=== PATIENT | female | born 1960 | race African-American/Black ===

== ENCOUNTER 2017-12-21 15:10 | Emergency (ER) | payer OTHER ==
[2017-12-21 15:32] VITALS: BMI 58.7
--- NOTE | 2017-12-21 16:41 | PDOC ---
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 She states that the pain began when she stood from bed this morning, describing it as piercing in sensation and 7/10 in severity. She currently endorses a mild lower back pain today, and mild nausea. The patient states that these episodes of chest pain have been intermittent since her release from the hospital last year*, occurring approximately 4x per day. *She was treated for an infection in her left leg secondary to elephantiasis that spread to her heart. Denies recent travel. Denies urinary/bowel changes. Denies fever, chills, vomiting, diarrhea. Denies headache, dizziness. Denies shortness of breath. Allergies: NKDA Social history: Denies alcohol, tobacco Surgical history: supraumbilical ventral hernia Family history: Denies hx of cardiac problems PCP: Dr. Carlos Bar <Julissa Teague - Last Filed: 12/21/17 23:19> <González Quintana - Last Filed: 12/21/17 23:48> - General Chief Complaint: Chest Pain Stated Complaint: CHEST PAIN Past History <Julissa Teague - Last Filed: 12/21/17 23:19> - Past Medical History Anemia: Yes (PAST HX) Asthma: No Cancer: No Cardiac Disorders: No CVA: No COPD: No CHF: No DVT: No Dementia: No Diabetes: No GI Disorders: Yes (CONSTIPATION,HEMORRHOIDS) Disorders: No HTN: No Hypercholesterolemia: No Liver Disease: No Seizures: No Thyroid Disease: No - Surgical History Abdominal Surgery: Yes (SUPRAUMBILICAL VENTRAL HERNIA) Appendectomy: No Cardiac Surgery: No Cholecystectomy: No Lung Surgery: No Neurologic Surgery: No Orthopedic Surgery: No - Immunization History Immunization Up to Date: Yes - Suicide/Smoking/Psychosocial Hx Smoking History: Never smoked Have you smoked in the past 12 months: No Information on smoking cessation initiated: No Hx Alcohol Use: No Drug/Substance Use Hx: No Substance Use Type: None <González Quintana - Last Filed: 12/21/17 23:48> - Past Medical History Allergies/Adverse Reactions: Allergies Allergy/AdvReac Type Severity Reaction Status Date / Time No Known Drug Allergies Allergy Verified 12/21/17 15:32 Home Medications: Ambulatory Orders Ibuprofen 800 mg PO Q6H 17 Review of Systems - Review of Systems Able to Perform ROS?: Yes Comments:: 12/21/17 17:22 ROS: A complete review of 10 out of 10 review of systems is taken and is negative apart from what is previously mentioned below and in the HPI. <Julissa Teague - Last Filed: 12/21/17 23:19> *Physical Exam - Vital Signs Last Vital Signs Temp Pulse Resp BP Pulse Ox 98.5 F 67 16 108/57 100 12/21/17 15:26 12/21/17 15:26 12/21/17 15:26 12/21/17 15:26 12/21/17 15:26 - Physical Exam Comments: 12/21/17 17:25 Vitals: Triage vital signs reviewed General Appearance: No acute distress, well nourished, well developed Head: Atraumatic Eyes: Pupils equal reactive round, extraocular movement intact Neck: Supple; No nuchal rigidity Chest Wall: Nontender Cardiac: Regular rate and rhythm, no murmurs, no rubs, no gallops Lungs: Clear to auscultation bilateral, good air movement bilaterally Abdomen: Soft, nondistended, normal bowel sounds, nontender to palpation Rectal: Exam deferred Extremities: (+)LLE elephantiasis from prior. Full range of motion to all extremities, no cyanosis, clubbing. Psych: Normal mood, normal affect <Julissa Teague - Last Filed: 12/21/17 23:19> - Vital Signs Last Vital Signs Temp Pulse Resp BP Pulse Ox 98.5 F 67 16 108/57 100 12/21/17 15:26 12/21/17 15:26 12/21/17 15:26 12/21/17 15:26 12/21/17 15:26 <González Quintana - Last Filed: 12/21/17 23:48> ED Treatment Course - LABORATORY CBC & Chemistry Diagram: 12/21/17 16:57 12/21/17 16:57 - RADIOLOGY Radiograph Interpretation: 12/21/17 23:19 Chest X-Ray was reviewed by Dr. Quintana and overread by Radiology. Impression: Questionable minimal focal atelectatic changes in the right mid lung, laterally , as described above. Cannot rule out infiltrates. A follow-up chest x-ray in one week is recommended for further evaluation. 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 She states that the pain began when she stood from bed this morning, describing it as piercing in sensation and 7/10 in severity. She currently endorses a mild lower back pain today, and mild nausea. The patient states that these episodes of chest pain have been intermittent since her release from the hospital last year*, occurring approximately 4x per day. *She was treated for an infection in her left leg secondary to elephantiasis that spread to her heart. Denies recent travel. Denies urinary/bowel changes. Denies fever, chills, vomiting, diarrhea. Denies headache, dizziness. Denies shortness of breath. Plan: Cardiac enzymes EKG <Julissa Teague - Last Filed: 12/21/17 23:19> - Medical Decision Making 57 year history of intermittent chest discomfort. Several times a day often with change in position. No radiation no nausea no dizziness no lightheadedness no risk factors for ACS no PE DVT risk factors no family history EKG demonstrates normal sinus rhythm 66 bpm VT interval 198 QRS 108 QTc is 362. No ST elevations or T-wave inversions. Interpreted by me. Heart score 2. Troponin negative. Very low suspicion for ACS Patient does take Motrin daily secondary to lymphedema discomfort may be secondary to gastritis recommend GI follow-up Finalings, need for follow-up and strict return instructions discussed with patient. 12/21/17 23:47 12/21/17 23:47 <González Quintana - Last Filed: 12/21/17 23:48> *DC/Admit/Observation/Transfer - Attestations Scribe Attestion: 12/21/17 17:36 Documentation prepared by Julissa Teague, acting as medical assistant ob gyn for González Quintana MD. <Julissa Teague - Last Filed: 12/21/17 23:19> - Discharge Dispostion Decision to Admit order: No <González Quintana - Last Filed: 12/21/17 23:48> Diagnosis at time of Disposition: Atypical chest pain - Discharge Dispostion Disposition: HOME Condition at time of disposition: Good - Referrals Referrals: Carlos Bar MD [Primary Care Provider] - Mikey Ireland MD [Staff Physician] - Rodger Lucas MD [Staff Physician] - - Patient Instructions Printed Discharge Instructions: DI for Atypical Chest Pain Additional Instructions: Follow-up with Dr. Ireland cardiology Dr. Lucas gastroenterology. Follow-up with her primary care provider next week. Take Tylenol as needed for pain. Return to ED for any severe worsening symptoms or for any concerns. - Post Discharge Activity
[2017-12-21 17:34] LABS: BASO % 1.2 % (0-2.0); EOS % 3.1 % (0-4.5); HEMATOCRIT 37.6 % (32.4-45.2); HEMOGLOBIN 12.3 GM/dL (10.7-15.3); LYMPH % 34.1 % (8-40); MCH 28.1 pg (25.7-33.7); MCHC 32.7 g/dl (32.0-36.0); MEAN CELL VOLUME 85.9 fl (80-96); MEAN PLT VOLUME 7.3 fl (7.5-11.1); NEUT % 53.6 % (42.8-82.8); PLATELET COUNT 347 K/MM3 (134-434); RBC 4.38 M/mm3 (3.60-5.2); RDW 14.5 % (11.6-15.6); WHITE BLOOD COUNT 5.5 K/mm3 (4.0-10.0)
[2017-12-21 18:06] LABS: ALBUMIN 3.1 g/dl (3.4-5.0); ANION GAP 9 MMOL/L (8-16); BILIRUBIN,TOTAL 0.4 mg/dL (0.2-1.0); BLOOD UREA NITROGEN 12 mg/dL (7-18); CALCIUM 9.2 mg/dL (8.5-10.1); CHLORIDE 104 mmol/L (98-107); CO2 27 mmol/L (21-32); CREATININE 0.7 mg/dL (0.55-1.02); GLUCOSE,RANDOM 63 mg/dL (74-106); SGPT/ALT 19 U/L (12-78); SODIUM 140 mmol/L (136-145); TOT PROT 8.9 g/dl (6.4-8.2)
[2017-12-21 18:09] LABS: ALK PHOS 104 U/L (45-117)
[2017-12-21 18:11] LABS: POTASSIUM 4.2 mmol/L (3.5-5.1); SGOT/AST 24 U/L (15-37)
[2017-12-21 19:38] VITALS: BP 129/76; PULSE 61; TEMP 97.9
--- NOTE | 2017-12-25 10:24 | EKG ---
Test Reason : Blood Pressure : / mmHG Vent. Rate : 066 BPM Atrial Rate : 066 BPM P-R Int : 198 ms QRS Dur : 108 ms QT Int : 346 ms P-R-T Axes : 035 050 029 degrees QTc Int : 362 ms NORMAL SINUS RHYTHM INCOMPLETE RIGHT BUNDLE BRANCH BLOCK MINIMAL VOLTAGE CRITERIA FOR LVH, MAY BE NORMAL VARIANT BORDERLINE ECG WHEN COMPARED WITH ECG OF 29-AUG-2007 01:14, NONSPECIFIC T WAVE ABNORMALITY, WORSE IN INFERIOR LEADS NONSPECIFIC T WAVE ABNORMALITY NOW EVIDENT IN ANTERIOR LEADS QT HAS SHORTENED Confirmed by STAN TEE, YUAN ([id number]) on 12/25/2017 10:24:34 AM Referred By: Confirmed By:YUAN PIERCE MD
== END 2017-12-21 19:37 | disposition home or self-care (01) ==
LOC: JER 15:10
DX: R07.9 Chest pain, unspecified (principal); I89.0 Lymphedema, not elsewhere classified; Z86.2 Personal history of diseases of the blood and blood-forming organs and certain disorders involving the immune mechanism
CPT/HCPCS: 36415; 71045-TC-FY; 80053; 84484; 85025; 93005; 93010; 99284-25; G0463-25

== ENCOUNTER 2018-01-16 18:14 | Inpatient (IN) | payer OTHER ==
--- NOTE | 2018-01-16 18:37 | PDOC ---
Rapid Medical Evaluation Chief Complaint: Wound Time Seen by Provider: 01/16/18 18:33 Medical Evaluation: Allergies Allergy/AdvReac Type Severity Reaction Status Date / Time No Known Drug Allergies Allergy Verified 12/21/17 15:32 01/16/18 18:34 I have performed a brief in person evaluation of this patient. The patient presents with a CC of: wound HPI: Pt is a 57 YO female with a hx of lymphedema and is followed by the wound clinic and she states that her wounds in her LLE are "painful." Pt describes the pain as a throb and she rates it at a 8/10. PE: Skin:Unable to access due to leggings. Heart: RRR Lungs: Clear MS: Moves all extremities without difficulty. LLE is edmatous in comparison to the RLE Neuro: Appropriate affect, Psych: appropriate affect I have ordered: basic labs The patient will proceed to the ED for further evaluation. Discharge Disposition - Diagnosis Wound cellulitis - Referrals Referrals: Carlos Bar MD [Primary Care Provider] - - Patient Instructions - Post Discharge Activity
[2018-01-16 18:46] VITALS: BMI 25.8
--- NOTE | 2018-01-16 19:16 | PDOC ---
Attending Attestation - Resident Resident Name: Wilmar Pena - ED Attending Attestation I have performed the following: I have examined & evaluated the patient, The case was reviewed & discussed with the resident, I agree w/resident's findings & plan, Exceptions are as noted - HPI HPI: 01/16/18 19:14 57yo F hx LLE lymphedema presents with increasing swelling and discharge from LLE over the last week. Pt reports seeing wound care at [facility], last seen on 12/28. Pt also reports fishy smell from her leg. Came today as pain was too much to bear. She states she feels as though her leg is infected. She cleans her wound once a day with soap. States discharge is so copious that she has been applying menstrual pads, but states she soaks through them after a few hours. She notes two large wounds on her arceo that have recently joined into one. + subjective fevers. No chills. Denies CP, SOB, abd pain, N/V/D, headache, focal weakness/numbness. - Physicial Exam PE: 01/16/18 19:37 agree with resident exam - Medical Decision Making 01/16/18 19:38 57yo F hx lymphedema p/w increasing swelling, redness, odor. VS wnl. Exam c/f cellulitic wound. Will obtain US to r/o DVT, give IV abx and admit.
[2018-01-16] MEDS ORDERED: PIPERACILLIN/TAZOB 3.375 GM 3.375 GM in DEXTROSE 5%-WATER - 50 ML IVPB ONE (19:26)
[2018-01-16] MEDS ORDERED: VANCOMYCIN 1,000 MG in DEXTROSE 5%-WATER - 250 ML IVPB ONE (19:26)
--- NOTE | 2018-01-16 20:08 | PDOC ---
History of Present Illness - General Chief Complaint: Wound Stated Complaint: LEFT LEG PAIN Time Seen by Provider: 01/16/18 18:33 History Source: Patient Exam Limitations: No Limitations - History of Present Illness Initial Comments: 01/16/18 20:31 Patient is a 57F with history of lymphedema of the left leg and uterine fibroids here today complaining of left leg pain. She has had large amounts of lymphedema in her left leg for years, but is coming in today because the swelling has increased and the skin has started breaking down along the lower leg. Patient also complains of associated foul odor and discharge from the wound. Patient denies fevers, chills, nausea, vomiting. Patient denies chest pain and shortness of breath. Patient states that she goes to wound care, but hasn't been for two weeks and states they have just been washing her wounds. Past History - Past Medical History Allergies/Adverse Reactions: Allergies Allergy/AdvReac Type Severity Reaction Status Date / Time No Known Drug Allergies Allergy Verified 01/16/18 18:34 Home Medications: Ambulatory Orders Ibuprofen [Motrin -] 800 mg PO QID PRN 01/16/18 Anemia: Yes (PAST HX) Asthma: No Cancer: No Cardiac Disorders: No CVA: No COPD: No CHF: No DVT: No Dementia: No Diabetes: No GI Disorders: Yes (CONSTIPATION,HEMORRHOIDS) Disorders: No HTN: No Hypercholesterolemia: No Liver Disease: No Seizures: No Thyroid Disease: No - Surgical History Abdominal Surgery: Yes (SUPRAUMBILICAL VENTRAL HERNIA) Appendectomy: No Cardiac Surgery: No Cholecystectomy: No Lung Surgery: No Neurologic Surgery: No Orthopedic Surgery: No - Immunization History Immunization Up to Date: Yes - Suicide/Smoking/Psychosocial Hx Smoking History: Never smoked Have you smoked in the past 12 months: No Hx Alcohol Use: No Drug/Substance Use Hx: No Substance Use Type: None Review of Systems - Review of Systems Comments:: 01/16/18 20:35 GENERAL/CONSTITUTIONAL: No fever or chills. No weakness. HEAD, EYES, EARS, NOSE AND THROAT: No change in vision. No sore throat. CARDIOVASCULAR: No chest pain or shortness of breath RESPIRATORY: No cough, wheezing, or hemoptysis. GASTROINTESTINAL: No nausea, vomiting, diarrhea or constipation. GENITOURINARY: No dysuria, frequency, or change in urination. MUSCULOSKELETAL: No joint or muscle swelling or pain. No neck or back pain. SKIN: No rash, +wound NEUROLOGIC: No headache, vertigo, loss of consciousness, or change in strength/ sensation. ENDOCRINE: No increased thirst. No abnormal weight change HEMATOLOGIC/LYMPHATIC: No anemia, easy bleeding, or history of blood clots. ALLERGIC/IMMUNOLOGIC: No hives or skin allergy. *Physical Exam - Vital Signs Last Vital Signs Temp Pulse Resp BP Pulse Ox 98.7 F 60 16 123/71 100 01/16/18 18:35 01/16/18 18:35 01/16/18 18:35 01/16/18 18:35 01/16/18 18:35 - Physical Exam Comments: 01/16/18 20:35 GENERAL: Awake, alert, and fully oriented, in no acute distress L LEG: Markedly swollen left leg with signs of chronic inflammation including thickening of skin along medial aspect and skin breakdown around the distal leg , foul odor, discharge. HEAD: No signs of trauma, normocephalic, atraumatic EYES: PERRLA, EOMI, sclera anicteric, conjunctiva clear ENT: Auricles normal inspection, hearing grossly normal, nares patent, oropharynx clear without exudates. Moist mucosa NECK: Normal ROM, supple, no lymphadenopathy, JVD, or masses LUNGS: No distress, speaks full sentences, clear to auscultation bilaterally HEART: Regular rate and rhythm, normal S1 and S2, no murmurs, rubs or gallops, peripheral pulses normal and equal bilaterally. ABDOMEN: Soft, nontender, normoactive bowel sounds. No guarding, no rebound. No masses NEUROLOGICAL: Cranial nerves II through XII grossly intact. Normal speech, normal gait, no focal sensorimotor deficits SKIN: Warm, Dry, normal turgor, no rashes or lesions noted. ED Treatment Course - LABORATORY CBC & Chemistry Diagram: 01/16/18 19:30 01/16/18 19:30 - RADIOLOGY Radiology Studies Ordered: Category Date Time Status DUPLEX VASCUL US-1 LEG [US] Stat Ultrasound 01/16/18 19:27 Ordered Medical Decision Making - Medical Decision Making 01/16/18 20:36 Patient is 57F with history of lymphedema here today with leg pain, wound infection. Vitals normal and stable. Will cover with vanc/zosyn, do DVT US to prove increased swelling not caused by DVT. Wound was dressed with notebook paper and paper towel, patient is not capable of caring for this wound as outpatient. 01/16/18 21:14 CBC, CMP unremarkable. Pending DVT US study. 01/16/18 22:04 D/W Leela Wesley. [facility]. *DC/Admit/Observation/Transfer Diagnosis at time of Disposition: Wound cellulitis - Discharge Dispostion Condition at time of disposition: Stable Decision to Admit order: Yes - Referrals Referrals: Carlos Bar MD [Primary Care Provider] - - Patient Instructions - Post Discharge Activity
[2018-01-16] MEDS ORDERED: PIPERACILLIN/TAZOB 3.375 GM 3.375 GM/50 ML BAG IVPB ONE (20:16)
[2018-01-16] MEDS ORDERED: VANCOMYCIN 1 GRAM (PRE-DOCKED) 1,000 MG/250 ML BAG IVPB ONE (20:16)
[2018-01-16 20:21] LABS: BASO % 0.9 % (0-2.0); EOS % 4.8 % (0-4.5); HEMATOCRIT 33.5 % (32.4-45.2); HEMOGLOBIN 10.9 GM/dL (10.7-15.3); LYMPH % 31.4 % (8-40); MCH 27.9 pg (25.7-33.7); MCHC 32.4 g/dl (32.0-36.0); MEAN PLT VOLUME 6.9 fl (7.5-11.1); MONO % 12.1 % (3.8-10.2); NEUT % 50.8 % (42.8-82.8); PLATELET COUNT 343 K/MM3 (134-434); RDW 14.3 % (11.6-15.6); WHITE BLOOD COUNT 6.6 K/mm3 (4.0-10.0)
[2018-01-16 20:43] LABS: ANION GAP 9 MMOL/L (8-16); BLOOD UREA NITROGEN 12 mg/dL (7-18); CHLORIDE 104 mmol/L (98-107); CO2 27 mmol/L (21-32); CREATININE 0.7 mg/dL (0.55-1.3); GLUCOSE,RANDOM 90 mg/dL (74-106); POTASSIUM 4.3 mmol/L (3.5-5.1); SODIUM 140 mmol/L (136-145)
[2018-01-16 20:52] LABS: CALCIUM 8.9 mg/dL (8.5-10.1)
[2018-01-16] MEDS ORDERED: ACETAMINOPHEN INJECTION 100 ML IVPB ONE (22:54)
[2018-01-16] MEDS ORDERED: ACETAMINOPHEN 1000 MG/100 ML VIAL (NON FORMULARY) IVPB ONE (23:13)
--- NOTE | 2018-01-16 23:44 | HP ---
CHIEF COMPLAINT: Left Leg Pain, Weeping Wounds to LLE PCP: Dr. Carlos Bar HISTORY OF PRESENT ILLNESS: 57 y/o woman with a past medical history Chronic LLE Lymphedema, Uterine Fibroids. Who presents to the ED with increased pain and weeping wounds to her left leg x 1-2 weeks. Patient reports going to a wound center for treatment- dressing changes. Patient reports noting a "fishy odor" from her leg, with increased drainage. Patient reports having intermittent CP to midsternum with cramping type pain which she attributes to opening and closing a heavy window at home. Patient denies radiation, SOB or palpitations at present. Patient denies chills, SOB, DUDLEY, AP, N/V/D, constipation, dysuria. ER course was notable for: (1) Duplex LE- neg DVT (2) (3) Recent Travel: None PAST MEDICAL HISTORY: See HPI PAST SURGICAL HISTORY: Social History: Smoking: Never Alcohol: None Drugs: None Family History: Allergies No Known Drug Allergies Allergy (Verified 01/16/18 18:34) HOME MEDICATIONS: Home Medications Medication Instructions Recorded Ibuprofen [Motrin -] 800 mg PO QID PRN 01/16/18 REVIEW OF SYSTEMS CONSTITUTIONAL: fever Absent: chills, diaphoresis, generalized weakness, malaise, loss of appetite, weight change HEENT: Absent: rhinorrhea, nasal congestion, throat pain, throat swelling, difficulty swallowing, mouth swelling, ear pain, eye pain, visual changes CARDIOVASCULAR: chest pain, lightheadedness, peripheral edema Absent: syncope, palpitations, irregular heart rate RESPIRATORY: Absent: cough, shortness of breath, dyspnea with exertion, orthopnea, wheezing, stridor, hemoptysis GASTROINTESTINAL: Absent: abdominal pain, abdominal distension, nausea, vomiting, diarrhea, constipation, melena, hematochezia GENITOURINARY: Absent: dysuria, frequency, urgency, hesitancy, hematuria, flank pain, genital pain MUSCULOSKELETAL: myalgia, leg pain Absent: arthralgia, joint swelling, back pain, neck pain SKIN: Absent: rash, itching, pallor HEMATOLOGIC/IMMUNOLOGIC: Absent: easy bleeding, easy bruising, lymphadenopathy, frequent infections ENDOCRINE: Absent: unexplained weight gain, unexplained weight loss, heat intolerance, cold intolerance NEUROLOGIC: Absent: headache, focal weakness or paresthesias, dizziness, unsteady gait, seizure, mental status changes, bladder or bowel incontinence PSYCHIATRIC: Absent: anxiety, depression, suicidal or homicidal ideation, hallucinations. PHYSICAL EXAMINATION Vital Signs - 24 hr 01/16/18 01/16/18 18:35 22:48 Temperature 98.7 F Pulse Rate 60 Pulse Rate [ 80 Apical] Respiratory 16 18 Rate Blood Pressure 123/71 Blood Pressure 103/57 [Left Arm] O2 Sat by Pulse 100 99 Oximetry (%) GENERAL: Awake, alert, and fully oriented, in no acute distress. HEAD: Normal with no signs of trauma. EYES: Pupils equal, round and reactive to light, extraocular movements intact, sclera anicteric, conjunctiva clear. No lid lag. EARS, NOSE, THROAT: Ears normal, nares patent, oropharynx clear without exudates. Moist mucous membranes. NECK: Normal range of motion, supple without lymphadenopathy, JVD, or masses. LUNGS: Breath sounds equal, clear to auscultation bilaterally. No wheezes, and no crackles. No accessory muscle use. HEART: Regular rate and rhythm, normal S1 and S2 without murmur, rub or gallop. CP reproducible upon palpation ABDOMEN: Soft, nontender, not distended, normoactive bowel sounds, no guarding, no rebound, no masses. No hepatomegaly or splenomegaly. MUSCULOSKELETAL: Normal range of motion at all joints. No bony deformities or tenderness. No CVA tenderness. UPPER EXTREMITIES: 2+ pulses, warm, well-perfused. No cyanosis. No clubbing. No peripheral edema. LOWER EXTREMITIES: 2+ pulses, warm, well-perfused. No calf tenderness.no peripheral edema to RLE +chronic lymphedema to LLE NEUROLOGICAL: Cranial nerves II-XII intact. Normal speech. Gait not observed. PSYCHIATRIC: Cooperative. Good eye contact. Appropriate mood and affect. SKIN: Warm, dry, normal turgor, no rashes or lesions noted, normal capillary refill. unstageable wounds to LLE with yellow- serous drainage, +malodorous Laboratory Results - last 24 hr 01/16/18 01/16/18 19:30 19:30 WBC 6.6 RBC 3.90 Hgb 10.9 Hct 33.5 MCV 86.0 MCH 27.9 MCHC 32.4 RDW 14.3 Plt Count 343 MPV 6.9 L Absolute Neuts (auto) 3.4 Neutrophils % 50.8 Lymphocytes % 31.4 Monocytes % 12.1 H Eosinophils % 4.8 H Basophils % 0.9 Nucleated RBC % 0 Sodium 140 Potassium 4.3 Chloride 104 Carbon Dioxide 27 Anion Gap 9 BUN 12 Creatinine 0.7 Creat Clearance w eGFR > 60 Random Glucose 90 Calcium 8.9 ASSESSMENT/PLAN: This is a 57 y/o woman with Chronic LLE Lyphedema, Uterine Fibroids. Admitted for Left Leg Cellulitis, Chronic Vascular Wounds for further evaluation of their emergent condition. Plan: Will admit to M/S 1. ID: LLE Cellulitis Chronic Venous Stasis Ulcers Likely pseudomonal r/o DVT Wells Score 3 Blood Cultures-pending Wound Culture-pending Vancomycin, Zosyn given in ED, elmo continue Appreciate ID consult Appreciate Vascular consult Wound Care Consider Hyperbaric Therapy Elevate Extremity Tylenol prn Repeat CBCD, BMP in am 2. Card: Chest Pain Likely muscular secondary to lifting/opening heavy window on exam: CP reproducible Trop x1-pending EKG ordered- showed SR with first degree AV block, no ST or TWI noted Tramadol x1 now Consider Cardiology consult if condition worsens FEN - Tolerates PO fluids - Replete lytes prn - Low Na Diet DVT ppx - OOB - Heparin SQ Code Status: Full Code Dispo: Requires Inpatient Care Problem List - Problem (1) Wound cellulitis Code(s): L03.90 - CELLULITIS, UNSPECIFIED (2) Leg ulcer, left Code(s): L97.929 - NON-PRS CHRONIC ULC UNSP PRT OF L LOW LEG W UNSP SEVERITY (3) Leg wound, left Code(s): S81.802A - UNSPECIFIED OPEN WOUND, LEFT LOWER LEG, INITIAL ENCOUNTER (4) Lymphedema Code(s): I89.0 - LYMPHEDEMA, NOT ELSEWHERE CLASSIFIED Visit type - Emergency Visit Emergency Visit: Yes ED Registration Date: 01/16/18 Care time: The patient presented to the Emergency Department on the above date and was hospitalized for further evaluation of their emergent condition. - New Patient This patient is new to me today: Yes Date on this admission: 01/16/18 - Critical Care Critical Care patient: No Hospitalist Screening - Colonoscopy Questionnaire Colonoscopy Questionnaire: Colonoscopy Questionnaire - Patient: 50 - 75 years old and never had a screening colonoscopy: No History of colon or rectal polyps, or CA: No History of IBD, Crohn's disease or UC: No History of abdominal radiation therapy as a child: No - Relative: 1 with colon or rectal CA, or polyps at age 60 or younger: No Colon or rectal CA diagnosed at age 45 or younger: No Multiple relatives with colon or rectal CA: No - Outcome: Screening Result: Negative Screen
[2018-01-16] MEDS ORDERED: ACETAMINOPHEN 325 MG TABLET (FP) PO PRN (23:50)
[2018-01-17] MEDS ORDERED: traMADol HCL 50 MG TABLET PO ONE (03:54)
[2018-01-17] MEDS ORDERED: DEXTROSE 5%-WATER - 50 ML IVPB ONE ×2 (05:22→13:56)
[2018-01-17] MEDS ORDERED: PIPERACILLIN/TAZOBACTAM 3.375 GM VIAL IVPB ONE ×2 (05:22→13:56)
[2018-01-17] MEDS: PIPERACILLIN/TAZOB 3.375 GM 3.375 GM in DEXTROSE 5%-WATER - 50 ML IVPB SCH ×2 (05:39→13:59)
[2018-01-17 08:00] LABS: BASO % 1.2 % (0-2.0); EOS % 3.2 % (0-4.5); HEMATOCRIT 30.1 % (32.4-45.2); HEMOGLOBIN 9.7 GM/dL (10.7-15.3); LYMPH % 25.7 % (8-40); MCH 27.4 pg (25.7-33.7); MCHC 32.2 g/dl (32.0-36.0); MEAN CELL VOLUME 85.2 fl (80-96); MONO % 10.6 % (3.8-10.2); NEUT % 59.3 % (42.8-82.8); PLATELET COUNT 321 K/MM3 (134-434); RBC 3.54 M/mm3 (3.60-5.2); RDW 14.3 % (11.6-15.6); WHITE BLOOD COUNT 6.3 K/mm3 (4.0-10.0)
[2018-01-17 08:20] LABS: CHLORIDE 108 mmol/L (98-107); POTASSIUM 4.2 mmol/L (3.5-5.1); SODIUM 140 mmol/L (136-145)
[2018-01-17 08:27] LABS: ANION GAP 5 MMOL/L (8-16); BLOOD UREA NITROGEN 10 mg/dL (7-18); CALCIUM 8.1 mg/dL (8.5-10.1); CO2 27 mmol/L (21-32); CREATININE 0.6 mg/dL (0.55-1.3); GLUCOSE,RANDOM 80 mg/dL (74-106)
[2018-01-17] MEDS ORDERED: DOCUSATE SODIUM 100 MG CAPSULE (FP) PO PRN (08:49)
--- NOTE | 2018-01-17 08:49 | PN ---
Progress Note, Physician Chief Complaint: AWAKE ALERT IN MILD-MODERATE DISTRESS FROM LEFT LOWER EXTREMITY LYMPHEDEMA INFECTION - Current Medication List Current Medications: Active Medications Acetaminophen (Tylenol -) 650 mg PO Q6H PRN PRN Reason: PAIN OR FEVER Heparin Sodium (Porcine) (Heparin -) 5,000 unit SQ BID MAIKEL Vancomycin HCl 1,250 mg/ (Dextrose) 250 mls @ 250 mls/2 hr IVPB Q24H MAIKEL; Protocol Piperacillin Sod/Tazobactam (Sod 3.375 gm/ Dextrose) 50 mls @ 100 mls/hr IVPB Q8H-IV MAIKEL; Protocol Piperacillin Sod/Tazobactam (Sod 3.375 gm/ Dextrose) 50 mls @ 100 mls/hr IVPB Q8H MAIKEL Stop: 01/17/18 14:29 Last Admin: 01/17/18 05:39 Dose: 100 mls/hr - Objective Vital Signs: Vital Signs Temperature 99.2 F 01/17/18 06:22 Pulse Rate 80 01/17/18 06:22 Respiratory Rate 20 01/17/18 06:22 Blood Pressure 122/80 01/17/18 06:22 O2 Sat by Pulse Oximetry (%) 99 01/16/18 22:48 Constitutional: Yes: Mild Distress Eyes: Yes: WNL HENT: Yes: WNL Neck: Yes: WNL Cardiovascular: Yes: WNL Respiratory: Yes: WNL Gastrointestinal: Yes: WNL Genitourinary: Yes: WNL Musculoskeletal: Yes: Other Extremities: Yes: Deformity, Erythema Edema: Yes Edema: LLE: 4+ Integumentary: Yes: Erythema, Pressure Ulcer, Skin Tear Wound/Incision: Yes: Open to air, Draining, Excoriated Neurological: Yes: Other ...Motor Strength: LLE Psychiatric: Yes: WNL Labs: CBC, BMP 01/17/18 07:10 01/17/18 07:10 Problem List - Problems (1) Wound cellulitis Code(s): L03.90 - CELLULITIS, UNSPECIFIED (2) Leg ulcer, left Code(s): L97.929 - NON-PRS CHRONIC ULC UNSP PRT OF L LOW LEG W UNSP SEVERITY (3) Leg wound, left Code(s): S81.802A - UNSPECIFIED OPEN WOUND, LEFT LOWER LEG, INITIAL ENCOUNTER (4) Lymphedema Code(s): I89.0 - LYMPHEDEMA, NOT ELSEWHERE CLASSIFIED Assessment/Plan IV ABX PER ID WOUND CARE VASCULAR SURGERY EVAL DVT PROPHYLAXIS PATIENT NEEDS TO ATTEND CHRONIC LYMPHEDEMA CLINIC FOR CARE AND MAINTENANCE
[2018-01-17] MEDS ORDERED: PT OWN MED DRAWER 7, Y5N ONE ×2 (09:18→22:55)
--- NOTE | 2018-01-17 09:46 | CONSULT ---
- Consultation REQUESTING PROVIDER: CONSULT REQUEST: We have been asked to surgically evaluate this patient for ( LLE elephantitis/open wound). PCP:Jj Lebron HISTORY OF PRESENT ILLNESS: 57 y/o F w/ PMhx chronic LLE elephantitis/lymphadema , now a/w chest pain and increased LLE pain and wound drainage. Pt states she has had chronic wounds on her LLE for the past few months managed with wet to dry dressings by her retirement plan specialist, Dr Duckworth. Reports increased pain and drainage from her wounds over the past few days as well as a "fishy"odor. States drainage has been "very yellow and thickened". Reports doing bid dressing changes at home. Endorses chills at home, denies fevers. Denies prior surgeries to LLE, relays an admission one year ago to [facility] for an infection which began in her LLE and lead to a 2 month hospitalization/icu stay (?sepsis). PMHx: lle elephantitis/lymphadema PSHx: Home Medications Medication Instructions Recorded Ibuprofen [Motrin -] 800 mg PO QID PRN 01/16/18 Allergies Allergy/AdvReac Type Severity Reaction Status Date / Time No Known Drug Allergies Allergy Verified 01/16/18 18:34 REVIEW OF SYSTEMS: CONSTITUTIONAL: + chills at home, +myalgias CARDIOVASCULAR: + chest pain Ext: + increased edema/pain/drainage to lle PSYCHIATRIC: Reports increased depression due to lle PHYSICAL EXAM: GENERAL: Awake, alert, and fully oriented, in no acute distress. HEAD: Normal with no signs of trauma. LOWER EXTREMITIES: RLE wnl, no edema no open ulcerations. LLE with +elephantitis /lymphadema throughout. 8x10 wound to lateral aspect overlying distal tib/fib. Wound bed granulated no necrotic tissue or fibrinous exudate. + moderate serous output. Adjacent 4x2 ulceration with moderate fibrinous exudate, minimal serous drainage. Small island of skin connecting adjacent 2x2 wound with mild fibrinous exudate and serous drainage. No surrounding erythema or purulent drainage visualized. Small 1x1 area of macerated tissue at posteriolateral aspect of lle with clean wound bed. + hyperkeratosis and chronic skin changes throughout lle. No erythema or increased warmth appreciated. No crepitus or palpable abscess appreciated. Palpable pulses b/l. NEUROLOGICAL: Normal speech PSYCH: Cooperative. Good eye contact. Appropriate mood and affect. Vital Signs Temperature 99.2 F 01/17/18 06:22 Pulse Rate 80 01/17/18 06:22 Respiratory Rate 20 01/17/18 06:22 Blood Pressure 122/80 01/17/18 06:22 O2 Sat by Pulse Oximetry (%) 99 01/16/18 22:48 Lab Results WBC 6.3 K/mm3 (4.0-10.0) 01/17/18 07:10 RBC 3.54 M/mm3 (3.60-5.2) L 01/17/18 07:10 Hgb 9.7 GM/dL (10.7-15.3) L 01/17/18 07:10 Hct 30.1 % (32.4-45.2) L 01/17/18 07:10 MCV 85.2 fl (80-96) 01/17/18 07:10 MCHC 32.2 g/dl (32.0-36.0) 01/17/18 07:10 RDW 14.3 % (11.6-15.6) 01/17/18 07:10 Plt Count 321 K/MM3 (134-434) 01/17/18 07:10 Sodium 140 mmol/L (136-145) 01/17/18 07:10 Potassium 4.2 mmol/L (3.5-5.1) 01/17/18 07:10 Chloride 108 mmol/L (98-107) H 01/17/18 07:10 Carbon Dioxide 27 mmol/L (21-32) 01/17/18 07:10 Anion Gap 5 MMOL/L (8-16) L 01/17/18 07:10 BUN 10 mg/dL (7-18) 01/17/18 07:10 Creatinine 0.6 mg/dL (0.55-1.3) 01/17/18 07:10 Random Glucose 80 mg/dL (74-106) 01/17/18 07:10 Calcium 8.1 mg/dL (8.5-10.1) L 01/17/18 07:10 A/P: 57 y/o F w/ h/o lle elephantitis/lymphadema and chronic wounds, now a/w cp and increased pain/drainage from lle wounds. LLE wounds appear chronic, no clinical concern for infection at this time. Duplex negative for dvt on admission. Wound care with santyl to medial wounds, Ca Alginate to lateral wound, cover with 4x4 and kerlix, change bid F/U Blood Cultures-pending Abx per ID Remainder of care per primary team above d/w attending Dr Gao
[2018-01-17] MEDS ORDERED: VANCOMYCIN 1,250 MG in DEXTROSE 5%-WATER - 250 ML IVPB SCH (10:00)
[2018-01-17] MEDS: HEPARIN NA (PORCINE) 5,000 UNITS/ML 1ML VIAL SQ SCH ×2 (10:57→22:22)
--- NOTE | 2018-01-17 12:33 | PN ---
Progress Note (short form) - Note Progress Note: ID Consult dictated Infected L leg ulcer/ cellulitis Chronic lymphedema Await c/s Empiric cefazolin Local wound care
[2018-01-17] MEDS: CEFAZOLIN 2 GM/D5W 2 GM/50 ML ML IVPB SCH ×2 (12:57→17:46)
--- NOTE | 2018-01-17 13:36 | EKG ---
Test Reason : Blood Pressure : / mmHG Vent. Rate : 070 BPM Atrial Rate : 070 BPM P-R Int : 212 ms QRS Dur : 100 ms QT Int : 368 ms P-R-T Axes : 017 068 047 degrees QTc Int : 397 ms SINUS RHYTHM WITH 1ST DEGREE A-V BLOCK OTHERWISE NORMAL ECG WHEN COMPARED WITH ECG OF 21-DEC-2017 15:21, INCOMPLETE RIGHT BUNDLE BRANCH BLOCK IS NO LONGER PRESENT Confirmed by ALCON TEE, DASHAWN ([id number]) on 01/17/2018 1:36:22 PM Referred By: EDEL QUINTEROS Confirmed By:DASHAWN RONDON MD
[2018-01-17] MEDS: COLLAGENASE CLOSTRIDIUM HIST. 30 GRAMS TUBE TP SCH ×2 (14:30→18:47)
--- NOTE | 2018-01-17 15:19 | CONSULT ---
Consult Consult Specialty:: vascular surgery Reason for Consultation:: Lymphedema left lower ext with ulcers - History Source Limitations to Obtaining History: No Limitations - Past Medical History ...LMP: 11/26/14 - Alcohol/Substance Use Hx Alcohol Use: No - Smoking History Smoking history: Never smoked Have you smoked in the past 12 months: No Home Medications - Allergies Allergies/Adverse Reactions: Allergies Allergy/AdvReac Type Severity Reaction Status Date / Time No Known Drug Allergies Allergy Verified 01/16/18 18:34 - Home Medications Home Medications: Ambulatory Orders Ibuprofen [Motrin -] 800 mg PO QID PRN 01/16/18 Review of Systems - Review of Systems Constitutional: reports: No Symptoms Eyes: reports: No Symptoms HENT: reports: No Symptoms Neck: reports: No Symptoms Cardiovascular: reports: No Symptoms Respiratory: reports: No Symptoms Gastrointestinal: reports: No Symptoms Musculoskeletal: reports: No Symptoms Integumentary: reports: No Symptoms Neurological: reports: No Symptoms Endocrine: reports: No Symptoms Hematology/Lymphatic: reports: No Symptoms Psychiatric: reports: No Symptoms Physical Exam Vital Signs: Vital Signs Temperature 98.4 F 01/17/18 14:31 Pulse Rate 74 01/17/18 14:31 Respiratory Rate 18 01/17/18 14:31 Blood Pressure 98/60 01/17/18 14:31 O2 Sat by Pulse Oximetry (%) 99 01/16/18 22:48 Constitutional: Yes: Well Nourished, No Distress, Calm Eyes: Yes: WNL, Conjunctiva Clear, EOM Intact HENT: Yes: WNL, Atraumatic, Normocephalic Neck: Yes: WNL, Supple, Trachea Midline Cardiovascular: Yes: WNL, Regular Rate and Rhythm Respiratory: Yes: WNL, Regular, CTA Bilaterally Gastrointestinal: Yes: WNL, Normal Bowel Sounds ...Rectal Exam: Yes: WNL Renal/: Yes: WNL Breast(s): Yes: WNL Musculoskeletal: Yes: WNL Extremities: Yes: WNL, Other (LLE ulcers with weeping Lymphedema) Edema: Yes Edema: LLE: 4+ Peripheral Pulses WNL: Yes Integumentary: Yes: WNL Neurological: Yes: WNL, Alert, Oriented ...Motor Strength: WNL Psychiatric: Yes: WNL Labs: CBC, BMP 01/17/18 07:10 01/17/18 07:10 Problem List - Problems (1) Leg ulcer, left Assessment/Plan: Left lower ext lymphedema with ulcers 1. Santyl to lle ulcers with compression with sapna 2. IV antibiotics 3. Pt has new lymphedema pump coming when she gets home. She should use the machine 30 min in the am , and 30 min in the pm. Follow up in wound care clinic [facility] Code(s): L97.929 - NON-PRS CHRONIC ULC UNSP PRT OF L LOW LEG W UNSP SEVERITY (2) Lymphedema Code(s): I89.0 - LYMPHEDEMA, NOT ELSEWHERE CLASSIFIED
[2018-01-18] MEDS: CEFAZOLIN 2 GM/D5W 2 GM/50 ML ML IVPB SCH ×3 (01:17→17:08)
--- NOTE | 2018-01-18 01:31 | CONS ---
DATE OF CONSULTATION: DATE OF DICTATION: 01/17/2018 A 57-year-old female with a longstanding history of chronic lymphedema of the left lower extremity, evaluated for cellulitis and infected leg ulcer. She was admitted to the hospital on January 16, 2018, with increasing left lower extremity swelling, pain, and malodorous discharge. She was seen in the emergency room where a Doppler examination was performed and was negative for DVT. The patient was noted to have an ulceration of the distal left lower extremity with malodorous serous drainage. She denies any associated fever or chills. She is followed in the wound care center. Most recent wound cultures from August of 2017 grew Staphylococcus aureus and Carinii bacterium. PAST MEDICAL HISTORY: Positive for chronic lymphedema of the left lower extremity. She reports this is the results of a paracytic infection as a young person in [place]. ALLERGIES: No known allergies. MEDICATIONS: Include Tylenol, heparin, Colace, oxycodone, vancomycin, Zosyn. SOCIAL HISTORY: She resides in the community. She is a nonsmoker, nondrinker. REVIEW OF SYSTEMS: Neurologic: No loss of consciousness, seizure activity, focal weakness. Cardiac: Negative chest pain or palpitations. Respiratory: Negative cough or sputum production. Gastrointestinal: Negative vomiting or diarrhea. Genitourinary: Negative for urinary tract infection. LABORATORY DATA: White count 6.3, hematocrit 30.1, platelet count 321, creatinine is 0.6. Blood and wound cultures are pending. PHYSICAL EXAMINATION: General: She is awake and alert. She is not acutely toxic appearing. Vital Signs: Temperature is 98.5, blood pressure 106/65, pulse 69 and regular, respirations 20 per minute. HEENT: Sclerae anicteric. Heart Sounds: S1, S2. Lungs: Clear. Abdomen: Soft and nontender. Extremities: Examination of the left lower extremity, there is lymphedema involving the left lower extremity. There was a large ulceration present distally with malodorous serous drainage noted. No appreciable erythema. No crepitus or fluctuance. IMPRESSION: 1. Infected left leg ulcer/cellulitis. 2. Chronic lymphedema of the left lower extremity. PLAN: Await cultures. Empiric cephazolin 2 g IV piggy back every 8 hours in conjunction with local wound care. Vascular evaluation will follow. Thank you for the kind referral. HEIDI SEWELL M.D. [id number]
--- NOTE | 2018-01-18 09:03 | PN ---
Progress Note, Physician Chief Complaint: AWAKE ALERT NAD - Current Medication List Current Medications: Active Medications Acetaminophen (Tylenol -) 650 mg PO Q6H PRN PRN Reason: PAIN OR FEVER Collagenase (Santyl -) 1 applic TP DAILY [facility]; Protocol Last Admin: 01/17/18 18:47 Dose: Not Given Docusate Sodium (Colace -) 100 mg PO Q8H PRN PRN Reason: CONSTIPATION Heparin Sodium (Porcine) (Heparin -) 5,000 unit SQ BID [facility] Last Admin: 01/17/18 22:22 Dose: 5,000 unit Cefazolin Sodium/Dextrose (Ancef 2 Gm Premixed Ivpb -) 2 gm in 50 mls @ 100 mls /hr IVPB Q8H-IV [facility] Last Admin: 01/18/18 01:17 Dose: 100 mls/hr Oxycodone HCl (Roxicodone -) 5 mg PO Q6H PRN PRN Reason: PAIN LEVEL 7 - 10 - Objective Vital Signs: Vital Signs Temperature 98.7 F 01/18/18 06:40 Pulse Rate 68 01/18/18 06:40 Respiratory Rate 20 01/18/18 06:40 Blood Pressure 124/70 01/18/18 06:40 O2 Sat by Pulse Oximetry (%) 99 01/17/18 21:00 Constitutional: Yes: No Distress Eyes: Yes: WNL HENT: Yes: WNL Neck: Yes: WNL Cardiovascular: Yes: WNL Respiratory: Yes: WNL Gastrointestinal: Yes: WNL Genitourinary: Yes: WNL Musculoskeletal: Yes: Other Extremities: Yes: Deformity Edema: Yes Edema: LLE: 4+ Integumentary: Yes: Pressure Ulcer, Skin Tear, Venous Stasis Changes Wound/Incision: Yes: Dressing Dry and Intact Neurological: Yes: Other ...Motor Strength: LLE (4+LYMPHEDEMA WITH ULCERATIONS AND REDDENING DISCHARGE) Psychiatric: Yes: WNL Labs: CBC, BMP 01/17/18 07:10 01/17/18 07:10 Problem List - Problems (1) Wound cellulitis Code(s): L03.90 - CELLULITIS, UNSPECIFIED (2) Leg ulcer, left Code(s): L97.929 - NON-PRS CHRONIC ULC UNSP PRT OF L LOW LEG W UNSP SEVERITY (3) Leg wound, left Code(s): S81.802A - UNSPECIFIED OPEN WOUND, LEFT LOWER LEG, INITIAL ENCOUNTER (4) Lymphedema Code(s): I89.0 - LYMPHEDEMA, NOT ELSEWHERE CLASSIFIED Assessment/Plan IV ABX PER ID WOUND CARE VASCULAR SURGERY EVAL DVT PROPHYLAXIS PATIENT NEEDS TO ATTEND CHRONIC LYMPHEDEMA CLINIC FOR CARE AND MAINTENANCE
[2018-01-18] MEDS: COLLAGENASE CLOSTRIDIUM HIST. 30 GRAMS TUBE TP SCH (09:18)
[2018-01-18] MEDS: HEPARIN NA (PORCINE) 5,000 UNITS/ML 1ML VIAL SQ SCH ×2 (09:18→22:14)
[2018-01-18] MEDS: PIPERACILLIN/TAZOB 3.375 GM 3.375 GM in DEXTROSE 5%-WATER - 50 ML IVPB SCH (09:21)
--- NOTE | 2018-01-18 14:16 | PN ---
Progress Note, Physician History of Present Illness: Reports less L LE pain, Less L foot swelling Afebrile WBC WNL Wound c/s polymicrobial Tolerating cefazolin - Current Medication List Current Medications: Active Medications Acetaminophen (Tylenol -) 650 mg PO Q6H PRN PRN Reason: PAIN OR FEVER Collagenase (Santyl -) 1 applic TP DAILY [facility]; Protocol Last Admin: 01/18/18 09:18 Dose: 1 applic Docusate Sodium (Colace -) 100 mg PO Q8H PRN PRN Reason: CONSTIPATION Heparin Sodium (Porcine) (Heparin -) 5,000 unit SQ BID [facility] Last Admin: 01/18/18 09:18 Dose: 5,000 unit Cefazolin Sodium/Dextrose (Ancef 2 Gm Premixed Ivpb -) 2 gm in 50 mls @ 100 mls /hr IVPB Q8H-IV [facility] Last Admin: 01/18/18 09:17 Dose: 100 mls/hr Oxycodone HCl (Roxicodone -) 5 mg PO Q6H PRN PRN Reason: PAIN LEVEL 7 - 10 - Objective Vital Signs: Vital Signs Temperature 98.7 F 01/18/18 10:00 Pulse Rate 68 01/18/18 10:00 Respiratory Rate 20 01/18/18 10:00 Blood Pressure 124/70 01/18/18 10:00 O2 Sat by Pulse Oximetry (%) 99 01/18/18 09:00 Constitutional: Yes: No Distress Eyes: Yes: Conjunctiva Clear Cardiovascular: Yes: Regular Rate and Rhythm, S1, S2 Respiratory: Yes: CTA Bilaterally Gastrointestinal: Yes: Normal Bowel Sounds, Soft. No: Tenderness Extremities: Yes: Other (+ L LE lymphedema; + large superficial ulcer with malodorous serous drainage) Labs: CBC, BMP 01/17/18 07:10 01/17/18 07:10 Assessment/Plan Infected leg ulcer/ cellulitis L LE Chronic lymphedema Await c/s Continue cefazolin Local wound care
[2018-01-18] MEDS: oxyCODONE HCL 5 MG TABLET PO PRN (22:10)
[2018-01-19] MEDS: CEFAZOLIN 2 GM/D5W 2 GM/50 ML ML IVPB SCH ×2 (02:35→11:11)
[2018-01-19] MEDS: HEPARIN NA (PORCINE) 5,000 UNITS/ML 1ML VIAL SQ SCH ×2 (11:11→21:25)
[2018-01-19] MEDS: COLLAGENASE CLOSTRIDIUM HIST. 30 GRAMS TUBE TP SCH (11:12)
--- NOTE | 2018-01-19 12:27 | PN ---
Progress Note, Physician Chief Complaint: AWAKE ALERT STILL IN MILD-MOD DISTRESS - Current Medication List Current Medications: Active Medications Acetaminophen (Tylenol -) 650 mg PO Q6H PRN PRN Reason: PAIN OR FEVER Collagenase (Santyl -) 1 applic TP DAILY [facility]; Protocol Last Admin: 01/19/18 11:12 Dose: 1 applic Docusate Sodium (Colace -) 100 mg PO Q8H PRN PRN Reason: CONSTIPATION Heparin Sodium (Porcine) (Heparin -) 5,000 unit SQ BID [facility] Last Admin: 01/19/18 11:11 Dose: 5,000 unit Cefazolin Sodium/Dextrose (Ancef 2 Gm Premixed Ivpb -) 2 gm in 50 mls @ 100 mls /hr IVPB Q8H-IV [facility] Last Admin: 01/19/18 11:11 Dose: 100 mls/hr Oxycodone HCl (Roxicodone -) 5 mg PO Q6H PRN PRN Reason: PAIN LEVEL 7 - 10 Last Admin: 01/18/18 22:10 Dose: 5 mg - Objective Vital Signs: Vital Signs Temperature 98 F 01/19/18 06:56 Pulse Rate 58 L 01/19/18 06:56 Respiratory Rate 20 01/19/18 06:56 Blood Pressure 107/67 01/19/18 06:56 O2 Sat by Pulse Oximetry (%) 99 01/18/18 09:00 Constitutional: Yes: Mild Distress Eyes: Yes: WNL HENT: Yes: WNL Neck: Yes: WNL Cardiovascular: Yes: WNL Respiratory: Yes: WNL Gastrointestinal: Yes: Other Genitourinary: Yes: Vaginal Bleeding Musculoskeletal: Yes: Other Extremities: Yes: Deformity Edema: Yes Edema: LLE: 4+ Integumentary: Yes: Pressure Ulcer, Venous Stasis Changes Wound/Incision: Yes: Open to air, Draining, Unapproximated, Other Neurological: Yes: Other ...Motor Strength: LLE Psychiatric: Yes: WNL Labs: CBC, BMP 01/17/18 07:10 01/17/18 07:10 Problem List - Problems (1) Wound cellulitis Code(s): L03.90 - CELLULITIS, UNSPECIFIED (2) Leg ulcer, left Code(s): L97.929 - NON-PRS CHRONIC ULC UNSP PRT OF L LOW LEG W UNSP SEVERITY (3) Leg wound, left Code(s): S81.802A - UNSPECIFIED OPEN WOUND, LEFT LOWER LEG, INITIAL ENCOUNTER (4) Lymphedema Code(s): I89.0 - LYMPHEDEMA, NOT ELSEWHERE CLASSIFIED Assessment/Plan IV ABX PER ID WOUND CARE VAGINAL DISCHARGE WILL MONITOR IF WORSE CAN ORDER PELVIC SONO PAIN CONTROL
[2018-01-19] MEDS: oxyCODONE HCL 5 MG TABLET PO PRN (17:28)
[2018-01-20 06:48] LABS: HEMATOCRIT 35.6 % (32.4-45.2); HEMOGLOBIN 11.1 GM/dL (10.7-15.3); MCH 26.8 pg (25.7-33.7); MCHC 31.2 g/dl (32.0-36.0); MEAN CELL VOLUME 85.9 fl (80-96); MEAN PLT VOLUME 7.3 fl (7.5-11.1); PLATELET COUNT 350 K/MM3 (134-434); RBC 4.14 M/mm3 (3.60-5.2); RDW 14.4 % (11.6-15.6); WHITE BLOOD COUNT 5.9 K/mm3 (4.0-10.0)
--- NOTE | 2018-01-20 07:46 | PN ---
Progress Note, Physician Chief Complaint: LLE cellulitis History of Present Illness: NAD Seen by ID and Vascular surgery WC: Microbiology 01/16/18 19:30 Blood - Peripheral Venous Blood Culture - Preliminary NO GROWTH OBTAINED AFTER 72 HOURS, INCUBATION TO CONTINUE FOR 2 DAYS. 01/16/18 19:30 Blood - Peripheral Venous Blood Culture - Preliminary NO GROWTH OBTAINED AFTER 72 HOURS, INCUBATION TO CONTINUE FOR 2 DAYS. 01/17/18 06:30 Leg - Left Lower Gram Stain - Final 01/17/18 06:30 Leg - Left Lower Wound Culture - Preliminary Serratia Marcescens Proteus Vulgaris Presumptive Mssa (Pbp2a Neg) Diphtheroid/Corynebacterium -On IV levaquin -Lymphedema pump upon discharge 30 min in AM, 30 min in PM -Collagenase on LLE wound with [place] wrap -mentions some bloody discharge on the underwear, c/o abd cramping, was taking ibuprofen outpatient around the clock, denies dysuria - Current Medication List Current Medications: Active Medications Acetaminophen (Tylenol -) 650 mg PO Q6H PRN PRN Reason: PAIN OR FEVER Collagenase (Santyl -) 1 applic TP DAILY [facility]; Protocol Last Admin: 01/19/18 11:12 Dose: 1 applic Docusate Sodium (Colace -) 100 mg PO Q8H PRN PRN Reason: CONSTIPATION Heparin Sodium (Porcine) (Heparin -) 5,000 unit SQ BID [facility] Last Admin: 01/19/18 21:25 Dose: 5,000 unit Levofloxacin (Levaquin 500 Mg Premixed Ivpb -) 500 mg in 100 mls @ 100 mls/hr IVPB DAILY [facility]; Protocol Last Admin: 01/19/18 17:29 Dose: 100 mls/hr Oxycodone HCl (Roxicodone -) 5 mg PO Q6H PRN PRN Reason: PAIN LEVEL 7 - 10 Last Admin: 01/19/18 17:28 Dose: 5 mg - Objective Vital Signs: Vital Signs Temperature 98.7 F 01/20/18 07:20 Pulse Rate 68 01/20/18 07:20 Respiratory Rate 20 01/20/18 07:20 Blood Pressure 104/68 01/20/18 07:20 O2 Sat by Pulse Oximetry (%) 99 01/19/18 21:00 Constitutional: Yes: Well Nourished, No Distress, Calm Cardiovascular: Yes: Regular Rate and Rhythm Respiratory: Yes: Regular Gastrointestinal: Yes: Normal Bowel Sounds, Soft Musculoskeletal: Yes: WNL Extremities: Yes: WNL Edema: Yes (BLLE) Neurological: Yes: Alert, Oriented Psychiatric: Yes: Alert, Oriented Labs: CBC, BMP 01/20/18 06:30 Problem List - Problems (1) Wound cellulitis Assessment/Plan: -wound culture Microbiology 01/16/18 19:30 Blood - Peripheral Venous Blood Culture - Preliminary NO GROWTH OBTAINED AFTER 72 HOURS, INCUBATION TO CONTINUE FOR 2 DAYS. 01/16/18 19:30 Blood - Peripheral Venous Blood Culture - Preliminary NO GROWTH OBTAINED AFTER 72 HOURS, INCUBATION TO CONTINUE FOR 2 DAYS. 01/17/18 06:30 Leg - Left Lower Gram Stain - Final 01/17/18 06:30 Leg - Left Lower Wound Culture - Preliminary Serratia Marcescens Proteus Vulgaris Presumptive Mssa (Pbp2a Neg) Diphtheroid/Corynebacterium -ID on board -IV abx -Oxycodone for pain Code(s): L03.90 - CELLULITIS, UNSPECIFIED (2) Lymphedema Assessment/Plan: -Seen by Vascular surgery -Lymphedema pump upon discharge 30 min in AM, 30 min in PM Code(s): I89.0 - LYMPHEDEMA, NOT ELSEWHERE CLASSIFIED (3) Vaginal discharge, bloody Assessment/Plan: -UA/UC -Will check for stool ob as well. Code(s): N89.8 - OTHER SPECIFIED NONINFLAMMATORY DISORDERS OF VAGINA Assessment/Plan see problem list dvt prophylaxis
[2018-01-20 07:57] LABS: ANION GAP 7 MMOL/L (8-16); BLOOD UREA NITROGEN 14 mg/dL (7-18); CALCIUM 9.1 mg/dL (8.5-10.1); CHLORIDE 104 mmol/L (98-107); CO2 29 mmol/L (21-32); CREATININE 0.6 mg/dL (0.55-1.3); GLUCOSE,RANDOM 76 mg/dL (74-106); POTASSIUM 4.6 mmol/L (3.5-5.1); SODIUM 141 mmol/L (136-145)
[2018-01-20] MEDS: HEPARIN NA (PORCINE) 5,000 UNITS/ML 1ML VIAL SQ SCH ×2 (09:37→21:09)
[2018-01-20] MEDS: COLLAGENASE CLOSTRIDIUM HIST. 30 GRAMS TUBE TP SCH (09:37)
[2018-01-20 15:52] LABS: URINE APPEARANCE CLEAR; URINE BILIRUBIN NEGATIVE (<2.0 mg/dL); URINE COLOR YELLOW; URINE GLUCOSE (UA) NEGATIVE (NEGATIVE); URINE KETONE NEGATIVE (NEGATIVE); URINE LEUK ESTERASE NEGATIVE (NEGATIVE); URINE NITRITE NEGATIVE (NEGATIVE); URINE PROTEIN NEGATIVE (NEGATIVE); URINE UROBILINOGEN NEGATIVE mg/dL (0.2-1.0)
[2018-01-20 15:58] LABS: EPI CELLS RARE /HPF (FEW)
--- NOTE | 2018-01-21 07:48 | PN ---
Progress Note, Physician Chief Complaint: LLE cellulitis History of Present Illness: NAD Seen by ID and Vascular surgery WC: Microbiology 01/16/18 19:30 Blood - Peripheral Venous Blood Culture - Preliminary NO GROWTH OBTAINED AFTER 72 HOURS, INCUBATION TO CONTINUE FOR 2 DAYS. 01/16/18 19:30 Blood - Peripheral Venous Blood Culture - Preliminary NO GROWTH OBTAINED AFTER 72 HOURS, INCUBATION TO CONTINUE FOR 2 DAYS. 01/17/18 06:30 Leg - Left Lower Gram Stain - Final 01/17/18 06:30 Leg - Left Lower Wound Culture - Preliminary Serratia Marcescens Proteus Vulgaris Presumptive Mssa (Pbp2a Neg) Diphtheroid/Corynebacterium -On IV levaquin -Lymphedema pump upon discharge 30 min in AM, 30 min in PM -Collagenase on LLE wound with [place] wrap -mentions some bloody discharge on the underwear, c/o abd cramping, was taking ibuprofen outpatient around the clock, denies dysuria - Current Medication List Current Medications: Active Medications Acetaminophen (Tylenol -) 650 mg PO Q6H PRN PRN Reason: PAIN OR FEVER Collagenase (Santyl -) 1 applic TP DAILY [facility]; Protocol Last Admin: 01/20/18 09:37 Dose: 1 applic Docusate Sodium (Colace -) 100 mg PO Q8H PRN PRN Reason: CONSTIPATION Heparin Sodium (Porcine) (Heparin -) 5,000 unit SQ BID [facility] Last Admin: 01/20/18 21:09 Dose: 5,000 unit Levofloxacin (Levaquin 500 Mg Premixed Ivpb -) 500 mg in 100 mls @ 100 mls/hr IVPB DAILY [facility]; Protocol Last Admin: 01/20/18 09:37 Dose: 100 mls/hr Oxycodone HCl (Roxicodone -) 5 mg PO Q6H PRN PRN Reason: PAIN LEVEL 7 - 10 Last Admin: 01/19/18 17:28 Dose: 5 mg - Objective Vital Signs: Vital Signs Temperature 98.6 F 01/21/18 06:14 Pulse Rate 59 L 01/21/18 06:14 Respiratory Rate 20 01/21/18 06:14 Blood Pressure 122/68 01/21/18 06:14 O2 Sat by Pulse Oximetry (%) 100 01/20/18 21:00 Constitutional: Yes: Well Nourished, No Distress, Calm Cardiovascular: Yes: Regular Rate and Rhythm Respiratory: Yes: Regular Gastrointestinal: Yes: Normal Bowel Sounds, Soft Musculoskeletal: Yes: WNL Extremities: Yes: WNL Edema: Yes (LLE lymphedema) Peripheral Pulses WNL: Yes Wound/Incision: Yes: Dressing Dry and Intact Neurological: Yes: Alert, Oriented Psychiatric: Yes: Alert, Oriented Labs: CBC, BMP 01/20/18 06:30 01/20/18 06:30 Problem List - Problems (1) Wound cellulitis Assessment/Plan: -wound culture Microbiology 01/16/18 19:30 Blood - Peripheral Venous Blood Culture - Preliminary NO GROWTH OBTAINED AFTER 72 HOURS, INCUBATION TO CONTINUE FOR 2 DAYS. 01/16/18 19:30 Blood - Peripheral Venous Blood Culture - Preliminary NO GROWTH OBTAINED AFTER 72 HOURS, INCUBATION TO CONTINUE FOR 2 DAYS. 01/17/18 06:30 Leg - Left Lower Gram Stain - Final 01/17/18 06:30 Leg - Left Lower Wound Culture - Preliminary Serratia Marcescens Proteus Vulgaris Presumptive Mssa (Pbp2a Neg) Diphtheroid/Corynebacterium -ID on board -IV abx -Oxycodone for pain Code(s): L03.90 - CELLULITIS, UNSPECIFIED (2) Lymphedema Assessment/Plan: -Seen by Vascular surgery -Lymphedema pump upon discharge 30 min in AM, 30 min in PM Code(s): I89.0 - LYMPHEDEMA, NOT ELSEWHERE CLASSIFIED (3) Vaginal discharge, bloody Assessment/Plan: -UA+1 blood -UC pending -stool ob negative Code(s): N89.8 - OTHER SPECIFIED NONINFLAMMATORY DISORDERS OF VAGINA Assessment/Plan see problem list dvt prophylaxis
[2018-01-21] MEDS: HEPARIN NA (PORCINE) 5,000 UNITS/ML 1ML VIAL SQ SCH ×2 (11:26→22:00)
[2018-01-21] MEDS: COLLAGENASE CLOSTRIDIUM HIST. 30 GRAMS TUBE TP SCH (11:26)
[2018-01-22] MEDS: HEPARIN NA (PORCINE) 5,000 UNITS/ML 1ML VIAL SQ SCH ×2 (10:35→22:53)
[2018-01-22] MEDS: COLLAGENASE CLOSTRIDIUM HIST. 30 GRAMS TUBE TP SCH (10:36)
--- NOTE | 2018-01-22 11:30 | PN ---
Progress Note, Physician History of Present Illness: Reports less L LE pain Afebrile WBC WNL Wound c/s polymicrobial - Current Medication List Current Medications: Active Medications Acetaminophen (Tylenol -) 650 mg PO Q6H PRN PRN Reason: PAIN OR FEVER Collagenase (Santyl -) 1 applic TP DAILY [facility]; Protocol Last Admin: 01/22/18 10:36 Dose: 1 applic Docusate Sodium (Colace -) 100 mg PO Q8H PRN PRN Reason: CONSTIPATION Heparin Sodium (Porcine) (Heparin -) 5,000 unit SQ BID [facility] Last Admin: 01/22/18 10:35 Dose: 5,000 unit Levofloxacin (Levaquin 500 Mg Premixed Ivpb -) 500 mg in 100 mls @ 100 mls/hr IVPB DAILY [facility]; Protocol Last Admin: 01/22/18 10:35 Dose: 100 mls/hr Oxycodone HCl (Roxicodone -) 5 mg PO Q6H PRN PRN Reason: PAIN LEVEL 7 - 10 Last Admin: 01/19/18 17:28 Dose: 5 mg - Objective Vital Signs: Vital Signs Temperature 98.2 F 01/22/18 06:00 Pulse Rate 55 L 01/22/18 06:00 Respiratory Rate 20 01/22/18 06:00 Blood Pressure 115/68 01/22/18 06:00 O2 Sat by Pulse Oximetry (%) 99 01/21/18 21:00 Constitutional: Yes: No Distress Eyes: Yes: Conjunctiva Clear Cardiovascular: Yes: Regular Rate and Rhythm, S1, S2 Respiratory: Yes: CTA Bilaterally Gastrointestinal: Yes: Normal Bowel Sounds, Soft Extremities: Yes: Other (+ L LE lymphedema Ulcer with granulation tissue less serous drainage) Labs: CBC, BMP 01/20/18 06:30 01/20/18 06:30 Assessment/Plan Infected leg ulcer/ cellulitis L LE Chronic lymphedema Final c/s noted- polymicrobial Continue levaquin + ceftriaxone When ready for discharge : substitute levaquin 500mg po qd + clindamycin 300mg po tid x 7d Local wound care
--- NOTE | 2018-01-22 11:31 | PN ---
Progress Note, Physician Chief Complaint: patient seen and examined on iv levaquin wound opened and seen no more vaginal bleeding patient ambulating to bathroom - Current Medication List Current Medications: Active Medications Acetaminophen (Tylenol -) 650 mg PO Q6H PRN PRN Reason: PAIN OR FEVER Collagenase (Santyl -) 1 applic TP DAILY [facility]; Protocol Last Admin: 01/22/18 10:36 Dose: 1 applic Docusate Sodium (Colace -) 100 mg PO Q8H PRN PRN Reason: CONSTIPATION Heparin Sodium (Porcine) (Heparin -) 5,000 unit SQ BID [facility] Last Admin: 01/22/18 10:35 Dose: 5,000 unit Levofloxacin (Levaquin 500 Mg Premixed Ivpb -) 500 mg in 100 mls @ 100 mls/hr IVPB DAILY [facility]; Protocol Last Admin: 01/22/18 10:35 Dose: 100 mls/hr Oxycodone HCl (Roxicodone -) 5 mg PO Q6H PRN PRN Reason: PAIN LEVEL 7 - 10 Last Admin: 01/19/18 17:28 Dose: 5 mg - Objective Vital Signs: Vital Signs Temperature 98.2 F 01/22/18 06:00 Pulse Rate 55 L 01/22/18 06:00 Respiratory Rate 20 01/22/18 06:00 Blood Pressure 115/68 01/22/18 06:00 O2 Sat by Pulse Oximetry (%) 99 01/21/18 21:00 Constitutional: Yes: Calm Neck: Yes: Trachea Midline Cardiovascular: Yes: Regular Rate and Rhythm, S1, S2 Respiratory: Yes: CTA Bilaterally Gastrointestinal: Yes: Normal Bowel Sounds, Soft Extremities: Yes: Other (left leg lymphedema and wounds pink) Edema: Yes Neurological: Yes: Alert, Oriented Labs: CBC, BMP 01/20/18 06:30 01/20/18 06:30 Problem List - Problems (1) Leg wound, left Assessment/Plan: iv levaquin switch to po tmw for one more week VNS and wound care follow up collagenase pain control prn Microbiology 01/17/18 06:30 Leg - Left Lower Gram Stain - Final 01/17/18 06:30 Leg - Left Lower Wound Culture - Final Serratia Marcescens Proteus Vulgaris Staphylococcus Aureus Diphtheroid/Corynebacterium dvt ppx Code(s): S81.802A - UNSPECIFIED OPEN WOUND, LEFT LOWER LEG, INITIAL ENCOUNTER (2) Vaginal discharge, bloody Assessment/Plan: h/h stable no more blood noted pateint to follow up with her obgyn on discharge Code(s): N89.8 - OTHER SPECIFIED NONINFLAMMATORY DISORDERS OF VAGINA
[2018-01-22] MEDS ORDERED: DEXTROSE 5%-WATER 100 ML IVPB ONE (13:25)
[2018-01-22] MEDS: CEFTRIAXONE 2 GM in DEXTROSE 5%-WATER 100 ML IVPB SCH (13:32)
[2018-01-22] MEDS ORDERED: PT OWN MED DRAWER 7, Y5N ONE (20:53)
[2018-01-23] MEDS ORDERED: DEXTROSE 5%-WATER 100 ML IVPB ONE (09:25)
[2018-01-23] MEDS: CEFTRIAXONE 2 GM in DEXTROSE 5%-WATER 100 ML IVPB SCH (10:52)
[2018-01-23] MEDS: HEPARIN NA (PORCINE) 5,000 UNITS/ML 1ML VIAL SQ SCH (10:52)
[2018-01-23] MEDS: COLLAGENASE CLOSTRIDIUM HIST. 30 GRAMS TUBE TP SCH (11:00)
--- NOTE | 2018-01-23 14:01 | DS ---
Physical Examination Vital Signs: Vital Signs Temperature 98.1 F 01/23/18 06:00 Pulse Rate 54 L 01/23/18 06:00 Respiratory Rate 18 01/23/18 06:00 Blood Pressure 111/60 01/23/18 06:00 O2 Sat by Pulse Oximetry (%) 98 01/22/18 09:00 Constitutional: Yes: Calm Cardiovascular: Yes: Regular Rate and Rhythm, S1, S2 Respiratory: Yes: CTA Bilaterally Gastrointestinal: Yes: Normal Bowel Sounds, Soft Extremities: Yes: Other (lymphedema of leg and wound) Neurological: Yes: Alert, Oriented Labs: CBC, BMP 01/20/18 06:30 01/20/18 06:30 Discharge Summary Reason For Visit: LEG WOUND, LEFT Current Active Problems Vaginal discharge, bloody (Acute) Wound cellulitis (Acute) Hospital Course: CHIEF COMPLAINT: Left Leg Pain, Weeping Wounds to LLE PCP: Dr. Carlos Bar HISTORY OF PRESENT ILLNESS: 57 y/o woman with a past medical history Chronic LLE Lymphedema, Uterine Fibroids. Who presents to the ED with increased pain and weeping wounds to her left leg x 1-2 weeks. Patient reports going to a wound center for treatment- dressing changes. Patient reports noting a "fishy odor" from her leg, with increased drainage. Patient reports having intermittent CP to midsternum with cramping type pain which she attributes to opening and closing a heavy window at home. Patient denies radiation, SOB or palpitations at present. Patient denies chills, SOB, DUDLEY, AP, N/V/D, constipation, dysuria. ER course was notable for: (1) Duplex LE- neg DVT (2) (3) Microbiology 01/17/18 06:30 Leg - Left Lower Gram Stain - Final 01/17/18 06:30 Leg - Left Lower Wound Culture - Final Serratia Marcescens Proteus Vulgaris Staphylococcus Aureus Diphtheroid/Corynebacterium in hospital started on ivabx will follow up at wound care center continue po abx for 7 days Condition: Stable - Instructions Diet, Activity, Other Instructions: make appointment to see obgyn Follow up at wound care center in one week- make appointment VNS services continue po abx for 7 days Referrals: Carlos Bar MD [Primary Care Provider] - 2 Weeks Disposition: VNS/HOME HEALTH CARE - Home Medications Comprehensive Discharge Medication List: Ambulatory Orders Ibuprofen [Motrin -] 800 mg PO QID PRN 01/16/18 Clindamycin [Cleocin -] 300 mg PO TID #21 capsule 01/23/18 Levofloxacin [Levaquin] 500 mg PO DAILY #7 tablet MDD 1 01/23/18
[2018-01-23 15:46] VITALS: BP 114/69; PULSE 64; TEMP 98.4
== END 2018-01-23 21:00 | disposition home health service (06) | DRG 383 ==
LOC: JER 18:14 → JERBED 22:08 → J8W 23:13
PROVIDERS: ADMIT Internal Medicine; ATTEND Family Medicine
DX: L03.116 Cellulitis of left lower limb (principal); L97.929 Non-pressure chronic ulcer of unspecified part of left lower leg with unspecified severity; A49.01 Methicillin susceptible Staphylococcus aureus infection, unspecified site; I89.0 Lymphedema, not elsewhere classified; I44.0 Atrioventricular block, first degree; K59.00 Constipation, unspecified; R07.89 Other chest pain; N89.8 Other specified noninflammatory disorders of vagina
CPT/HCPCS: 36415; 80048; 81003; 81015; 82272; 84484; 85025; 85027; 87040; 87070; 87086; 87186; 87205; 93005; 93010; 93971-TC; 99283-25; J0131; J1644

== ENCOUNTER 2019-06-06 22:01 | Inpatient (IN) | payer OTHER ==
--- NOTE | 2019-06-07 00:12 | PDOC ---
History of Present Illness - General Chief Complaint: Edema Stated Complaint: EDEMA IN LEGS Time Seen by Provider: 06/06/19 23:07 - History of Present Illness Initial Comments: Ms. Beavers is a 59F with pmh significant for lymphadema of the LLE, presenting today with worsening of LLE swelling and foul smelling discharge that started yesterday. Reports pain over the left lower leg. Reports yellow and bailey colored discharge over anterior aspect of left lower leg. Reports mild increase in swelling. Denies chest pain/shortness of breath. Denies abdominal pain. Denies dysuria. Denies hematuria. Denies bleeding from the leg. She has been seen and admitted to the hospital for this multiple times before. Past History - Past Medical History Allergies/Adverse Reactions: Allergies Allergy/AdvReac Type Severity Reaction Status Date / Time No Known Drug Allergies Allergy Verified 01/16/18 18:34 Home Medications: Ambulatory Orders Collagenase Clostridium Hist. [Santyl -] 1 applic TP DAILY #1 tube MDD 1 Ibuprofen 800 mg PO PRN 02/14/19 Anemia: Yes (PAST HX) Asthma: No Cancer: No Cardiac Disorders: No CVA: No COPD: No CHF: No DVT: No Dementia: No Diabetes: No GI Disorders: Yes (CONSTIPATION,HEMORRHOIDS) Disorders: No HTN: No Hypercholesterolemia: No Liver Disease: No Seizures: No Thyroid Disease: No - Surgical History Abdominal Surgery: Yes (SUPRAUMBILICAL VENTRAL HERNIA) Appendectomy: No Cardiac Surgery: No Cholecystectomy: No Lung Surgery: No Neurologic Surgery: No Orthopedic Surgery: No - Immunization History Immunization Up to Date: Yes - Psycho Social/Smoking Cessation Hx Smoking History: Never smoked Have you smoked in the past 12 months: No Information on smoking cessation initiated: No Hx Alcohol Use: No Drug/Substance Use Hx: No Substance Use Type: None Review of Systems - Review of Systems Comments:: GENERAL/CONSTITUTIONAL: No fever or chills. No weakness._ HEAD, EYES, EARS, NOSE AND THROAT: No change in vision. No change in hearing. No sore throat._ CARDIOVASCULAR: No chest pain or shortness of breath_ RESPIRATORY: Denies cough, hemoptysis_ GASTROINTESTINAL: No nausea, vomiting, diarrhea or constipation._ GENITOURINARY: No dysuria, frequency, or change in urination._ MUSCULOSKELETAL: Reports LLE swelling. SKIN: No rash_ NEUROLOGIC: No headache, vertigo, loss of consciousness, or change in strength/ sensation._ ENDOCRINE: No increased thirst. No abnormal weight change_ HEMATOLOGIC/LYMPHATIC: No anemia, easy bleeding, or history of blood clots._ ALLERGIC/IMMUNOLOGIC: No hives or skin allergy._ *Physical Exam - Vital Signs Last Vital Signs Temp Pulse Resp BP Pulse Ox 97.1 F L 97 H 18 146/77 99 06/06/19 22:43 06/06/19 22:43 06/06/19 22:43 06/06/19 22:43 06/06/19 22:43 - Physical Exam GENERAL: Awake, alert, and oriented to person/place/time, in no acute distress_ HEAD: No signs of trauma, normoc ephalic, atraumatic _ EYES: PERRLA, EOMI, sclera anicteric, conjunctiva clear_ ENT: Hearing grossly normal, nares patent, oropharynx clear without exudates. No uvular deviation. Moist mucosa_ NECK: Normal ROM, supple, no lymphadenopathy, JVD, or masses_ LUNGS: No distress, speaks in full sentences, clear to auscultation bilaterally _ HEART: Regular rate and rhythm, normal S1 and S2, no murmurs appreciated, peripheral pulses normal and equal bilaterally._ ABDOMEN: Soft, nontender, normoactive bowel sounds. No guarding, no rebound. No masses_ EXTREMITIES: 4+ pitting edema through left leg, left lower leg, and left foot. Bailey, foul smelling discharge from the anterior aspect of left lower leg. Areas of erythema and irritation throughout lower leg in skin folds. Neurovascularly intact distally. Sensation intact throughout extremity. NEUROLOGICAL: Cranial nerves II through XII grossly intact. Normal speech, normal gait, no focal sensorimotor deficits _ SKIN: Warm, Dry, normal turgor, no rashes or lesions noted_ ED Treatment Course - LABORATORY CBC & Chemistry Diagram: 06/07/19 00:37 06/07/19 00:37 Medical Decision Making - Medical Decision Making 06/07/19 00:10 59F hx of lymphadema presenting with LLE swelling. -cbc, cmp -ekg, cxr -US doppler LLE -blood cx, wound cx -lactic -tylenol, fluids 06/07/19 01:22 EKG shows NSR, 93 bpm, no ST elevation, QTc 425. 06/07/19 02:17 Duplex US LLE shows no signs of DVT. Labs reviewed. Laboratory Tests 06/07/19 06/07/19 06/07/19 00:37 00:37 00:37 WBC 7.5 RBC 3.95 Hgb 10.7 Hct 33.5 MCV 84.8 MCH 27.1 MCHC 32.0 RDW 15.9 H D Plt Count 384 MPV 7.6 Absolute Neuts (auto) 3.9 Neutrophils % 51.8 Lymphocytes % 27.6 Monocytes % 7.7 Eosinophils % 11.9 H D Basophils % 1.0 Nucleated RBC % 0 Sodium 141 Potassium 4.3 Chloride 108 H Carbon Dioxide 26 Anion Gap 7 L BUN 11.8 Creatinine 0.8 Est GFR (CKD-EPI)AfAm 93.53 Est GFR (CKD-EPI)NonAf 80.70 Random Glucose 111 H Lactic Acid 1.2 Calcium 8.6 Total Bilirubin 0.2 AST 30 ALT 22 Alkaline Phosphatase 92 Total Protein 7.8 Albumin 2.5 L 06/07/19 02:21 Will treat with vanc zoysn. 06/07/19 03:00 D/w PITER Wesley who accepts the patient for admission. Discharge - Discharge Information Problems reviewed: Yes Clinical Impression/Diagnosis: Left leg swelling Condition: Stable - Admission Yes - Follow up/Referral - Patient Discharge Instructions - Post Discharge Activity
[2019-06-07] MEDS ORDERED: ACETAMINOPHEN 1000 MG/100 ML VIAL (NON FORMULARY) IVPB ONE (00:15)
[2019-06-07] MEDS ORDERED: SODIUM CHLORIDE 0.9% 500 ML INFUS.BAG IV ONE (00:15)
--- NOTE | 2019-06-07 00:22 | PDOC ---
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 Ulcer that is draining foul discharge developed and progressed over the past month. F/u labs, DVT US start abx dispo per clinical course admit for further care
[2019-06-07] MEDS ORDERED: ACETAMINOPHEN INJECTION 100 ML IVPB ONE (00:52)
[2019-06-07 01:03] LABS: EOS % 11.9 % (0-4.5); HEMATOCRIT 33.5 % (32.4-45.2); HEMOGLOBIN 10.7 GM/dL (10.7-15.3); LYMPH % 27.6 % (8-40); MCH 27.1 pg (25.7-33.7); MEAN CELL VOLUME 84.8 fl (80-96); MEAN PLT VOLUME 7.6 fl (7.5-11.1); MONO % 7.7 % (3.8-10.2); NEUT % 51.8 % (42.8-82.8); PLATELET COUNT 384 K/MM3 (134-434); RBC 3.95 M/mm3 (3.60-5.2); RDW 15.9 % (11.6-15.6); WHITE BLOOD COUNT 7.5 K/mm3 (4.0-10.0)
[2019-06-07 01:44] LABS: ALBUMIN 2.5 g/dl (3.4-5.0); BILIRUBIN,TOTAL 0.2 mg/dL (0.2-1); BLOOD UREA NITROGEN 11.8 mg/dL (7-18); CALCIUM 8.6 mg/dL (8.5-10.1); CREATININE 0.8 mg/dL (0.55-1.3); POTASSIUM 4.3 mmol/L (3.5-5.1); TOT PROT 7.8 g/dl (6.4-8.2)
[2019-06-07] MEDS ORDERED: PIPERACILLIN/TAZOB 3.375 GM 3.375 GM in DEXTROSE 5%-WATER - 50 ML IVPB ONE (02:21)
[2019-06-07] MEDS ORDERED: PIPERACILLIN/TAZOB 3.375 GM 3.375 GM/50 ML BAG IVPB ONE ×3 (02:34→16:49)
--- NOTE | 2019-06-07 02:44 | HP ---
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 who presents to the ED with increased pain, edema, foul smelling drainage from her LLE. Patient reports doing her own dressing changes- cleaning with NS and applying bandages. She reports not going to the wound center because her doctor is no longer there. At times the patient is somnolent, not answering my questions. History Source: Patient Limitations to Obtaining History: Poor Historian - Past Medical History Cardiovascular: Yes: Other (Lymphedema LLE) ...LMP: 11/26/14 - Past Surgical History Past Surgical History: Yes: Hernia Repair - Smoking History Smoking history: Never smoked Have you smoked in the past 12 months: No - Alcohol/Substance Use Hx Alcohol Use: No History of Substance Use: reports: None - Social History Usual Living Arrangement: Yes: Alone Do you think of yourself as: Declined to answer ADL: Independent History of Recent Travel: No Home Medications - Allergies Allergies/Adverse Reactions: Allergies Allergy/AdvReac Type Severity Reaction Status Date / Time No Known Drug Allergies Allergy Verified 01/16/18 18:34 - Home Medications Home Medications: Ambulatory Orders Collagenase Clostridium Hist. [Santyl -] 1 applic TP DAILY #1 tube MDD 1 Ibuprofen 800 mg PO PRN 02/14/19 Review of Systems - Review of Systems Constitutional: reports: No Symptoms Eyes: reports: No Symptoms HENT: reports: No Symptoms Neck: reports: No Symptoms Cardiovascular: reports: No Symptoms Respiratory: reports: No Symptoms Gastrointestinal: reports: No Symptoms Genitourinary: reports: No Symptoms Breasts: reports: No Symptoms Reported Musculoskeletal: reports: Extremity Pain Integumentary: reports: Wound Neurological: reports: No Symptoms Endocrine: reports: No Symptoms Hematology/Lymphatic: reports: Other (LLE lymphedema) Psychiatric: reports: No Symptoms Pain Intensity: 4 Physical Examination Vital Signs: Vital Signs Temperature 97.1 F L 06/06/19 22:43 Pulse Rate 97 H 06/06/19 22:43 Respiratory Rate 18 06/06/19 22:43 Blood Pressure 146/77 06/06/19 22:43 O2 Sat by Pulse Oximetry (%) 99 06/06/19 22:43 Constitutional: Yes: No Distress, Calm, Other (somnolent) Eyes: Yes: WNL, Conjunctiva Clear, EOM Intact, PERRL HENT: Yes: WNL, Atraumatic, Normocephalic Neck: Yes: WNL, Supple, Trachea Midline Cardiovascular: Yes: Regular Rate and Rhythm, Murmur, S1, S2 Respiratory: Yes: WNL, Regular, CTA Bilaterally Gastrointestinal: Yes: WNL, Normal Bowel Sounds, Soft ...Rectal Exam: Yes: Deferred Renal/: Yes: WNL Breast(s): Yes: WNL Musculoskeletal: Yes: Joint Swelling (LLE), Muscle Pain Extremities: Yes: Deformity (LLE) Edema: Yes Edema: LLE: 4+ Peripheral Pulses WNL: Yes Integumentary: Yes: Venous Stasis Changes (LLE). No: Erythema Wound/Incision: Yes: Draining, Other (Bailey, foul smelling discharge from the anterior aspect of left lower leg. +hyperkeratosis and chronic skin changes throughout LLE.) Neurological: Yes: Lethargy ...Motor Strength: WNL Labs: CBC, BMP 06/07/19 00:37 06/07/19 00:37 Laboratory Results - last 24 hr 06/07/19 06/07/19 06/07/19 00:37 00:37 00:37 WBC 7.5 RBC 3.95 Hgb 10.7 Hct 33.5 MCV 84.8 MCH 27.1 MCHC 32.0 RDW 15.9 H D Plt Count 384 MPV 7.6 Absolute Neuts (auto) 3.9 Neutrophils % 51.8 Lymphocytes % 27.6 Monocytes % 7.7 Eosinophils % 11.9 H D Basophils % 1.0 Nucleated RBC % 0 Sodium 141 Potassium 4.3 Chloride 108 H Carbon Dioxide 26 Anion Gap 7 L BUN 11.8 Creatinine 0.8 Est GFR (CKD-EPI)AfAm 93.53 Est GFR (CKD-EPI)NonAf 80.70 Random Glucose 111 H Lactic Acid 1.2 Calcium 8.6 Total Bilirubin 0.2 AST 30 ALT 22 Alkaline Phosphatase 92 Total Protein 7.8 Albumin 2.5 L Intake & Output 06/04/19 06/05/19 06/06/19 06/07/19 23:59 23:59 23:59 23:59 Weight 63 kg Imaging - Results Chest X-ray: Pending Ultrasound: Report Reviewed, Image Reviewed EKG: Image Reviewed Problem List - Problems (1) Lymphedema Assessment/Plan: Chronic Likely from parasite Appreciate Vascular consult for wound care Duplex of LLE- neg DVT Elevate extremity Neurovascular checks Monitor CBC, BMP Monitor vitals Code(s): I89.0 - LYMPHEDEMA, NOT ELSEWHERE CLASSIFIED (2) Elephantiasis Assessment/Plan: Patient reports LLE lymphedema 2/2 parasite as a child-teenager Consider obtaining records from [place], [place] +eosinophilia (baseline 3.2-6.1) Appreciate ID consult Code(s): I89.0 - LYMPHEDEMA, NOT ELSEWHERE CLASSIFIED (3) Wound cellulitis Assessment/Plan: LLE Chronic Venous Stasis Ulcers Likely pseudomonal Wound culture-pending Blood Cultures-pending Zosyn given in ED, will add Vancomycin Appreciate ID consult Appreciate Vascular consult Wound Care Consider Hyperbaric Therapy Elevate extremity Pain Management- Tylenol, Oxycodone prn Monitor CBC, BMP Monitor vitals Code(s): L03.90 - CELLULITIS, UNSPECIFIED (4) Leg ulcer, left Assessment/Plan: see above Code(s): L97.929 - NON-PRS CHRONIC ULC UNSP PRT OF L LOW LEG W UNSP SEVERITY Assessment/Plan This is a 59 y/o woman with significant medical history of 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 Admitted to [facility] for Left Lower Extremity Cellulitis, Chronic LLE Lymphedema for further evaluation of their emergent condition. Plan: See Problem List FEN PO fluids as tolerated Replete lytes prn Regular Diet DVT ppx OOB SCD to RLE Heparin SQ Dispo: Requires Inpatient Care Visit type - Emergency Visit Emergency Visit: Yes ED Registration Date: 06/07/19 Care time: The patient presented to the Emergency Department on the above date and was hospitalized for further evaluation of their emergent condition. - New Patient This patient is new to me today: Yes Date on this admission: 06/07/19 - Critical Care Critical Care patient: No
[2019-06-07] MEDS ORDERED: oxyCODONE HCL 5 MG TABLET PO ONE (04:48)
[2019-06-07] MEDS ORDERED: oxyCODONE HCL 5 MG TABLET ONE (05:01)
[2019-06-07] MEDS ORDERED: VANCOMYCIN 1 GM in D5W (PRE-DOCKED) 1,000 MG/250 ML IVPB ONE (06:28)
--- NOTE | 2019-06-07 09:46 | CONSULT ---
- Consultation REQUESTING PROVIDER: CONSULT REQUEST: We have been asked to surgically evaluate this patient for left leg lymphedema/ chronic wounds. PCP:Jj Lebron HISTORY OF PRESENT ILLNESS: 59 y/o woman with significant medical history of Chronic LLE lymphedema (2/2 to a parasite as a teenager), Chronic LLE Lymphedema with chronic draining wounds, who presents to the ED with increased pain, edema, foul smelling drainage from her LLE. Patient reports doing her own dressing changes- cleaning with NS, bactroban and applying bandages. She reports not going to the wound center because her doctor is currently traveling out of the country. She denies any fever, chills, CP, SOB, N/V but has developed chest congestion over the past few days. Limitations to Obtaining History: Poor Historian - Past Medical History Cardiovascular: Yes: Other (Lymphedema LLE) ...LMP: 11/26/14 - Past Surgical History Past Surgical History: Yes: Hernia Repair - Smoking History Smoking history: Never smoked Have you smoked in the past 12 months: No - Alcohol/Substance Use Hx Alcohol Use: No History of Substance Use: reports: None ADL: Independent History of Recent Travel: No Home Medications - Allergies Allergies/Adverse Reactions: Allergies Allergy/AdvReac Type Severity Reaction Status Date / Time No Known Drug Allergies Allergy Verified 01/16/18 18:34 - Home Medications Home Medications: Ambulatory Orders Collagenase Clostridium Hist. [Santyl -] 1 applic TP DAILY #1 tube MDD 1 Ibuprofen 800 mg PO PRN 02/14/19 Review of Systems - Review of Systems Constitutional: reports: No Symptoms Eyes: reports: No Symptoms HENT: reports: No Symptoms Neck: reports: No Symptoms Cardiovascular: reports: No Symptoms Respiratory: reports: No Symptoms Gastrointestinal: reports: No Symptoms Genitourinary: reports: No Symptoms Breasts: reports: No Symptoms Reported Musculoskeletal: reports: Extremity Pain Integumentary: reports: Wound, lymphedema, chronic skin changes, UE rash from bug bites. Neurological: reports: No Symptoms Endocrine: reports: No Symptoms Hematology/Lymphatic: reports: Other (LLE lymphedema) Psychiatric: reports: No Symptoms Pain Intensity: 4 Physical Examination Vital Signs: Vital Signs Temperature 97.1 F L 06/06/19 22:43 Pulse Rate 97 H 06/06/19 22:43 Respiratory Rate 18 06/06/19 22:43 Blood Pressure 146/77 06/06/19 22:43 O2 Sat by Pulse Oximetry (%) 99 06/06/19 22:43 Constitutional: Yes: No Distress, Calm, Other (somnolent) Eyes: Yes: WNL, Conjunctiva Clear, HENT: Yes: WNL, Atraumatic, Normocephalic Respiratory: unlabored resp on RA Musculoskeletal: Yes: Joint Swelling (LLE), Muscle Pain Extremities: Yes: Deformity (LLE) Lymphedema Edema: LLE: 4+ Peripheral Pulses WNL: + DP and GA on bedside doppler Integumentary: Yes: b/l UE with diffuse rash and excoriations throughout- appears to be insect bites, chronic Venous Stasis Changes (LLE) with superficial ulcer over distal 3rd laterally @ 5x3cm beefy red base with fibrinous tissue throughout, some SS d/c, no foul odor noted. SS weeping seen at posterior/medial distal 3rd skin fold, diffuse TTP throughout, compartments firm and tight. Right LE compartments soft, supple and non-tender with +DP and PT pulses Neurological: Yes: Lethargy Labs: CBC/CMP 06/07/19 00:37 06/07/19 00:37 Laboratory Results - last 24 hr 06/07/19 06/07/19 06/07/19 00:37 00:37 00:37 WBC 7.5 RBC 3.95 Hgb 10.7 Hct 33.5 MCV 84.8 MCH 27.1 MCHC 32.0 RDW 15.9 H D Plt Count 384 MPV 7.6 Absolute Neuts (auto) 3.9 Neutrophils % 51.8 Lymphocytes % 27.6 Monocytes % 7.7 Eosinophils % 11.9 H D Basophils % 1.0 Nucleated RBC % 0 Sodium 141 Potassium 4.3 Chloride 108 H Carbon Dioxide 26 Anion Gap 7 L BUN 11.8 Creatinine 0.8 Est GFR (CKD-EPI)AfAm 93.53 Est GFR (CKD-EPI)NonAf 80.70 Random Glucose 111 H Lactic Acid 1.2 Calcium 8.6 Total Bilirubin 0.2 AST 30 ALT 22 Alkaline Phosphatase 92 Total Protein 7.8 Albumin 2.5 L Intake & Output 06/04/19 06/05/19 06/06/19 06/07/19 23:59 23:59 23:59 23:59 Weight 63 kg Imaging Left LE no evidence of DVT Problem List - Problems (1) Leg ulcer, left Assessment/Plan: 59yo with left LE lymphedema and chronic ulcer with no indication for vascular intervention as this time. -clean wound with NS and apply bactroban to LE ulcer TID -offload pressure sensitive areas -f/u wound cultures -Elevate Left LE -IV ABX per ID -reconsult vascular PRN Code(s): L97.929 - NON-PRS CHRONIC ULC UNSP PRT OF L LOW LEG W UNSP SEVERITY (2) Lymphedema Code(s): I89.0 - LYMPHEDEMA, NOT ELSEWHERE CLASSIFIED
[2019-06-07] MEDS ORDERED: HEPARIN NA (PORCINE) 5,000 UNITS/ML 1ML VIAL ONE (10:51)
[2019-06-07] MEDS: HEPARIN NA (PORCINE) 5,000 UNITS/ML 1ML VIAL SQ SCH ×2 (11:13→21:58)
--- NOTE | 2019-06-07 12:13 | PN ---
Progress Note (short form) - Note Progress Note: ID consult dictated imp/reccd 59 yo female with chronic LLE lymphedema since she was a teenage, with recurrent drainage from the LLE ulcer she was last hospitalized in March at [facility] for the same issue- wound culture grew MRSA now reports 2 weeks of worsening drainage, has become thick and foulsmelling subjective fevers at home is followed in wound care here but ran out of her ointments about 3 weeks ago cellulitis with increased drainage from chronic LLE wound LLE lymphedema history of MRSA contact isolation vancomycin/zosyn local wound care f/u cultures Problem List - Problems (1) Cellulitis Code(s): L03.90 - CELLULITIS, UNSPECIFIED (2) Leg ulcer, left Code(s): L97.929 - NON-PRS CHRONIC ULC UNSP PRT OF L LOW LEG W UNSP SEVERITY (3) Lymphedema Code(s): I89.0 - LYMPHEDEMA, NOT ELSEWHERE CLASSIFIED (4) MRSA (methicillin resistant Staphylococcus aureus) colonization Code(s): Z22.322 - CARRIER OR SUSPECTED CARRIER OF METHICILLIN RESIS STAPH
--- NOTE | 2019-06-07 12:24 | EKG ---
Test Reason : Blood Pressure : / mmHG Vent. Rate : 093 BPM Atrial Rate : 093 BPM P-R Int : 176 ms QRS Dur : 088 ms QT Int : 342 ms P-R-T Axes : 072 072 063 degrees QTc Int : 425 ms NORMAL SINUS RHYTHM MINIMAL VOLTAGE CRITERIA FOR LVH, MAY BE NORMAL VARIANT NONSPECIFIC T WAVE ABNORMALITY ABNORMAL ECG WHEN COMPARED WITH ECG OF 17-JAN-2018 04:29, RI INTERVAL HAS DECREASED Confirmed by HEIDI BURR MD ([id number]) on 06/07/2019 12:23:45 PM Referred By: Confirmed By:HEIDI BURR MD
--- NOTE | 2019-06-07 12:42 | PN ---
Progress Note, Physician Chief Complaint: Lymphedema LLE pain History of Present Illness: Previous notes and events reviewed awake and alert NAD complain of pain LLE complain of difficulty ambulating denies chest pain or sob - Current Medication List Current Medications: Active Medications Acetaminophen (Tylenol -) 650 mg PO Q6H PRN PRN Reason: PAIN LEVEL 4 - 6 Heparin Sodium (Porcine) (Heparin -) 5,000 unit SQ BID [facility] Last Admin: 06/07/19 11:13 Dose: Not Given Piperacillin Sod/Tazobactam (Sod 3.375 gm/ Dextrose) 50 mls @ 100 mls/hr IVPB Q8H-IV [facility]; Protocol Vancomycin HCl 1,000 mg/ (Dextrose) 250 mls @ 166.667 mls/hr IVPB Q12H [facility]; Protocol Oxycodone HCl (Roxicodone -) 5 mg PO Q6H PRN PRN Reason: PAIN LEVEL 7 - 10 - Objective Vital Signs: Vital Signs Temperature 97.1 F L 06/06/19 22:43 Pulse Rate 96 H 06/07/19 05:33 Respiratory Rate 18 06/07/19 05:33 Blood Pressure 138/85 06/07/19 05:33 O2 Sat by Pulse Oximetry (%) 98 06/07/19 05:33 Constitutional: Yes: No Distress, Calm Eyes: Yes: Conjunctiva Clear HENT: Yes: Atraumatic Cardiovascular: Yes: Regular Rate and Rhythm Respiratory: Yes: Regular, CTA Bilaterally Gastrointestinal: Yes: Normal Bowel Sounds, Soft Musculoskeletal: Yes: Muscle Weakness Edema: Yes (lymphedema LLE) Integumentary: Yes: Rash (upper LLE), Venous Stasis Changes (LLE, weeping) Neurological: Yes: Alert, Oriented Psychiatric: Yes: Alert, Oriented Labs: CBC, BMP 06/07/19 00:37 06/07/19 00:37 Problem List - Problems (1) Cellulitis Assessment/Plan: -ID on board -no leukocytosis -afebrile -BC pending -wound culture pending -Vancomycin, Zosyn -daily wound dressing changes Code(s): L03.90 - CELLULITIS, UNSPECIFIED (2) Lymphedema Assessment/Plan: -ID on board -no leukocytosis -afebrile -BC pending -wound culture pending -Vancomycin, Zosyn -daily wound dressing changes -Vascular on board -cleanse wound daily with NS -Bactroban TID LLE -offloading Code(s): I89.0 - LYMPHEDEMA, NOT ELSEWHERE CLASSIFIED Assessment/Plan see problem list dvt ppx
--- NOTE | 2019-06-07 13:42 | CONS ---
INFECTIOUS DISEASE CONSULTATION DATE OF CONSULTATION: DATE OF DICTATION: 06/07/2019 HISTORY OF PRESENT ILLNESS: This is a 59-year-old woman. She has a history of chronic lymphedema since she was a teenager of her left lower extremity she cares for at home. She was followed at [facility], but has not been back for several weeks. She was using an ointment which she ran out of. She has noted over the last 2 weeks that the wound has had increased drainage, sometimes clear, sometimes thick and white. It has become foul smelling and she has had some subjective fevers and increased pain. She was recently hospitalized in March at [facility] again for her leg when it became inflamed. Wound culture there grew MRSA. PAST MEDICAL HISTORY: Notable for the chronic lymphedema that she has had since a teenager. She has a history of uterine fibroids. SURGICAL HISTORY: Notable for hernia repair. ALLERGIES: She has no known drug allergies. MEDICATIONS: It is not clear what she is using for care for her leg. SOCIAL HISTORY: There is no history of cigarette or substance use. She lives alone and she is originally from [place]. REVIEW OF SYSTEMS: She reports she had some subjective fevers at home. She took Motrin and it resolved. The leg is painful with increased drainage and smell. PHYSICAL EXAMINATION: General: She is awake and alert. Vital Signs: Temperature is 97.1, pulse is 96, blood pressure 138/85, respiratory rate is 18. She is saturating 98% on room air. HEENT: She is normocephalic. Her eyes are anicteric. Neck: Supple. Lungs: Clear to auscultation. Heart: Regular rate and rhythm. Extremities: She has chronic lymphedema of the left lower extremity. She has an open ulcer on the anterior part of the leg. She reports, she has drainage from the back of the leg, as well. The entire leg below the knee is warm and slightly reddened, compared to her right leg. LABORATORIES: Her white count is 7.5, hemoglobin 10.7, platelets are 384. BUN and creatinine are normal. LFTs are normal. Her blood cultures and wound cultures have been sent. She had a duplex study of the leg that shows no DVT. She had a chest x-ray that shows no lung infiltrates. In summary, this is a 59-year-old woman with chronic lymphedema of the left lower extremity with open ulcers who has evidence of cellulitis in the setting of chronic wounds in the setting of lymphedema. She has no history of diabetes. She does have this history of MRSA-positive wound culture from March 2019. Given this, I would place her in contact isolation. Would treat her with vancomycin and Zosyn, both based on prior cultures from our hospital, as well as the recent MRSA at [facility]. Would continue both antibiotics and follow up on her culture results. Further recommendations to follow. She needs wound care, as well. It is unclear what her wound care followup is, which will need to be arranged prior to discharge. Will follow her vancomycin levels, while she is on vancomycin, as well. FRANCESCO HOLT M.D. [id number]
[2019-06-07] MEDS: PIPERACILLIN/TAZOB 3.375 GM 3.375 GM in DEXTROSE 5%-WATER - 50 ML IVPB SCH ×2 (17:00→19:20)
[2019-06-07] MEDS ORDERED: VANCOMYCIN 1,000 MG in DEXTROSE 5%-WATER - 250 ML IVPB SCH (18:00)
[2019-06-07] MEDS: MUPIROCIN CA 2% TOPICAL CREAM 15 GM TUBE TP SCH ×2 (19:20→21:58)
[2019-06-07] MEDS: VANCOMYCIN 1 GRAM (PRE-DOCKED) 1,000 MG/250 ML BAG IVPB SCH (21:58)
[2019-06-07 23:31] VITALS: BMI 29.5
[2019-06-08] MEDS ORDERED: DEXTROSE 5%-WATER - 50 ML IVPB ONE ×3 (01:08→16:58)
[2019-06-08] MEDS ORDERED: PIPERACILLIN/TAZOBACTAM 3.375 GM VIAL IVPB ONE ×3 (01:08→16:58)
[2019-06-08] MEDS: PIPERACILLIN/TAZOB 3.375 GM 3.375 GM in DEXTROSE 5%-WATER - 50 ML IVPB SCH ×3 (01:45→17:16)
[2019-06-08] MEDS: MUPIROCIN CA 2% TOPICAL CREAM 15 GM TUBE TP SCH ×3 (06:03→22:27)
[2019-06-08] MEDS: VANCOMYCIN 1 GRAM (PRE-DOCKED) 1,000 MG/250 ML BAG IVPB SCH ×2 (06:03→18:00)
[2019-06-08 06:42] LABS: BASO % 0.8 % (0-2.0); EOS % 15.7 % (0-4.5); HEMATOCRIT 29.1 % (32.4-45.2); HEMOGLOBIN 9.6 GM/dL (10.7-15.3); LYMPH % 36.5 % (8-40); MCH 27.5 pg (25.7-33.7); MCHC 32.9 g/dl (32.0-36.0); MEAN CELL VOLUME 83.6 fl (80-96); MEAN PLT VOLUME 7.6 fl (7.5-11.1); MONO % 8.3 % (3.8-10.2); NEUT % 38.7 % (42.8-82.8); PLATELET COUNT 318 K/MM3 (134-434); RBC 3.48 M/mm3 (3.60-5.2); RDW 15.3 % (11.6-15.6); WHITE BLOOD COUNT 6.1 K/mm3 (4.0-10.0)
[2019-06-08 07:10] LABS: ALBUMIN 1.8 g/dl (3.4-5.0); BILIRUBIN,TOTAL 0.5 mg/dL (0.2-1); BLOOD UREA NITROGEN 8.2 mg/dL (7-18); CALCIUM 8.1 mg/dL (8.5-10.1); CREATININE 0.6 mg/dL (0.55-1.3); TOT PROT 6.2 g/dl (6.4-8.2)
[2019-06-08] MEDS: HEPARIN NA (PORCINE) 5,000 UNITS/ML 1ML VIAL SQ SCH ×2 (09:24→22:24)
[2019-06-08] MEDS ORDERED: FLU VACCINE QUAD 60 MCG/0.5 ML (MDV 19-20) IM ONE (10:00)
--- NOTE | 2019-06-08 12:37 | PN ---
Progress Note, Physician Chief Complaint: Lymphedema LLE pain History of Present Illness: NAD BLUE Erythema + pruritus - Current Medication List Current Medications: Active Medications Acetaminophen (Tylenol -) 650 mg PO Q6H PRN PRN Reason: PAIN LEVEL 4 - 6 Heparin Sodium (Porcine) (Heparin -) 5,000 unit SQ BID [facility] Last Admin: 06/08/19 09:24 Dose: 5,000 unit Piperacillin Sod/Tazobactam (Sod 3.375 gm/ Dextrose) 50 mls @ 100 mls/hr IVPB Q8H-IV [facility]; Protocol Last Admin: 06/08/19 09:24 Dose: 100 mls/hr Vancomycin HCl (Vancomycin (Pre-Docked)) 1,000 mg in 250 mls @ 166.667 mls/hr IVPB BID@0700,1900 [facility]; Protocol Last Admin: 06/08/19 06:03 Dose: 166.667 mls/hr Mupirocin (Bactroban 2% Cream -) 1 applic TP TID [facility] Last Admin: 06/08/19 06:03 Dose: 1 applic Oxycodone HCl (Roxicodone -) 5 mg PO Q6H PRN PRN Reason: PAIN LEVEL 7 - 10 - Objective Vital Signs: Vital Signs Temperature 99.0 F 06/08/19 09:42 Pulse Rate 87 06/08/19 09:42 Respiratory Rate 18 06/08/19 09:42 Blood Pressure 142/89 06/08/19 09:42 O2 Sat by Pulse Oximetry (%) 98 06/07/19 21:30 Constitutional: Yes: Well Nourished, No Distress, Calm Cardiovascular: Yes: Regular Rate and Rhythm Respiratory: Yes: Regular Gastrointestinal: Yes: Normal Bowel Sounds, Soft Genitourinary: Yes: WNL Musculoskeletal: Yes: Muscle Weakness Extremities: Yes: Erythema Edema: Yes (LLE non pitting edema) Peripheral Pulses WNL: Yes Integumentary: Yes: Rash (BLUE, LLE, Left thigh prurtic rash) Neurological: Yes: Alert, Oriented Psychiatric: Yes: Alert, Oriented Labs: CBC, BMP 06/08/19 06:05 06/08/19 06:05 Problem List - Problems (1) Eczema Assessment/Plan: -Triamcinolone oint BID -Hydroxyzine 25 mg po Q6H PRN -Dermatology consult Problems reviewed: Yes Code(s): L30.9 - DERMATITIS, UNSPECIFIED (2) Elephantiasis Problems reviewed: Yes Code(s): I89.0 - LYMPHEDEMA, NOT ELSEWHERE CLASSIFIED Assessment/Plan (1) Cellulitis Assessment/Plan: -ID on board -no leukocytosis -afebrile -cultures: Microbiology 06/07/19 00:37 Leg - Left Lower Gram Stain - Final 06/07/19 00:37 Leg - Left Lower Wound Culture - Final Non Lactose Fermenting Gnb Non Lactose Fermenting Gnb#2 Proteus Species Beta Hemolytic Strep 06/07/19 00:37 Blood - Peripheral Venous Blood Culture - Preliminary NO GROWTH OBTAINED AFTER 24 HOURS, INCUBATION TO CONTINUE FOR 4 DAYS. 06/07/19 00:37 Blood - Peripheral Venous Blood Culture - Preliminary NO GROWTH OBTAINED AFTER 24 HOURS, INCUBATION TO CONTINUE FOR 4 DAYS. -Vancomycin, Zosyn -daily wound dressing changes Code(s): L03.90 - CELLULITIS, UNSPECIFIED (2) Lymphedema Assessment/Plan: -ID on board -no leukocytosis -afebrile -BC preliminary negative -wound culture as above -Vancomycin, Zosyn -daily wound dressing changes -Vascular on board -cleanse wound daily with NS -Bactroban TID LLE -offloading Code(s): I89.0 - LYMPHEDEMA, NOT ELSEWHERE CLASSIFIED Assessment/Plan see problem list dvt ppx
[2019-06-08] MEDS: ACETAMINOPHEN 325 MG TABLET (FP) PO PRN (14:15)
[2019-06-08] MEDS: oxyCODONE HCL 5 MG TABLET PO PRN (14:16)
[2019-06-08] MEDS: TRIAMCINOLONE ACET 0.1% OINT 15 GM TUBE TP SCH ×2 (17:15→22:28)
[2019-06-08] MEDS: SENNOSIDES 8.6MG TABLET (FP) PO SCH (22:24)
[2019-06-09] MEDS ORDERED: DEXTROSE 5%-WATER - 50 ML IVPB ONE ×3 (01:44→17:11)
[2019-06-09] MEDS ORDERED: PIPERACILLIN/TAZOBACTAM 3.375 GM VIAL IVPB ONE ×3 (01:44→17:11)
[2019-06-09] MEDS: PIPERACILLIN/TAZOB 3.375 GM 3.375 GM in DEXTROSE 5%-WATER - 50 ML IVPB SCH ×3 (01:56→17:35)
[2019-06-09] MEDS: MUPIROCIN CA 2% TOPICAL CREAM 15 GM TUBE TP SCH ×3 (05:24→23:14)
[2019-06-09] MEDS: VANCOMYCIN 1 GRAM (PRE-DOCKED) 1,000 MG/250 ML BAG IVPB SCH (06:01)
[2019-06-09 07:21] LABS: ALBUMIN 1.9 g/dl (3.4-5.0); BILIRUBIN,TOTAL 0.4 mg/dL (0.2-1); BLOOD UREA NITROGEN 11.2 mg/dL (7-18); CALCIUM 8.5 mg/dL (8.5-10.1); CREATININE 0.7 mg/dL (0.55-1.3); POTASSIUM 4.2 mmol/L (3.5-5.1); TOT PROT 6.2 g/dl (6.4-8.2)
[2019-06-09 07:32] LABS: BASO % 1.6 % (0-2.0); EOS % 23.5 % (0-4.5); HEMATOCRIT 29.1 % (32.4-45.2); HEMOGLOBIN 9.4 GM/dL (10.7-15.3); LYMPH % 33.8 % (8-40); MCHC 32.2 g/dl (32.0-36.0); MEAN CELL VOLUME 83.9 fl (80-96); MEAN PLT VOLUME 7.6 fl (7.5-11.1); MONO % 8.4 % (3.8-10.2); NEUT % 32.7 % (42.8-82.8); PLATELET COUNT 301 K/MM3 (134-434); RBC 3.47 M/mm3 (3.60-5.2); RDW 15.7 % (11.6-15.6); WHITE BLOOD COUNT 5.2 K/mm3 (4.0-10.0)
--- NOTE | 2019-06-09 09:19 | PN ---
Progress Note, Physician Chief Complaint: Lymphedema LLE pain History of Present Illness: NAD BLUE Erythema + pruritus, triamcinolone used with some relief - Current Medication List Current Medications: Active Medications Acetaminophen (Tylenol -) 650 mg PO Q6H PRN PRN Reason: PAIN LEVEL 4 - 6 Last Admin: 06/08/19 14:15 Dose: 650 mg Docusate Sodium (Colace -) 100 mg PO DAILY [facility] Heparin Sodium (Porcine) (Heparin -) 5,000 unit SQ BID [facility] Last Admin: 06/08/19 22:24 Dose: 5,000 unit Hydroxyzine Pamoate (Vistaril -) 25 mg PO Q6H PRN PRN Reason: FOR ITCHING Piperacillin Sod/Tazobactam (Sod 3.375 gm/ Dextrose) 50 mls @ 100 mls/hr IVPB Q8H-IV [facility]; Protocol Last Admin: 06/09/19 01:56 Dose: 100 mls/hr Vancomycin HCl (Vancomycin (Pre-Docked)) 1,000 mg in 250 mls @ 166.667 mls/hr IVPB BID@0700,1900 [facility]; Protocol Last Admin: 06/09/19 06:01 Dose: 166.667 mls/hr Mupirocin (Bactroban 2% Cream -) 1 applic TP TID [facility] Last Admin: 06/09/19 05:24 Dose: 1 applic Oxycodone HCl (Roxicodone -) 5 mg PO Q6H PRN PRN Reason: PAIN LEVEL 7 - 10 Last Admin: 06/08/19 14:16 Dose: 5 mg Senna (Senna -) 1 tab PO HS [facility] Last Admin: 06/08/19 22:24 Dose: 1 tab Triamcinolone Acetonide (Aristocort 0.1% Ointment -) 1 applic TP BID [facility] Last Admin: 06/08/19 22:28 Dose: 1 applic - Objective Vital Signs: Vital Signs Temperature 98.4 F 06/09/19 06:34 Pulse Rate 71 06/09/19 06:34 Respiratory Rate 16 06/09/19 06:34 Blood Pressure 113/62 06/09/19 06:34 O2 Sat by Pulse Oximetry (%) 98 06/08/19 21:00 Constitutional: Yes: Well Nourished, No Distress, Calm Cardiovascular: Yes: Regular Rate and Rhythm Respiratory: Yes: Regular Gastrointestinal: Yes: WNL, Normal Bowel Sounds, Soft Genitourinary: Yes: WNL Musculoskeletal: Yes: Muscle Weakness Extremities: Yes: Other (LLE lymphedema+ ulceration+ drainage) Edema: Yes (LLE non pitting edema) Peripheral Pulses WNL: Yes Integumentary: Yes: Rash (BLUE, LLE, R mid pack, BL thighs) Wound/Incision: Yes: Open to air Neurological: Yes: Alert, Oriented Psychiatric: Yes: Alert, Oriented Labs: CBC, BMP 06/09/19 06:10 06/09/19 06:10 Problem List - Problems (1) Eczema Assessment/Plan: -Triamcinolone oint BID -Hydroxyzine 25 mg po Q6H PRN -Dermatology consult Problems reviewed: Yes Code(s): L30.9 - DERMATITIS, UNSPECIFIED (2) Elephantiasis Problems reviewed: Yes Code(s): I89.0 - LYMPHEDEMA, NOT ELSEWHERE CLASSIFIED (3) Eosinophilia Assessment/Plan: -Hematology consult -monitor trend Problems reviewed: Yes Code(s): D72.1 - EOSINOPHILIA Assessment/Plan (1) Cellulitis Assessment/Plan: -ID on board -no leukocytosis -afebrile -cultures: Microbiology 06/07/19 00:37 Blood - Peripheral Venous Blood Culture - Preliminary NO GROWTH OBTAINED AFTER 48 HOURS, INCUBATION TO CONTINUE FOR 3 DAYS. 06/07/19 00:37 Blood - Peripheral Venous Blood Culture - Preliminary NO GROWTH OBTAINED AFTER 48 HOURS, INCUBATION TO CONTINUE FOR 3 DAYS. 06/07/19 00:37 Leg - Left Lower Gram Stain - Final 06/07/19 00:37 Leg - Left Lower Wound Culture - Final Non Lactose Fermenting Gnb Non Lactose Fermenting Gnb#2 Proteus Species Beta Hemolytic Strep -Vancomycin, Zosyn -daily wound dressing changes Code(s): L03.90 - CELLULITIS, UNSPECIFIED (2) Lymphedema Assessment/Plan: -ID on board -no leukocytosis -afebrile -BC preliminary negative -wound culture as above -Vancomycin, Zosyn -daily wound dressing changes -Vascular on board -cleanse wound daily with NS -Bactroban TID LLE -offloading Code(s): I89.0 - LYMPHEDEMA, NOT ELSEWHERE CLASSIFIED Assessment/Plan see problem list dvt ppx
[2019-06-09] MEDS: DOCUSATE SODIUM 100 MG CAPSULE (FP) PO SCH (10:20)
[2019-06-09] MEDS: HEPARIN NA (PORCINE) 5,000 UNITS/ML 1ML VIAL SQ SCH ×2 (10:20→23:14)
[2019-06-09] MEDS: TRIAMCINOLONE ACET 0.1% OINT 15 GM TUBE TP SCH ×2 (10:58→23:13)
[2019-06-09 13:27] LABS: ANISOCYTOSIS 0; MACROCYTOSIS 0; PLATELET ESTIMATE NORMAL
--- NOTE | 2019-06-09 15:43 | PN ---
Progress Note (short form) - Note Progress Note: developed itchy rash 2-3 weeks before admission reports leg lenard stopped draining Vital Signs Period Temp Pulse Resp BP Sys/Garibay Pulse Ox Last 24 Hr 97.9 F-98.4 F 68-84 16-20 101-130/57-76 98-98 cor-rrr lungs clear abd soft,nt ext diffuse swelling RLE, open ulcer is clean +lymphedema +hyperpigemented maculopapular lesions scattered on her forearms, lower back and upper thighs CBC, BMP 06/09/19 06:10 06/09/19 06:10 eos 23% Microbiology 06/07/19 00:37 Blood - Peripheral Venous Blood Culture - Preliminary NO GROWTH OBTAINED AFTER 48 HOURS, INCUBATION TO CONTINUE FOR 3 DAYS. 06/07/19 00:37 Blood - Peripheral Venous Blood Culture - Preliminary NO GROWTH OBTAINED AFTER 48 HOURS, INCUBATION TO CONTINUE FOR 3 DAYS. 06/07/19 00:37 Leg - Left Lower Gram Stain - Final 06/07/19 00:37 Leg - Left Lower Wound Culture - Final Non Lactose Fermenting Gnb Non Lactose Fermenting Gnb#2 Proteus Species Beta Hemolytic Strep a/p cellulitis with increased drainage from chronic LLE wound LLE lymphedema d/c vancomycin no mrsa isolated switch to po augmentin in am history of MRSA contact isolation eosinophilis- I suspect secondary to her rash- derm to evaluate send strongyloides antibody Problem List - Problems (1) Cellulitis Code(s): L03.90 - CELLULITIS, UNSPECIFIED (2) Leg ulcer, left Code(s): L97.929 - NON-PRS CHRONIC ULC UNSP PRT OF L LOW LEG W UNSP SEVERITY (3) Lymphedema Code(s): I89.0 - LYMPHEDEMA, NOT ELSEWHERE CLASSIFIED (4) MRSA (methicillin resistant Staphylococcus aureus) colonization Code(s): Z22.322 - CARRIER OR SUSPECTED CARRIER OF METHICILLIN RESIS STAPH
--- NOTE | 2019-06-09 19:08 | CONSULT ---
Consult Consult Specialty:: Heme Referred by:: Dr. 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 Hematology consulted for eosinophliija -- AEC 1.3 WBC 5.2 Hgb 9.4. Plt normal. Pt is not sure whether she's had prior WBC abnormalities. Endorses recent pruritic rash thought to be 2/2 insect bites (few weeks ago). Has been getting better. Denies chronic diarrhea, wheezing, fever night sweats, wt loss. - Past Medical History Cardio/Vascular: Yes: Other (Lymphedema LLE) ...LMP: 11/26/14 - Past Surgical History Past Surgical History: Yes: Hernia Repair - Alcohol/Substance Use Hx Alcohol Use: No History of Substance Use: reports: None - Smoking History Smoking history: Never smoked Have you smoked in the past 12 months: No - Social History ADL: Independent History of Recent Travel: No Home Medications - Allergies Allergies/Adverse Reactions: Allergies Allergy/AdvReac Type Severity Reaction Status Date / Time No Known Drug Allergies Allergy Verified 01/16/18 18:34 - Home Medications Home Medications: Ambulatory Orders Collagenase Clostridium Hist. [Santyl -] 1 applic TP DAILY #1 tube MDD 1 Ibuprofen 800 mg PO PRN 02/14/19 Review of Systems - Review of Systems Constitutional: denies: Fever Eyes: reports: No Symptoms Cardiovascular: reports: No Symptoms Respiratory: reports: No Symptoms Gastrointestinal: reports: Diarrhea (two episodes today, none prior to hospitalizations). denies: Abdominal Pain, Vomiting Musculoskeletal: reports: No Symptoms Integumentary: reports: Pruritis, Rash Physical Exam Vital Signs: Vital Signs Temperature 98.4 F 06/09/19 17:39 Pulse Rate 82 06/09/19 17:39 Respiratory Rate 18 06/09/19 17:39 Blood Pressure 108/60 06/09/19 17:39 O2 Sat by Pulse Oximetry (%) 98 06/09/19 09:00 Constitutional: Yes: No Distress, Calm Eyes: Yes: Conjunctiva Clear Cardiovascular: Yes: WNL Respiratory: Yes: Regular Gastrointestinal: Yes: Soft, Distention Edema: LUE: 4+ (LLE edema with cellulitis) Integumentary: Yes: Rash (hyperpigmented, extensive -- per patient 2/2 bug bites when she stayed with friend) Labs: CBC, BMP 06/09/19 06:10 06/09/19 06:10 Assessment/Plan 59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 Hematology consulted for eosinophliija -- AEC 1.3 WBC 5.2 Hgb 9.4. Plt normal. Possibly 2/2 allergic reaction to recent extensive bug bites. No new meds. Peripheral smear with mature eosinophils, no obvious dysplasia. Please check strongyloides ab. If negative, would ask ID re-w/u for other infecitous causes of eosinophlia. If it persists with negative infectious w/u, will pursue testing for primary hematologic issue.
[2019-06-09] MEDS: hydrOXYzine PAMOATE 25 MG CAPSULE (FP) PO PRN (23:11)
[2019-06-09] MEDS: oxyCODONE HCL 5 MG TABLET PO PRN (23:11)
[2019-06-09] MEDS: SENNOSIDES 8.6MG TABLET (FP) PO SCH (23:11)
[2019-06-09] MEDS: ACETAMINOPHEN 325 MG TABLET (FP) PO PRN (23:12)
[2019-06-09] MEDS ORDERED: PT OWN MED DRAWER 7, Y5N ONE (23:54)
[2019-06-10] MEDS ORDERED: PIPERACILLIN/TAZOBACTAM 3.375 GM VIAL IVPB ONE ×3 (01:23→14:27)
[2019-06-10] MEDS ORDERED: DEXTROSE 5%-WATER - 50 ML IVPB ONE ×3 (01:24→14:27)
[2019-06-10] MEDS: PIPERACILLIN/TAZOB 3.375 GM 3.375 GM in DEXTROSE 5%-WATER - 50 ML IVPB SCH ×3 (01:35→17:19)
[2019-06-10] MEDS: MUPIROCIN CA 2% TOPICAL CREAM 15 GM TUBE TP SCH ×3 (05:52→22:30)
[2019-06-10 08:25] LABS: BASO % 1.5 % (0-2.0); EOS % 20.2 % (0-4.5); HEMATOCRIT 33.5 % (32.4-45.2); HEMOGLOBIN 10.8 GM/dL (10.7-15.3); LYMPH % 41.7 % (8-40); MCH 27.5 pg (25.7-33.7); MCHC 32.3 g/dl (32.0-36.0); MEAN PLT VOLUME 7.7 fl (7.5-11.1); MONO % 7.8 % (3.8-10.2); NEUT % 28.8 % (42.8-82.8); PLATELET COUNT 311 K/MM3 (134-434); RBC 3.94 M/mm3 (3.60-5.2); RDW 15.9 % (11.6-15.6); WHITE BLOOD COUNT 5.4 K/mm3 (4.0-10.0)
--- NOTE | 2019-06-10 09:27 | PN ---
Progress Note, Physician - Current Medication List Current Medications: Active Medications Acetaminophen (Tylenol -) 650 mg PO Q6H PRN PRN Reason: PAIN LEVEL 4 - 6 Last Admin: 06/09/19 23:12 Dose: 650 mg Docusate Sodium (Colace -) 100 mg PO DAILY [facility] Last Admin: 06/09/19 10:20 Dose: 100 mg Heparin Sodium (Porcine) (Heparin -) 5,000 unit SQ BID [facility] Last Admin: 06/09/19 23:14 Dose: 5,000 unit Hydroxyzine Pamoate (Vistaril -) 25 mg PO Q6H PRN PRN Reason: FOR ITCHING Last Admin: 06/09/19 23:11 Dose: 25 mg Piperacillin Sod/Tazobactam (Sod 3.375 gm/ Dextrose) 50 mls @ 100 mls/hr IVPB Q8H-IV [facility]; Protocol Last Admin: 06/10/19 01:35 Dose: 100 mls/hr Mupirocin (Bactroban 2% Cream -) 1 applic TP TID [facility] Last Admin: 06/10/19 05:52 Dose: Not Given Oxycodone HCl (Roxicodone -) 5 mg PO Q6H PRN PRN Reason: PAIN LEVEL 7 - 10 Last Admin: 06/09/19 23:11 Dose: 5 mg Senna (Senna -) 1 tab PO HS [facility] Last Admin: 06/09/19 23:11 Dose: 1 tab Triamcinolone Acetonide (Aristocort 0.1% Ointment -) 1 applic TP BID [facility] Last Admin: 06/09/19 23:13 Dose: 1 applic - Objective Vital Signs: Vital Signs Temperature 98.2 F 06/10/19 08:05 Pulse Rate 64 06/10/19 08:05 Respiratory Rate 18 06/10/19 08:05 Blood Pressure 115/58 L 06/10/19 08:05 O2 Sat by Pulse Oximetry (%) 100 06/09/19 21:00 Cardiovascular: Yes: Regular Rate and Rhythm Respiratory: Yes: Regular, CTA Bilaterally Edema: Yes (elephantitis left leg) Labs: CBC, BMP 06/10/19 06:40 06/09/19 06:10 Assessment/Plan - Problems (1) Eczema Assessment/Plan: -Triamcinolone oint BID -Hydroxyzine 25 mg po Q6H PRN -Dermatology consult Problems reviewed: Yes Code(s): L30.9 - DERMATITIS, UNSPECIFIED (2) Elephantiasis Problems reviewed: Yes Code(s): I89.0 - LYMPHEDEMA, NOT ELSEWHERE CLASSIFIED (3) Eosinophilia Assessment/Plan: -Hematology consult noted -monitor trend Problems reviewed: Yes Code(s): D72.1 - EOSINOPHILIA Assessment/Plan (1) Cellulitis Assessment/Plan: -ID on board -no leukocytosis -afebrile -cultures: Microbiology 06/07/19 00:37 Blood - Peripheral Venous Blood Culture - Preliminary NO GROWTH OBTAINED AFTER 48 HOURS, INCUBATION TO CONTINUE FOR 3 DAYS. 06/07/19 00:37 Blood - Peripheral Venous Blood Culture - Preliminary NO GROWTH OBTAINED AFTER 48 HOURS, INCUBATION TO CONTINUE FOR 3 DAYS. 06/07/19 00:37 Leg - Left Lower Gram Stain - Final 06/07/19 00:37 Leg - Left Lower Wound Culture - Final Non Lactose Fermenting Gnb Non Lactose Fermenting Gnb#2 Proteus Species Beta Hemolytic Strep -off Vancomycin, -Zosyn -daily wound dressing changes Code(s): L03.90 - CELLULITIS, UNSPECIFIED (2) Lymphedema Assessment/Plan: -ID on board -no leukocytosis -afebrile -BC preliminary negative -wound culture as above -off Vancomycin, -Zosyn -daily wound dressing changes -Vascular on board -cleanse wound daily with NS -Bactroban TID LLE -offloading Code(s): I89.0 - LYMPHEDEMA, NOT ELSEWHERE CLASSIFIED
[2019-06-10] MEDS: HEPARIN NA (PORCINE) 5,000 UNITS/ML 1ML VIAL SQ SCH ×2 (09:39→22:27)
[2019-06-10] MEDS: DOCUSATE SODIUM 100 MG CAPSULE (FP) PO SCH (09:39)
[2019-06-10] MEDS: TRIAMCINOLONE ACET 0.1% OINT 15 GM TUBE TP SCH ×2 (09:41→22:30)
[2019-06-10 10:36] LABS: PLATELET ESTIMATE NORMAL; TARGET CELLS 1+; TEAR DROP CELLS 1+
[2019-06-10] MEDS: hydrOXYzine PAMOATE 25 MG CAPSULE (FP) PO PRN (14:08)
--- NOTE | 2019-06-10 17:42 | CONSULT ---
Consult Consult Specialty:: Dermatology - History Source History Provided By: Patient - Past Medical History Cardio/Vascular: Yes: Other (Lymphedema LLE) ...LMP: 11/26/14 - Past Surgical History Past Surgical History: Yes: Hernia Repair - Alcohol/Substance Use Hx Alcohol Use: No History of Substance Use: reports: None - Smoking History Smoking history: Never smoked Have you smoked in the past 12 months: No - Social History ADL: Independent History of Recent Travel: No Home Medications - Allergies Allergies/Adverse Reactions: Allergies Allergy/AdvReac Type Severity Reaction Status Date / Time No Known Drug Allergies Allergy Verified 01/16/18 18:34 - Home Medications Home Medications: Ambulatory Orders Collagenase Clostridium Hist. [Santyl -] 1 applic TP DAILY #1 tube MDD 1 Ibuprofen 800 mg PO PRN 02/14/19 Physical Exam Vital Signs: Vital Signs Temperature 98.1 F 06/10/19 14:28 Pulse Rate 73 06/10/19 14:28 Respiratory Rate 20 06/10/19 14:28 Blood Pressure 120/72 06/10/19 14:28 O2 Sat by Pulse Oximetry (%) 97 06/10/19 09:00 Labs: CBC, BMP 06/10/19 06:40 06/09/19 06:10 Assessment/Plan Patient reports a history of recent insect bites . Based on history the patient may have had bed bug bites . She is no longer in the same environment and has had no further bites. Currently she has an eczematous eruption on her lower back arms and extremities. She is currently being treated with triamcinolone with decrease in pruritis and improvement of eruption. We discussed skin care proper moisturizer and cleanser.Patient is comfortable and able to sleep She will follow up as an outpatient. Discussed with patients nurse.
[2019-06-10] MEDS: SENNOSIDES 8.6MG TABLET (FP) PO SCH (22:27)
[2019-06-11] MEDS ORDERED: PIPERACILLIN/TAZOBACTAM 3.375 GM VIAL IVPB ONE ×2 (01:08→09:09)
[2019-06-11] MEDS ORDERED: DEXTROSE 5%-WATER - 50 ML IVPB ONE ×2 (01:09→09:09)
[2019-06-11] MEDS: PIPERACILLIN/TAZOB 3.375 GM 3.375 GM in DEXTROSE 5%-WATER - 50 ML IVPB SCH (01:38)
[2019-06-11] MEDS: MUPIROCIN CA 2% TOPICAL CREAM 15 GM TUBE TP SCH ×2 (06:51→13:50)
--- NOTE | 2019-06-11 08:15 | DS ---
Physical Examination Vital Signs: Vital Signs Temperature 98.4 F 06/11/19 06:00 Pulse Rate 57 L 06/11/19 06:00 Respiratory Rate 20 06/11/19 06:00 Blood Pressure 106/57 L 06/11/19 06:00 O2 Sat by Pulse Oximetry (%) 100 06/10/19 21:00 Cardiovascular: Yes: S1, S2 Respiratory: Yes: Regular, CTA Bilaterally Gastrointestinal: Yes: Normal Bowel Sounds, Soft Labs: CBC, BMP 06/10/19 06:40 06/09/19 06:10 Discharge Summary Problems reviewed: Yes Reason For Visit: EDEMA IN LEGS Current Active Problems Cellulitis (Acute) Eczema (Acute) Elephantiasis (Acute) Eosinophilia (Acute) Left leg swelling (Acute) MRSA (methicillin resistant Staphylococcus aureus) colonization (Acute) Hospital Course: - Problems (1) Eczema Assessment/Plan: -Triamcinolone oint BID -Hydroxyzine 25 mg po Q6H PRN -Dermatology consult appreciated Problems reviewed: Yes Code(s): L30.9 - DERMATITIS, UNSPECIFIED (2) Elephantiasis Problems reviewed: Yes Code(s): I89.0 - LYMPHEDEMA, NOT ELSEWHERE CLASSIFIED (3) Eosinophilia Assessment/Plan: -Hematology consult noted -monitor trend Problems reviewed: Yes Code(s): D72.1 - EOSINOPHILIA Assessment/Plan (1) Cellulitis Assessment/Plan: -ID on board -no leukocytosis -afebrile -cultures: Microbiology 06/07/19 00:37 Blood - Peripheral Venous Blood Culture - Preliminary NO GROWTH OBTAINED AFTER 48 HOURS, INCUBATION TO CONTINUE FOR 3 DAYS. 06/07/19 00:37 Blood - Peripheral Venous Blood Culture - Preliminary NO GROWTH OBTAINED AFTER 48 HOURS, INCUBATION TO CONTINUE FOR 3 DAYS. 06/07/19 00:37 Leg - Left Lower Gram Stain - Final 06/07/19 00:37 Leg - Left Lower Wound Culture - Final Non Lactose Fermenting Gnb Non Lactose Fermenting Gnb#2 Proteus Species Beta Hemolytic Strep -off Vancomycin, -Zosyn -daily wound dressing changes Code(s): L03.90 - CELLULITIS, UNSPECIFIED (2) Lymphedema Assessment/Plan: -ID on board -no leukocytosis -afebrile -BC preliminary negative -wound culture as above -off Vancomycin, -Zosyn---Augmentin -daily wound dressing changes -Vascular on board -cleanse wound daily with NS -Bactroban TID LLE -offloading -Follows up at [facility] Code(s): I89.0 - LYMPHEDEMA, NOT ELSEWHERE CLASSIFIED Condition: Stable - Instructions Diet, Activity, Other Instructions: Follow up wound care center next week Referrals: Carlos Bar MD [Primary Care Provider] - 1 Week Disposition: [facility]/HOME HEALTH CARE - Home Medications Comprehensive Discharge Medication List: Ambulatory Orders Collagenase Clostridium Hist. [Santyl -] 1 applic TP DAILY #1 tube MDD 1 01/23/18 Ibuprofen 800 mg PO PRN 02/14/19 Amox-Tr/K Cl [Augmentin - 875Mg Tablet] 1 tab PO BID #6 tablet 06/11/19 Docusate Sodium [Colace -] 100 mg PO DAILY capsule 06/11/19 Mupirocin Cream [Bactroban 2% Cream -] 1 applic TP TID #60 gr 06/11/19 Sennosides [Senna -] 1 tab PO HS tablet 06/11/19 Triamcinolone 0.1% Ointment [Aristocort 0.1% Ointment -] 1 applic TP BID #60 gr 06/11/19
[2019-06-11] MEDS: DOCUSATE SODIUM 100 MG CAPSULE (FP) PO SCH (10:23)
[2019-06-11] MEDS: TRIAMCINOLONE ACET 0.1% OINT 15 GM TUBE TP SCH ×2 (10:25→13:54)
[2019-06-11] MEDS: HEPARIN NA (PORCINE) 5,000 UNITS/ML 1ML VIAL SQ SCH (10:26)
[2019-06-11 14:31] VITALS: BP 135/72; PULSE 81; TEMP 98.9
[2019-06-11] MEDS ORDERED: AMOX TR/POT CLAV 875MG/125MG TABLETS (FP) PO SCH (17:30)
== END 2019-06-11 18:21 | disposition home health service (06) | DRG 197 ==
LOC: JER 22:01 → JERBED 06-07 02:36 → J7W 06-07 18:00
PROVIDERS: ADMIT Internal Medicine; ATTEND Family Medicine
DX: I83.208 Varicose veins of unspecified lower extremity with both ulcer of other part of lower extremity and inflammation (principal); L97.929 Non-pressure chronic ulcer of unspecified part of left lower leg with unspecified severity; I89.0 Lymphedema, not elsewhere classified; L30.9 Dermatitis, unspecified; L03.116 Cellulitis of left lower limb; D72.1 Eosinophilia
CPT/HCPCS: 36415; 71045-TC-FY; 80048; 80053; 83605; 85025; 86682; 87040; 87070; 87205; 93005; 93010; 93971-TC; 99285-25; G0008; G0480; J0131; J1644; Q2036

== ENCOUNTER 2019-06-24 22:04 | Inpatient (IN) | payer OTHER ==
--- NOTE | 2019-06-24 23:39 | PDOC ---
History of Present Illness - General Chief Complaint: Edema Stated Complaint: EDEMA IN LEGS/ PAIN Time Seen by Provider: 06/24/19 23:39 History Source: Patient - History of Present Illness Initial Comments: 06/25/19 00:52 59 year old female c/o increasing left leg pain and foul smelling drainage. Patient was seen and admitted in this ER for cellulitis and wound infection 2 weeks ago. Patient reports that she completed a dose of Augmentin. Patient has been having increasing edema and redness. patient has a history of lymphedema 06/25/19 01:25 Past History - Past Medical History Allergies/Adverse Reactions: Allergies Allergy/AdvReac Type Severity Reaction Status Date / Time No Known Drug Allergies Allergy Verified 06/24/19 22:10 Home Medications: Ambulatory Orders Collagenase Clostridium Hist. [Santyl -] 1 applic TP DAILY #1 tube MDD 1 Ibuprofen 800 mg PO PRN 02/14/19 Amox-Tr/K Cl [Augmentin - 875Mg Tablet] 1 tab PO BID #6 tablet 06/11/19 Docusate Sodium [Colace -] 100 mg PO DAILY capsule 06/11/19 Mupirocin Cream [Bactroban 2% Cream -] 1 applic TP TID #60 gr 06/11/19 Sennosides [Senna -] 1 tab PO HS tablet 06/11/19 Triamcinolone 0.1% Ointment [Aristocort 0.1% Ointment -] 1 applic TP BID #60 gr 06/11/19 Anemia: Yes (PAST HX) Asthma: No Cancer: No Cardiac Disorders: No CVA: No COPD: No CHF: No DVT: No Dementia: No Diabetes: No GI Disorders: Yes (CONSTIPATION,HEMORRHOIDS) Disorders: No HTN: No Hypercholesterolemia: No Liver Disease: No Seizures: No Thyroid Disease: No - Surgical History Abdominal Surgery: Yes (SUPRAUMBILICAL VENTRAL HERNIA) Appendectomy: No Cardiac Surgery: No Cholecystectomy: No Lung Surgery: No Neurologic Surgery: No Orthopedic Surgery: No - Immunization History Immunization Up to Date: Yes - Psycho Social/Smoking Cessation Hx Smoking History: Never smoked Have you smoked in the past 12 months: No Hx Alcohol Use: No Drug/Substance Use Hx: No Substance Use Type: None Hx Substance Use Treatment: No *Physical Exam - Vital Signs Last Vital Signs Temp Pulse Resp BP Pulse Ox 98.1 F 97 H 18 116/64 99 06/24/19 22:07 06/24/19 22:07 06/24/19 22:07 06/24/19 22:07 06/24/19 22:07 - Physical Exam General Appearance: Yes: Appropriately Dressed Respiratory/Chest: positive: Lungs Clear, Normal Breath Sounds Extremity: positive: Other (left leg edematoous, calf with extensive erythema and edema with foul smelling drainage) Integumentary: positive: Normal Color, Dry, Warm Neurologic: positive: Fully Oriented, Alert ED Treatment Course - LABORATORY CBC & Chemistry Diagram: 06/25/19 02:14 06/25/19 02:14 Medical Decision Making - Medical Decision Making 06/25/19 02:51 A: cellulitis of wound P: cbc cmp IV antibiotics 06/25/19 03:11 patient signed out to marissa plunkett Discharge - Discharge Information Problems reviewed: Yes Clinical Impression/Diagnosis: Wound cellulitis, Lymphedema - Admission Yes - Follow up/Referral Referrals: Carlos Bar MD [Primary Care Provider] - - Patient Discharge Instructions - Post Discharge Activity
[2019-06-25] MEDS ORDERED: VANCOMYCIN 1 GM in D5W (PRE-DOCKED) 1,000 MG/250 ML IVPB ONE (01:15)
[2019-06-25] MEDS ORDERED: PIPERACILLIN/TAZOB 3.375 GM 3.375 GM in DEXTROSE 5%-WATER - 50 ML IVPB ONE (01:15)
[2019-06-25] MEDS ORDERED: VANCOMYCIN 1 GRAM (PRE-DOCKED) 1,000 MG/250 ML BAG IVPB ONE ×2 (01:27→10:09)
[2019-06-25] MEDS ORDERED: PIPERACILLIN/TAZOB 3.375 GM 3.375 GM/50 ML BAG IVPB ONE ×2 (01:27→13:23)
[2019-06-25 02:42] LABS: BASO % 1.1 % (0-2.0); EOS % 9.7 % (0-4.5); HEMATOCRIT 32.4 % (32.4-45.2); HEMOGLOBIN 10.6 GM/dL (10.7-15.3); LYMPH % 36.1 % (8-40); MCH 27.2 pg (25.7-33.7); MCHC 32.6 g/dl (32.0-36.0); MEAN CELL VOLUME 83.4 fl (80-96); MEAN PLT VOLUME 7.6 fl (7.5-11.1); MONO % 9.7 % (3.8-10.2); NEUT % 43.4 % (42.8-82.8); PLATELET COUNT 329 K/MM3 (134-434); RBC 3.88 M/mm3 (3.60-5.2); RDW 15.7 % (11.6-15.6)
[2019-06-25 03:09] LABS: ALBUMIN 2.7 g/dl (3.4-5.0); BILIRUBIN,TOTAL 0.3 mg/dL (0.2-1); BLOOD UREA NITROGEN 14.5 mg/dL (7-18); CREATININE 0.8 mg/dL (0.55-1.3); POTASSIUM 4.1 mmol/L (3.5-5.1); TOT PROT 8.1 g/dl (6.4-8.2)
[2019-06-25] MEDS ORDERED: PATIENT'S OWN MEDICATION (NON-FORMULARY) (Ibuprofen [Ibuprofen] 800 MG) PO SCH (04:15)
--- NOTE | 2019-06-25 04:19 | HP ---
CHIEF COMPLAINT: left leg pain, increased drainage and odor PCP:Dr. Carlos Bar HISTORY OF PRESENT ILLNESS: 59 year old female with history of chronic lymphedema since her 20'2 to left leg who presented to the ER with increasing left leg pain/swelling and foul smelling drainage which has increased in amount. Patient was seen and admitted in this ER for cellulitis and wound infection 2 weeks ago. Patient reports that she completed treatment with Augmentin. .She denies fever, shortness of breath or chest pain. ER course was notable for: (1)Left lower extremity with foul smelling odor, drainage and swelling, received IV vancomycin and zosyn. Recent Travel: denies PAST MEDICAL HISTORY: chronic lymphedema PAST SURGICAL HISTORY: denies Social History: Smoking:no Alcohol:no Drugs: no Allergies No Known Drug Allergies Allergy (Verified 06/24/19 22:10) HOME MEDICATIONS: Home Medications Medication Instructions Recorded Collagenase Clostridium Hist. 1 applic TP DAILY #1 tube MDD 1 01/23/18 [Santyl -] Ibuprofen 800 mg PO PRN 02/14/19 Amox-Tr/K Cl [Augmentin - 875Mg 1 tab PO BID #6 tablet 06/11/19 Tablet] Docusate Sodium [Colace -] 100 mg PO DAILY capsule 06/11/19 Mupirocin Cream [Bactroban 2% 1 applic TP TID #60 gr 06/11/19 Cream -] Sennosides [Senna -] 1 tab PO HS tablet 06/11/19 Triamcinolone 0.1% Ointment 1 applic TP BID #60 gr 06/11/19 [Aristocort 0.1% Ointment -] REVIEW OF SYSTEMS CONSTITUTIONAL: Absent: fever, chills, diaphoresis, generalized weakness, malaise, loss of appetite, weight change HEENT: Absent: rhinorrhea, nasal congestion, throat pain, throat swelling, difficulty swallowing, mouth swelling, ear pain, eye pain, visual changes CARDIOVASCULAR: Absent: chest pain, syncope, palpitations, irregular heart rate, lightheadedness , peripheral edema RESPIRATORY: Absent: cough, shortness of breath, dyspnea with exertion, orthopnea, wheezing, stridor, hemoptysis GASTROINTESTINAL: Absent: abdominal pain, abdominal distension, nausea, vomiting, diarrhea, constipation, melena, hematochezia GENITOURINARY: Absent: dysuria, frequency, urgency, hesitancy, hematuria, flank pain, genital pain MUSCULOSKELETAL: Absent: myalgia, arthralgia, joint swelling, back pain, neck pain SKIN: Absent: rash, itching, pallor, left lower extremity with +pain, swelling and increased foul smelling drainage HEMATOLOGIC/IMMUNOLOGIC: Absent: easy bleeding, easy bruising, lymphadenopathy, frequent infections ENDOCRINE: Absent: unexplained weight gain, unexplained weight loss, heat intolerance, cold intolerance NEUROLOGIC: Absent: headache, focal weakness or paresthesias, dizziness, unsteady gait, seizure, mental status changes, bladder or bowel incontinence PSYCHIATRIC: Absent: anxiety, depression, suicidal or homicidal ideation, hallucinations. PHYSICAL EXAMINATION Vital Signs - 24 hr 06/24/19 22:07 Temperature 98.1 F Pulse Rate 97 H Respiratory 18 Rate Blood Pressure 116/64 O2 Sat by Pulse 99 Oximetry (%) GENERAL: awake, alert, and fully oriented no acute distress HEAD: normal EYES: pupils equal, round and reactive to light EARS, NOSE, THROAT: ears normal, nares patent NECK: normal LUNGS: breath sounds clear to auscultation bilaterally no wheezes no crackles no accessory muscle use HEART: regular rate and rhythm, normal S1 and S2 ABDOMEN: soft, nontender, not distended, normoactive bowel sounds MUSCULOSKELETAL: limited normal range of motion due to lymphedema/infection UPPER EXTREMITIES: 2+ pulses warm well-perfused no cyanosis LOWER EXTREMITIES: LLE with swelling, malodor and drainage NEUROLOGICAL: no neuro focal deficits PSYCHIATRIC: cooperative SKIN: warm LLE with 4+ edema, odor and pain Laboratory Results - last 24 hr 06/25/19 06/25/19 02:14 02:14 WBC 6.0 RBC 3.88 Hgb 10.6 L Hct 32.4 MCV 83.4 MCH 27.2 MCHC 32.6 RDW 15.7 H Plt Count 329 MPV 7.6 Absolute Neuts (auto) 2.6 Neutrophils % 43.4 D Lymphocytes % 36.1 Monocytes % 9.7 Eosinophils % 9.7 H Basophils % 1.1 Nucleated RBC % 0 Sodium 139 Potassium 4.1 Chloride 107 Carbon Dioxide 24 Anion Gap 7 L BUN 14.5 Creatinine 0.8 Est GFR (CKD-EPI)AfAm 93.53 Est GFR (CKD-EPI)NonAf 80.70 Random Glucose 126 H Calcium 9.0 Total Bilirubin 0.3 AST 21 ALT 22 Alkaline Phosphatase 92 Total Protein 8.1 Albumin 2.7 L ASSESSMENT/PLAN: 59 year old female with history of chronic lymphedema to left leg who presents with increasing left leg pain , swelling and foul smelling drainage. She was hospitalized 2 weeks ago and discharged home on augmentin which she completed.She is being admitted for management of left lower leg infection/ cellulitis. #1 Left Lower Extremity Cellulitis Currently afebrile, BP normotensive, no leukocytosis,elevated esonophils, received IV vancomycin 1mg and zosyn 3.375mg . Wound and blood cultures pending Continue with IV vancomycin and zosyn Infectious Disease- Dr. Treviño consulted Wound Care - Dr. Hurley consulted Pain control with ibuprofen q8h prn #2 Hypoalbuminemia FEN no IVF indicated monitor electrolytes daily regular diet DVT Prophylaxsis lovenox 40 mg daily Visit type - Emergency Visit Emergency Visit: Yes ED Registration Date: 06/25/19 Care time: The patient presented to the Emergency Department on the above date and was hospitalized for further evaluation of their emergent condition. - New Patient This patient is new to me today: Yes Date on this admission: 06/25/19 - Critical Care Critical Care patient: No
[2019-06-25 06:44] LABS: HEMATOCRIT 31.7 % (32.4-45.2); HEMOGLOBIN 10.1 GM/dL (10.7-15.3); MCH 26.9 pg (25.7-33.7); MEAN CELL VOLUME 83.9 fl (80-96); MEAN PLT VOLUME 7.7 fl (7.5-11.1); PLATELET COUNT 297 K/MM3 (134-434); RBC 3.77 M/mm3 (3.60-5.2); RDW 15.7 % (11.6-15.6); WHITE BLOOD COUNT 5.7 K/mm3 (4.0-10.0)
[2019-06-25 07:08] LABS: BLOOD UREA NITROGEN 13.5 mg/dL (7-18); CALCIUM 8.7 mg/dL (8.5-10.1); CREATININE 0.7 mg/dL (0.55-1.3)
--- NOTE | 2019-06-25 09:40 | EKG ---
Test Reason : Blood Pressure : / mmHG Vent. Rate : 085 BPM Atrial Rate : 085 BPM P-R Int : 184 ms QRS Dur : 096 ms QT Int : 356 ms P-R-T Axes : 082 055 065 degrees QTc Int : 423 ms NORMAL SINUS RHYTHM INCOMPLETE RIGHT BUNDLE BRANCH BLOCK MODERATE VOLTAGE CRITERIA FOR LVH, MAY BE NORMAL VARIANT NONSPECIFIC T WAVE ABNORMALITY ABNORMAL ECG WHEN COMPARED WITH ECG OF 07-JUN-2019 00:50, NO SIGNIFICANT CHANGE WAS FOUND Confirmed by Harry Shin MD ([id number]) on 06/25/2019 9:40:00 AM Referred By: Confirmed By:Harry Shin MD
--- NOTE | 2019-06-25 09:46 | PN ---
Progress Note, Physician - Current Medication List Current Medications: Active Medications Docusate Sodium (Colace -) 100 mg PO DAILY [facility] Enoxaparin Sodium (Lovenox -) 40 mg SQ DAILY [facility] Piperacillin Sod/Tazobactam (Sod 3.375 gm/ Dextrose) 50 mls @ 100 mls/hr IVPB Q8H-IV [facility]; Protocol Piperacillin Sod/Tazobactam (Sod 3.375 gm/ Dextrose) 50 mls @ 100 mls/hr IVPB Q8H-IV [facility]; Protocol Stop: 06/26/19 02:29 Vancomycin HCl (Vancomycin (Pre-Docked)) 1,000 mg in 250 mls @ 166.667 mls/hr IVPB Q24H [facility] Stop: 06/25/19 11:29 Ibuprofen (Motrin -) 800 mg PO TID PRN PRN Reason: PAIN 6-10 Senna (Senna -) 1 tab PO HS MAIKEL Vancomycin HCl (Vancomycin (Pre-Docked)) 1,000 mg IVPB DAILY [facility]; Protocol - Objective Vital Signs: Vital Signs Temperature 98.1 F 06/24/19 22:07 Pulse Rate 71 06/25/19 07:41 Respiratory Rate 18 06/25/19 07:41 Blood Pressure 124/63 06/25/19 07:41 O2 Sat by Pulse Oximetry (%) 98 06/25/19 07:41 Cardiovascular: Yes: Regular Rate and Rhythm Respiratory: Yes: Regular, CTA Bilaterally Gastrointestinal: Yes: Normal Bowel Sounds, Soft Labs: CBC, BMP 06/25/19 05:50 06/25/19 05:50 Problem List - Problems (1) Lymphedema Assessment/Plan: vascular sugery leg elevation Code(s): I89.0 - LYMPHEDEMA, NOT ELSEWHERE CLASSIFIED (2) Cellulitis Assessment/Plan: iv abx id consult Code(s): L03.90 - CELLULITIS, UNSPECIFIED
[2019-06-25] MEDS ORDERED: PIPERACILLIN/TAZOB 3.375 GM 3.375 GM in DEXTROSE 5%-WATER - 50 ML IVPB SCH (10:00)
[2019-06-25] MEDS ORDERED: VANCOMYCIN 1 GM in D5W (PRE-DOCKED) 1,000 MG/250 ML IVPB SCH (10:00)
[2019-06-25] MEDS ORDERED: VANCOMYCIN 1 GRAM (PRE-DOCKED) 1,000 MG/250 ML BAG IVPB SCH (10:00)
[2019-06-25] MEDS: ENOXAPARIN NA (PORCINE) 40 MG/0.4 ML DISP.SYRIN SQ SCH (10:21)
[2019-06-25] MEDS: DOCUSATE SODIUM 100 MG CAPSULE (FP) PO SCH (10:21)
--- NOTE | 2019-06-25 14:24 | PN ---
Progress Note (short form) - Note Progress Note: ID consult was unable to f/u at wound care as her doctor was out of town now with increased drainage and pain from her leg with chronic wound and lymphedema no fevers recent admission to [facility], d/precious on augmentin, she had a rash at that time with eosinophilia-?bedbugs, seen by derm, was never able to use the triamcinolone prescribed as outpatient still with itching still wit rash but improved mild cellulitis, chronic wounds with lymphedema will start cefepime wound care f/u she needs VNS services resume traimcinolone cream for rash Problem List - Problems (1) Cellulitis Code(s): L03.90 - CELLULITIS, UNSPECIFIED (2) Leg ulcer, left Code(s): L97.929 - NON-PRS CHRONIC ULC UNSP PRT OF L LOW LEG W UNSP SEVERITY (3) Left leg swelling Code(s): M79.89 - OTHER SPECIFIED SOFT TISSUE DISORDERS (4) Lymphedema Code(s): I89.0 - LYMPHEDEMA, NOT ELSEWHERE CLASSIFIED
[2019-06-25] MEDS ORDERED: CEFEPIME 1 GM/100 ML BAG IVPB ONE (18:36)
[2019-06-25] MEDS: CEFEPIME 1 GM in DEXTROSE 5%-WATER 100 ML IVPB SCH (18:47)
[2019-06-25] MEDS ORDERED: DEXTROSE 5%-WATER 100 ML IVPB ONE (21:39)
[2019-06-25] MEDS ORDERED: CEFEPIME HCL 1 GM VIAL (RESTRICTED TO ID) ONE (21:39)
[2019-06-25] MEDS: TRIAMCINOLONE ACET 0.1% CREAM 15 GM TUBE TP SCH (23:00)
[2019-06-25] MEDS: SENNOSIDES 8.6MG TABLET (FP) PO SCH (23:00)
[2019-06-25] MEDS: IBUPROFEN 400 MG TABLET (FP) PO PRN (23:34)
[2019-06-26 00:48] VITALS: BMI 26.4
[2019-06-26] MEDS ORDERED: DEXTROSE 5%-WATER 100 ML IVPB ONE ×3 (02:10→17:16)
[2019-06-26] MEDS ORDERED: CEFEPIME HCL 1 GM VIAL (RESTRICTED TO ID) ONE ×3 (02:10→17:16)
[2019-06-26] MEDS: CEFEPIME 1 GM in DEXTROSE 5%-WATER 100 ML IVPB SCH ×3 (02:32→17:18)
[2019-06-26] MEDS: DOCUSATE SODIUM 100 MG CAPSULE (FP) PO SCH (09:46)
[2019-06-26] MEDS: ENOXAPARIN NA (PORCINE) 40 MG/0.4 ML DISP.SYRIN SQ SCH (09:47)
[2019-06-26] MEDS: IBUPROFEN 400 MG TABLET (FP) PO PRN (09:47)
[2019-06-26] MEDS: TRIAMCINOLONE ACET 0.1% CREAM 15 GM TUBE TP SCH ×2 (09:47→21:55)
--- NOTE | 2019-06-26 13:47 | CONSULT ---
- Consultation REQUESTING PROVIDER: CONSULT REQUEST: We have been asked to surgically evaluate this patient for left LE chronic lymphedema and chronic LE wound. 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 Patient reports doing her own dressing changes- cleaning with NS, bactroban and applying bandages. After her last admission 06/07/19 for the same thing, she was unable to follow up in wound care 2/2 a recent move among other issues. She denies any fever, chills, CP, SOB, N/V. Limitations to Obtaining History: Poor Historian - Past Medical History Cardiovascular: Yes: Other (Lymphedema LLE) ...LMP: 11/26/14 - Past Surgical History Past Surgical History: Yes: Hernia Repair - Smoking History Smoking history: Never smoked Have you smoked in the past 12 months: No - Alcohol/Substance Use Hx Alcohol Use: No History of Substance Use: reports: None ADL: Independent History of Recent Travel: No Home Medications - Allergies Allergies/Adverse Reactions: Allergies Allergy/AdvReac Type Severity Reaction Status Date / Time No Known Drug Allergies Allergy Verified 01/16/18 18:34 - Home Medications Home Medications Medication Instructions Recorded Collagenase Clostridium Hist. 1 applic TP DAILY #1 tube MDD 1 01/23/18 [Santyl -] Ibuprofen 800 mg PO PRN 02/14/19 Amox-Tr/K Cl [Augmentin - 875Mg 1 tab PO BID #6 tablet 06/11/19 Tablet] Docusate Sodium [Colace -] 100 mg PO DAILY capsule 06/11/19 Mupirocin Cream [Bactroban 2% 1 applic TP TID #60 gr 06/11/19 Cream -] Sennosides [Senna -] 1 tab PO HS tablet 06/11/19 Triamcinolone 0.1% Ointment 1 applic TP BID #60 gr 06/11/19 [Aristocort 0.1% Ointment -] Review of Systems - Review of Systems Constitutional: reports: No Symptoms Eyes: reports: No Symptoms HENT: reports: No Symptoms Neck: reports: No Symptoms Cardiovascular: reports: No Symptoms Respiratory: reports: No Symptoms Gastrointestinal: reports: No Symptoms Genitourinary: reports: No Symptoms Breasts: reports: No Symptoms Reported Musculoskeletal: reports: Extremity Pain Integumentary: reports: Wound, lymphedema, chronic skin changes, UE rash from bug bites-resolving Neurological: reports: No Symptoms Endocrine: reports: No Symptoms Hematology/Lymphatic: reports: Other (LLE lymphedema) Psychiatric: reports: No Symptoms Pain Intensity: 4 Physical Examination Vital Signs: Vital Signs Period Temp Pulse Resp BP Sys/Garibay Pulse Ox Last 24 Hr 97.9 F-98.4 F 71-91 18-20 106-131/51-80 95-98 Constitutional: Yes: No Distress, Calm, Other (somnolent) Eyes: Yes: WNL, Conjunctiva Clear, HENT: Yes: WNL, Atraumatic, Normocephalic Respiratory: unlabored resp on RA Musculoskeletal: Yes: Joint Swelling (LLE), Muscle Pain Extremities: Yes: Deformity (LLE) Lymphedema Edema: LLE: 4+ Peripheral Pulses WNL: + DP and AZ on bedside doppler Integumentary: Yes: b/l UE with diffuse rash and excoriations throughout- appears to be insect bites, chronic Venous Stasis Changes (LLE) with superficial ulcer over distal 3rd laterally @ 6x4cm beefy red base with fibrinous tissue throughout, some SS d/c, no foul odor noted. SS weeping seen at posterior/medial distal 3rd skin fold, diffuse TTP throughout, compartments firm and tight. Right LE compartments soft, supple and non-tender with +DP and PT pulses Neurological: WNL Labs: CBC, BMP 06/25/19 05:50 06/25/19 05:50 Problem List - Problems (1) Lymphedema Assessment/Plan: 59yo with left LE lymphedema and chronic ulcer with no indication for vascular intervention as this time. I have stressed to the patient the importance of follow up in wound care clinic so that she can be fitted and set up with a lymphedema pump. -clean wound with NS and apply Santly -offload pressure sensitive areas -Elevate Left LE -IV ABX per ID -F/U at wound care with Dr Gao as discussed. -reconsult vascular PRN Evaluation and plan discussed with Dr Gao. Code(s): I89.0 - LYMPHEDEMA, NOT ELSEWHERE CLASSIFIED
--- NOTE | 2019-06-26 14:27 | PN ---
Progress Note (short form) - Note Progress Note: less drainage, less pain reports leg is still tight and foot smells Vital Signs Period Temp Pulse Resp BP Sys/Garibay Pulse Ox Last 24 Hr 97.9 F-98.4 F 71-91 18-20 106-131/51-80 95-98 cor-rrr lungs clear abd soft,nt ext +lymphedema with cracked skin small open ulcer, no drainage, no odor CBC, BMP 06/25/19 05:50 06/25/19 05:50 a/p mild cellulitis, chronic wounds with lymphedema will start cefepime wound care f/u she needs VNS services resume traimcinolone cream for rash improved can switch to po keflex 500 tid in am for one week needs wound care f/u
--- NOTE | 2019-06-26 15:13 | PN ---
Progress Note, Physician Chief Complaint: lymphedema and LLE pain History of Present Illness: 59 year old female with PMH lymphedema since her 20s presents to the ED with LLE swelling and weaping wounds. she is being seen by ID and vascular. - Current Medication List Current Medications: Active Medications Collagenase (Santyl -) 1 applic TP DAILY [facility]IK[facility]; Protocol Docusate Sodium (Colace -) 100 mg PO DAILY [facility]IK[facility] Last Admin: 06/26/19 09:46 Dose: 100 mg Enoxaparin Sodium (Lovenox -) 40 mg SQ DAILY [facility]IK[facility] Last Admin: 06/26/19 09:47 Dose: 40 mg Cefepime HCl 1 gm/ Dextrose 100 mls @ 100 mls/hr IVPB Q8H-IV [facility]IK[facility]; Protocol Last Admin: 06/26/19 09:47 Dose: 100 mls/hr Ibuprofen (Motrin -) 800 mg PO TID PRN PRN Reason: PAIN 6-10 Last Admin: 06/26/19 09:47 Dose: 800 mg Senna (Senna -) 1 tab PO HS MAIKEL Last Admin: 06/25/19 23:00 Dose: 1 tab Triamcinolone Acetonide (Aristocort 0.1% Cream -) 1 applic TP BID [facility]IKEL Last Admin: 06/26/19 09:47 Dose: 1 applic - Objective Vital Signs: Vital Signs Temperature 97.9 F 06/26/19 11:00 Pulse Rate 71 06/26/19 11:00 Respiratory Rate 18 06/26/19 11:00 Blood Pressure 131/78 06/26/19 11:00 O2 Sat by Pulse Oximetry (%) 95 06/26/19 11:00 Constitutional: Yes: No Distress, Calm HENT: Yes: Atraumatic, Normocephalic Neck: Yes: Supple Cardiovascular: Yes: Regular Rate and Rhythm Respiratory: Yes: Regular, CTA Bilaterally Gastrointestinal: Yes: Normal Bowel Sounds, Soft Genitourinary: Yes: WNL Musculoskeletal: Yes: Muscle Weakness Extremities: Yes: Other (LLE elephantitis, chronic lymphedema) Wound/Incision: Yes: Dressing Dry and Intact Neurological: Yes: Alert, Oriented Labs: CBC, BMP 06/25/19 05:50 06/25/19 05:50 Problem List - Problems (1) Cellulitis Assessment/Plan: ID following IV antbx change to oral tomorrow vascular saw patient needs to see Dr. Gao in wound care clinic Code(s): L03.90 - CELLULITIS, UNSPECIFIED (2) Lymphedema Assessment/Plan: vascular eval appreciated Code(s): I89.0 - LYMPHEDEMA, NOT ELSEWHERE CLASSIFIED
[2019-06-26] MEDS: COLLAGENASE CLOSTRIDIUM HIST. 30 GRAMS TUBE TP SCH (16:30)
[2019-06-26] MEDS: SENNOSIDES 8.6MG TABLET (FP) PO SCH (21:55)
[2019-06-27] MEDS ORDERED: DEXTROSE 5%-WATER 100 ML IVPB ONE ×2 (00:50→09:47)
[2019-06-27] MEDS ORDERED: CEFEPIME HCL 1 GM VIAL (RESTRICTED TO ID) ONE ×2 (00:50→09:47)
[2019-06-27] MEDS: CEFEPIME 1 GM in DEXTROSE 5%-WATER 100 ML IVPB SCH ×2 (01:35→09:51)
[2019-06-27 08:03] LABS: BASO % 1.7 % (0-2.0); HEMATOCRIT 34.9 % (32.4-45.2); HEMOGLOBIN 11.2 GM/dL (10.7-15.3); LYMPH % 41.4 % (8-40); MEAN CELL VOLUME 84.4 fl (80-96); MEAN PLT VOLUME 7.7 fl (7.5-11.1); MONO % 9.5 % (3.8-10.2); NEUT % 32.4 % (42.8-82.8); PLATELET COUNT 328 K/MM3 (134-434); RBC 4.14 M/mm3 (3.60-5.2); RDW 15.9 % (11.6-15.6)
[2019-06-27 09:26] LABS: ALBUMIN 2.6 g/dl (3.4-5.0); BILIRUBIN,TOTAL 0.4 mg/dL (0.2-1); BLOOD UREA NITROGEN 10.8 mg/dL (7-18); CALCIUM 8.8 mg/dL (8.5-10.1); CREATININE 0.6 mg/dL (0.55-1.3); POTASSIUM 4.1 mmol/L (3.5-5.1); TOT PROT 7.9 g/dl (6.4-8.2)
[2019-06-27] MEDS: IBUPROFEN 400 MG TABLET (FP) PO PRN (09:51)
[2019-06-27] MEDS: ENOXAPARIN NA (PORCINE) 40 MG/0.4 ML DISP.SYRIN SQ SCH (09:51)
[2019-06-27] MEDS: DOCUSATE SODIUM 100 MG CAPSULE (FP) PO SCH (09:52)
[2019-06-27] MEDS: TRIAMCINOLONE ACET 0.1% CREAM 15 GM TUBE TP SCH ×2 (09:58→21:10)
[2019-06-27] MEDS: COLLAGENASE CLOSTRIDIUM HIST. 30 GRAMS TUBE TP SCH (09:58)
--- NOTE | 2019-06-27 15:30 | PN ---
Progress Note, Physician Chief Complaint: lymphedema and LLE pain does not want to go home today, wants to work with PT again in the am then go home explained she is cleared by ID and PT History of Present Illness: 59 year old female with PMH lymphedema since her 20s presents to the ED with LLE swelling and weaping wounds. she is being seen by ID and vascular. - Current Medication List Current Medications: Active Medications Collagenase (Santyl -) 1 applic TP DAILY [facility]; Protocol Last Admin: 06/27/19 09:58 Dose: 1 applic Docusate Sodium (Colace -) 100 mg PO DAILY [facility] Last Admin: 06/27/19 09:52 Dose: 100 mg Enoxaparin Sodium (Lovenox -) 40 mg SQ DAILY [facility] Last Admin: 06/27/19 09:51 Dose: 40 mg Cefepime HCl 1 gm/ Dextrose 100 mls @ 100 mls/hr IVPB Q8H-IV [facility]; Protocol Last Admin: 06/27/19 09:51 Dose: 100 mls/hr Ibuprofen (Motrin -) 800 mg PO TID PRN PRN Reason: PAIN 6-10 Last Admin: 06/27/19 09:51 Dose: 800 mg Senna (Senna -) 1 tab PO HS [facility] Last Admin: 06/26/19 21:55 Dose: Not Given Triamcinolone Acetonide (Aristocort 0.1% Cream -) 1 applic TP BID [facility] Last Admin: 06/27/19 09:58 Dose: 1 applic - Objective Vital Signs: Vital Signs Temperature 98.1 F 06/27/19 14:02 Pulse Rate 83 06/27/19 14:02 Respiratory Rate 18 06/27/19 14:02 Blood Pressure 129/95 06/27/19 14:02 O2 Sat by Pulse Oximetry (%) 95 06/27/19 11:00 Constitutional: Yes: Well Nourished, No Distress HENT: Yes: Atraumatic, Normocephalic Neck: Yes: Supple Cardiovascular: Yes: Regular Rate and Rhythm Respiratory: Yes: Regular, CTA Bilaterally Gastrointestinal: Yes: Normal Bowel Sounds, Soft Genitourinary: Yes: WNL Musculoskeletal: Yes: Muscle Weakness Edema: LLE: 4+ Integumentary: Yes: Other Wound/Incision: Yes: Dressing Dry and Intact Neurological: Yes: Alert, Oriented Psychiatric: Yes: Alert, Oriented Labs: CBC, BMP 06/27/19 07:35 06/27/19 07:35 Problem List - Problems (1) Cellulitis Assessment/Plan: ID following change to oral . dc tomorrow AM vascular saw patient needs to see Dr. Gao in wound care clinic Code(s): L03.90 - CELLULITIS, UNSPECIFIED (2) Lymphedema Assessment/Plan: vascular eval appreciated Code(s): I89.0 - LYMPHEDEMA, NOT ELSEWHERE CLASSIFIED
[2019-06-27] MEDS: CEPHALEXIN MONOHYDRATE 500 MG CAPSULE (UD) PO SCH (21:09)
[2019-06-27] MEDS: SENNOSIDES 8.6MG TABLET (FP) PO SCH (21:10)
[2019-06-28] MEDS: CEPHALEXIN MONOHYDRATE 500 MG CAPSULE (UD) PO SCH ×2 (06:30→13:20)
[2019-06-28] MEDS: DOCUSATE SODIUM 100 MG CAPSULE (FP) PO SCH (09:38)
[2019-06-28] MEDS: ENOXAPARIN NA (PORCINE) 40 MG/0.4 ML DISP.SYRIN SQ SCH (09:38)
[2019-06-28] MEDS: TRIAMCINOLONE ACET 0.1% CREAM 15 GM TUBE TP SCH (09:39)
[2019-06-28] MEDS: COLLAGENASE CLOSTRIDIUM HIST. 30 GRAMS TUBE TP SCH (09:40)
[2019-06-28] MEDS: IBUPROFEN 400 MG TABLET (FP) PO PRN (09:53)
--- NOTE | 2019-06-28 15:43 | DS ---
Physical Examination Vital Signs: Vital Signs Temperature 97.1 F L 06/28/19 14:44 Pulse Rate 86 06/28/19 14:44 Respiratory Rate 18 06/28/19 14:44 Blood Pressure 128/78 06/28/19 14:44 O2 Sat by Pulse Oximetry (%) 98 06/28/19 09:00 Constitutional: Yes: Well Nourished, No Distress Eyes: Yes: Conjunctiva Clear HENT: Yes: Atraumatic, Normocephalic Neck: Yes: Supple Cardiovascular: Yes: Regular Rate and Rhythm Respiratory: Yes: Regular, CTA Bilaterally Gastrointestinal: Yes: Normal Bowel Sounds, Soft Renal/: Yes: WNL Musculoskeletal: Yes: Muscle Weakness Edema: LLE: 4+ Integumentary: Yes: Venous Stasis Changes Wound/Incision: Yes: Dressing Dry and Intact Neurological: Yes: Alert, Oriented Psychiatric: Yes: Alert, Oriented Labs: CBC, BMP 06/27/19 07:35 06/27/19 07:35 Discharge Summary Problems reviewed: Yes Reason For Visit: SWELLING OF LEFT LOWER EXTREMITY Current Active Problems Lymphedema (Acute) Wound cellulitis (Acute) Hospital Course: Patient was seen and evaluated by vascular surgery and infectious disease for elephantitis, cellulitis, lymphadema LLE. she was given IV antbx, local wound care, and physical therapy. she is stable for dc with f/u wound care clinic and po antbx x7 days. Condition: Improved - Instructions Referrals: Carlos Bar MD [Primary Care Provider] - Trung Gao MD [Non Staff, Medical] - Disposition: VNS/HOME HEALTH CARE - Home Medications Comprehensive Discharge Medication List: Ambulatory Orders Collagenase Clostridium Hist. [Santyl -] 1 applic TP DAILY #1 tube MDD 1 Docusate Sodium [Colace -] 100 mg PO DAILY capsule 06/11/19 Mupirocin Cream [Bactroban 2% Cream -] 1 applic TP TID #60 gr 06/11/19 Sennosides [Senna -] 1 tab PO HS tablet 06/11/19 Triamcinolone 0.1% Ointment [Aristocort 0.1% Ointment -] 1 applic TP BID #60 gr 06/11/19 Cephalexin Monohydrate [Keflex -] 500 mg PO TID capsule 06/27/19 Cephalexin [Keflex] 500 mg PO TID #21 capsule 06/27/19 Collagenase Clostridium Hist. [Santyl -] 1 applic TP DAILY tube 06/27/19 Triamcinolone 0.1% Cream [Aristocort 0.1% Cream -] 1 applic TP BID applic 06/27
[2019-06-28 20:56] VITALS: BP 120/76; PULSE 82; TEMP 97
== END 2019-06-28 20:56 | disposition home health service (06) | DRG 383 ==
LOC: JER 22:04 → JERBED 06-25 03:10 → J6S 06-25 20:46
PROVIDERS: ADMIT Internal Medicine; ATTEND Family Medicine
DX: L03.116 Cellulitis of left lower limb (principal); E88.09 Other disorders of plasma-protein metabolism, not elsewhere classified; L97.829 Non-pressure chronic ulcer of other part of left lower leg with unspecified severity; I89.0 Lymphedema, not elsewhere classified
CPT/HCPCS: 36415; 80048; 80053; 85025; 85027; 87040; 93005; 93010; 97116-GP; 97161-GP; 99285-25

== ENCOUNTER 2019-11-16 22:24 | Observation (INO) | payer OTHER ==
--- NOTE | 2019-11-16 22:46 | PDOC ---
Rapid Medical Evaluation Time Seen by Provider: 11/16/19 22:40 Medical Evaluation: Allergies Allergy/AdvReac Type Severity Reaction Status Date / Time No Known Drug Allergies Allergy Verified 06/24/19 22:10 11/16/19 22:42 I have performed a brief in-person evaluation of this patient. The patient presents with a chief complaint of: H/o chronic LLE lymphedema w/ recurrent LE cellulitis, here w/ continued drainage from L leg, states "my sock is wet". No sig pain and no redness, f/c. States she did not want to come in sooner due to covid-19. of note, was admitted for same 06/20 and tx w/ abx. F/u with wound care at [facility] but not happy w/ care . Also c/o ongoing vaginal pain x ? months. Post-menopausal, no vag bleeding or unexplained weight loss Pertinent physical exam findings:stable, defer rest of exam to ED provider I have ordered the following:labs The patient will proceed to the ED for further evaluation. Discharge Disposition - Diagnosis Lymphedema - Referrals - Patient Instructions - Post Discharge Activity
--- NOTE | 2019-11-16 23:13 | PDOC ---
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 Patient reports copious discharge from her leg soaking her shoes, pants, and any coverings. She reports that the drainage has been yellow, foul smelling and increasing in volume. Denies fever, chills, nausea, vomiting, worsening difficulty with ambulation. Takes daily ibuprofen for pain / discomfort. Has not been following with wound care for several months during COVID / following an encounter with a provider she disliked. States she has had discussions about prosthesis and was unhappy with the suggestion of the possibility. No recent antibiotics. No swelling beyond baseline. All: NKDA Meds: Per chart PMH: As above PSH: Per chart Past History - Travel History Traveled outside of the country in the last 30 days: No Close contact w/someone who was outside of country & ill: No - Medical History Allergies/Adverse Reactions: Allergies Allergy/AdvReac Type Severity Reaction Status Date / Time No Known Drug Allergies Allergy Verified 06/24/19 22:10 Home Medications: Ambulatory Orders Mupirocin Cream [Bactroban 2% Cream -] 1 applic TP TID #60 gr 06/11/19 Sennosides [Senna -] 1 tab PO HS tablet 06/11/19 Triamcinolone 0.1% Ointment [Aristocort 0.1% Ointment -] 1 applic TP BID #60 gr 06/11/19 Collagenase Clostridium Hist. [Santyl -] 1 applic TP DAILY tube 06/27/19 Anemia: Yes (PAST HX) Asthma: No Cancer: No Cardiac Disorders: No CVA: No COPD: No CHF: No DVT: No Dementia: No Diabetes: No GI Disorders: Yes (CONSTIPATION,HEMORRHOIDS) Disorders: No HTN: No Hypercholesterolemia: No Liver Disease: No Seizures: No Thyroid Disease: No Other medical history: lymphedema - Surgical History Abdominal Surgery: Yes (SUPRAUMBILICAL VENTRAL HERNIA) Appendectomy: No Cardiac Surgery: No Cholecystectomy: No Lung Surgery: No Neurologic Surgery: No Orthopedic Surgery: No - Immunization History Immunization Up to Date: Yes - Psycho-Social/Smoking History Smoking History: Never smoked Have you smoked in the past 12 months: No - Substance Abuse Hx (Audit-C & DAST Scrn) How often the patient has a drink containing alcohol: Never Score: In Men: 4 or > Positive; In Women: 3 or > Positive: 0 Screen Result (Pos requires Nsg. Audit-10AR): Negative Review of Systems - Review of Systems Able to Perform ROS?: Yes Is the patient limited Kinyarwanda proficient: Yes Constitutional: No: Chills, Diaphoresis, Fever, Weakness HEENTM: No: Nose Pain, Nose Congestion, Throat Pain Respiratory: No: Cough, Shortness of Breath, SOB with Exertion, SOB at Rest, Wheezing Cardiac (ROS): Yes: See HPI, Edema. No: Chest Pain, Irregular Heart Rate, Lightheadedness, Palpitations, Syncope, Chest Tightness ABD/GI: No: Constipated, Diarrhea, Nausea, Vomiting : No: Burning, Dysuria, Frequency Musculoskeletal: No: Back Pain, Muscle Pain, Muscle Weakness Integumentary: Yes: See HPI, Lesions, Pruritus. No: Change in Color, Dryness, Erythema, Lumps, Rash Neurological: No: Headache, Numbness, Tingling, Weakness Psychiatric: No: Stressors, Change in Appetite Endocrine: No: Increased Thirst, Increased Urine Hematologic/Lymphatic: No: Anemia, Blood Clots, Easy Bleeding All Other Systems: Reviewed and Negative *Physical Exam - Vital Signs Last Vital Signs Temp Pulse Resp BP Pulse Ox 98.3 F 91 H 20 107/75 99 11/16/19 22:43 11/16/19 22:43 11/16/19 22:43 11/16/19 22:43 11/16/19 22:43 - Physical Exam 11/17/19 00:18 Vitals reviewed AFVSS GEN: Well appearing, appears stated age, NAD, comfortable. AAOx3. HEENT: NCAT, EOMI, PERRL. Sclera anicteric, non-injected. No facial asymmetry. Moist mucous membranes. Normal voice. Trachea midline. CV: RRR, S1/S2, no murmurs / rubs / gallops appreciated. LUNG: CTABL, normal work of breathing. No wheezes, rales, rhonchi. No cough. Speaking full sentences. GI: Soft, NTND, +BS, no guarding, no rebound. No masses. EXTREMITIES: 2+ distal pulses. Elephantiasis of left lower extremity with large ulcerated wounds on anterior, posterior, and medial aspects at the ankle, without erythematous border, draining yellow fluid at a rapid rate, no crepitus, erythematous base, weeping through the skin. Cool to the touch with intact DP pulse. SKIN: Warm, dry, no rashes appreciated, non-jaundiced. LLE as above. PSYCH: Normal mood and affect. Cooperative and appropriate. NEURO: CN grossly intact. Moving all extremities well. Normal strength and sensation grossly. 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 Concerning for chronic lymphedema with possible early infection, lack of appropriate outpatient followup, reassuring for absence of constitutional symptoms. Will evaluate for infectious markers. - CBC, CMP, BCX, Lactate, ESR, CRP 11/17/19 02:58 - No leukocytosis - Elevated ESR / CRP Dispo: Admit Med Surg Worsening lymphedema with skin breakdown Poor adherence to outpatient wound care followup Discharge - Discharge Information Problems reviewed: Yes Clinical Impression/Diagnosis: Lymphedema Condition: Stable - Admission Yes - Follow up/Referral Referrals: Carlos Bar MD [Primary Care Provider] - - Patient Discharge Instructions - Post Discharge Activity
--- NOTE | 2019-11-16 23:40 | PDOC ---
Documentation entered by Ingrid Julien SCRIBE, acting as scribe for Kodi Vasques MD. Kodi Vasques MD: This documentation has been prepared by the Anaya cagle Sydney, SCRIBE, under my direction and personally reviewed by me in its entirety. I confirm that the documentation accurately reflects all work, treatment, procedures, and medical decision making performed by me. Attending Attestation - Resident Resident Name: Angelo Rico - ED Attending Attestation I have performed the following: I have examined & evaluated the patient, The case was reviewed & discussed with the resident, I agree w/resident's findings & plan, Exceptions are as noted - HPI HPI: 11/16/19 23:41 59 F with h/o LLE elephantiasis, lymphedema, uterine fibroids, presenting to ED with months of worsening LLE swelling and drainage. Pt reports that she has been having pain and swelling with clearish drainage from an open wound in her LLE. Pt notes that she also feels generally unwell. Denies F/C. Has not been able to see a doctor for this in several months due to the pandemic. - Physicial Exam PE: 11/16/19 23:42 See resident exam - Medical Decision Making 11/16/19 23:42 59 F with elephantiasis of LLE, now with infection. - labs, cultures - Abx Discharge - Discharge Information Problems reviewed: Yes Clinical Impression/Diagnosis: Lymphedema, Leg wound, left, Wound cellulitis Condition: Stable - Follow up/Referral - Patient Discharge Instructions - Post Discharge Activity
[2019-11-17 01:44] LABS: BASO % 0.8 % (0-2.0); EOS % 7.5 % (0-4.5); HEMATOCRIT 41.4 % (32.4-45.2); HEMOGLOBIN 13.2 GM/dL (10.7-15.3); LYMPH % 39.8 % (8-40); MCH 27.6 pg (25.7-33.7); MEAN CELL VOLUME 86.1 fl (80-96); MEAN PLT VOLUME 7.7 fl (7.5-11.1); MONO % 7.1 % (3.8-10.2); NEUT % 44.8 % (42.8-82.8); PLATELET COUNT 379 K/MM3 (134-434); RDW 15.4 % (11.6-15.6); WHITE BLOOD COUNT 5.9 K/mm3 (4.0-10.0)
[2019-11-17 02:06] LABS: BILIRUBIN,TOTAL 0.2 mg/dL (0.2-1); BLOOD UREA NITROGEN 29.2 mg/dL (7-18); CALCIUM 9.2 mg/dL (8.5-10.1); CREATININE 0.9 mg/dL (0.55-1.3); POTASSIUM 4.1 mmol/L (3.5-5.1); TOT PROT 8.1 g/dl (6.4-8.2)
[2019-11-17 02:40] LABS: ERYTHROCYTE SEDIMENTATION RATE 56 mm/hr (0-30)
[2019-11-17] MEDS ORDERED: CLINDAMYCIN 600MG PREMIX IVPB 600 MG/50 ML BAG IVPB ONE ×2 (03:21→03:28)
--- NOTE | 2019-11-17 03:27 | HP ---
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 Who presents to the ED with increased pain, edema, foul smelling drainage from her LLE. Patient reports copious discharge from her leg soaking her shoes, pants, and any coverings. She reports that the drainage has been yellow, foul smelling and, increasing in volume. Denies fever, chills, nausea, vomiting, worsening difficulty with ambulation. She reports taking ibuprofen daily, for pain/discomfort. She has not been following with wound care for several months during COVID / following an encounter with a provider she disliked. States she has had discussions about prosthesis and was unhappy with the suggestion of the possibility. She denies recent antibiotics. No swelling beyond baseline. History Source: Patient Limitations to Obtaining History: No Limitations - Past Medical History Cardiovascular: Yes: Other (Lymphedema LLE) ...LMP: 11/26/14 - Past Surgical History Past Surgical History: Yes: Hernia Repair - Smoking History Smoking history: Never smoked Have you smoked in the past 12 months: No - Alcohol/Substance Use Hx Alcohol Use: No History of Substance Use: reports: None - Social History Usual Living Arrangement: Yes: Alone Do you think of yourself as: Declined to answer ADL: Independent History of Recent Travel: No Home Medications - Allergies Allergies/Adverse Reactions: Allergies Allergy/AdvReac Type Severity Reaction Status Date / Time No Known Drug Allergies Allergy Verified 06/24/19 22:10 - Home Medications Home Medications: Ambulatory Orders Mupirocin Cream [Bactroban 2% Cream -] 1 applic TP TID #60 gr 06/11/19 Sennosides [Senna -] 1 tab PO HS tablet 06/11/19 Triamcinolone 0.1% Ointment [Aristocort 0.1% Ointment -] 1 applic TP BID #60 gr 06/11/19 Collagenase Clostridium Hist. [Santyl -] 1 applic TP DAILY tube 06/27/19 Family Medical History Family History: Unable to Obtain Review of Systems - Review of Systems Constitutional: reports: Weakness Eyes: reports: No Symptoms HENT: reports: No Symptoms Neck: reports: No Symptoms Cardiovascular: reports: No Symptoms Respiratory: reports: No Symptoms Gastrointestinal: reports: No Symptoms Genitourinary: reports: Frequency Breasts: reports: No Symptoms Reported Musculoskeletal: reports: Extremity Pain, Joint Pain Integumentary: reports: Erythema, Lesions, Wound Neurological: reports: Unsteady Gait, Weakness Endocrine: reports: No Symptoms Hematology/Lymphatic: reports: No Symptoms Psychiatric: reports: No Symptoms Pain Intensity: 8 Physical Examination Vital Signs: Vital Signs Temperature 98.3 F 11/16/19 22:43 Pulse Rate 82 11/17/19 02:45 Respiratory Rate 16 11/17/19 02:45 Blood Pressure 110/75 11/17/19 02:45 O2 Sat by Pulse Oximetry (%) 100 11/17/19 02:45 Constitutional: Yes: Anxious, Thin Eyes: Yes: Conjunctiva Clear, EOM Intact, Cataracts HENT: Yes: WNL, Atraumatic, Normocephalic Neck: Yes: Supple, Trachea Midline Cardiovascular: Yes: WNL, Regular Rate and Rhythm, S1, S2 Respiratory: Yes: WNL, Regular, CTA Bilaterally Gastrointestinal: Yes: WNL, Normal Bowel Sounds, Soft ...Rectal Exam: Yes: Deferred Renal/: Yes: WNL Breast(s): Yes: WNL Musculoskeletal: Yes: Joint Swelling Extremities: Yes: Erythema (LLE) Edema: Yes Edema: LLE: 4+ Peripheral Pulses WNL: Yes Integumentary: Yes: Erythema, Venous Stasis Changes Wound/Incision: Yes: Open to air, Draining (scant clear- medial LLE), Reddened (with wrmth to touch), Other (large ulcerated wounds on anterior, posterior, and medial aspects at the ankle, no crepitus, +erythematous base.) Neurological: Yes: WNL, Alert, Oriented ...Motor Strength: WNL Psychiatric: Yes: Alert, Oriented Labs: CBC, BMP 11/17/19 01:17 11/17/19 01:17 Laboratory Results - last 24 hr 11/17/19 11/17/19 11/17/19 01:17 01:17 01:17 WBC 5.9 RBC 4.80 Hgb 13.2 Hct 41.4 D MCV 86.1 MCH 27.6 MCHC 32.0 RDW 15.4 Plt Count 379 MPV 7.7 Absolute Neuts (auto) 2.6 Neutrophils % 44.8 D Lymphocytes % 39.8 Monocytes % 7.1 Eosinophils % 7.5 H Basophils % 0.8 Nucleated RBC % 0 ESR 56 H Sodium 137 Potassium 4.1 Chloride 102 Carbon Dioxide 29 Anion Gap 6 L BUN 29.2 H Creatinine 0.9 Est GFR (CKD-EPI)AfAm 81.11 Est GFR (CKD-EPI)NonAf 69.99 Random Glucose 69 L Lactic Acid 0.9 Calcium 9.2 Total Bilirubin 0.2 AST 17 ALT 18 Alkaline Phosphatase 109 C-Reactive Protein 1.1 H Total Protein 8.1 Albumin 3.0 L Intake & Output 11/14/19 11/15/19 11/16/19 11/17/19 23:59 23:59 23:59 23:59 Weight 73.936 kg Current Medications Generic Name Dose Route Start Last Admin Trade Name Freq PRN Reason Stop Dose Admin Heparin Sodium (Porcine) 5,000 unit 11/17/19 10:00 Heparin - SQ BID MAIKEL Vancomycin HCl 1,000 mg/ 250 mls @ 166.667 mls/hr 11/17/19 10:00 Dextrose IVPB Q12H MAIKEL Protocol Piperacillin Sod/Tazobactam 50 mls @ 100 mls/hr 11/17/19 10:00 Sod 3.375 gm/ Dextrose IVPB Q8H-IV MAIKEL Protocol Tramadol HCl 50 mg 11/17/19 04:35 11/17/19 04:47 Ultram - PO 50 mg Q8H PRN Administration PAIN LEVEL 6-10 Imaging - Results Chest X-ray: Pending Ultrasound: Pending Problem List - Problems (1) Lymphedema Assessment/Plan: Chronic Likely secondary to parasite vs DVT Wells Score 4 Duplex of LLE-pending Elevate extremity Appreciate Vascular consult- wound care Neurovascular checks Monitor vitals Monitor CBC, CMP Code(s): I89.0 - LYMPHEDEMA, NOT ELSEWHERE CLASSIFIED (2) Elephantiasis Assessment/Plan: Patient endorsed LLE Lymphedema 2/2 parasite from childhood + eosinophilia (baseline 3.2-6.1) Appreciate ID consult Code(s): I89.0 - LYMPHEDEMA, NOT ELSEWHERE CLASSIFIED (3) Cellulitis Assessment/Plan: Chronic Venous Stasis Ulcers Hx MRSA, pseudomonal Wound Culture medial LLE-pending Blood Cultures-pending Clindamycin given in ED Will start on Vancomycin, Zosyn for broader spectrum coverage Appreciate ID Consult Appreciate Vascular Consult Wound care Tylenol, Tramadol- pain control Monitor CBC, CMP, vitals Code(s): L03.90 - CELLULITIS, UNSPECIFIED (4) Encounter for screening laboratory testing for COVID-19 virus Assessment/Plan: 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 Admitted for Chronic Lymphedema, left Lower Extremity Cellulitis for further evaluation of their emergent condition. Plan: See Problem List FEN PO fluids as tolerated Replete lytes prn Low Na Diet DVT ppx OOB Heparin SQ Code Status: Full Code Dispo: Requires Inpatient Care Visit type - Emergency Visit Emergency Visit: Yes ED Registration Date: 11/16/19 Care time: The patient presented to the Emergency Department on the above date and was hospitalized for further evaluation of their emergent condition. - New Patient This patient is new to me today: Yes Date on this admission: 11/17/19 - Critical Care Critical Care patient: No
[2019-11-17] MEDS: traMADol HCL 50 MG TABLET PO PRN ×2 (04:47→17:29)
[2019-11-17] MEDS ORDERED: VANCOMYCIN 1 GRAM (PRE-DOCKED) 1,000 MG/250 ML BAG IVPB ONE (09:48)
[2019-11-17] MEDS ORDERED: HEPARIN NA (PORCINE) 5,000 UNITS/ML 1ML VIAL ONE (09:48)
[2019-11-17] MEDS ORDERED: PIPERACILLIN/TAZOB 3.375 GM 3.375 GM/50 ML BAG IVPB ONE (09:48)
[2019-11-17] MEDS ORDERED: VANCOMYCIN 1 GRAM (PRE-DOCKED) 1,000 MG/250 ML BAG IVPB SCH (10:00)
[2019-11-17] MEDS ORDERED: VANCOMYCIN 1,000 MG in DEXTROSE 5%-WATER - 250 ML IVPB SCH (10:00)
[2019-11-17] MEDS: PIPERACILLIN/TAZOB 3.375 GM 3.375 GM in DEXTROSE 5%-WATER - 50 ML IVPB SCH ×3 (10:08→23:57)
[2019-11-17] MEDS: HEPARIN NA (PORCINE) 5,000 UNITS/ML 1ML VIAL SQ SCH ×2 (10:08→21:11)
--- NOTE | 2019-11-17 10:46 | PN ---
Progress Note, Physician - Current Medication List Current Medications: Active Medications Heparin Sodium (Porcine) (Heparin -) 5,000 unit SQ BID MAIKEL Last Admin: 11/17/19 10:08 Dose: 5,000 unit Documented by: Vancomycin HCl 1,000 mg/ (Dextrose) 250 mls @ 166.667 mls/hr IVPB Q12H MAIKEL; Protocol Piperacillin Sod/Tazobactam (Sod 3.375 gm/ Dextrose) 50 mls @ 100 mls/hr IVPB Q8H-IV MAIKEL; Protocol Piperacillin Sod/Tazobactam (Sod 3.375 gm/ Dextrose) 50 mls @ 100 mls/hr IVPB Q8H-IV MAIKEL; Protocol Stop: 11/18/19 02:29 Last Admin: 11/17/19 10:08 Dose: 100 mls/hr Documented by: Vancomycin HCl (Vancomycin (Pre-Docked)) 1,000 mg in 250 mls @ 166.667 mls/hr IVPB Q12H MAIKEL; Protocol Stop: 11/17/19 23:29 Last Admin: 11/17/19 10:41 Dose: 166.667 mls/hr Documented by: Tramadol HCl (Ultram -) 50 mg PO Q8H PRN PRN Reason: PAIN LEVEL 6-10 Last Admin: 11/17/19 04:47 Dose: 50 mg Documented by: - Objective Vital Signs: Vital Signs Temperature 98.3 F 11/17/19 06:55 Pulse Rate 70 11/17/19 08:43 Respiratory Rate 16 11/17/19 08:43 Blood Pressure 96/64 11/17/19 08:43 O2 Sat by Pulse Oximetry (%) 99 11/17/19 08:43 Cardiovascular: Yes: Regular Rate and Rhythm Respiratory: Yes: Regular, CTA Bilaterally Gastrointestinal: Yes: Normal Bowel Sounds, Soft Edema: Yes Edema: LLE: 4+ Integumentary: Yes: Erythema, Venous Stasis Changes Wound/Incision: Yes: Open to air, Reddened, Excoriated Labs: CBC, BMP 11/17/19 01:17 11/17/19 01:17 Problem List - Problems (1) Cellulitis Assessment/Plan: IV ABX FOLLW CULTURES ID AND SURGICAL CONSULTS Code(s): L03.90 - CELLULITIS, UNSPECIFIED (2) Lymphedema Assessment/Plan: VASCLAR CONSULR Code(s): I89.0 - LYMPHEDEMA, NOT ELSEWHERE CLASSIFIED
[2019-11-17] MEDS ORDERED: DEXTROSE 5%-WATER - 50 ML IVPB ONE (17:08)
[2019-11-17] MEDS ORDERED: PIPERACILLIN/TAZOBACTAM 3.375 GM VIAL IVPB ONE (17:08)
[2019-11-17 17:48] VITALS: BMI 26.9
--- NOTE | 2019-11-17 20:21 | PN ---
Progress Note (short form) - Note Progress Note: ID CONSULT DICTATED CELLULITIS/ INFECTED ULCERS L LE CHRONIC L LE LYMPHEDEMA AWAIT C/S EMPIRIC VANCOMYCIN/ZOSYN
[2019-11-17] MEDS: VANCOMYCIN 1 GRAM (PRE-DOCKED) 1,000 MG/250 ML BAG IVPB SCH (21:11)
[2019-11-18] MEDS ORDERED: DEXTROSE 5%-WATER - 50 ML IVPB ONE ×3 (00:11→16:13)
[2019-11-18] MEDS ORDERED: PIPERACILLIN/TAZOBACTAM 3.375 GM VIAL IVPB ONE ×3 (00:11→16:12)
[2019-11-18] MEDS: PIPERACILLIN/TAZOB 3.375 GM 3.375 GM in DEXTROSE 5%-WATER - 50 ML IVPB SCH ×3 (01:02→17:42)
--- NOTE | 2019-11-18 10:01 | CONS ---
INFECTIOUS DISEASE CONSULTATION DATE OF CONSULTATION: DATE OF DICTATION: 11/17/2019 HISTORY: The patient is a 59-year-old female who is evaluated for cellulitis and infected ulcers of the left lower extremity. She has a longstanding history of left lower extremity lymphedema dating back to childhood. She has had recurrent episodes of cellulitis. Most recently she developed increasing pain and malodorous drainage from her left lower extremity. She has several ulcerations from which she noted malodorous weepage. She states that the drainage was so excessive it soaked towels. She denied any associated fever or chills. She has had hospitalizations in the past for cellulitis. Her last hospitalization was in June 2019. Cultures in the past have grown mixed organisms including mixed gram-negatives, Staphylococcus aureus and a history of MRSA. PAST MEDICAL HISTORY: Positive for chronic left lower extremity lymphedema, recurrent cellulitis. ALLERGIES: No known allergies. MEDICATIONS: Include vancomycin, Zosyn, clindamycin, tramadol. SOCIAL HISTORY: She is originally from [place]. She reports developing lymphedema while a resident of [place] as a young child. She is a nonsmoker, nondrinker. SYSTEMS REVIEW: Neurologic: No loss of consciousness, seizure activity, focal weakness. Cardiac: Negative chest pain or palpitations. Respiratory: Negative cough or sputum production. Gastrointestinal: Negative vomiting or diarrhea. Genitourinary: Negative for urinary tract infection. LABORATORY DATA: White count 5.9 with 7% eosinophils, hematocrit 41.4, platelets 379, creatinine 0.9, C-reactive protein 1.1, sedimentation rate 56. Strongyloides antibody negative. PHYSICAL EXAMINATION: General: She is awake and alert. She is not acutely toxic appearing. Vital Signs: Temperature of 98.2, blood pressure 92/56, pulse 76 regular, respirations 18 per minute. HEENT: Sclerae are anicteric. Heart: Sounds S1, S2. Lungs: Clear. Abdomen: Soft and nontender. Extremities: Examination of the left lower extremity, there is marked lymphedema of the left lower extremity with several shallow-based ulcers. There is some serous weepage noted from the left lower extremity. The lower extremity is also warm to touch and slightly erythematous. IMPRESSION: 1. Recurrent cellulitis/infected ulcers, left lower extremity. 2. Chronic left lower extremity lymphedema. 3. History of chronic eosinophilia. Await cultures. Empiric broad-spectrum antibiotic coverage with vancomycin and Zosyn. Local wound care. Thank you for the kind referral. HEIDI SEWELL M.D. [id number]
--- NOTE | 2019-11-18 11:33 | PN ---
Progress Note, Physician Chief Complaint: LLE cellulitis LLE elephantitis Chronic LLE lymphedema History of Present Illness: NAD, just returned [place] Seen by ID On IV vanco + Zosyn Observed to be frustrated, doesn't want to see Dr Gao as her vascular/wound care provider. Encouraged continuity of care. Pt hasn't followed up at Wound care center 2/2 to [facility] 19. Has been to [facility] wound care facility in the past, which she didn't like as well. Has not been using her lymphedema pump at home either, doesn't have extension cord for the lymphedema pump. Suggested to try [facility]. - Current Medication List Current Medications: Active Medications Heparin Sodium (Porcine) (Heparin -) 5,000 unit SQ BID MAIKEL Last Admin: 11/17/19 21:11 Dose: 5,000 unit Documented by: Vancomycin HCl (Vancomycin (Pre-Docked)) 1,000 mg in 250 mls @ 166.667 mls/hr IVPB Q12H MAIKEL; Protocol Last Admin: 11/17/19 21:11 Dose: 166.667 mls/hr Documented by: Piperacillin Sod/Tazobactam (Sod 3.375 gm/ Dextrose) 50 mls @ 100 mls/hr IVPB Q8H-IV MAIKEL; Protocol Last Admin: 11/18/19 01:02 Dose: 100 mls/hr Documented by: Tramadol HCl (Ultram -) 50 mg PO Q8H PRN PRN Reason: PAIN LEVEL 6-10 Last Admin: 11/17/19 17:29 Dose: 50 mg Documented by: - Objective Vital Signs: Vital Signs Temperature 98.3 F 11/18/19 06:00 Pulse Rate 62 11/18/19 06:00 Respiratory Rate 18 11/18/19 06:00 Blood Pressure 97/57 L 11/18/19 06:00 O2 Sat by Pulse Oximetry (%) 100 11/18/19 06:00 Constitutional: Yes: Well Nourished, No Distress, Calm Cardiovascular: Yes: Regular Rate and Rhythm Respiratory: Yes: Regular, CTA Bilaterally Gastrointestinal: Yes: Normal Bowel Sounds, Soft Genitourinary: Yes: WNL Musculoskeletal: Yes: WNL Extremities: Yes: WNL Edema: Yes Peripheral Pulses WNL: Yes Neurological: Yes: Alert, Oriented Psychiatric: Yes: Alert, Oriented Labs: CBC, BMP 11/17/19 01:17 11/17/19 01:17 Problem List - Problems (1) Lymphedema Assessment/Plan: -Vascular surgery -Encouraged Lymphedema pump at home -IV abx -WC presumptive MRSA -ID on board -afebrile -no leukocytosis Problems reviewed: Yes Code(s): I89.0 - LYMPHEDEMA, NOT ELSEWHERE CLASSIFIED (2) Elephantiasis Problems reviewed: Yes Code(s): I89.0 - LYMPHEDEMA, NOT ELSEWHERE CLASSIFIED (3) MRSA (methicillin resistant Staphylococcus aureus) colonization Problems reviewed: Yes Code(s): Z22.322 - CARRIER OR SUSPECTED CARRIER OF METHICILLIN RESIS STAPH Assessment/Plan See problem list
[2019-11-18] MEDS: HEPARIN NA (PORCINE) 5,000 UNITS/ML 1ML VIAL SQ SCH ×2 (12:08→22:31)
[2019-11-18] MEDS: VANCOMYCIN 1 GRAM (PRE-DOCKED) 1,000 MG/250 ML BAG IVPB SCH ×2 (12:11→22:31)
--- NOTE | 2019-11-18 14:14 | PN ---
Progress Note, Physician History of Present Illness: AWAKE, ALERT IN BED REPORTS LESS L LE SWELLING AND DRAINAGE AFEBRILE WOUND C/S POLYMICROBIAL - Current Medication List Current Medications: Active Medications Heparin Sodium (Porcine) (Heparin -) 5,000 unit SQ BID MAIKEL Last Admin: 11/18/19 12:08 Dose: 5,000 unit Documented by: Vancomycin HCl (Vancomycin (Pre-Docked)) 1,000 mg in 250 mls @ 166.667 mls/hr IVPB Q12H MAIKEL; Protocol Last Admin: 11/18/19 12:11 Dose: 166.667 mls/hr Documented by: Piperacillin Sod/Tazobactam (Sod 3.375 gm/ Dextrose) 50 mls @ 100 mls/hr IVPB Q8H-IV MAIKEL; Protocol Last Admin: 11/18/19 12:09 Dose: 100 mls/hr Documented by: Tramadol HCl (Ultram -) 50 mg PO Q8H PRN PRN Reason: PAIN LEVEL 6-10 Last Admin: 11/17/19 17:29 Dose: 50 mg Documented by: - Objective Vital Signs: Vital Signs Temperature 98.3 F 11/18/19 06:00 Pulse Rate 62 11/18/19 06:00 Respiratory Rate 18 11/18/19 06:00 Blood Pressure 97/57 L 11/18/19 06:00 O2 Sat by Pulse Oximetry (%) 100 11/18/19 06:00 Constitutional: Yes: No Distress Eyes: Yes: Conjunctiva Clear Cardiovascular: Yes: Regular Rate and Rhythm, S1, S2 Respiratory: Yes: CTA Bilaterally Gastrointestinal: Yes: Normal Bowel Sounds, Soft Extremities: Yes: Other (+ CHRONIC L LE LYMPHEDEMA; SEROUS WOUND DRAINAGE; DECREASED FOOT SWELLING; L LE REMAINS WARM, SL ERYTHEMATOUS) Labs: CBC, BMP 11/17/19 01:17 11/17/19 01:17 Assessment/Plan CELLULITIS/ INFECTED CHRONIC VENOUS STASIS ULCERS L LE CHRONIC L LE LYMPHEDEMA WOUND C/S PENDING CONTINUE EMPIRIC ZOSYN/ VANCOMYCIN
[2019-11-18 15:20] LABS: EOS % 7.9 % (0-4.5); HEMATOCRIT 39.3 % (32.4-45.2); HEMOGLOBIN 12.3 GM/dL (10.7-15.3); LYMPH % 39.5 % (8-40); MCH 26.8 pg (25.7-33.7); MCHC 31.2 g/dl (32.0-36.0); MEAN CELL VOLUME 85.9 fl (80-96); MEAN PLT VOLUME 7.6 fl (7.5-11.1); MONO % 8.7 % (3.8-10.2); NEUT % 42.9 % (42.8-82.8); PLATELET COUNT 311 K/MM3 (134-434); RBC 4.58 M/mm3 (3.60-5.2); RDW 15.4 % (11.6-15.6); WHITE BLOOD COUNT 4.1 K/mm3 (4.0-10.0)
[2019-11-18 15:51] LABS: ALBUMIN 2.4 g/dl (3.4-5.0); BILIRUBIN,TOTAL 0.4 mg/dL (0.2-1); CALCIUM 8.7 mg/dL (8.5-10.1); CREATININE 0.7 mg/dL (0.55-1.3); POTASSIUM 4.2 mmol/L (3.5-5.1); TOT PROT 6.7 g/dl (6.4-8.2)
--- NOTE | 2019-11-18 16:39 | CONSULT ---
- Consultation REQUESTING PROVIDER: CONSULT REQUEST: We have been asked to surgically evaluate this patient for (LLE elephantitis/open wound). 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 Patient reports copious discharge from her leg over the past few days. She reports that the drainage has been yellow, foul smelling and, increasing in volume. Denies fever, chills, nausea, vomiting, worsening difficulty with ambulation. Pt has been taking ibuprofen daily for pain/discomfort. Pt reports she has not been at wound care for several months due to COVID as well as an encounter with a provider she disliked. She denies recent antibiotics. No swelling beyond baseline. Denies prior surgeries to LLE. PMHx: as above PSHx: hernia repair Home Medications Medication Instructions Recorded Ibuprofen 400 mg PO PRN 11/17/19 Allergies Allergy/AdvReac Type Severity Reaction Status Date / Time No Known Drug Allergies Allergy Verified 06/24/19 22:10 REVIEW OF SYSTEMS: CONSTITUTIONAL: Absent: fever, chills CARDIOVASCULAR: Absent: chest pain RESPIRATORY: Absent: cough, shortness of breath GASTROINTESTINAL: Absent: abdominal pain PHYSICAL EXAM: GENERAL: Awake, alert, and fully oriented, in no acute distress. HEAD: Normal with no signs of trauma. LUNGS: No accessory muscle use on RA LOWER EXTREMITIES: RLE wnl, no edema no open ulcerations. LLE with +elephantitis/lymphadema throughout. pt refusing to allow dressing changes Vital Signs Temperature 98.3 F 11/18/19 06:00 Pulse Rate 62 11/18/19 06:00 Respiratory Rate 18 11/18/19 06:00 Blood Pressure 97/57 L 11/18/19 06:00 O2 Sat by Pulse Oximetry (%) 100 11/18/19 06:00 Lab Results WBC 4.1 K/mm3 (4.0-10.0) 11/18/19 14:30 RBC 4.58 M/mm3 (3.60-5.2) 11/18/19 14:30 Hgb 12.3 GM/dL (10.7-15.3) 11/18/19 14:30 Hct 39.3 % (32.4-45.2) 11/18/19 14:30 MCV 85.9 fl (80-96) 11/18/19 14:30 MCHC 31.2 g/dl (32.0-36.0) L 11/18/19 14:30 RDW 15.4 % (11.6-15.6) 11/18/19 14:30 Plt Count 311 K/MM3 (134-434) 11/18/19 14:30 Sodium 139 mmol/L (136-145) 11/18/19 14:30 Potassium 4.2 mmol/L (3.5-5.1) 11/18/19 14:30 Chloride 104 mmol/L (98-107) 11/18/19 14:30 Carbon Dioxide 30 mmol/L (21-32) 11/18/19 14:30 Anion Gap 6 MMOL/L (8-16) L 11/18/19 14:30 BUN 16.0 mg/dL (7-18) 11/18/19 14:30 Creatinine 0.7 mg/dL (0.55-1.3) 11/18/19 14:30 Random Glucose 75 mg/dL (74-106) 11/18/19 14:30 Calcium 8.7 mg/dL (8.5-10.1) 11/18/19 14:30 A/P: 59 y/o F w/ h/o lle elephantitis/lymphadema and chronic wounds, now a/w increased pain/drainage from lle wounds. Duplex negative for dvt on admission. pt refusing to allow dressing change will reattempt tomorrow d/w attending Dr Gao
[2019-11-18] MEDS ORDERED: PT OWN MED DRAWER 7, Y5N ONE (21:01)
[2019-11-19] MEDS ORDERED: PIPERACILLIN/TAZOBACTAM 3.375 GM VIAL IVPB ONE ×3 (01:31→17:34)
[2019-11-19] MEDS ORDERED: DEXTROSE 5%-WATER - 50 ML IVPB ONE ×3 (01:31→17:34)
[2019-11-19] MEDS: traMADol HCL 50 MG TABLET PO PRN ×2 (01:41→22:11)
[2019-11-19] MEDS: PIPERACILLIN/TAZOB 3.375 GM 3.375 GM in DEXTROSE 5%-WATER - 50 ML IVPB SCH ×3 (01:42→18:55)
[2019-11-19 07:43] LABS: BASO % 1.3 % (0-2.0); EOS % 8.8 % (0-4.5); HEMATOCRIT 33.1 % (32.4-45.2); HEMOGLOBIN 10.5 GM/dL (10.7-15.3); LYMPH % 38.1 % (8-40); MCHC 31.6 g/dl (32.0-36.0); MEAN CELL VOLUME 85.5 fl (80-96); MEAN PLT VOLUME 7.7 fl (7.5-11.1); MONO % 10.4 % (3.8-10.2); NEUT % 41.4 % (42.8-82.8); PLATELET COUNT 283 K/MM3 (134-434); RBC 3.88 M/mm3 (3.60-5.2); RDW 15.4 % (11.6-15.6); WHITE BLOOD COUNT 4.9 K/mm3 (4.0-10.0)
[2019-11-19 08:18] LABS: BILIRUBIN,TOTAL 0.3 mg/dL (0.2-1); BLOOD UREA NITROGEN 17.1 mg/dL (7-18); CALCIUM 8.2 mg/dL (8.5-10.1); CREATININE 0.6 mg/dL (0.55-1.3); POTASSIUM 4.4 mmol/L (3.5-5.1); TOT PROT 5.5 g/dl (6.4-8.2)
--- NOTE | 2019-11-19 10:28 | PN ---
Progress Note, Physician Chief Complaint: LLE cellulitis LLE elephantitis Chronic LLE lymphedema History of Present Illness: On IV vanco + Zosyn Observed to be frustrated, doesn't want to see Dr Gao as her vascular/wound care provider. Encouraged continuity of care. Pt hasn't followed up at Wound care center 06/02 to [facility]. Has been to [facility] wound care facility in the past, which she didn't like as well. Has not been using her lymphedema pump at home either, doesn't have extension cord for the lymphedema pump. Suggested to try [facility]. - Current Medication List Current Medications: Active Medications Heparin Sodium (Porcine) (Heparin -) 5,000 unit SQ BID [facility] Last Admin: 11/18/19 22:31 Dose: 5,000 unit Documented by: Vancomycin HCl (Vancomycin (Pre-Docked)) 1,000 mg in 250 mls @ 166.667 mls/hr IVPB Q12H [facility]; Protocol Last Admin: 11/18/19 22:31 Dose: 166.667 mls/hr Documented by: Piperacillin Sod/Tazobactam (Sod 3.375 gm/ Dextrose) 50 mls @ 100 mls/hr IVPB Q8H-IV [facility]; Protocol Last Admin: 11/19/19 01:42 Dose: 100 mls/hr Documented by: Tramadol HCl (Ultram -) 50 mg PO Q8H PRN PRN Reason: PAIN LEVEL 6-10 Last Admin: 11/19/19 01:41 Dose: 50 mg Documented by: - Objective Vital Signs: Vital Signs Temperature 98.3 F 11/19/19 06:00 Pulse Rate 64 11/19/19 06:00 Respiratory Rate 18 11/19/19 06:00 Blood Pressure 95/60 11/19/19 06:00 O2 Sat by Pulse Oximetry (%) 100 11/19/19 06:00 Constitutional: Yes: Well Nourished, No Distress, Calm Cardiovascular: Yes: Regular Rate and Rhythm Respiratory: Yes: Regular, CTA Bilaterally Gastrointestinal: Yes: Normal Bowel Sounds, Soft Genitourinary: Yes: WNL Musculoskeletal: Yes: WNL Extremities: Yes: WNL Edema: Yes (LLE lymphedema) Peripheral Pulses WNL: Yes Wound/Incision: Yes: Dressing Dry and Intact Neurological: Yes: Alert, Oriented Psychiatric: Yes: Alert, Oriented Labs: CBC, BMP 11/19/19 06:13 11/19/19 06:13 Problem List - Problems (1) Lymphedema Assessment/Plan: with cellulitis -Vascular surgery -Encouraged Lymphedema pump at home -IV abx -WC presumptive MRSA -ID on board -afebrile -no leukocytosis Problems reviewed: Yes Code(s): I89.0 - LYMPHEDEMA, NOT ELSEWHERE CLASSIFIED (2) Elephantiasis Problems reviewed: Yes Code(s): I89.0 - LYMPHEDEMA, NOT ELSEWHERE CLASSIFIED (3) MRSA (methicillin resistant Staphylococcus aureus) colonization Problems reviewed: Yes Code(s): Z22.322 - CARRIER OR SUSPECTED CARRIER OF METHICILLIN RESIS STAPH Assessment/Plan See problem list
[2019-11-19] MEDS: VANCOMYCIN 1 GRAM (PRE-DOCKED) 1,000 MG/250 ML BAG IVPB SCH ×2 (10:57→22:12)
[2019-11-19] MEDS: HEPARIN NA (PORCINE) 5,000 UNITS/ML 1ML VIAL SQ SCH ×2 (10:58→22:11)
[2019-11-19] MEDS: ASCORBIC ACID 500 MG TABLET (FP) PO SCH ×2 (10:59→22:24)
--- NOTE | 2019-11-19 11:06 | PN ---
Progress Note (short form) - Note Progress Note: Returned to evaluate wounds and change dressing. Pt with multiple requests, unhappy about possibility of dressing changes. Allowed me to remove dressing (kerlix and abds however calcium alginate over wounds-pt did not allow for removal of calcium alginate secondary to pain/discomfort). Unable to visualize wounds and wound beds. Explained to pt why this is important, pt continued to refuse stating multiple reasons she is unhappy with current hospitalization and with various providers who have evaluated her now and in the past. Tried again to discuss need for evaluating wounds in order to prescribe the best wound care. Pt grew increasingly frustrated, refusing again. Unable to provide wound care orders/instructions without evaluating the wound reconsult prn or if pt becomes amendable d/w attending Dr Gao
--- NOTE | 2019-11-19 14:51 | PN ---
Progress Note, Physician History of Present Illness: AWAKE, ALERT IN BED REPORTS LESS L LE SWELLING AND DRAINAGE AFEBRILE WOUND C/S POLYMICROBIAL INCLUDING MRSA - Current Medication List Current Medications: Active Medications Amino Acids (Prosource No Carb Liquid Pkt) 30 ml PO BID@0800,1730 [facility] Ascorbic Acid (Vitamin C -) 500 mg PO BID [facility] Last Admin: 11/19/19 10:59 Dose: 500 mg Documented by: Heparin Sodium (Porcine) (Heparin -) 5,000 unit SQ BID [facility] Last Admin: 11/19/19 10:58 Dose: 5,000 unit Documented by: Vancomycin HCl (Vancomycin (Pre-Docked)) 1,000 mg in 250 mls @ 166.667 mls/hr IVPB Q12H [facility]; Protocol Last Admin: 11/19/19 10:57 Dose: 166.667 mls/hr Documented by: Piperacillin Sod/Tazobactam (Sod 3.375 gm/ Dextrose) 50 mls @ 100 mls/hr IVPB Q8H-IV [facility]; Protocol Last Admin: 11/19/19 10:58 Dose: 100 mls/hr Documented by: Tramadol HCl (Ultram -) 50 mg PO Q8H PRN PRN Reason: PAIN LEVEL 6-10 Last Admin: 11/19/19 01:41 Dose: 50 mg Documented by: - Objective Vital Signs: Vital Signs Temperature 98.0 F 11/19/19 10:00 Pulse Rate 84 11/19/19 10:00 Respiratory Rate 18 11/19/19 10:00 Blood Pressure 110/75 11/19/19 10:00 O2 Sat by Pulse Oximetry (%) 100 11/19/19 10:00 Constitutional: Yes: No Distress Eyes: Yes: Conjunctiva Clear Cardiovascular: Yes: Regular Rate and Rhythm, S1, S2 Respiratory: Yes: CTA Bilaterally Gastrointestinal: Yes: Normal Bowel Sounds, Soft Extremities: Yes: Other (DECREASED ERYTHEMA L LE) Labs: CBC, BMP 11/19/19 06:13 11/19/19 06:13 Assessment/Plan CELLULITIS/ INFECTED CHRONIC VENOUS STASIS ULCERS L LE CHRONIC L LE LYMPHEDEMA CONTINUE ZOSYN/ VANCOMYCIN
[2019-11-19] MEDS: AMINO ACIDS/PROTEIN HYDROLYS 30 ML LIQUID.PKT PO SCH (18:58)
[2019-11-20] MEDS ORDERED: PIPERACILLIN/TAZOBACTAM 3.375 GM VIAL IVPB ONE ×2 (02:02→09:28)
[2019-11-20] MEDS ORDERED: DEXTROSE 5%-WATER - 50 ML IVPB ONE ×2 (02:03→09:28)
[2019-11-20] MEDS: PIPERACILLIN/TAZOB 3.375 GM 3.375 GM in DEXTROSE 5%-WATER - 50 ML IVPB SCH ×2 (02:17→09:59)
[2019-11-20] MEDS: AMINO ACIDS/PROTEIN HYDROLYS 30 ML LIQUID.PKT PO SCH ×2 (08:40→17:35)
[2019-11-20] MEDS: ASCORBIC ACID 500 MG TABLET (FP) PO SCH ×2 (09:47→22:55)
[2019-11-20] MEDS: HEPARIN NA (PORCINE) 5,000 UNITS/ML 1ML VIAL SQ SCH ×2 (09:47→22:55)
--- NOTE | 2019-11-20 09:54 | PN ---
Progress Note, Physician Chief Complaint: LLE cellulitis LLE elephantitis Chronic LLE lymphedema History of Present Illness: On IV vanco + Zosyn Observed to be frustrated, doesn't want to see Dr Gao as her vascular/wound care provider. Encouraged continuity of care. Pt hasn't followed up at Wound care center 2 to [facility] 19. Has been to [facility] wound care facility in the past, which she didn't like as well. Has not been using her lymphedema pump at home either, doesn't have extension cord for the lymphedema pump. Suggested to try [facility] [employer]. Feels better today Refusing prosource and Ag alginate, encouraged for wound healing - Current Medication List Current Medications: Active Medications Amino Acids (Prosource No Carb Liquid Pkt) 30 ml PO BID@0800,1730 [facility] Last Admin: 11/20/19 08:40 Dose: Not Given Documented by: Ascorbic Acid (Vitamin C -) 500 mg PO BID [facility] Last Admin: 11/19/19 22:24 Dose: Not Given Documented by: Heparin Sodium (Porcine) (Heparin -) 5,000 unit SQ BID [facility] Last Admin: 11/19/19 22:11 Dose: 5,000 unit Documented by: Vancomycin HCl (Vancomycin (Pre-Docked)) 1,000 mg in 250 mls @ 166.667 mls/hr IVPB Q12H [facility]; Protocol Last Admin: 11/19/19 22:12 Dose: 166.667 mls/hr Documented by: Piperacillin Sod/Tazobactam (Sod 3.375 gm/ Dextrose) 50 mls @ 100 mls/hr IVPB Q8H-IV [facility]; Protocol Last Admin: 11/20/19 02:17 Dose: 100 mls/hr Documented by: Tramadol HCl (Ultram -) 50 mg PO Q8H PRN PRN Reason: PAIN LEVEL 6-10 Last Admin: 11/19/19 22:11 Dose: 50 mg Documented by: - Objective Vital Signs: Vital Signs Temperature 98.5 F 11/20/19 09:26 Pulse Rate 65 11/20/19 09:26 Respiratory Rate 20 11/20/19 09:26 Blood Pressure 95/55 L 11/20/19 09:26 O2 Sat by Pulse Oximetry (%) 98 11/20/19 09:26 Constitutional: Yes: Well Nourished, No Distress, Calm Cardiovascular: Yes: Regular Rate and Rhythm Respiratory: Yes: Regular, CTA Bilaterally Gastrointestinal: Yes: Normal Bowel Sounds, Soft Genitourinary: Yes: WNL Musculoskeletal: Yes: WNL Edema: Yes (LLE lympedema) Wound/Incision: Yes: Dressing Dry and Intact Neurological: Yes: Alert, Oriented Psychiatric: Yes: Alert, Oriented Labs: CBC, BMP 11/19/19 06:13 11/19/19 06:13 Problem List - Problems (1) Lymphedema Assessment/Plan: -with cellulitis -Vascular surgery -Encouraged Lymphedema pump at home -IV abx--- transition to PO abx in AM -WC MRSA -ID on board -afebrile -no leukocytosis Problems reviewed: Yes Code(s): I89.0 - LYMPHEDEMA, NOT ELSEWHERE CLASSIFIED (2) Elephantiasis Problems reviewed: Yes Code(s): I89.0 - LYMPHEDEMA, NOT ELSEWHERE CLASSIFIED (3) MRSA (methicillin resistant Staphylococcus aureus) colonization Problems reviewed: Yes Code(s): Z22.322 - CARRIER OR SUSPECTED CARRIER OF METHICILLIN RESIS STAPH Assessment/Plan See problem list
--- NOTE | 2019-11-20 10:43 | PN ---
Progress Note, Physician History of Present Illness: AWAKE, ALERT IN BED REPORTS LESS L LE SWELLING AND DRAINAGE AFEBRILE WOUND C/S POLYMICROBIAL INCLUDING MRSA - Current Medication List Current Medications: Active Medications Amino Acids (Prosource No Carb Liquid Pkt) 30 ml PO BID@0800,1730 [facility] Last Admin: 11/20/19 08:40 Dose: Not Given Documented by: Ascorbic Acid (Vitamin C -) 500 mg PO BID [facility] Last Admin: 11/20/19 09:47 Dose: 500 mg Documented by: Heparin Sodium (Porcine) (Heparin -) 5,000 unit SQ BID [facility] Last Admin: 11/20/19 09:47 Dose: 5,000 unit Documented by: Vancomycin HCl (Vancomycin (Pre-Docked)) 1,000 mg in 250 mls @ 166.667 mls/hr IVPB Q12H [facility]; Protocol Last Admin: 11/19/19 22:12 Dose: 166.667 mls/hr Documented by: Tramadol HCl (Ultram -) 50 mg PO Q8H PRN PRN Reason: PAIN LEVEL 6-10 Last Admin: 11/19/19 22:11 Dose: 50 mg Documented by: - Objective Vital Signs: Vital Signs Temperature 98.5 F 11/20/19 09:26 Pulse Rate 65 11/20/19 09:26 Respiratory Rate 20 11/20/19 09:26 Blood Pressure 95/55 L 11/20/19 09:26 O2 Sat by Pulse Oximetry (%) 98 11/20/19 09:26 Constitutional: Yes: No Distress Eyes: Yes: Conjunctiva Clear Cardiovascular: Yes: Regular Rate and Rhythm, S1, S2 Respiratory: Yes: CTA Bilaterally Gastrointestinal: Yes: Normal Bowel Sounds, Soft. No: Tenderness Extremities: Yes: Other (L LE LYMPHEDEMA DECREASED ERYTHEMA/ WARMTH/ DRAINAGE) Labs: CBC, BMP 11/19/19 06:13 11/19/19 06:13 Assessment/Plan CELLULITIS/ INFECTED CHRONIC VENOUS STASIS ULCERS L LE CHRONIC L LE LYMPHEDEMA CONTINUE VANCOMYCIN MAY SUBSTITUTE CLINDAMYCIN 300MG PO TID NEXT 24HR WITH PROBIOTIC OUTPATIENT REFERRAL WOUND CARE CENTER/ LYMPHEDEMA CLINIC
[2019-11-20] MEDS: VANCOMYCIN 1 GRAM (PRE-DOCKED) 1,000 MG/250 ML BAG IVPB SCH ×2 (11:10→21:58)
[2019-11-20] MEDS: POLYETHYLENE GLYCOL 3350 119 GM BTL PO SCH (12:04)
[2019-11-20] MEDS: TRIAMCINOLONE ACET 0.1% 60 ML LOTION TP SCH ×2 (14:33→22:55)
--- NOTE | 2019-11-20 16:55 | PN ---
Progress Note (short form) - Note Progress Note: Surgery Patient removed calcium algenate today allowing us to examine wounds. No new complaints. Vital Signs Temp 98.5 F 11/20/19 09:26 Pulse 65 11/20/19 09:26 Resp 20 11/20/19 09:26 BP 95/55 L 11/20/19 09:26 Pulse Ox 99 11/20/19 10:05 Intake & Output 11/19/19 11/20/19 11/20/19 23:59 11:59 23:59 Intake Total 250 350 350 Balance 250 350 350 Intake: IVPB 250 350 Oral 350 Other: Voiding Method Toilet Toilet Toilet # Unmeasured Voids Void 2 Bowel Movement No CBC, BMP 11/19/19 06:13 11/19/19 06:13 PE: A&O3, NAD Unlabored resp on RA Left LE with diffuse lymphedema and chronic skin changes extending from the knee down. Two small superficial areas of skin breakdown-anterior at mid shaft @ 2x1.5cm weeping with no signs of fluctuance, collection or infection, larger @ 6x6cm stage 2 ulcer laterally at distal 3rd lower leg superior to lateral malleolus- well defined with clean boarders and fibrinous base-no signs of fluctuance, active d/c, foul odor or infection. foot warm and well perfused with +DP pulse. Problem List - Problems (1) Lymphedema Assessment/Plan: 59 yo well known by Vascular service with stable lymphedema chronic ulcer and no indication for vascular intervention at this time. -local wound care-clean with saline, apply calcium algenate QOD-Kurlex and compressive [place] -Apply Aquaphore to dry skin -IV Abx per ID -Elevate Left LE when in bed -continue lymphedema pump at home -f/u with Dr Gao in the wound care clinic Code(s): I89.0 - LYMPHEDEMA, NOT ELSEWHERE CLASSIFIED
[2019-11-20] MEDS: traMADol HCL 50 MG TABLET PO PRN (21:59)
[2019-11-20] MEDS: MINERAL OIL/PET HY-PHL TOPICAL OINTMENT 454 GM JAR TP SCH (22:02)
[2019-11-21] MEDS: AMINO ACIDS/PROTEIN HYDROLYS 30 ML LIQUID.PKT PO SCH ×2 (08:25→17:00)
[2019-11-21] MEDS ORDERED: PT OWN MED DRAWER 7, Y5N ONE (09:33)
[2019-11-21] MEDS: POLYETHYLENE GLYCOL 3350 119 GM BTL PO SCH (10:03)
[2019-11-21] MEDS: ASCORBIC ACID 500 MG TABLET (FP) PO SCH (10:03)
[2019-11-21] MEDS: HEPARIN NA (PORCINE) 5,000 UNITS/ML 1ML VIAL SQ SCH (10:04)
[2019-11-21] MEDS: MINERAL OIL/PET HY-PHL TOPICAL OINTMENT 454 GM JAR TP SCH (10:06)
[2019-11-21] MEDS: VANCOMYCIN 1 GRAM (PRE-DOCKED) 1,000 MG/250 ML BAG IVPB SCH (10:06)
--- NOTE | 2019-11-21 10:56 | DS ---
Physical Examination Vital Signs: Vital Signs Temperature 98.4 F 11/21/19 05:52 Pulse Rate 60 11/21/19 05:52 Respiratory Rate 18 11/21/19 05:52 Blood Pressure 105/63 11/21/19 05:52 O2 Sat by Pulse Oximetry (%) 99 11/21/19 05:52 Findings/Remarks: (1) Lymphedema Assessment/Plan: -with cellulitis -Seen by Vascular surgery- encouraged to f/u at wound care center -Encouraged Lymphedema pump at home -Clindamycin 300 mg tid x 7 day -WC MRSA -Seen by ID -afebrile -no leukocytosis Problems reviewed: Yes Code(s): I89.0 - LYMPHEDEMA, NOT ELSEWHERE CLASSIFIED (2) Elephantiasis Problems reviewed: Yes Code(s): I89.0 - LYMPHEDEMA, NOT ELSEWHERE CLASSIFIED (3) MRSA (methicillin resistant Staphylococcus aureus) colonization Problems reviewed: Yes Code(s): Z22.322 - CARRIER OR SUSPECTED CARRIER OF METHICILLIN RESIS STAPH Assessment/Plan See problem list Constitutional: Yes: Well Nourished, No Distress, Calm Cardiovascular: Yes: Regular Rate and Rhythm Respiratory: Yes: Regular, CTA Bilaterally Gastrointestinal: Yes: Normal Bowel Sounds, Soft Renal/: Yes: WNL Musculoskeletal: Yes: WNL Extremities: Yes: WNL Edema: Yes (LLE lymphedema) Peripheral Pulses WNL: Yes Wound/Incision: Yes: Dressing Dry and Intact Neurological: Yes: Alert, Oriented Psychiatric: Yes: Alert, Oriented Labs: CBC, BMP 11/19/19 06:13 11/19/19 06:13 Discharge Summary Problems reviewed: Yes Reason For Visit: LEG WOUND DRAINING Current Active Problems Encounter for screening laboratory testing for COVID-19 virus (Acute) Leg wound, left (Acute) Lymphedema (Acute) Wound cellulitis (Acute) Condition: Stable - Instructions Referrals: Carlos Bar MD [Primary Care Provider] - Disposition: VNS/HOME HEALTH CARE - Home Medications Comprehensive Discharge Medication List: Ambulatory Orders Ascorbic Acid [Vitamin C -] 500 mg PO BID #30 tablet 11/21/19 Clindamycin [Cleocin -] 300 mg PO TID #21 capsule 11/21/19 Lactobacillus Acidophilus [Acidophilus Lactobacilli] 1 each PO DAILY #30 capsule 11/21/19 Mineral Oil/Pet Hy-Phl [Aquaphor -] 1 applic TP DAILY #1 jar 11/21/19 Polyethylene Glycol 3350 [Miralax 119 gm Btl -] 17 gm PO DAILY #1 bottle Triamcinolone 0.1% Lotion [Aristocort 0.1% Lotion -] 1 applic TP TID #1 lotion 11/21/19 traMADol HCL [Ultram -] 50 mg PO Q8H PRN #15 tablet MDD 3 11/21/19 Prescription Drug Monitoring Program (I-STOP) results: I-STOP reviewed and no issues identified
[2019-11-21 12:11] VITALS: BP 120/72; PULSE 67; TEMP 98.3
[2019-11-21] MEDS: TRIAMCINOLONE ACET 0.1% 60 ML LOTION TP SCH (13:53)
== END 2019-11-21 17:57 | disposition home health service (06) ==
LOC: JER 22:24 → INTOOBSV 11-17 03:00 → UNDOADMOB 11-17 03:00 → JERBED 11-17 03:00 → J7W 11-17 15:45 → JERBED 11-20 14:34 → J7W 11-20 14:34
PROVIDERS: ADMIT Internal Medicine; ATTEND Family Medicine
PROC: 3E03329 Introduction of Other Anti-infective into Peripheral Vein, Percutaneous Approach (ICD-10-PCS; principal; 2019-11-20)
PROC: 3E013VG Introduction of Insulin into Subcutaneous Tissue, Percutaneous Approach (ICD-10-PCS; 2019-11-20)
DX: I89.0 Lymphedema, not elsewhere classified (principal); Z29.9 Encounter for prophylactic measures, unspecified; Z11.59 Encounter for screening for other viral diseases; L03.90 Cellulitis, unspecified; I87.8 Other specified disorders of veins; Z22.322 Carrier or suspected carrier of Methicillin resistant Staphylococcus aureus; Z99.89 Dependence on other enabling machines and devices
CPT/HCPCS: 36415; 71045-TC-FY; 80053; 83605; 85025; 85651; 86140; 87040; 87070; 87186; 87205; 93971-TC; 96365; 96367; 96368; 96372; 96375; 99285-25; G0378; G0480; J1644; U0003

== ENCOUNTER 2020-01-11 21:08 | Inpatient (IN) | payer OTHER ==
[2020-01-11 21:19] VITALS: BMI 26.6
--- NOTE | 2020-01-11 21:40 | PDOC ---
History of Present Illness - General Chief Complaint: Edema Stated Complaint: LEGS SORE Time Seen by Provider: 01/11/20 21:38 - History of Present Illness Initial Comments: 01/11/20 21:39 HPI: This is a 59 y/o female with a PMH of LLE elephantitis and chronic lymphedema secondary to a parasitic infection when she was a teenager presenting to the ED due to two weeks of increased pain and drainage from chronic LLE ulcers. She was recently discharged from [facility] in October after being admitted for a similar complaint. She received a course of Zosyn/Vanco and was discharged on Clindamycin which she reports that she finished. When she was d/c she began doing wound care at [facility]. Two weeks ago during one of her visits, the nurse commented on increased discharge and recommended that she go to the ER. The patient attempted to wait and see if it would improve on her own, but the pain and discharge worsened leading to her presenting today. She denies any symptoms other than increased pain and discharge. Denies fever/chills, nausea/vomiting, abdominal pain, headache, or weakness. ROS: GENERAL/CONSTITUTIONAL: No fever/chills. No weakness. CARDIOVASCULAR: No chest pain or shortness of breath. RESPIRATORY: No cough, wheezing, or hemoptysis. GASTROINTESTINAL: No nausea, vomiting. MUSCULOSKELETAL: No joint or muscle swelling or pain. No neck or back pain. SKIN: Increased pain and drainage from ulcers and lymphedema of LLE. NEUROLOGIC: No headache, or change in strength/sensation. ENDOCRINE: No increased thirst. No abnormal weight change. PMH: Elephantitis, lymphedema, uterine fibroids. Meds: Ibuprofen Allergies: KNDA PE: GENERAL: Awake, alert, and fully oriented, in no acute distress. Patient laying in bed non-toxic in appearance. Conversing normally. HEAD: No signs of trauma EYES: PERRLA, EOMI ENT: Auricles normal inspection, hearing grossly normal, nares patent, oropharynx clear without exudates. Moist mucosa NECK: Normal ROM, supple, no lymphadenopathy, JVD, or masses LUNGS: Breath sounds equal, clear to auscultation bilaterally. No wheezes, and no crackles HEART: Regular rate and rhythm, normal S1 and S2, no murmurs, rubs or gallops ABDOMEN: Soft, nontender, normoactive bowel sounds. EXTREMITIES: Chronic LLE thickening from knee to foot. Multiple ulcerations with draining fluid. Largest one approximately 7cm diameter. RLE with multiple NEUROLOGICAL: Cranial nerves II through XII grossly intact. Normal speech, normal gait MDM: 01/11/20 23:57 This is a 59 y/o female with a PMH of LLE elephantitis and chronic lymphedema secondary to a parasitic infection when she was a teenager presenting to the ED due to two weeks of increased pain and drainage from chronic LLE ulcers. - Patient is well appearing, non-toxic - Chronic LLE wounds not improving with outpatient treatment. Likely needs to come in for Iv abx - Patient was on course of outpatient Clindamycin with worsening symptoms - No systemic signs - CBC, CMP, inflammatory markers, EKG, CXR, abx - Will do labs for admission - Start Zosyn/Vanco in ED Labs notable for: - Eosinophils 6.2 - The rest of labs WNL - Patient admitted to [facility] for IV antibiotics and failed outpatient management. Past History - Medical History Allergies/Adverse Reactions: Allergies Allergy/AdvReac Type Severity Reaction Status Date / Time No Known Drug Allergies Allergy Verified 06/24/19 22:10 Home Medications: Ambulatory Orders Ascorbic Acid [Vitamin C -] 500 mg PO BID #60 tablet 11/21/19 Clindamycin [Cleocin -] 300 mg PO TID #21 capsule 11/21/19 Lactobacillus Acidophilus [Acidophilus Lactobacilli] 1 each PO DAILY #30 capsule 11/21/19 Mineral Oil/Pet Hy-Phl [Aquaphor] 1 applic TP DAILY #1 jar 11/21/19 Mupirocin Ointment [Bactroban 2% Ointment -] 1 applic TP BID #1 tube 11/21/19 Polyethylene Glycol 3350 [Miralax (For Daily Use) -] 17 gm PO DAILY #1 bottle 11/21/19 Silver Sulfadiazine [Silvadene] 400 gm TP DAILY #400 gm 11/21/19 Triamcinolone 0.1% Lotion [Aristocort 0.1% Lotion -] 1 applic TP BID #1 bottle 11/21/19 traMADol HCL [Ultram -] 50 mg PO Q8H PRN #15 tablet MDD 3 11/21/19 Anemia: Yes (PAST HX) Asthma: No Cancer: No Cardiac Disorders: No CVA: No COPD: No CHF: No DVT: No Dementia: No Diabetes: No GI Disorders: Yes (CONSTIPATION,HEMORRHOIDS) Disorders: No HTN: No Hypercholesterolemia: No Liver Disease: No Seizures: No Thyroid Disease: No - Surgical History Abdominal Surgery: Yes (SUPRAUMBILICAL VENTRAL HERNIA) Appendectomy: No Cardiac Surgery: No Cholecystectomy: No Lung Surgery: No Neurologic Surgery: No Orthopedic Surgery: No - Immunization History Immunization Up to Date: Yes - Psycho-Social/Smoking History Smoking History: Never smoked Have you smoked in the past 12 months: No Number of Cigarettes Smoked Daily: 0 - Substance Abuse Hx (Audit-C & DAST Scrn) How often the patient has a drink containing alcohol: Never Score: In Men: 4 or > Positive; In Women: 3 or > Positive: 0 Screen Result (Pos requires Nsg. Audit-10AR): Negative In the last yr the pt used illegal drug/Rx for NonMed reason: No Score: Yes response is considered Positive: 0 Screen Result (Positive result requires Nsg. DAST-10): Negative *Physical Exam - Vital Signs Last Vital Signs Temp Pulse Resp BP Pulse Ox 98.8 F 74 19 95/62 99 01/11/20 21:11 01/11/20 21:11 01/11/20 21:11 01/11/20 21:11 01/11/20 21:11 Heart Score/ECG Review - ECG Intrepretation Comment:: 01/12/20 06:[address] elevations or T wave inversions Normal sinus rhythm Minimal voltage criteria for LVH Vent rate 81 bpm HI interval 200ms QRS duration 88ms QT/QTc 358/415ms ED Treatment Course - LABORATORY CBC & Chemistry Diagram: 01/11/20 23:20 01/11/20 23:20 Discharge - Discharge Information Problems reviewed: Yes Clinical Impression/Diagnosis: Lymphedema - Admission Yes - Follow up/Referral - Patient Discharge Instructions - Post Discharge Activity
--- NOTE | 2020-01-11 21:41 | PDOC ---
Attending Attestation - Resident Resident Name: Kavya Ramirez - ED Attending Attestation I have performed the following: I have examined & evaluated the patient, The case was reviewed & discussed with the resident, I agree w/resident's findings & plan - HPI HPI: 01/11/20 22:43 pt comes with cellulitis of the left leg. She has known elephantiasis of the left leg as well as a patch of cellulitis over the medial aspect of the right leg. - Physicial Exam PE: 01/11/20 22:44 Pt afebrile Pt is A+Ox3 distress from the chronic situation of her leg. left leg weeping serosanguinous fluid right leg WNL; medial aspect of leg thick patch of cellulitic skin likely where weeping fluids from the other leg contacted her skin. - Medical Decision Making 01/12/20 00:51 labs normal cxr normal pt was given abx for her cellulitis and she will be admitted for wound care. She needs a social scientist to help her procure more supplied from medicare/medicaid for wound care 01/12/20 01:05 Hospitalists are aware of the patient Discharge - Discharge Information Problems reviewed: Yes Clinical Impression/Diagnosis: Lymphedema - Follow up/Referral - Patient Discharge Instructions - Post Discharge Activity
[2020-01-11] MEDS ORDERED: PIPERACILLIN/TAZOB 4.5 GM 4.5 GM in DEXTROSE 5%-WATER 100 ML IVPB ONE (22:21)
[2020-01-11] MEDS ORDERED: PIPERACILLIN/TAZOB 4.5 GM 4.5 GM/100 ML BAG IVPB ONE (22:48)
[2020-01-11] MEDS ORDERED: VANCOMYCIN 1,000 MG in DEXTROSE 5%-WATER - 250 ML IVPB ONE (22:50)
[2020-01-11] MEDS ORDERED: VANCOMYCIN 1 GRAM (PRE-DOCKED) 1,000 MG/250 ML BAG IVPB ONE (22:52)
[2020-01-11 23:39] LABS: BASO % 0.7 % (0-2.0); EOS % 6.2 % (0-4.5); HEMATOCRIT 41.3 % (32.4-45.2); HEMOGLOBIN 13.4 GM/dL (10.7-15.3); LYMPH % 31.7 % (8-40); MCH 28.1 pg (25.7-33.7); MCHC 32.3 g/dl (32.0-36.0); MEAN PLT VOLUME 8.5 fl (7.5-11.1); MONO % 6.5 % (3.8-10.2); NEUT % 54.9 % (42.8-82.8); PLATELET COUNT 364 K/MM3 (134-434); RBC 4.75 M/mm3 (3.60-5.2); RDW 14.5 % (11.6-15.6); WHITE BLOOD COUNT 7.3 K/mm3 (4.0-10.0)
[2020-01-12 00:10] LABS: ALBUMIN 2.9 g/dl (3.4-5.0); BILIRUBIN,TOTAL 0.3 mg/dL (0.2-1); CALCIUM 9.4 mg/dL (8.5-10.1); CREATININE 0.8 mg/dL (0.55-1.3); POTASSIUM 4.8 mmol/L (3.5-5.1); TOT PROT 8.1 g/dl (6.4-8.2)
[2020-01-12] MEDS ORDERED: SODIUM CHLORIDE 0.9% 500 ML INFUS.BAG IV ONE (00:12)
[2020-01-12] MEDS ORDERED: ACETAMINOPHEN 1000 MG/100 ML VIAL (NON FORMULARY) IVPB ONE (00:12)
[2020-01-12] MEDS ORDERED: ACETAMINOPHEN INJECTION 100 ML IVPB ONE (00:26)
[2020-01-12 00:49] LABS: ERYTHROCYTE SEDIMENTATION RATE 80 mm/hr (0-30)
--- NOTE | 2020-01-12 00:51 | PN ---
Teaching Attending Note Name of Resident: Maryana Sánchez ATTENDING PHYSICIAN STATEMENT I saw and evaluated the patient. I reviewed the resident's note and discussed the case with the resident. I agree with the resident's findings and plan as documented. 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 She was recently discharged from [facility] in October 2019 after being admitted for a similar complaint. She received a course of Zosyn/Vancomycin and was discharged on Clindamycin which she reports that she finished. Gets wound care at [facility]. Two weeks ago during one of her visits, the nurse commented on increased discharge and recommended that she go to the ER. The patient attempted to wait and see if it would improve on her own, but the pain and discharge worsened leading to her presenting today. Patient denies chest pain, shortness of breath, abdominal pain, headache, palpitations, dizziness, fever, chills, nausea, vomiting, diarrhea, constipation, dysuria, frequency, urgency, melena, hematochezia or hematuria. Denies alcohol, tobacco or illicit drug use. No sick contacts or recent travels. Family history is unremarkable. OBJECTIVE: Alert Vital Signs Period Temp Pulse Resp BP Sys/Garibay Pulse Ox Last 24 Hr 98.8 F 74 19 95/62 99 HEENT: No Jaundice, eye redness or discharge, PERRLA, EOMI. Normocephalic, atraumatic. External ears are normal and hearing is grossly intact. No nasal discharge. Neck: Supple, nontender. No palpable adenopathy or thyromegaly. No JVD Chest: Good effort. Clear to auscultation and percussion. Heart: Regular. No S3, rub or murmur Abdomen: Not distended, soft, nontender and no HSM. No rebound or guarding. Normal bowel sounds. Ext: Severe LLE lymphedema with skin thickening/tree trunk, from knee to foot; multiple ulcerations with draining serosanguinous fluid. Area of cellulitis on medial aspect of right leg. Hyperpigmented papular rash/scabs on LUE. Skin: Warm and dry. No petechiae, rash or ecchymosis. Neuro: Alert. Oriented x3. CN 2-12 grossly intact. Sensation grossly intact in all four extremities and DTR are symmetric. Psych: Appropriate mood and affect. Good insight. Home Medications Medication Instructions Recorded Ascorbic Acid [Vitamin C -] 500 mg PO BID #30 tablet 11/21/19 Ascorbic Acid [Vitamin C -] 500 mg PO BID #60 tablet 11/21/19 Clindamycin [Cleocin -] 300 mg PO TID #21 capsule 11/21/19 Clindamycin [Cleocin -] 300 mg PO TID #21 capsule 11/21/19 Lactobacillus Acidophilus 1 each PO DAILY #30 capsule 11/21/19 [Acidophilus Lactobacilli] Mineral Oil/Pet Hy-Phl [Aquaphor -] 1 applic TP DAILY #1 jar 11/21/19 Mineral Oil/Pet Hy-Phl [Aquaphor] 1 applic TP DAILY #1 jar 11/21/19 Mupirocin Ointment [Bactroban 2% 1 applic TP BID #1 tube 11/21/19 Ointment -] Polyethylene Glycol 3350 [Miralax 17 gm PO DAILY #1 bottle 11/21/19 (For Daily Use) -] Polyethylene Glycol 3350 [Miralax 17 gm PO DAILY #1 bottle 11/21/19 119 gm Btl -] Silver Sulfadiazine [Silvadene] 400 gm TP DAILY #400 gm 11/21/19 Triamcinolone 0.1% Lotion 1 applic TP BID #1 bottle 11/21/19 [Aristocort 0.1% Lotion -] Triamcinolone 0.1% Lotion 1 applic TP TID #1 lotion 11/21/19 [Aristocort 0.1% Lotion -] traMADol HCL [Ultram -] 50 mg PO Q8H PRN #15 tablet MDD 3 11/21/19 Abnormal Lab Results 01/11/20 01/11/20 23:20 23:20 Eosinophils % 6.2 H ESR 80 H Anion Gap 6 L BUN 25.0 H Alkaline Phosphatase 126 H Albumin 2.9 L Current Medications Generic Name Dose Route Start Last Admin Trade Name Freq PRN Reason Stop Dose Admin Enoxaparin Sodium 40 mg 01/12/20 10:00 Lovenox - SQ DAILY [facility] ASSESSMENT AND PLAN: 1. LE infected wound/Cellulitis - Blood and wound cultures sent. ER staff prescribed Tylenol, IV Vancomycin, IV Zosyn and IV NS for the patient. Continue antibiotics, encourage leg elevation when supine, consult ID, Dermatology, Vascular surgery and Wound care service. EKG shows NSR at 81/minute, LVH and QTc [address]-T wave changes. No acute abnormality on CXR. Viral testing for COVID-19 ordered and patient placed on airborne, droplet and contact isolation. 2. Hypoalbuminemia - Possibly due to combined effects of malnutrition and inflammation associated with comorbid conditions. 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 Urinalysis pending. 3. DVT prophylaxis - Lovenox 40 mg SQ q 24 hours. 4. Advance directives - Full code
--- NOTE | 2020-01-12 02:02 | HP ---
CHIEF COMPLAINT:increased leg itchiness, swelling PCP: Dr. 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 Patient reports copious discharge from her leg soaking her shoes, pants, and any coverings. She reports that the drainage has been increasing in volume- soaking through 3 towels/ night. Denies fever, chills, nausea, vomiting, worsening difficulty with ambulation. She reports taking ibuprofen daily, for pain/discomfort. She has not been following with wound care for several months during COVID / following an encounter with a provider she disliked. pt endorses LUE itchiness and new rash. she states that she noted more bugs in her apartment ER course was notable for: (1)CBC, CMP (2) (3) Recent Travel: denies PAST MEDICAL HISTORY: see above PAST SURGICAL HISTORY: hernia repair Social History: Smoking:denies Alcohol:denies Drugs: denies Allergies No Known Drug Allergies Allergy (Verified 06/24/19 22:10) HOME MEDICATIONS: Home Medications Medication Instructions Recorded Ascorbic Acid [Vitamin C -] 500 mg PO BID #30 tablet 11/21/19 Ascorbic Acid [Vitamin C -] 500 mg PO BID #60 tablet 11/21/19 Clindamycin [Cleocin -] 300 mg PO TID #21 capsule 11/21/19 Clindamycin [Cleocin -] 300 mg PO TID #21 capsule 11/21/19 Lactobacillus Acidophilus 1 each PO DAILY #30 capsule 11/21/19 [Acidophilus Lactobacilli] Mineral Oil/Pet Hy-Phl [Aquaphor -] 1 applic TP DAILY #1 jar 11/21/19 Mineral Oil/Pet Hy-Phl [Aquaphor] 1 applic TP DAILY #1 jar 11/21/19 Mupirocin Ointment [Bactroban 2% 1 applic TP BID #1 tube 11/21/19 Ointment -] Polyethylene Glycol 3350 [Miralax 17 gm PO DAILY #1 bottle 11/21/19 (For Daily Use) -] Polyethylene Glycol 3350 [Miralax 17 gm PO DAILY #1 bottle 11/21/19 119 gm Btl -] Silver Sulfadiazine [Silvadene] 400 gm TP DAILY #400 gm 11/21/19 Triamcinolone 0.1% Lotion 1 applic TP BID #1 bottle 11/21/19 [Aristocort 0.1% Lotion -] Triamcinolone 0.1% Lotion 1 applic TP TID #1 lotion 11/21/19 [Aristocort 0.1% Lotion -] traMADol HCL [Ultram -] 50 mg PO Q8H PRN #15 tablet MDD 3 11/21/19 REVIEW OF SYSTEMS CONSTITUTIONAL: Absent: fever, chills, diaphoresis, generalized weakness, malaise, loss of appetite, weight change HEENT: Absent: rhinorrhea, nasal congestion, throat pain, throat swelling, difficulty swallowing, mouth swelling, ear pain, eye pain, visual changes CARDIOVASCULAR: Absent: chest pain, syncope, palpitations, irregular heart rate, lightheadedness, peripheral edema RESPIRATORY: Absent: cough, shortness of breath, dyspnea with exertion, orthopnea, wheezing, stridor, hemoptysis GASTROINTESTINAL: Absent: abdominal pain, abdominal distension, nausea, vomiting, diarrhea, constipation, melena, hematochezia GENITOURINARY: Absent: dysuria, frequency, urgency, hesitancy, hematuria, flank pain, genital pain MUSCULOSKELETAL: Absent: myalgia, arthralgia, joint swelling, back pain, neck pain SKIN: Absent: rash, itching, pallor HEMATOLOGIC/IMMUNOLOGIC: Absent: easy bleeding, easy bruising, lymphadenopathy, frequent infections ENDOCRINE: Absent: unexplained weight gain, unexplained weight loss, heat intolerance, cold intolerance NEUROLOGIC: Absent: headache, focal weakness or paresthesias, dizziness, unsteady gait, seizure, mental status changes, bladder or bowel incontinence PSYCHIATRIC: Absent: anxiety, depression, suicidal or homicidal ideation, hallucinations. PHYSICAL EXAMINATION Vital Signs - 24 hr 01/11/20 21:11 Temperature 98.8 F Pulse Rate 74 Respiratory 19 Rate Blood Pressure 95/62 O2 Sat by Pulse 99 Oximetry (%) GENERAL: Awake, alert, and fully oriented, in no acute distress. HEAD: Normal with no signs of trauma. EYES: Pupils equal, round and reactive to light, extraocular movements intact, sclera anicteric, conjunctiva clear. No lid lag. EARS, NOSE, THROAT: Ears normal, nares patent, oropharynx clear without exudates. Moist mucous membranes. NECK: Normal range of motion, supple without lymphadenopathy, JVD, or masses. LUNGS: Breath sounds equal, clear to auscultation bilaterally. No wheezes, and no crackles. No accessory muscle use. HEART: Regular rate and rhythm, normal S1 and S2 without murmur, rub or gallop. ABDOMEN: Soft, nontender, not distended, normoactive bowel sounds, no guarding, no rebound, no masses. No hepatomegaly or splenomegaly. MUSCULOSKELETAL: Normal range of motion at all joints. No bony deformities or tenderness. No CVA tenderness. UPPER EXTREMITIES: 2+ pulses, warm, well-perfused. No cyanosis. No clubbing. No peripheral edema. LOWER EXTREMITIES: 2+ pulses, warm, well-perfused. No calf tenderness. No peripheral edema. NEUROLOGICAL: Cranial nerves II-XII intact. Normal speech. Normal gait. PSYCHIATRIC: Cooperative. Good eye contact. Appropriate mood and affect. SKIN: Warm, dry, normal turgor, no rashes or lesions noted, normal capillary refill. Laboratory Results - last 24 hr 01/11/20 01/11/20 23:20 23:20 WBC 7.3 RBC 4.75 Hgb 13.4 Hct 41.3 D MCV 87.0 MCH 28.1 MCHC 32.3 RDW 14.5 Plt Count 364 D MPV 8.5 D Absolute Neuts (auto) 4.0 Neutrophils % 54.9 D Lymphocytes % 31.7 Monocytes % 6.5 Eosinophils % 6.2 H Basophils % 0.7 Nucleated RBC % 0 ESR 80 H Sodium 136 Potassium 4.8 Chloride 101 Carbon Dioxide 29 Anion Gap 6 L BUN 25.0 H Creatinine 0.8 Est GFR (CKD-EPI)AfAm 93.53 Est GFR (CKD-EPI)NonAf 80.70 Random Glucose 95 Calcium 9.4 Total Bilirubin 0.3 AST 28 ALT 23 Alkaline Phosphatase 126 H C-Reactive Protein 4.7 H Total Protein 8.1 Albumin 2.9 L ASSESSMENT/PLAN: 59 yo F PMH chronic 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 I reviewed the resident's note and discussed the case with the resident. I agree with the resident's findings and plan as documented. SUBJECTIVE: OBJECTIVE: ASSESSMENT AND PLAN:
[2020-01-12] MEDS ORDERED: hydrALAZINE HCL 20 MG/ML VIAL IVPUSH ONE (03:22)
[2020-01-12] MEDS ORDERED: KETOROLAC TROMETHAMINE 15 MG/ML VIAL ONE (03:37)
[2020-01-12] MEDS ORDERED: KETOROLAC TROMETHAMINE 15 MG/ML VIAL IVPUSH ONE (03:37)
--- NOTE | 2020-01-12 09:42 | PN ---
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 Patient reports copious discharge from her leg soaking her shoes, pants, and any coverings. She reports that the drainage has been increasing in volume- soaking through 3 towels/ night. Denies fever, chills, nausea, vomiting, worsening difficulty with ambulation. She reports taking ibuprofen daily, for pain/discomfort. She has not been following with wound care for several months during COVID / following an encounter with a provider she disliked. pt endorses LUE itchiness and new rash. she states that she noted more bugs in her apartment Pt well known to our service with frequent hospitalizations for recurrent LLE chronic lymphedema. Last admission 11/20/19. Pt has been non compliant outpatient, has failed to follow up with vascular surgery at wound care center and/or use her lymphedema pump at home. Currently in NAD, c/o pain due to ulceration which is chronic. Previously treated with IV clindamycin for 24 hours and discharged home on PO clindamycin. No acute signs of infection at this time with no leukocytosis, pt afebrile, vitals stable. Would let ID evaluate and recommend course of treatment. - Current Medication List Current Medications: Active Medications Ascorbic Acid (Vitamin C -) 500 mg PO BID [facility] Emollient Ointment (Aquaphor -) 1 applic TP DAILY [facility] Enoxaparin Sodium (Lovenox -) 40 mg SQ DAILY [facility] Piperacillin Sod/Tazobactam (Sod 3.375 gm/ Dextrose) 50 mls @ 100 mls/hr IVPB Q8H-IV [facility]; Protocol Piperacillin Sod/Tazobactam (Sod 3.375 gm/ Dextrose) 50 mls @ 100 mls/hr IVPB Q8H-IV [facility]; Protocol Stop: 01/13/20 02:29 Mupirocin (Bactroban 2% Ointment -) 1 applic TP BID [facility] Non-Formulary Medication (Lactobacillus Acidophilus [Acidophilus Lactobacilli]) 1 each PO DAILY [facility] Polyethylene Glycol (Miralax (For Daily Use) -) 17 gm PO DAILY [facility] Silver Sulfadiazine (Silvadene -) applic TP DAILY [facility] Tramadol HCl (Ultram -) 50 mg PO Q8H PRN PRN Reason: PAIN LEVEL 6-10 Triamcinolone Acetonide (Aristocort 0.1% Lotion -) 1 applic TP BID [facility]IKEL - Objective Vital Signs: Vital Signs Temperature 98.7 F 01/12/20 05:53 Pulse Rate 79 01/12/20 05:53 Respiratory Rate 16 01/12/20 05:53 Blood Pressure 101/65 01/12/20 05:53 O2 Sat by Pulse Oximetry (%) 100 01/12/20 05:53 Constitutional: Yes: Well Nourished, No Distress, Calm Cardiovascular: Yes: Regular Rate and Rhythm Respiratory: Yes: Regular, CTA Bilaterally Gastrointestinal: Yes: Normal Bowel Sounds, Soft Genitourinary: Yes: WNL Musculoskeletal: Yes: WNL Edema: Yes (lymphedema) Peripheral Pulses WNL: Yes Wound/Incision: Yes: Draining (LLE) Neurological: Yes: Alert, Oriented Psychiatric: Yes: Alert, Oriented Labs: CBC, BMP 01/11/20 23:20 01/11/20 23:20 Problem List - Problems (1) Lymphedema Assessment/Plan: -Vascular surgery -Encouraged Lymphedema pump at home -IV abx as recommended by ID -WC MRSA in the past -ID consult -afebrile -no leukocytosis Problems reviewed: Yes Code(s): I89.0 - LYMPHEDEMA, NOT ELSEWHERE CLASSIFIED Assessment/Plan See problem list
[2020-01-12] MEDS ORDERED: ASCORBIC ACID 500 MG TABLET (FP) ONE (10:24)
[2020-01-12] MEDS ORDERED: SILVER SULFADIAZINE 1% TOP CREAM 50 GM JAR TP ONE (10:24)
[2020-01-12] MEDS ORDERED: PIPERACILLIN/TAZOB 3.375 GM 3.375 GM/50 ML BAG IVPB ONE ×2 (10:25→18:16)
[2020-01-12] MEDS ORDERED: ENOXAPARIN NA (PORCINE) 40 MG/0.4 ML DISP.SYRIN SQ ONE (10:25)
[2020-01-12] MEDS: MINERAL OIL/PET HY-PHL TOPICAL OINTMENT 454 GM JAR TP SCH (11:00)
[2020-01-12] MEDS: TRIAMCINOLONE ACET 0.1% 60 ML LOTION TP SCH ×2 (11:00→21:50)
[2020-01-12] MEDS: ASCORBIC ACID 500 MG TABLET (FP) PO SCH ×2 (11:00→21:50)
[2020-01-12] MEDS: LACTOBACILLUS ACIDOPHILUS 1 TABLET PO SCH (11:00)
[2020-01-12] MEDS: MUPIROCIN 2% TOPICAL OINTMENT 22 GM TUBE TP SCH ×2 (11:00→21:51)
[2020-01-12] MEDS: SILVER SULFADIAZINE 1% TOP CREAM 50 GM JAR TP SCH (12:04)
[2020-01-12] MEDS: ENOXAPARIN NA (PORCINE) 40 MG/0.4 ML DISP.SYRIN SQ SCH (12:04)
[2020-01-12] MEDS: PIPERACILLIN/TAZOB 3.375 GM 3.375 GM in DEXTROSE 5%-WATER - 50 ML IVPB SCH ×2 (12:05→18:08)
[2020-01-12] MEDS ORDERED: traMADol HCL 50 MG TABLET ONE (12:15)
[2020-01-12] MEDS: POLYETHYLENE GLYCOL 3350 119 GM BTL PO SCH (12:22)
[2020-01-12] MEDS: traMADol HCL 50 MG TABLET PO PRN (12:22)
[2020-01-12 14:45] LABS: ANISOCYTOSIS 0; MACROCYTOSIS 0; PLATELET ESTIMATE NORMAL
[2020-01-12] MEDS ORDERED: ACETAMINOPHEN 325 MG TABLET (FP) PO PRN (21:09)
[2020-01-13] MEDS: traMADol HCL 50 MG TABLET PO PRN ×2 (00:20→14:22)
[2020-01-13] MEDS ORDERED: PIPERACILLIN/TAZOBACTAM 3.375 GM VIAL IVPB ONE ×3 (01:06→17:10)
[2020-01-13] MEDS ORDERED: DEXTROSE 5%-WATER - 50 ML IVPB ONE ×3 (01:06→17:10)
[2020-01-13] MEDS: PIPERACILLIN/TAZOB 3.375 GM 3.375 GM in DEXTROSE 5%-WATER - 50 ML IVPB SCH ×5 (01:36→18:02)
--- NOTE | 2020-01-13 07:38 | PN ---
Progress Note, Physician - Current Medication List Current Medications: Active Medications Acetaminophen (Tylenol -) 650 mg PO Q4H PRN PRN Reason: PAIN LEVEL 1-5 Ascorbic Acid (Vitamin C -) 500 mg PO BID [facility] Last Admin: 01/12/20 21:50 Dose: 500 mg Documented by: Emollient Ointment (Aquaphor -) 1 applic TP DAILY [facility] Last Admin: 01/12/20 11:00 Dose: 1 applic Documented by: Enoxaparin Sodium (Lovenox -) 40 mg SQ DAILY [facility] Last Admin: 01/12/20 12:04 Dose: 40 mg Documented by: Piperacillin Sod/Tazobactam (Sod 3.375 gm/ Dextrose) 50 mls @ 100 mls/hr IVPB Q8H-IV [facility]; Protocol Lactobacillus Acidophilus (Bacid -) 1 tab PO DAILY [facility] Last Admin: 01/12/20 11:00 Dose: 1 tab Documented by: Mupirocin (Bactroban 2% Ointment -) 1 applic TP BID [facility] Last Admin: 01/12/20 21:51 Dose: 1 applic Documented by: Polyethylene Glycol (Miralax (For Daily Use) -) 17 gm PO DAILY [facility] Last Admin: 01/12/20 12:22 Dose: Not Given Documented by: Silver Sulfadiazine (Silvadene -) 1 applic TP DAILY [facility] Last Admin: 01/12/20 12:04 Dose: 1 applic Documented by: Tramadol HCl (Ultram -) 50 mg PO Q8H PRN PRN Reason: PAIN LEVEL 6-10 Last Admin: 01/13/20 00:20 Dose: 50 mg Documented by: Triamcinolone Acetonide (Aristocort 0.1% Lotion -) 1 applic TP BID [facility] Last Admin: 01/12/20 21:50 Dose: 1 applic Documented by: - Objective Vital Signs: Vital Signs Temperature 98.4 F 01/13/20 07:00 Pulse Rate 72 01/13/20 07:00 Respiratory Rate 18 01/13/20 07:00 Blood Pressure 90/60 01/13/20 07:00 O2 Sat by Pulse Oximetry (%) 98 01/13/20 07:00 Cardiovascular: Yes: Regular Rate and Rhythm Respiratory: Yes: Regular, CTA Bilaterally Gastrointestinal: Yes: Normal Bowel Sounds, Soft Edema: Yes Labs: CBC, BMP 01/11/20 23:20 Problem List - Problems (1) Lymphedema Assessment/Plan: -Vascular surgery -Encouraged Lymphedema pump at home -IV abx as recommended by ID -WC MRSA in the past -ID consult -afebrile -no leukocytosis Code(s): I89.0 - LYMPHEDEMA, NOT ELSEWHERE CLASSIFIED (2) Cellulitis Assessment/Plan: -ID ABX -ID CONSULT -PLASTIC SURGERY CONSULT Code(s): L03.90 - CELLULITIS, UNSPECIFIED
[2020-01-13 08:00] LABS: CHLORIDE 105 mmol/L (98-107); POTASSIUM 4.3 mmol/L (3.5-5.1); SODIUM 138 mmol/L (136-145)
[2020-01-13 08:22] LABS: ALBUMIN 2.1 g/dl (3.4-5.0); ANION GAP 6 MMOL/L (8-16); BILIRUBIN,TOTAL 0.2 mg/dL (0.2-1); BLOOD UREA NITROGEN 18.3 mg/dL (7-18); CALCIUM 7.9 mg/dL (8.5-10.1); CO2 26 mmol/L (21-32); CREATININE 0.6 mg/dL (0.55-1.3); GLUCOSE,RANDOM 76 mg/dL (74-106); MAGNESIUM 2.4 mg/dL (1.8-2.4); SGOT/AST 15 U/L (15-37); SGPT/ALT 16 U/L (13-61); TOT PROT 6.2 g/dl (6.4-8.2)
[2020-01-13 08:28] LABS: ALK PHOS 88 U/L (45-117)
[2020-01-13] MEDS ORDERED: PT OWN MED DRAWER 7, Y5N ONE (09:45)
[2020-01-13] MEDS: LACTOBACILLUS ACIDOPHILUS 1 TABLET PO SCH (09:47)
[2020-01-13] MEDS: ENOXAPARIN NA (PORCINE) 40 MG/0.4 ML DISP.SYRIN SQ SCH (09:47)
[2020-01-13] MEDS: ASCORBIC ACID 500 MG TABLET (FP) PO SCH ×2 (09:47→21:40)
[2020-01-13] MEDS: TRIAMCINOLONE ACET 0.1% 60 ML LOTION TP SCH ×2 (09:48→21:38)
[2020-01-13] MEDS: MUPIROCIN 2% TOPICAL OINTMENT 22 GM TUBE TP SCH ×2 (09:48→21:40)
[2020-01-13] MEDS: MINERAL OIL/PET HY-PHL TOPICAL OINTMENT 454 GM JAR TP SCH (09:48)
[2020-01-13] MEDS: SILVER SULFADIAZINE 1% TOP CREAM 50 GM JAR TP SCH (09:49)
[2020-01-13] MEDS: POLYETHYLENE GLYCOL 3350 119 GM BTL PO SCH (09:49)
--- NOTE | 2020-01-13 10:58 | EKG ---
Test Reason : Blood Pressure : / mmHG Vent. Rate : 081 BPM Atrial Rate : 081 BPM P-R Int : 200 ms QRS Dur : 088 ms QT Int : 358 ms P-R-T Axes : 084 065 061 degrees QTc Int : 415 ms NORMAL SINUS RHYTHM MINIMAL VOLTAGE CRITERIA FOR LVH, MAY BE NORMAL VARIANT BORDERLINE ECG WHEN COMPARED WITH ECG OF 25-JUN-2019 01:37, NO SIGNIFICANT CHANGE WAS FOUND Confirmed by DEEPIKA GUZMAN MD ([id number]) on 01/13/2020 10:58:10 AM Referred By: Confirmed By:DEEPIKA GUZMAN MD
--- NOTE | 2020-01-13 11:45 | PN ---
Progress Note (short form) - Note Progress Note: ID consult dictated imp/reccd cellulitis/draining ulcer chronic lymphedema 59 yo female with chronic lymphedema of the LLE admitted with c/o copious drainage from the LLE ulcer on 12/10 prior history of MRSA of that leg- treated with clindamycin follows at wound care at [facility] no fevers, wound is clean, drainage has mostly resolved culture of wound NO PMNS- multiple GNR, ?gram postive organism f/u cultures in am continue zosyn for now leg is improving
[2020-01-14] MEDS ORDERED: DEXTROSE 5%-WATER - 50 ML IVPB ONE ×3 (01:07→16:50)
[2020-01-14] MEDS ORDERED: PIPERACILLIN/TAZOBACTAM 3.375 GM VIAL IVPB ONE ×3 (01:07→16:50)
[2020-01-14] MEDS: PIPERACILLIN/TAZOB 3.375 GM 3.375 GM in DEXTROSE 5%-WATER - 50 ML IVPB SCH ×3 (01:51→17:01)
[2020-01-14] MEDS ORDERED: PCA PUMP NR ONE (07:03)
--- NOTE | 2020-01-14 07:31 | PN ---
Progress Note, Physician Chief Complaint: AWAKE ALERT EVENTS REVIEWED NO CHEST PAIN DENIES FEVERS - Current Medication List Current Medications: Active Medications Acetaminophen (Tylenol -) 650 mg PO Q4H PRN PRN Reason: PAIN LEVEL 1-5 Ascorbic Acid (Vitamin C -) 500 mg PO BID [facility] Last Admin: 01/13/20 21:40 Dose: 500 mg Documented by: Emollient Ointment (Aquaphor -) 1 applic TP DAILY [facility] Last Admin: 01/13/20 09:48 Dose: 1 applic Documented by: Enoxaparin Sodium (Lovenox -) 40 mg SQ DAILY [facility] Last Admin: 01/13/20 09:47 Dose: 40 mg Documented by: Piperacillin Sod/Tazobactam (Sod 3.375 gm/ Dextrose) 50 mls @ 100 mls/hr IVPB Q8H-IV [facility]; Protocol Last Admin: 01/14/20 01:51 Dose: 100 mls/hr Documented by: Lactobacillus Acidophilus (Bacid -) 1 tab PO DAILY [facility] Last Admin: 01/13/20 09:47 Dose: 1 tab Documented by: Mupirocin (Bactroban 2% Ointment -) 1 applic TP BID [facility] Last Admin: 01/13/20 21:40 Dose: 1 applic Documented by: Polyethylene Glycol (Miralax (For Daily Use) -) 17 gm PO DAILY [facility] Last Admin: 01/13/20 09:49 Dose: 17 gm Documented by: Silver Sulfadiazine (Silvadene -) 1 applic TP DAILY [facility] Last Admin: 01/13/20 09:49 Dose: 1 applic Documented by: Tramadol HCl (Ultram -) 50 mg PO Q8H PRN PRN Reason: PAIN LEVEL 6-10 Last Admin: 01/13/20 14:22 Dose: 50 mg Documented by: Triamcinolone Acetonide (Aristocort 0.1% Lotion -) 1 applic TP BID [facility] Last Admin: 01/13/20 21:38 Dose: 1 applic Documented by: - Objective Vital Signs: Vital Signs Temperature 98.3 F 01/14/20 06:00 Pulse Rate 70 01/14/20 06:00 Respiratory Rate 18 01/14/20 06:00 Blood Pressure 109/68 01/14/20 06:00 O2 Sat by Pulse Oximetry (%) 100 01/14/20 06:00 Constitutional: Yes: Mild Distress Cardiovascular: Yes: WNL Respiratory: Yes: WNL Gastrointestinal: Yes: Soft Genitourinary: Yes: WNL Musculoskeletal: Yes: Other Extremities: Yes: Deformity Edema: Yes Edema: LLE: 4+ Integumentary: Yes: Erythema, Venous Stasis Changes Wound/Incision: Yes: Draining, Excoriated, Unapproximated Neurological: Yes: WNL ...Motor Strength: LLE Psychiatric: Yes: WNL Labs: CBC, BMP 01/11/20 23:20 01/13/20 06:53 Problem List - Problems (1) Lymphedema Code(s): I89.0 - LYMPHEDEMA, NOT ELSEWHERE CLASSIFIED (2) Atypical chest pain Code(s): R07.89 - OTHER CHEST PAIN (3) Cellulitis Code(s): L03.90 - CELLULITIS, UNSPECIFIED (4) Elephantiasis Code(s): I89.0 - LYMPHEDEMA, NOT ELSEWHERE CLASSIFIED (5) Left leg swelling Code(s): M79.89 - OTHER SPECIFIED SOFT TISSUE DISORDERS (6) Leg ulcer, left Code(s): L97.929 - NON-PRS CHRONIC ULC UNSP PRT OF L LOW LEG W UNSP SEVERITY (7) Leg wound, left Code(s): S81.802A - UNSPECIFIED OPEN WOUND, LEFT LOWER LEG, INITIAL ENCOUNTER (8) Wound cellulitis Code(s): L03.90 - CELLULITIS, UNSPECIFIED Assessment/Plan IV ABX PER ID VASCULAR SX AND ID F/U APPRECIATED DVT PROPHYLAXIS WOUND CARE CHEST PAIN ATYPICAL NO ALARMS ON TELE
[2020-01-14] MEDS: ASCORBIC ACID 500 MG TABLET (FP) PO SCH ×2 (09:20→21:06)
[2020-01-14] MEDS: LACTOBACILLUS ACIDOPHILUS 1 TABLET PO SCH (09:20)
[2020-01-14] MEDS: ENOXAPARIN NA (PORCINE) 40 MG/0.4 ML DISP.SYRIN SQ SCH (09:21)
[2020-01-14] MEDS: MUPIROCIN 2% TOPICAL OINTMENT 22 GM TUBE TP SCH ×2 (09:21→21:06)
[2020-01-14] MEDS: MINERAL OIL/PET HY-PHL TOPICAL OINTMENT 454 GM JAR TP SCH (09:21)
[2020-01-14] MEDS: TRIAMCINOLONE ACET 0.1% 60 ML LOTION TP SCH ×2 (09:21→21:05)
[2020-01-14] MEDS: POLYETHYLENE GLYCOL 3350 119 GM BTL PO SCH (09:22)
[2020-01-14] MEDS: SILVER SULFADIAZINE 1% TOP CREAM 50 GM JAR TP SCH (09:22)
--- NOTE | 2020-01-14 10:21 | CON.CARD ---
Consult Consult Specialty:: Cardiology Referred by:: Dr. Lebron Reason for Consultation:: Chest pain - History of Present Illness Chief Complaint: Left leg draining. History of Present Illness: 59 year-old woman with a PMHx of chronic LLE lymphedema, uterine fibroids admitted 01/11/20 for LLE cellulitis with increased pain, edema, foul smelling drainage. Patient reports copious discharge from her leg soaking her shoes, pants, and any coverings. She reports that the drainage has been increasing in volume. Denies fever, chills. She reports taking ibuprofen daily, for pain/discomfort. She has not been following with wound care for several months during COVID / following an encounter with a provider she disliked. She has been receiving IV Abx and would care since admission. She reported left upper chest pain with local tenderness. She had similar chest pain in the past. ECG 01/11/20 showed sinus rhythm. Normal [place]. LVH by voltage. Normal ST and T. Repeat ECG today revealed sinus bradycardia, incomplete RBBB. LVH with normal ST and T. - History Source History Provided By: Patient, Medical Record Limitations to Obtaining History: No Limitations - Past Medical History Cardio/Vascular: Yes: Other (Lymphedema LLE) ...LMP: 11/26/14 - Past Surgical History Past Surgical History: Yes: Hernia Repair - Alcohol/Substance Use Hx Alcohol Use: No History of Substance Use: reports: None - Smoking History Smoking history: Never smoked Have you smoked in the past 12 months: No Aproximately how many cigarettes per day: 0 - Social History ADL: Independent History of Recent Travel: No Home Medications - Allergies Allergies/Adverse Reactions: Allergies Allergy/AdvReac Type Severity Reaction Status Date / Time No Known Drug Allergies Allergy Verified 06/24/19 22:10 - Home Medications Home Medications: Ambulatory Orders Ascorbic Acid [Vitamin C -] 500 mg PO BID #60 tablet 11/21/19 Clindamycin [Cleocin -] 300 mg PO TID #21 capsule 11/21/19 Lactobacillus Acidophilus [Acidophilus Lactobacilli] 1 each PO DAILY #30 capsule 11/21/19 Mineral Oil/Pet Hy-Phl [Aquaphor] 1 applic TP DAILY #1 jar 11/21/19 Mupirocin Ointment [Bactroban 2% Ointment -] 1 applic TP BID #1 tube 11/21/19 Polyethylene Glycol 3350 [Miralax (For Daily Use) -] 17 gm PO DAILY #1 bottle 11/21/19 Silver Sulfadiazine [Silvadene] 400 gm TP DAILY #400 gm 11/21/19 Triamcinolone 0.1% Lotion [Aristocort 0.1% Lotion -] 1 applic TP BID #1 bottle 11/21/19 traMADol HCL [Ultram -] 50 mg PO Q8H PRN #15 tablet MDD 3 11/21/19 Review of Systems - Review of Systems Constitutional: reports: No Symptoms, Weakness HENT: reports: No Symptoms Neck: reports: No Symptoms Cardiovascular: reports: Chest Pain Respiratory: reports: No Symptoms Gastrointestinal: reports: No Symptoms Genitourinary: reports: No Symptoms Breasts: reports: No Symptoms Reported Integumentary: reports: Change in Color, Lesions, Wound Neurological: reports: No Symptoms Endocrine: reports: No Symptoms Hematology/Lymphatic: reports: No Symptoms Psychiatric: reports: No Symptoms Vital Signs: Vital Signs Temperature 98.3 F 01/14/20 06:00 Pulse Rate 70 01/14/20 06:00 Respiratory Rate 18 01/14/20 06:00 Blood Pressure 109/68 01/14/20 06:00 O2 Sat by Pulse Oximetry (%) 100 01/14/20 06:00 General: Well developed. Well nourished. No acute distress. Head: Normocephalic. Atraumatic, Eyes: PERRLA, EOMI. Sclerae anicteric. Conjunctivae clear. Neck: Supple. No JVD. No bruits. Heart: Normal S1, S2: Regular rhythm and rate. I-II/ JAIME. No gallop or rub. Lungs: Symmetrical air entry. Clear to auscultation. No crackles. No wheezing or rhonchi. Abdomen: Soft. Bowel sound positive. Non tender. No masses. Extremities: Left leg lymphedema. Dressing intact. Right leg no edema. Neuro: Intact, no focal findings. AAO X3. - Other Data Labs, Other Data: CBC, BMP 01/11/20 23:20 01/13/20 06:53 Troponin, BNP 01/13/20 06:53 Troponin I < 0.02 Troponin, BNP 01/13/20 06:53 Troponin I < 0.02 Imaging - Results EKG: Image Reviewed (ECG 9/12/20 showed sinus rhythm. Normal [place]. LVH by voltage. Normal ST and T.) Assessment/Plan 59 year-old woman with a PMHx of chronic LLE lymphedema, uterine fibroids admitted 01/11/20 for LLE cellulitis with increased pain, edema, foul smelling drainage. She has been receiving IV Abx and would care since admission. She reported left upper chest pain with local tenderness. She had similar chest pain in the past. ECG 01/11/20 showed sinus rhythm. Normal [place]. LVH by voltage. Normal ST and T. Repeat ECG today revealed sinus bradycardia, incomplete RBBB. LVH with normal ST and T. Atypical chest pain with 3rd left costosternal articulation tenderness: Typical costochondritis. No further cardiac work up recommended. May use naproxen or ibuprofen as needed for pain. Please do not hesitate to call us for reconsult at any time if any further questions or additional issue arises regarding this patient.
--- NOTE | 2020-01-14 14:05 | EKG ---
Test Reason : Blood Pressure : / mmHG Vent. Rate : 059 BPM Atrial Rate : 059 BPM P-R Int : 198 ms QRS Dur : 102 ms QT Int : 394 ms P-R-T Axes : 045 057 055 degrees QTc Int : 390 ms SINUS BRADYCARDIA INCOMPLETE RIGHT BUNDLE BRANCH BLOCK MINIMAL VOLTAGE CRITERIA FOR LVH, MAY BE NORMAL VARIANT BORDERLINE ECG WHEN COMPARED WITH ECG OF 12-JAN-2020 00:43, NO SIGNIFICANT CHANGE WAS FOUND Confirmed by Harry Shin MD ([id number]) on 01/14/2020 2:04:52 PM Referred By: Olvin DOSS Confirmed By:Harry Shin MD
--- NOTE | 2020-01-14 15:05 | CONSULT ---
- Consultation REQUESTING PROVIDER: CONSULT REQUEST: We have been asked to surgically evaluate this patient for (specify). 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 Patient reports copious discharge from her leg over the past few days. She reports that the drainage has been yellow, foul smelling and, increasing in volume. Denies fever, chills, nausea, vomiting, worsening difficulty with ambulation. Pt has been taking ibuprofen daily for pain/discomfort. Pt reports she has not been at wound care for several months due to COVID as well as an encounter with a provider she disliked. She denies recent antibiotics. Pt endorses LUE itchiness and new rash. she states that she noted more bugs in her apartment PMHx: as above PSHx: hernia repair Denies prior surgeries to LLE. Home Medications Medication Instructions Recorded Ascorbic Acid [Vitamin C -] 500 mg PO BID #60 tablet 11/21/19 Clindamycin [Cleocin -] 300 mg PO TID #21 capsule 11/21/19 Lactobacillus Acidophilus 1 each PO DAILY #30 capsule 11/21/19 [Acidophilus Lactobacilli] Mineral Oil/Pet Hy-Phl [Aquaphor] 1 applic TP DAILY #1 jar 11/21/19 Mupirocin Ointment [Bactroban 2% 1 applic TP BID #1 tube 11/21/19 Ointment -] Polyethylene Glycol 3350 [Miralax 17 gm PO DAILY #1 bottle 11/21/19 (For Daily Use) -] Silver Sulfadiazine [Silvadene] 400 gm TP DAILY #400 gm 11/21/19 Triamcinolone 0.1% Lotion 1 applic TP BID #1 bottle 11/21/19 [Aristocort 0.1% Lotion -] traMADol HCL [Ultram -] 50 mg PO Q8H PRN #15 tablet MDD 3 11/21/19 Allergies Allergy/AdvReac Type Severity Reaction Status Date / Time No Known Drug Allergies Allergy Verified 06/24/19 22:10 REVIEW OF SYSTEMS: CONSTITUTIONAL: Absent: fever, chills CARDIOVASCULAR: + chest pain on admission worked up likely muscular RESPIRATORY: Absent: cough, shortness of breath GASTROINTESTINAL: Absent: abdominal pain PHYSICAL EXAM: GENERAL: Awake, alert, and fully oriented, in no acute distress. HEAD: Normal with no signs of trauma. LUNGS: No accessory muscle use on RA LOWER EXTREMITIES: LLE with +elephantitis/lymphadema throughout with chronic skin changes extending from the knee down. Lateral distal 3rd, Anterior- small stage 2 ulcer @2x3cm clean fibrinous base, no d/c or foul odor, no signs of fluctuance, collection or infection. Larger 7x6cm stage 2 ulcer laterally at distal 3rd lower leg superior to lateral malleolus- well defined with clean boarders and fibrinous base-no signs of fluctuance, active d/c, foul odor or infection. foot warm and well perfused with +DP pulse. Wounds cleaned and dressed upon exam. RLE wnl, no edema no open ulcerations. Vital Signs Temp 98.2 F 01/14/20 14:00 Pulse 77 01/14/20 14:00 Resp 20 01/14/20 14:00 BP 107/57 L 01/14/20 14:00 Pulse Ox 100 01/14/20 14:00 Intake & Output 01/13/20 01/14/20 01/14/20 23:59 11:59 23:59 Intake Total 410 410 Balance 410 410 Intake: IVPB 50 50 Oral 360 360 Other: Voiding Method Toilet Toilet # Unmeasured Voids Void 1 2 2 Bowel Movement No No No CBC, BMP 01/11/20 23:20 01/13/20 06:53 Problem List - Problems (1) Lymphedema Assessment/Plan: 59 yo well known by Vascular service with stable lymphedema chronic ulcer and no indication for vascular intervention at this time. -local wound care-clean with saline, apply silvadene cream and calcium algenate QOD-Kurlex and compressive [place] -Apply Aquaphore to dry skin -IV Abx per ID -Elevate Left LE when in bed -continue lymphedema pump at home -f/u with Dr Gao in the wound care clinic Code(s): I89.0 - LYMPHEDEMA, NOT ELSEWHERE CLASSIFIED (2) Leg ulcer, left Code(s): L97.929 - NON-PRS CHRONIC ULC UNSP PRT OF L LOW LEG W UNSP SEVERITY
--- NOTE | 2020-01-14 17:08 | PN ---
Progress Note (short form) - Note Progress Note: dressing change just done by PA -wound is clean Vital Signs Period Temp Pulse Resp BP Sys/Garibay Pulse Ox Last 24 Hr 97.8 F-98.3 F 66-77 18-20 99-113/48-68 97-100 CBC, BMP 01/11/20 23:20 01/13/20 06:53 Microbiology 01/11/20 23:20 Wound Gram Stain - Final 01/11/20 23:20 Wound Wound Culture - Preliminary Non Lactose Fermenting Gnb Non Lactose Fermenting Gnb#2 Non Lactose Fermenting Gnb#3 01/12/20 11:55 Blood - Peripheral Venous Blood Culture - Preliminary NO GROWTH OBTAINED AFTER 48 HOURS, INCUBATION TO CONTINUE FOR 3 DAYS. 01/12/20 11:50 Blood - Peripheral Venous Blood Culture - Preliminary NO GROWTH OBTAINED AFTER 48 HOURS, INCUBATION TO CONTINUE FOR 3 DAYS. imp/reccd cellulitis/draining ulcer chronic lymphedema an switch to po augmentin in am for another week f/u at wound care
[2020-01-14] MEDS: traMADol HCL 50 MG TABLET PO PRN (20:27)
[2020-01-15] MEDS ORDERED: PIPERACILLIN/TAZOBACTAM 3.375 GM VIAL IVPB ONE ×2 (00:41→09:27)
[2020-01-15] MEDS ORDERED: DEXTROSE 5%-WATER - 50 ML IVPB ONE ×2 (00:42→09:27)
[2020-01-15] MEDS: PIPERACILLIN/TAZOB 3.375 GM 3.375 GM in DEXTROSE 5%-WATER - 50 ML IVPB SCH ×2 (01:00→09:35)
--- NOTE | 2020-01-15 07:43 | DS ---
Physical Examination Vital Signs: Vital Signs Temperature 98.2 F 01/15/20 06:00 Pulse Rate 71 01/15/20 06:00 Respiratory Rate 18 01/15/20 06:00 Blood Pressure 102/56 L 01/15/20 06:00 O2 Sat by Pulse Oximetry (%) 99 01/15/20 06:00 Findings/Remarks: notes reviewe switched to po augmentin f/u wound clinic Constitutional: Yes: No Distress HENT: Yes: WNL Neck: Yes: WNL Cardiovascular: Yes: WNL Respiratory: Yes: WNL Gastrointestinal: Yes: WNL Musculoskeletal: Yes: Other Extremities: Yes: Deformity Edema: LLE: 4+ Integumentary: Yes: Venous Stasis Changes Wound/Incision: Yes: Dressing Dry and Intact, Draining Neurological: Yes: Other ...Motor Strength: LLE Discharge Summary Problems reviewed: Yes Reason For Visit: LYMPHEDEMA, LEG WOULD, LEFT Current Active Problems Lymphedema (Acute) Procedures: Principal: xrays/scans Hospital Course: admitted for left leg lymphemea with drainage treated iv abx for cellulitis and seen and evaluated by vascular surgery Plan of Treatment: augmentin 7 days, see dr [facility] Condition: Improved - Instructions Diet, Activity, Other Instructions: reg diet complete augmentin [address] mcguire in 1 week Disposition: HOME - Home Medications Comprehensive Discharge Medication List: Ambulatory Orders Ascorbic Acid [Vitamin C -] 500 mg PO BID #60 tablet 11/21/19 Lactobacillus Acidophilus [Acidophilus Lactobacilli] 1 each PO DAILY #30 capsule 11/21/19 Mineral Oil/Pet Hy-Phl [Aquaphor -] 1 applic TP DAILY #1 jar 11/21/19 Mupirocin Ointment [Bactroban 2% Ointment -] 1 applic TP BID #1 tube 11/21/19 Polyethylene Glycol 3350 [Miralax 119 gm Btl -] 17 gm PO DAILY #1 bottle 11/21/19 Silver Sulfadiazine [Silvadene] 400 gm TP DAILY #400 gm 11/21/19 Triamcinolone 0.1% Lotion [Aristocort 0.1% Lotion -] 1 applic TP BID #1 bottle 11/21/19 traMADol HCL [Ultram -] 50 mg PO Q8H PRN #15 tablet MDD 3 11/21/19 Acetaminophen [Tylenol .Regular Strength -] 650 mg PO Q4H PRN tablet 01/15/20 Amox-Tr/K Cl [Augmentin - 500Mg Tablet] 1 tab PO BID #14 tab 01/15/20
[2020-01-15 08:15] LABS: POTASSIUM 4.3 mmol/L (3.5-5.1)
[2020-01-15 08:29] LABS: ALBUMIN 1.8 g/dl (3.4-5.0); BILIRUBIN,TOTAL 0.2 mg/dL (0.2-1); BLOOD UREA NITROGEN 15.7 mg/dL (7-18); CALCIUM 8.1 mg/dL (8.5-10.1); CREATININE 0.7 mg/dL (0.55-1.3); MAGNESIUM 2.2 mg/dL (1.8-2.4); TOT PROT 5.2 g/dl (6.4-8.2)
[2020-01-15 08:33] LABS: HEMATOCRIT 31.8 % (32.4-45.2); HEMOGLOBIN 10.4 GM/dL (10.7-15.3); MCH 28.3 pg (25.7-33.7); MCHC 32.7 g/dl (32.0-36.0); MEAN CELL VOLUME 86.6 fl (80-96); MEAN PLT VOLUME 7.4 fl (7.5-11.1); PLATELET COUNT 298 K/MM3 (134-434); RBC 3.67 M/mm3 (3.60-5.2); RDW 14.6 % (11.6-15.6); WHITE BLOOD COUNT 4.8 K/mm3 (4.0-10.0)
[2020-01-15] MEDS: POLYETHYLENE GLYCOL 3350 119 GM BTL PO SCH (09:31)
[2020-01-15] MEDS: TRIAMCINOLONE ACET 0.1% 60 ML LOTION TP SCH (09:31)
[2020-01-15] MEDS: MUPIROCIN 2% TOPICAL OINTMENT 22 GM TUBE TP SCH (09:31)
[2020-01-15] MEDS: ASCORBIC ACID 500 MG TABLET (FP) PO SCH (09:34)
[2020-01-15] MEDS: SILVER SULFADIAZINE 1% TOP CREAM 50 GM JAR TP SCH (09:34)
[2020-01-15] MEDS: ENOXAPARIN NA (PORCINE) 40 MG/0.4 ML DISP.SYRIN SQ SCH (09:34)
[2020-01-15] MEDS: LACTOBACILLUS ACIDOPHILUS 1 TABLET PO SCH (09:35)
[2020-01-15] MEDS: MINERAL OIL/PET HY-PHL TOPICAL OINTMENT 454 GM JAR TP SCH (09:35)
[2020-01-15 18:50] VITALS: BP 132/67; PULSE 80; TEMP 98.2
== END 2020-01-15 18:56 | disposition home or self-care (01) | DRG 383 ==
LOC: JER 21:08 → JERBED 22:20 → J4S 01-12 18:59
PROVIDERS: ADMIT Internal Medicine; ATTEND Family Medicine
DX: L03.116 Cellulitis of left lower limb (principal); E88.09 Other disorders of plasma-protein metabolism, not elsewhere classified; I45.10 Unspecified right bundle-branch block; M94.0 Chondrocostal junction syndrome [Tietze]; R26.2 Difficulty in walking, not elsewhere classified; L97.929 Non-pressure chronic ulcer of unspecified part of left lower leg with unspecified severity; I89.0 Lymphedema, not elsewhere classified; R00.1 Bradycardia, unspecified; R07.89 Other chest pain
CPT/HCPCS: 36415; 71045-TC-FY; 80048; 80053; 82550; 83036; 83735; 84100; 84484; 85025; 85027; 85651; 86140; 87040; 87070; 87205; 87389; 93005; 93010; 99285-25; J0131; U0003

== ENCOUNTER 2020-06-13 20:39 | Inpatient (IN) | payer OTHER ==
[2020-06-13 23:12] LABS: BASO % 1.4 % (0-2.0); EOS % 12.5 % (0-4.5); HEMATOCRIT 35.1 % (32.4-45.2); HEMOGLOBIN 11.5 GM/dL (10.7-15.3); LYMPH % 32.6 % (8-40); MCH 28.9 pg (25.7-33.7); MCHC 32.8 g/dl (32.0-36.0); MEAN PLT VOLUME 7.9 fl (7.5-11.1); MONO % 6.8 % (3.8-10.2); NEUT % 46.7 % (42.8-82.8); PLATELET COUNT 364 K/MM3 (134-434); RBC 3.99 M/mm3 (3.60-5.2); RDW 13.9 % (11.6-15.6); WHITE BLOOD COUNT 5.4 K/mm3 (4.0-10.0)
[2020-06-13 23:41] LABS: CHLORIDE 110 mmol/L (98-107); POTASSIUM 5.2 mmol/L (3.5-5.1); SODIUM 142 mmol/L (136-145)
[2020-06-13 23:44] LABS: CALCIUM 9.1 mg/dL (8.5-10.1); GLUCOSE,RANDOM 116 mg/dL (74-106)
[2020-06-13 23:45] LABS: ALBUMIN 2.8 g/dl (3.4-5.0); ANION GAP 5 MMOL/L (8-16); BLOOD UREA NITROGEN 15.8 mg/dL (7-18); CO2 27 mmol/L (21-32)
[2020-06-13 23:48] LABS: CREATININE 0.8 mg/dL (0.55-1.3); SGOT/AST 30 U/L (15-37); SGPT/ALT 19 U/L (13-61)
[2020-06-13 23:49] LABS: BILIRUBIN,TOTAL 0.7 mg/dL (0.2-1)
[2020-06-13 23:50] LABS: ALK PHOS 98 U/L (45-117)
[2020-06-14] MEDS ORDERED: VANCOMYCIN/WATER BAGS 1,250 MG/250 ML BAG IVPB ONE (07:51)
[2020-06-14 07:53] LABS: HEMATOCRIT 31.3 % (32.4-45.2); HEMOGLOBIN 10.4 GM/dL (10.7-15.3); LYMPH % 33.3 % (8-40); MCH 28.7 pg (25.7-33.7); MCHC 33.1 g/dl (32.0-36.0); MEAN CELL VOLUME 86.6 fl (80-96); MEAN PLT VOLUME 7.6 fl (7.5-11.1); MONO % 11.3 % (3.8-10.2); NEUT % 42.4 % (42.8-82.8); PLATELET COUNT 303 K/MM3 (134-434); RBC 3.62 M/mm3 (3.60-5.2); RDW 13.6 % (11.6-15.6); WHITE BLOOD COUNT 5.3 K/mm3 (4.0-10.0)
[2020-06-14 08:16] LABS: POTASSIUM 4.2 mmol/L (3.5-5.1)
[2020-06-14 08:23] LABS: BLOOD UREA NITROGEN 13.7 mg/dL (7-18)
[2020-06-14 08:24] LABS: ALBUMIN 2.3 g/dl (3.4-5.0); CALCIUM 8.3 mg/dL (8.5-10.1)
[2020-06-14 08:27] LABS: CREATININE 0.6 mg/dL (0.55-1.3)
[2020-06-14 08:29] LABS: BILIRUBIN,TOTAL 0.3 mg/dL (0.2-1); TOT PROT 6.3 g/dl (6.4-8.2)
[2020-06-14] MEDS ORDERED: FLU VACCINE (FLULAVAL) PF 60 MCG/0.5 ML SYRINGE 2020-2021 IM ONE (09:38)
[2020-06-14] MEDS ORDERED: ACETAMINOPHEN 325 MG TABLET (FP) PO PRN (10:43)
[2020-06-14] MEDS: traMADol HCL 50 MG TABLET PO PRN (12:00)
[2020-06-14] MEDS ORDERED: traMADol HCL 50 MG TABLET ONE (12:04)
[2020-06-14] MEDS ORDERED: HEPARIN NA (PORCINE) 5,000 UNITS/ML 1ML VIAL ONE (12:05)
[2020-06-14] MEDS ORDERED: SILVER SULFADIAZINE 1% TOP CREAM 50 GM JAR TP ONE (12:05)
[2020-06-14] MEDS: SILVER SULFADIAZINE 1% TOP CREAM 50 GM JAR TP SCH (12:35)
[2020-06-14] MEDS: HEPARIN NA (PORCINE) 5,000 UNITS/ML 1ML VIAL SQ SCH (12:35)
[2020-06-15] MEDS: HEPARIN NA (PORCINE) 5,000 UNITS/ML 1ML VIAL SQ SCH ×3 (01:01→21:12)
[2020-06-15] MEDS: ASCORBIC ACID 500 MG TABLET (FP) PO SCH ×3 (01:01→21:12)
[2020-06-15] MEDS ORDERED: ASCORBIC ACID 500 MG TABLET (FP) ONE (01:02)
[2020-06-15] MEDS ORDERED: HEPARIN NA (PORCINE) 5,000 UNITS/ML 1ML VIAL ONE (01:03)
[2020-06-15 03:31] VITALS: BMI 31.7
[2020-06-15 09:39] LABS: ALBUMIN 2.5 g/dl (3.4-5.0); BILIRUBIN,TOTAL 0.5 mg/dl (0.2-1); CALCIUM 8.5 mg/dl (8.5-10); CREATININE 0.6 mg/dl (0.55-1.3); POTASSIUM 4.5 mmol/L (3.5-5.1); TOT PROT 6.1 g/dl (6.4-8.2)
[2020-06-15] MEDS: POLYETHYLENE GLYCOL 3350 119 GM BTL PO SCH (10:13)
[2020-06-15 10:41] LABS: BASO % 1.1 % (0-2.0); EOS % 9.4 % (0-4.5); HEMATOCRIT 31.2 % (32.4-45.2); LYMPH % 46.4 % (8-40); MCH 28.2 pg (25.7-33.7); MCHC 32.2 g/dl (32.0-36.0); MEAN CELL VOLUME 87.7 fl (80-96); MEAN PLT VOLUME 8.2 fl (7.5-11.1); MONO % 9.7 % (3.8-10.2); NEUT % 33.4 % (42.8-82.8); PLATELET COUNT 295 K/MM3 (134-434); RBC 3.56 M/mm3 (3.60-5.2); RDW 13.7 % (11.6-15.6); WHITE BLOOD COUNT 4.7 K/mm3 (4.0-10.0)
[2020-06-15] MEDS: CEFTRIAXONE 1 GM in DEXTROSE 5%-WATER - 50 ML IVPB SCH (15:00)
[2020-06-15] MEDS ORDERED: cefTRIAXone SODIUM 1 GM VIAL ONE (15:24)
[2020-06-15] MEDS ORDERED: DEXTROSE 5%-WATER - 50 ML IVPB ONE (15:24)
[2020-06-15] MEDS: SILVER SULFADIAZINE 1% TOP CREAM 50 GM JAR TP SCH (17:54)
[2020-06-15] MEDS: traMADol HCL 50 MG TABLET PO PRN (21:19)
[2020-06-16] MEDS ORDERED: cefTRIAXone SODIUM 1 GM VIAL ONE (09:20)
[2020-06-16] MEDS ORDERED: DEXTROSE 5%-WATER - 50 ML IVPB ONE (09:20)
[2020-06-16] MEDS: CEFTRIAXONE 1 GM in DEXTROSE 5%-WATER - 50 ML IVPB SCH (09:31)
[2020-06-16] MEDS: POLYETHYLENE GLYCOL 3350 119 GM BTL PO SCH (09:32)
[2020-06-16] MEDS: HEPARIN NA (PORCINE) 5,000 UNITS/ML 1ML VIAL SQ SCH (09:32)
[2020-06-16] MEDS: ASCORBIC ACID 500 MG TABLET (FP) PO SCH (09:33)
[2020-06-16] MEDS: SILVER SULFADIAZINE 1% TOP CREAM 50 GM JAR TP SCH (09:33)
[2020-06-16 14:07] VITALS: BP 108/68; PULSE 80; TEMP 98.6
== END 2020-06-16 18:27 | disposition home or self-care (01) | DRG 383 ==
LOC: JER 20:39 → JERBED 23:26 → FM/S 06-15 03:07
PROVIDERS: ADMIT Internal Medicine; ATTEND Family Medicine
DX: L03.116 Cellulitis of left lower limb (principal); L97.929 Non-pressure chronic ulcer of unspecified part of left lower leg with unspecified severity; D25.9 Leiomyoma of uterus, unspecified; I89.0 Lymphedema, not elsewhere classified
CPT/HCPCS: 36415; 71045-TC-FY; 80053; 84484; 85025; 87070; 87205; 93005; 93010; 99285-25; C9803; J1644; U0003

== ENCOUNTER 2020-07-10 18:17 | Emergency (ER) | payer OTHER ==
[2020-07-10 18:32] VITALS: BP 128/70; PULSE 83; TEMP 98.6; BMI 33.3
[2020-07-10] MEDS ORDERED: BACITRACIN 15 GM TUBE TOPICAL OINTMENT ONE (19:42)
== END 2020-07-10 20:41 | disposition home or self-care (01) ==
LOC: JERFT 18:17
DX: Z48.00 Encounter for change or removal of nonsurgical wound dressing (principal)
CPT/HCPCS: 99283-25

== ENCOUNTER 2020-08-17 19:09 | Emergency (ER) | payer OTHER ==
[2020-08-17 19:22] VITALS: BMI 27.6
[2020-08-17] MEDS ORDERED: KETOROLAC TROMETHAMINE 15 MG/ML VIAL IVPUSH ONE (21:12)
[2020-08-17] MEDS ORDERED: KETOROLAC TROMETHAMINE 15 MG/ML VIAL ONE (21:19)
[2020-08-17 22:10] LABS: BASO % 0.9 % (0-2.0); EOS % 18.6 % (0-4.5); HEMATOCRIT 32.4 % (32.4-45.2); HEMOGLOBIN 10.7 GM/dL (10.7-15.3); LYMPH % 30.5 % (8-40); MCH 28.2 pg (25.7-33.7); MCHC 32.9 g/dl (32.0-36.0); MEAN CELL VOLUME 85.8 fl (80-96); MEAN PLT VOLUME 7.5 fl (7.5-11.1); MONO % 11.9 % (3.8-10.2); NEUT % 38.1 % (42.8-82.8); PLATELET COUNT 266 K/MM3 (134-434); RBC 3.78 M/mm3 (3.60-5.2); RDW 14.6 % (11.6-15.6); WHITE BLOOD COUNT 5.6 K/mm3 (4.0-10.0)
[2020-08-17 22:38] LABS: ALBUMIN 2.5 g/dl (3.4-5.0); BLOOD UREA NITROGEN 15.3 mg/dL (7-18); CALCIUM 8.8 mg/dL (8.5-10.1)
[2020-08-17 22:42] LABS: CREATININE 0.6 mg/dL (0.55-1.3)
[2020-08-17 22:43] LABS: BILIRUBIN,TOTAL 0.2 mg/dL (0.2-1); TOT PROT 6.7 g/dl (6.4-8.2)
[2020-08-18 00:58] LABS: EPI CELLS 11 /uL (0-25.1); HYALINE CASTS 1 /uL (0-3.1); PH,URINE 5.5 (5.0-8.0); URINE APPEARANCE CLEAR; URINE BACTERIA 28 /uL (0-1359); URINE BILIRUBIN NEGATIVE (NEGATIVE); URINE COLOR YELLOW; URINE GLUCOSE (UA) NEGATIVE (NEGATIVE); URINE KETONE TRACE (NEGATIVE); URINE LEUK ESTERASE TRACE (NEGATIVE); URINE NITRITE NEGATIVE (NEGATIVE); URINE PROTEIN NEGATIVE (NEGATIVE); URINE RBC 7 /uL (0-23.9); URINE UROBILINOGEN 0.2 mg/dL (0.2-1.0); URINE WBC 27 /uL (0-25.8)
[2020-08-18 01:40] VITALS: BP 132/76; PULSE 89; TEMP 97.9
== END 2020-08-18 01:51 | disposition home or self-care (01) ==
LOC: JER 19:09
DX: I89.0 Lymphedema, not elsewhere classified (principal); R22.42 Localized swelling, mass and lump, left lower limb
CPT/HCPCS: 36415; 80053; 81003; 85025; 87086; 99283-25

== ENCOUNTER 2020-09-16 16:57 | Emergency (ER) | payer OTHER ==
[2020-09-16 17:07] VITALS: BP 129/72; PULSE 89; TEMP 98; BMI 27.1
== END 2020-09-16 18:42 | disposition home or self-care (01) ==
LOC: JER 16:57 → JERFT 16:57
DX: B86 Scabies (principal); R59.9 Enlarged lymph nodes, unspecified; R13.11 Dysphagia, oral phase
CPT/HCPCS: 99281-25; G0463-25

== ENCOUNTER 2020-10-01 18:24 | Inpatient (IN) | payer OTHER ==
[2020-10-01 20:51] LABS: BASO % 0.9 % (0-2.0); EOS % 14.1 % (0-4.5); HEMOGLOBIN 11.2 GM/dL (10.7-15.3); LYMPH % 25.5 % (8-40); MCH 27.6 pg (25.7-33.7); MCHC 31.9 g/dl (32.0-36.0); MEAN CELL VOLUME 86.4 fl (80-96); MEAN PLT VOLUME 7.2 fl (7.5-11.1); NEUT % 51.5 % (42.8-82.8); PLATELET COUNT 405 K/MM3 (134-434); RBC 4.05 M/mm3 (3.60-5.2); RDW 14.4 % (11.6-15.6); WHITE BLOOD COUNT 7.3 K/mm3 (4.0-10.0)
[2020-10-01 21:17] LABS: CALCIUM 8.7 mg/dL (8.5-10.1)
[2020-10-01 21:18] LABS: ALBUMIN 2.8 g/dl (3.4-5.0); BLOOD UREA NITROGEN 12.7 mg/dL (7-18)
[2020-10-01 21:21] LABS: CREATININE 0.6 mg/dL (0.55-1.3)
[2020-10-01 21:23] LABS: BILIRUBIN,TOTAL 0.2 mg/dL (0.2-1); TOT PROT 7.1 g/dl (6.4-8.2)
[2020-10-01 22:24] LABS: ERYTHROCYTE SEDIMENTATION RATE 41 mm/hr (0-30)
[2020-10-01] MEDS ORDERED: VANCOMYCIN 1 GM in D5W (PRE-DOCKED) 1,000 MG/250 ML IVPB ONE (22:30)
[2020-10-01] MEDS ORDERED: PIPERACILLIN/TAZOB 3.375 GM 3.375 GM in DEXTROSE 5%-WATER - 50 ML IVPB ONE (22:30)
[2020-10-01] MEDS ORDERED: PIPERACILLIN/TAZOB 3.375 GM 3.375 GM/50 ML BAG IVPB ONE (22:42)
[2020-10-01] MEDS ORDERED: ACETAMINOPHEN 500 MG TABLET (FP) PO ONE (23:03)
[2020-10-01] MEDS ORDERED: ACETAMINOPHEN 325 MG TABLET (FP) ONE ×2 (23:08→23:13)
[2020-10-02] MEDS ORDERED: VANCOMYCIN 1 GRAM (PRE-DOCKED) 1,000 MG/250 ML BAG IVPB ONE (01:26)
[2020-10-02 02:46] VITALS: BMI 32.5
[2020-10-02] MEDS ORDERED: diphenhydrAMINE HCL 25 MG CAPSULE (FP) PO PRN (03:54)
[2020-10-02] MEDS ORDERED: KETOROLAC TROMETHAMINE 30 MG/1 ML VIAL IM ONE (03:55)
[2020-10-02] MEDS: diphenhydrAMINE HCL 25 MG CAPSULE (FP) PO PRN (04:18)
[2020-10-02] MEDS ORDERED: PIPERACILLIN/TAZOB 3.375 GM 3.375 GM in DEXTROSE 5%-WATER - 50 ML IVPB ONE (06:13)
[2020-10-02] MEDS ORDERED: PIPERACILLIN/TAZOBACTAM 3.375 GM VIAL IVPB ONE ×3 (06:45→23:30)
[2020-10-02] MEDS ORDERED: DEXTROSE 5%-WATER - 50 ML IVPB ONE ×3 (06:45→23:30)
[2020-10-02 08:39] LABS: BASO % 0.7 % (0-2.0); EOS % 13.3 % (0-4.5); HEMATOCRIT 31.5 % (32.4-45.2); HEMOGLOBIN 10.1 GM/dL (10.7-15.3); LYMPH % 23.2 % (8-40); MCH 27.6 pg (25.7-33.7); MEAN CELL VOLUME 86.3 fl (80-96); MEAN PLT VOLUME 7.4 fl (7.5-11.1); MONO % 8.9 % (3.8-10.2); NEUT % 53.9 % (42.8-82.8); PLATELET COUNT 339 K/MM3 (134-434); RBC 3.65 M/mm3 (3.60-5.2); WHITE BLOOD COUNT 7.2 K/mm3 (4.0-10.0)
[2020-10-02 09:01] LABS: CALCIUM 8.3 mg/dL (8.5-10.1)
[2020-10-02 09:06] LABS: CREATININE 0.5 mg/dL (0.55-1.3)
[2020-10-02] MEDS: VANCOMYCIN 1 GRAM (PRE-DOCKED) 1,000 MG/250 ML BAG IVPB SCH (15:28)
[2020-10-02] MEDS: PIPERACILLIN/TAZOB 3.375 GM 3.375 GM in DEXTROSE 5%-WATER - 50 ML IVPB SCH (17:19)
[2020-10-02] MEDS ORDERED: IBUPROFEN 400 MG TABLET (FP) PO ONE (21:34)
[2020-10-03] MEDS: PIPERACILLIN/TAZOB 3.375 GM 3.375 GM in DEXTROSE 5%-WATER - 50 ML IVPB SCH ×3 (01:23→17:13)
[2020-10-03] MEDS: VANCOMYCIN 1 GRAM (PRE-DOCKED) 1,000 MG/250 ML BAG IVPB SCH ×2 (01:45→14:16)
[2020-10-03 08:15] LABS: BASO % 0.9 % (0-2.0); EOS % 15.9 % (0-4.5); HEMATOCRIT 33.5 % (32.4-45.2); HEMOGLOBIN 10.5 GM/dL (10.7-15.3); LYMPH % 24.5 % (8-40); MCH 27.3 pg (25.7-33.7); MCHC 31.5 g/dl (32.0-36.0); MEAN CELL VOLUME 86.7 fl (80-96); MEAN PLT VOLUME 7.3 fl (7.5-11.1); MONO % 7.2 % (3.8-10.2); NEUT % 51.5 % (42.8-82.8); PLATELET COUNT 349 K/MM3 (134-434); RBC 3.86 M/mm3 (3.60-5.2); RDW 14.7 % (11.6-15.6); WHITE BLOOD COUNT 6.4 K/mm3 (4.0-10.0)
[2020-10-03 08:32] LABS: BLOOD UREA NITROGEN 9.8 mg/dL (7-18); CALCIUM 8.6 mg/dL (8.5-10.1)
[2020-10-03 08:35] LABS: CREATININE 0.6 mg/dL (0.55-1.3)
[2020-10-03 08:37] LABS: BILIRUBIN,TOTAL 0.5 mg/dL (0.2-1)
[2020-10-03 08:55] LABS: ALBUMIN 2.1 g/dl (3.4-5.0)
[2020-10-03] MEDS ORDERED: PIPERACILLIN/TAZOBACTAM 3.375 GM VIAL IVPB ONE ×2 (09:43→16:58)
[2020-10-03] MEDS ORDERED: DEXTROSE 5%-WATER - 50 ML IVPB ONE ×2 (09:44→16:58)
[2020-10-03] MEDS: ACETAMINOPHEN 325 MG TABLET (FP) PO PRN (18:53)
[2020-10-03] MEDS: MINERAL OIL/PET HY-PHL TOPICAL OINTMENT 454 GM JAR TP SCH (21:13)
[2020-10-04] MEDS ORDERED: PIPERACILLIN/TAZOBACTAM 3.375 GM VIAL IVPB ONE ×3 (01:21→17:28)
[2020-10-04] MEDS ORDERED: DEXTROSE 5%-WATER - 50 ML IVPB ONE ×3 (01:21→17:28)
[2020-10-04] MEDS: PIPERACILLIN/TAZOB 3.375 GM 3.375 GM in DEXTROSE 5%-WATER - 50 ML IVPB SCH ×3 (01:45→17:44)
[2020-10-04] MEDS: VANCOMYCIN 1 GRAM (PRE-DOCKED) 1,000 MG/250 ML BAG IVPB SCH ×2 (02:39→18:24)
[2020-10-04] MEDS: COLLAGENASE CLOSTRIDIUM HIST. 30 GRAMS TUBE TP SCH (10:51)
[2020-10-04] MEDS: MINERAL OIL/PET HY-PHL TOPICAL OINTMENT 454 GM JAR TP SCH ×2 (10:51→22:43)
[2020-10-04] MEDS ORDERED: PT OWN MED DRAWER 7, Y5N ONE (16:08)
[2020-10-04] MEDS: ACETAMINOPHEN 325 MG TABLET (FP) PO PRN (18:25)
[2020-10-05] MEDS ORDERED: PIPERACILLIN/TAZOBACTAM 3.375 GM VIAL IVPB ONE ×3 (02:08→16:39)
[2020-10-05] MEDS ORDERED: DEXTROSE 5%-WATER - 50 ML IVPB ONE ×3 (02:08→16:39)
[2020-10-05] MEDS: PIPERACILLIN/TAZOB 3.375 GM 3.375 GM in DEXTROSE 5%-WATER - 50 ML IVPB SCH ×3 (02:13→18:00)
[2020-10-05] MEDS: VANCOMYCIN 1 GRAM (PRE-DOCKED) 1,000 MG/250 ML BAG IVPB SCH ×3 (06:20→18:00)
[2020-10-05] MEDS: MINERAL OIL/PET HY-PHL TOPICAL OINTMENT 454 GM JAR TP SCH ×2 (10:16→21:25)
[2020-10-05] MEDS: COLLAGENASE CLOSTRIDIUM HIST. 30 GRAMS TUBE TP SCH (10:16)
[2020-10-05] MEDS: diphenhydrAMINE HCL 25 MG CAPSULE (FP) PO PRN (20:08)
[2020-10-06] MEDS ORDERED: DEXTROSE 5%-WATER - 50 ML IVPB ONE ×3 (00:14→16:12)
[2020-10-06] MEDS ORDERED: PIPERACILLIN/TAZOBACTAM 3.375 GM VIAL IVPB ONE ×3 (00:14→16:11)
[2020-10-06] MEDS: PIPERACILLIN/TAZOB 3.375 GM 3.375 GM in DEXTROSE 5%-WATER - 50 ML IVPB SCH ×3 (01:33→17:03)
[2020-10-06] MEDS: VANCOMYCIN 1 GRAM (PRE-DOCKED) 1,000 MG/250 ML BAG IVPB SCH ×2 (05:34→17:03)
[2020-10-06 09:14] LABS: HEMATOCRIT 37.4 % (32.4-45.2); MCH 27.7 pg (25.7-33.7); MEAN CELL VOLUME 86.7 fl (80-96); PLATELET COUNT 379 K/MM3 (134-434); RBC 4.32 M/mm3 (3.60-5.2); WHITE BLOOD COUNT 7.3 K/mm3 (4.0-10.0)
[2020-10-06] MEDS: MINERAL OIL/PET HY-PHL TOPICAL OINTMENT 454 GM JAR TP SCH ×2 (09:19→21:07)
[2020-10-06] MEDS: COLLAGENASE CLOSTRIDIUM HIST. 30 GRAMS TUBE TP SCH (09:19)
[2020-10-06 09:48] LABS: CREATININE 0.6 mg/dL (0.55-1.3); MAGNESIUM 2.3 mg/dL (1.8-2.4)
[2020-10-06] MEDS: ACETAMINOPHEN 325 MG TABLET (FP) PO PRN (18:20)
[2020-10-06] MEDS: diphenhydrAMINE HCL 25 MG CAPSULE (FP) PO PRN (21:06)
[2020-10-07] MEDS: PIPERACILLIN/TAZOB 3.375 GM 3.375 GM in DEXTROSE 5%-WATER - 50 ML IVPB SCH ×2 (01:10→12:20)
[2020-10-07] MEDS: VANCOMYCIN 1 GRAM (PRE-DOCKED) 1,000 MG/250 ML BAG IVPB SCH (05:05)
[2020-10-07] MEDS ORDERED: PT OWN MED DRAWER 7, Y5N ONE ×2 (09:44→11:24)
[2020-10-07] MEDS ORDERED: PIPERACILLIN/TAZOBACTAM 3.375 GM VIAL IVPB ONE ×2 (09:44)
[2020-10-07] MEDS ORDERED: DEXTROSE 5%-WATER - 50 ML IVPB ONE ×2 (09:44)
[2020-10-07] MEDS: MINERAL OIL/PET HY-PHL TOPICAL OINTMENT 454 GM JAR TP SCH (12:33)
[2020-10-07] MEDS: COLLAGENASE CLOSTRIDIUM HIST. 30 GRAMS TUBE TP SCH (12:34)
[2020-10-07 14:36] VITALS: BP 108/68; PULSE 68; TEMP 98.7
== END 2020-10-07 18:22 | disposition home or self-care (01) | DRG 383 ==
LOC: JER 18:24 → JERBED 22:32 → J8W 10-02 01:52
PROVIDERS: ADMIT Internal Medicine; ATTEND Family Medicine
DX: L03.116 Cellulitis of left lower limb (principal); R21 Rash and other nonspecific skin eruption; I89.0 Lymphedema, not elsewhere classified; D64.9 Anemia, unspecified; L97.928 Non-pressure chronic ulcer of unspecified part of left lower leg with other specified severity; K59.09 Other constipation; K64.9 Unspecified hemorrhoids; K43.9 Ventral hernia without obstruction or gangrene; Z22.322 Carrier or suspected carrier of Methicillin resistant Staphylococcus aureus
CPT/HCPCS: 36415; 71045-TC-FY; 73701-TC-RT; 80048; 80053; 82272; 82728; 83540; 83550; 83605; 83735; 85025; 85027; 85651; 86140; 87040; 87070; 87186; 87205; 93005; 93010; 99285-25; C9803; G0480; Q9967; U0003; U0005

== ENCOUNTER 2020-11-09 15:41 | Emergency (ER) | payer OTHER ==
[2020-11-09 15:56] VITALS: BP 110/76; PULSE 78; TEMP 97.8; BMI 25.0
[2020-11-09 21:00] LABS: EOS % 11.8 % (0-4.5); HEMATOCRIT 40.3 % (32.4-45.2); HEMOGLOBIN 12.9 GM/dL (10.7-15.3); LYMPH % 29.6 % (8-40); MCH 27.2 pg (25.7-33.7); MEAN PLT VOLUME 6.9 fl (7.5-11.1); MONO % 8.2 % (3.8-10.2); NEUT % 49.4 % (42.8-82.8); PLATELET COUNT 376 10^3/uL (134-434); RBC 4.74 M/mm3 (3.60-5.2); RDW 15.1 % (11.6-15.6); WHITE BLOOD COUNT 6.5 K/mm3 (4.0-10.0)
[2020-11-09 21:20] LABS: BLOOD UREA NITROGEN 17.1 mg/dL (7-18); CALCIUM 9.1 mg/dL (8.5-10.1)
[2020-11-09 21:23] LABS: CREATININE 0.7 mg/dL (0.55-1.3)
[2020-11-09 21:25] LABS: TOT PROT 7.6 g/dl (6.4-8.2)
[2020-11-09 21:30] LABS: BILIRUBIN,TOTAL 0.3 mg/dL (0.2-1)
== END 2020-11-09 22:08 | disposition home or self-care (01) ==
LOC: JER 15:41
DX: I89.0 Lymphedema, not elsewhere classified (principal); L97.929 Non-pressure chronic ulcer of unspecified part of left lower leg with unspecified severity
CPT/HCPCS: 36415; 71046-TC-FY; 73590-TC-LT-FY; 73610-TC-LT-FY; 73630-TC-LT; 80053; 85025; 93005; 93010; 93971-TC; 99285-25; C9803; U0003; U0005

== ENCOUNTER 2020-11-18 17:37 | Emergency (ER) | payer OTHER ==
[2020-11-18 18:04] VITALS: TEMP 97.9; BMI 25.8
[2020-11-18 20:16] LABS: BASO % 0.8 % (0-2.0); EOS % 11.7 % (0-4.5); HEMATOCRIT 40.4 % (32.4-45.2); HEMOGLOBIN 12.9 GM/dL (10.7-15.3); LYMPH % 29.2 % (8-40); MCH 27.5 pg (25.7-33.7); MEAN CELL VOLUME 86.1 fl (80-96); MEAN PLT VOLUME 7.1 fl (7.5-11.1); MONO % 9.7 % (3.8-10.2); NEUT % 48.6 % (42.8-82.8); PLATELET COUNT 326 10^3/uL (134-434); RDW 15.1 % (11.6-15.6); WHITE BLOOD COUNT 6.3 K/mm3 (4.0-10.0)
== END 2020-11-19 02:43 | disposition home or self-care (01) ==
LOC: JER 17:37
DX: I89.0 Lymphedema, not elsewhere classified (principal)
CPT/HCPCS: 36415; 71045-TC-FY; 85025; 86140; 93005; 93010; 93971-TC; 99285-25; C9803; U0003; U0005

== ENCOUNTER 2020-12-11 14:41 | Inpatient (IN) | payer OTHER ==
[2020-12-11] MEDS ORDERED: VANCOMYCIN 1 GM in D5W (PRE-DOCKED) 1,000 MG/250 ML IVPB ONE (15:37)
[2020-12-11] MEDS ORDERED: VANCOMYCIN 1 GRAM (PRE-DOCKED) 1,000 MG/250 ML BAG IVPB ONE (16:26)
[2020-12-11 16:39] LABS: BASO % 0.8 % (0-2.0); EOS % 10.3 % (0-4.5); HEMATOCRIT 40.4 % (32.4-45.2); HEMOGLOBIN 13.1 GM/dL (10.7-15.3); LYMPH % 23.1 % (8-40); MCH 27.7 pg (25.7-33.7); MCHC 32.5 g/dl (32.0-36.0); MEAN CELL VOLUME 85.2 fl (80-96); MEAN PLT VOLUME 7.3 fl (7.5-11.1); MONO % 8.9 % (3.8-10.2); NEUT % 56.9 % (42.8-82.8); PLATELET COUNT 353 10^3/uL (134-434); RBC 4.73 M/mm3 (3.60-5.2); RDW 15.2 % (11.6-15.6); WHITE BLOOD COUNT 7.8 K/mm3 (4.0-10.0)
[2020-12-11 16:59] LABS: CALCIUM 9.2 mg/dL (8.5-10.1)
[2020-12-11 17:00] LABS: ALBUMIN 3.1 g/dl (3.4-5.0); BLOOD UREA NITROGEN 27.6 mg/dL (7-18)
[2020-12-11 17:04] LABS: BILIRUBIN,TOTAL 0.3 mg/dL (0.2-1)
[2020-12-11 17:05] LABS: TOT PROT 7.6 g/dl (6.4-8.2)
[2020-12-11 17:24] LABS: ERYTHROCYTE SEDIMENTATION RATE 58 mm/hr (0-30)
[2020-12-11 23:14] VITALS: BMI 28.0
[2020-12-12] MEDS ORDERED: diphenhydrAMINE HCL 25 MG CAPSULE (FP) PO PRN (10:19)
[2020-12-12] MEDS: traMADol HCL 50 MG TABLET PO PRN (12:17)
[2020-12-13] MEDS: traMADol HCL 50 MG TABLET PO PRN ×2 (05:41→17:22)
[2020-12-13] MEDS ORDERED: TRIAMCINOLONE ACET 0.1% 60 ML LOTION TP SCH (11:45)
[2020-12-13] MEDS: MINERAL OIL/PET HY-PHL TOPICAL OINTMENT 454 GM JAR TP SCH ×2 (13:07→22:19)
[2020-12-13] MEDS: TRIAMCINOLONE ACET 0.1% CREAM 15 GM TUBE TP SCH (22:19)
[2020-12-14] MEDS ORDERED: BISACODYL 5 MG TABLET.DR (FP) PO ONE (08:41)
[2020-12-14] MEDS ORDERED: PT OWN MED DRAWER 7, Y5N ONE (08:57)
[2020-12-14] MEDS: MINERAL OIL/PET HY-PHL TOPICAL OINTMENT 454 GM JAR TP SCH ×2 (10:36→21:01)
[2020-12-14] MEDS: TRIAMCINOLONE ACET 0.1% CREAM 15 GM TUBE TP SCH ×2 (10:36→21:01)
[2020-12-14] MEDS: ACETAMINOPHEN 325 MG TABLET (FP) PO PRN ×2 (15:29→21:59)
[2020-12-14] MEDS: HEPARIN NA (PORCINE) 5,000 UNITS/ML 1ML VIAL SQ SCH (21:01)
[2020-12-15] MEDS: HEPARIN NA (PORCINE) 5,000 UNITS/ML 1ML VIAL SQ SCH ×3 (05:42→21:54)
[2020-12-15] MEDS: AMINO ACIDS/PROTEIN HYDROLYS 30 ML LIQUID.PKT PO SCH ×3 (09:34→17:20)
[2020-12-15] MEDS: TRIAMCINOLONE ACET 0.1% CREAM 15 GM TUBE TP SCH ×2 (09:35→21:55)
[2020-12-15] MEDS: MINERAL OIL/PET HY-PHL TOPICAL OINTMENT 454 GM JAR TP SCH ×2 (09:36→21:55)
[2020-12-16] MEDS: HEPARIN NA (PORCINE) 5,000 UNITS/ML 1ML VIAL SQ SCH ×3 (06:08→22:36)
[2020-12-16 08:08] LABS: BASO % 0.7 % (0-2.0); EOS % 13.1 % (0-4.5); HEMATOCRIT 36.4 % (32.4-45.2); HEMOGLOBIN 11.9 GM/dL (10.7-15.3); LYMPH % 39.7 % (8-40); MCH 28.1 pg (25.7-33.7); MCHC 32.6 g/dl (32.0-36.0); MEAN CELL VOLUME 86.2 fl (80-96); MEAN PLT VOLUME 8.4 fl (7.5-11.1); MONO % 7.7 % (3.8-10.2); NEUT % 38.8 % (42.8-82.8); PLATELET COUNT 348 10^3/uL (134-434); RBC 4.22 M/mm3 (3.60-5.2); RDW 15.2 % (11.6-15.6); WHITE BLOOD COUNT 6.2 K/mm3 (4.0-10.0)
[2020-12-16 08:30] LABS: CALCIUM 8.4 mg/dL (8.5-10.1)
[2020-12-16 08:31] LABS: BLOOD UREA NITROGEN 15.9 mg/dL (7-18)
[2020-12-16 08:34] LABS: CREATININE 0.6 mg/dL (0.55-1.3)
[2020-12-16 08:35] LABS: BILIRUBIN,TOTAL 0.2 mg/dL (0.2-1); TOT PROT 6.1 g/dl (6.4-8.2)
[2020-12-16 08:55] LABS: ALBUMIN 2.2 g/dl (3.4-5.0)
[2020-12-16] MEDS: AMINO ACIDS/PROTEIN HYDROLYS 30 ML LIQUID.PKT PO SCH ×3 (09:59→17:22)
[2020-12-16] MEDS: TRIAMCINOLONE ACET 0.1% CREAM 15 GM TUBE TP SCH ×2 (09:59→22:39)
[2020-12-16] MEDS: MINERAL OIL/PET HY-PHL TOPICAL OINTMENT 454 GM JAR TP SCH ×2 (09:59→22:38)
[2020-12-16] MEDS ORDERED: PT OWN MED DRAWER 7, Y5N ONE (22:29)
[2020-12-17] MEDS: HEPARIN NA (PORCINE) 5,000 UNITS/ML 1ML VIAL SQ SCH ×3 (06:05→21:49)
[2020-12-17] MEDS: TRIAMCINOLONE ACET 0.1% CREAM 15 GM TUBE TP SCH ×3 (09:29→21:49)
[2020-12-17] MEDS: MINERAL OIL/PET HY-PHL TOPICAL OINTMENT 454 GM JAR TP SCH ×2 (09:29→21:55)
[2020-12-17] MEDS: AMINO ACIDS/PROTEIN HYDROLYS 30 ML LIQUID.PKT PO SCH ×3 (09:29→17:21)
[2020-12-17 12:48] LABS: EOS % 13.2 % (0-4.5); HEMATOCRIT 36.3 % (32.4-45.2); HEMOGLOBIN 11.7 GM/dL (10.7-15.3); LYMPH % 30.8 % (8-40); MCH 27.9 pg (25.7-33.7); MCHC 32.2 g/dl (32.0-36.0); MEAN CELL VOLUME 86.4 fl (80-96); MEAN PLT VOLUME 8.3 fl (7.5-11.1); MONO % 8.8 % (3.8-10.2); NEUT % 46.2 % (42.8-82.8); PLATELET COUNT 354 10^3/uL (134-434); RDW 15.3 % (11.6-15.6); WHITE BLOOD COUNT 4.9 K/mm3 (4.0-10.0)
[2020-12-17 13:06] LABS: CALCIUM 8.3 mg/dL (8.5-10.1)
[2020-12-17 13:07] LABS: ALBUMIN 2.2 g/dl (3.4-5.0); BLOOD UREA NITROGEN 16.8 mg/dL (7-18)
[2020-12-17 13:10] LABS: CREATININE 0.6 mg/dL (0.55-1.3)
[2020-12-17 13:11] LABS: BILIRUBIN,TOTAL 0.1 mg/dL (0.2-1)
[2020-12-17 13:36] LABS: EPI CELLS 11 /uL (0-25.1); HYALINE CASTS 1 /uL (0-3.1); PH,URINE 5.5 (5.0-8.0); URINE APPEARANCE CLEAR; URINE BACTERIA 7 /uL (0-1359); URINE BILIRUBIN NEGATIVE (NEGATIVE); URINE COLOR YELLOW; URINE GLUCOSE (UA) NEGATIVE (NEGATIVE); URINE KETONE NEGATIVE (NEGATIVE); URINE LEUK ESTERASE 2+ (NEGATIVE); URINE NITRITE NEGATIVE (NEGATIVE); URINE PROTEIN NEGATIVE (NEGATIVE); URINE RBC 9 /uL (0-23.9); URINE UROBILINOGEN 0.2 mg/dL (0.2-1.0); URINE WBC 23 /uL (0-25.8)
[2020-12-17] MEDS: ACETAMINOPHEN 325 MG TABLET (FP) PO PRN (21:56)
[2020-12-18] MEDS: HEPARIN NA (PORCINE) 5,000 UNITS/ML 1ML VIAL SQ SCH ×3 (06:13→21:08)
[2020-12-18] MEDS: MINERAL OIL/PET HY-PHL TOPICAL OINTMENT 454 GM JAR TP SCH ×2 (09:48→21:08)
[2020-12-18] MEDS: TRIAMCINOLONE ACET 0.1% CREAM 15 GM TUBE TP SCH ×2 (09:48→21:08)
[2020-12-18] MEDS: AMINO ACIDS/PROTEIN HYDROLYS 30 ML LIQUID.PKT PO SCH ×3 (09:48→18:16)
[2020-12-19] MEDS: ACETAMINOPHEN 325 MG TABLET (FP) PO PRN (01:55)
[2020-12-19] MEDS: HEPARIN NA (PORCINE) 5,000 UNITS/ML 1ML VIAL SQ SCH (06:35)
[2020-12-19 06:38] VITALS: BP 105/59; PULSE 67; TEMP 98.2
[2020-12-19] MEDS: AMINO ACIDS/PROTEIN HYDROLYS 30 ML LIQUID.PKT PO SCH ×2 (09:48→11:15)
[2020-12-19] MEDS: MINERAL OIL/PET HY-PHL TOPICAL OINTMENT 454 GM JAR TP SCH (09:48)
[2020-12-19] MEDS: TRIAMCINOLONE ACET 0.1% CREAM 15 GM TUBE TP SCH (09:48)
== END 2020-12-19 15:16 | DRG 380 ==
LOC: JER 14:41 → JERBED 16:14 → J7W 21:45
PROVIDERS: ADMIT Family Medicine; ATTEND Family Medicine
DX: L97.929 Non-pressure chronic ulcer of unspecified part of left lower leg with unspecified severity (principal); Z22.322 Carrier or suspected carrier of Methicillin resistant Staphylococcus aureus; R21 Rash and other nonspecific skin eruption; I89.0 Lymphedema, not elsewhere classified
CPT/HCPCS: 36415; 74019-TC-FY; 76700-TC; 80053; 81003; 85025; 85651; 86140; 87040; 87070; 87086; 87186; 87205; 93005; 93010; 97116-GP; 97161-GP; 99285-25; C9803; J1644; U0003; U0005

== ENCOUNTER 2021-11-04 22:55 | Inpatient (IN) | payer OTHER ==
[2021-11-05] MEDS ORDERED: ACETAMINOPHEN 1000 MG/100 ML BAG IVPB ONE (00:45)
[2021-11-05] MEDS ORDERED: SODIUM CHLORIDE 0.9% 500 ML INFUS.BAG IV ONE (00:45)
[2021-11-05] MEDS ORDERED: ACETAMINOPHEN INJECTION 100 ML IVPB ONE (00:47)
[2021-11-05] MEDS ORDERED: VANCOMYCIN 1 GM in D5W (PRE-DOCKED) 1,000 MG/250 ML IVPB ONE (03:36)
[2021-11-05] MEDS ORDERED: CEFEPIME HCL/D5W 2 GM/50 ML BAG IVPB ONE (03:36)
[2021-11-05 04:03] LABS: BASO % 1.3 % (0-2.0); EOS % 3.8 % (0-4.5); HEMATOCRIT 38.4 % (32.4-45.2); HEMOGLOBIN 12.3 GM/dL (10.7-15.3); LYMPH % 36.2 % (8-40); MCH 27.2 pg (25.7-33.7); MCHC 32.1 g/dl (32.0-36.0); MEAN CELL VOLUME 84.7 fl (80-96); MEAN PLT VOLUME 7.5 fl (7.5-11.1); MONO % 15.2 % (3.8-10.2); NEUT % 43.5 % (42.8-82.8); PLATELET COUNT 285 10^3/uL (134-434); RBC 4.54 M/mm3 (3.60-5.2); RDW 14.6 % (11.6-15.6); WHITE BLOOD COUNT 3.4 K/mm3 (4.0-10.0)
[2021-11-05] MEDS ORDERED: CEFEPIME 2 GM/100 ML BAG IVPB ONE ×2 (04:19→13:36)
[2021-11-05 04:24] LABS: CALCIUM 8.8 mg/dL (8.5-10.1)
[2021-11-05 04:25] LABS: ALBUMIN 3.2 g/dl (3.4-5.0); BLOOD UREA NITROGEN 9.8 mg/dL (7-18); MAGNESIUM 2.3 mg/dL (1.8-2.4)
[2021-11-05 04:28] LABS: CREATININE 0.7 mg/dL (0.55-1.3)
[2021-11-05 04:30] LABS: BILIRUBIN,TOTAL 0.4 mg/dL (0.2-1); TOT PROT 8.4 g/dl (6.4-8.2)
[2021-11-05 04:45] LABS: ERYTHROCYTE SEDIMENTATION RATE 79 mm/hr (0-30)
[2021-11-05] MEDS ORDERED: VANCOMYCIN 1 GRAM (PRE-DOCKED) 1,000 MG/250 ML BAG IVPB ONE (05:24)
[2021-11-05] MEDS ORDERED: ACETAMINOPHEN 325 MG TABLET (FP) PO PRN (10:00)
[2021-11-05] MEDS ORDERED: CEFEPIME HCL/D5W 2 GM/50 ML BAG IVPB SCH (12:00)
[2021-11-05] MEDS ORDERED: CEFEPIME 1 GM/100 ML BAG IVPB ONE (21:09)
[2021-11-05] MEDS ORDERED: ACETAMINOPHEN 325 MG TABLET (FP) ONE (21:09)
[2021-11-05] MEDS: CEFEPIME 1 GM in DEXTROSE 5%-WATER 100 ML IVPB SCH (21:24)
[2021-11-06 00:31] VITALS: BMI 28.2
[2021-11-06] MEDS ORDERED: ACETAMINOPHEN 1000 MG/100 ML BAG IVPB PRN (03:00)
[2021-11-06] MEDS: CEFEPIME 1 GM in DEXTROSE 5%-WATER 100 ML IVPB SCH (07:41)
[2021-11-06] MEDS: AMOX TR/POT CLAV 875MG/125MG TABLETS (FP) PO SCH ×2 (10:54→18:01)
[2021-11-06] MEDS ORDERED: ALBUTEROL SO4 0.083% IH SOL 2.5 MG/3 ML VIAL.NEB. NEB PRN (10:57)
[2021-11-06] MEDS: LORATADINE 10 MG TABLET PO SCH (12:12)
[2021-11-06] MEDS: FLUTICASONE PROP 0.05% 16 GM NASAL SPRAY NS SCH (12:13)
[2021-11-06] MEDS: predniSONE 20 MG TABLET (UD) PO SCH (14:16)
[2021-11-07] MEDS: AMOX TR/POT CLAV 875MG/125MG TABLETS (FP) PO SCH ×2 (08:41→18:08)
[2021-11-07] MEDS: predniSONE 20 MG TABLET (UD) PO SCH (09:51)
[2021-11-07] MEDS: LORATADINE 10 MG TABLET PO SCH (09:52)
[2021-11-07] MEDS: FLUTICASONE PROP 0.05% 16 GM NASAL SPRAY NS SCH (09:52)
[2021-11-08] MEDS: AMOX TR/POT CLAV 875MG/125MG TABLETS (FP) PO SCH ×2 (08:17→17:50)
[2021-11-08] MEDS: LORATADINE 10 MG TABLET PO SCH (09:13)
[2021-11-08] MEDS: predniSONE 20 MG TABLET (UD) PO SCH (09:13)
[2021-11-08] MEDS: FLUTICASONE PROP 0.05% 16 GM NASAL SPRAY NS SCH (09:23)
[2021-11-08] MEDS: ALBUTEROL SO4 2.5/IPRATROPIUM 0.5 INH SOL 3 ML VIAL.NEB. NEB SCH ×3 (12:04→20:39)
[2021-11-08 12:53] VITALS: TEMP 98.6
[2021-11-08 15:23] VITALS: BP 125/72; PULSE 60
== END 2021-11-08 22:00 | disposition home or self-care (01) | DRG 383 ==
LOC: JER 22:55 → JERBED 11-05 05:35 → J8W 11-05 23:24
PROVIDERS: ADMIT Family Medicine; ATTEND Family Medicine
DX: L03.116 Cellulitis of left lower limb (principal); L97.929 Non-pressure chronic ulcer of unspecified part of left lower leg with unspecified severity; D25.9 Leiomyoma of uterus, unspecified; J06.9 Acute upper respiratory infection, unspecified; I89.0 Lymphedema, not elsewhere classified; R04.2 Hemoptysis; J20.9 Acute bronchitis, unspecified; R05.9 Cough, unspecified; J45.909 Unspecified asthma, uncomplicated; L08.9 Local infection of the skin and subcutaneous tissue, unspecified; B95.61 Methicillin susceptible Staphylococcus aureus infection as the cause of diseases classified elsewhere; Z11.59 Encounter for screening for other viral diseases
CPT/HCPCS: 0241U-QW; 36415; 71046-TC-FY; 71250-TC; 80053; 83735; 85025; 85651; 86140; 87040; 87070; 87186; 87205; 93005; 93010; 94640; 99285-25

== ENCOUNTER 2022-01-17 15:56 | Emergency (ER) | payer OTHER ==
[2022-01-17 16:20] VITALS: BP 122/78; PULSE 65; RESP 17; TEMP 98.1; BMI 24.2
== END 2022-01-17 18:02 | disposition home or self-care (01) ==
LOC: JERFT 15:56
DX: I89.0 Lymphedema, not elsewhere classified (principal); L97.921 Non-pressure chronic ulcer of unspecified part of left lower leg limited to breakdown of skin; M25.561 Pain in right knee
CPT/HCPCS: 73562-TC-RT-FY; 99283-25

== ENCOUNTER 2022-03-11 15:44 | Inpatient (IN) | payer OTHER ==
[2022-03-11] MEDS ORDERED: ACETAMINOPHEN 325 MG TABLET (FP) PO ONE (16:34)
[2022-03-11] MEDS ORDERED: ACETAMINOPHEN 325 MG TABLET (FP) ONE (16:36)
[2022-03-11] MEDS ORDERED: PIPERACILLIN/TAZOB 4.5 GM 4.5 GM in DEXTROSE 5%-WATER 100 ML IVPB ONE (16:41)
[2022-03-11] MEDS ORDERED: VANCOMYCIN 1 GM in D5W (PRE-DOCKED) 1,000 MG/250 ML IVPB ONE (16:41)
[2022-03-11] MEDS ORDERED: morphine CARPU-JECT 4 MG/1 ML DISP.SYRIN IVPUSH ONE (16:44)
[2022-03-11] MEDS ORDERED: PIPERACILLIN/TAZOB 4.5 GM 4.5 GM/100 ML BAG IVPB ONE (16:47)
[2022-03-11] MEDS ORDERED: morphine SULFATE 4 MG/ML VIAL ONE (17:10)
[2022-03-11 17:56] LABS: EOS % 8.6 % (0-4.5); HEMATOCRIT 35.3 % (32.4-45.2); HEMOGLOBIN 11.4 GM/dL (10.7-15.3); LYMPH % 35.9 % (8-40); MCH 27.7 pg (25.7-33.7); MCHC 32.3 g/dl (32.0-36.0); MEAN CELL VOLUME 85.8 fl (80-96); MEAN PLT VOLUME 7.7 fl (7.5-11.1); MONO % 9.6 % (3.8-10.2); NEUT % 44.9 % (42.8-82.8); PLATELET COUNT 326 10^3/uL (134-434); RBC 4.11 M/mm3 (3.60-5.2); RDW 14.3 % (11.6-15.6); WHITE BLOOD COUNT 5.7 K/mm3 (4.0-10.0)
[2022-03-11 18:07] LABS: ALBUMIN 3.2 g/dl (3.4-5.0); BLOOD UREA NITROGEN 15.6 mg/dL (7-18); CALCIUM 9.6 mg/dL (8.5-10.1)
[2022-03-11 18:10] LABS: CREATININE 0.6 mg/dL (0.55-1.3)
[2022-03-11 18:12] LABS: BILIRUBIN,TOTAL 0.2 mg/dL (0.2-1); TOT PROT 7.9 g/dl (6.4-8.2)
[2022-03-11] MEDS ORDERED: VANCOMYCIN/WATER FOR INJ (PEG) 1,000 MG/200 ML BAG IVPB ONE (18:51)
[2022-03-11 18:59] LABS: ERYTHROCYTE SEDIMENTATION RATE 55 mm/hr (0-30)
[2022-03-12] MEDS ORDERED: PIPERACILLIN/TAZOB 3.375 GM 3.375 GM/50 ML BAG IVPB ONE ×2 (02:36→09:05)
[2022-03-12] MEDS ORDERED: PIPERACILLIN/TAZOB 3.375 GM 3.375 GM in DEXTROSE 5%-WATER - 50 ML IVPB SCH (03:00)
[2022-03-12] MEDS ORDERED: ACETAMINOPHEN 1000 MG/100 ML BAG IVPB ONE ×2 (03:33→17:00)
[2022-03-12] MEDS: PIPERACILLIN/TAZOB 3.375 GM 3.375 GM in DEXTROSE 5%-WATER - 50 ML IVPB SCH ×2 (03:47→09:29)
[2022-03-12 07:30] LABS: HEMATOCRIT 32.4 % (32.4-45.2); HEMOGLOBIN 10.4 GM/dL (10.7-15.3); MCH 27.4 pg (25.7-33.7); MEAN CELL VOLUME 85.8 fl (80-96); MEAN PLT VOLUME 7.4 fl (7.5-11.1); PLATELET COUNT 301 10^3/uL (134-434); RBC 3.78 M/mm3 (3.60-5.2); WHITE BLOOD COUNT 4.8 K/mm3 (4.0-10.0)
[2022-03-12 07:57] LABS: CALCIUM 8.6 mg/dL (8.5-10.1); MAGNESIUM 2.2 mg/dL (1.8-2.4)
[2022-03-12 07:58] LABS: BLOOD UREA NITROGEN 12.2 mg/dL (7-18)
[2022-03-12 08:00] LABS: CREATININE 0.6 mg/dL (0.55-1.3); PHOSPHOROUS 4.1 mg/dL (2.5-4.9)
[2022-03-12] MEDS ORDERED: ENOXAPARIN NA (PORCINE) 40 MG/0.4 ML DISP.SYRIN SQ ONE (09:03)
[2022-03-12] MEDS ORDERED: VANCOMYCIN/WATER FOR INJ (PEG) 1,000 MG/200 ML BAG IVPB ONE ×2 (09:04→10:00)
[2022-03-12] MEDS: ENOXAPARIN NA (PORCINE) 40 MG/0.4 ML DISP.SYRIN SQ SCH (09:30)
[2022-03-12] MEDS ORDERED: VANCOMYCIN 1 GM in D5W (PRE-DOCKED) 1,000 MG/250 ML IVPB SCH (10:00)
[2022-03-12] MEDS: CEFAZOLIN SODIUM 2 GM in DEXTROSE 5%-WATER 100 ML IVPB SCH ×2 (12:13→20:49)
[2022-03-12 13:49] VITALS: BMI 30.2
[2022-03-12] MEDS ORDERED: ACETAMINOPHEN 1000 MG/100 ML BAG IVPB PRN (17:03)
[2022-03-13] MEDS: CEFAZOLIN SODIUM 2 GM in DEXTROSE 5%-WATER 100 ML IVPB SCH ×3 (02:59→20:58)
[2022-03-13] MEDS: ENOXAPARIN NA (PORCINE) 40 MG/0.4 ML DISP.SYRIN SQ SCH (10:11)
[2022-03-13] MEDS: COLLAGENASE CLOSTRIDIUM HIST. 30 GRAMS TUBE TP SCH (14:08)
[2022-03-13] MEDS ORDERED: FENTANYL PATCH WASTE TD PRN (16:47)
[2022-03-13] MEDS ORDERED: fentaNYL 12mcg/hr PATCH.TD72 TD SCH (17:00)
[2022-03-14] MEDS: CEFAZOLIN SODIUM 2 GM in DEXTROSE 5%-WATER 100 ML IVPB SCH ×2 (05:51→11:15)
[2022-03-14] MEDS: ENOXAPARIN NA (PORCINE) 40 MG/0.4 ML DISP.SYRIN SQ SCH (10:14)
[2022-03-14] MEDS: COLLAGENASE CLOSTRIDIUM HIST. 30 GRAMS TUBE TP SCH (11:16)
[2022-03-14] MEDS: CEPHALEXIN MONOHYDRATE 500 MG CAPSULE (UD) PO SCH ×2 (14:41→21:44)
[2022-03-14] MEDS ORDERED: ACETAMINOPHEN 500 MG TABLET (FP) PO PRN (17:22)
[2022-03-15] MEDS: CEPHALEXIN MONOHYDRATE 500 MG CAPSULE (UD) PO SCH ×2 (06:28→13:51)
[2022-03-15] MEDS: ENOXAPARIN NA (PORCINE) 40 MG/0.4 ML DISP.SYRIN SQ SCH (09:21)
[2022-03-15] MEDS: COLLAGENASE CLOSTRIDIUM HIST. 30 GRAMS TUBE TP SCH (09:22)
[2022-03-15 09:41] VITALS: RESP 20
[2022-03-15 14:38] VITALS: BP 124/79; PULSE 79; TEMP 98.4
== END 2022-03-15 15:35 | disposition home or self-care (01) | DRG 383 ==
LOC: JER 15:44 → JERBED 20:10 → OBSVTOIN 20:42 → J7W 03-12 10:21
PROVIDERS: ADMIT Internal Medicine; ATTEND Family Medicine
DX: L03.116 Cellulitis of left lower limb (principal); L97.929 Non-pressure chronic ulcer of unspecified part of left lower leg with unspecified severity; I89.0 Lymphedema, not elsewhere classified; M79.605 Pain in left leg; R60.9 Edema, unspecified
CPT/HCPCS: 36415; 73590-TC-LT-FY; 73610-TC-LT-FY; 73630-TC-LT; 80048; 80053; 83735; 84100; 85025; 85027; 85651; 86140; 87040; 93005; 93010; 97116-GP; 97162-GP; 99285-25; C9803-CS; G0378; G0463-25; U0003; U0005

== ENCOUNTER 2022-06-13 14:12 | Observation (INO) | payer OTHER ==
[2022-06-13 15:22] VITALS: BMI 32.3
[2022-06-13] MEDS ORDERED: ONDANSETRON 4 MG/2 ML VIAL IVPUSH ONE (16:20)
[2022-06-13] MEDS ORDERED: HYDROmorphone HCL CARPU-JECT 2 MG/1 ML DISP.SYRIN IVPUSH ONE (16:21)
[2022-06-13] MEDS ORDERED: PIPERACILLIN/TAZOB 3.375 GM 3.375 GM in DEXTROSE 5%-WATER - 50 ML IVPB ONE (16:49)
[2022-06-13] MEDS ORDERED: VANCOMYCIN 1 GM in D5W (PRE-DOCKED) 1,000 MG/250 ML IVPB ONE (16:49)
[2022-06-13] MEDS ORDERED: SODIUM CHLORIDE 0.9% 500 ML INFUS.BAG IV ONE (16:50)
[2022-06-13 17:09] LABS: EOS % 4.2 % (0-4.5); HEMATOCRIT 34.6 % (32.4-45.2); HEMOGLOBIN 11.3 GM/dL (10.7-15.3); LYMPH % 35.6 % (8-40); MCH 27.8 pg (25.7-33.7); MCHC 32.6 g/dl (32.0-36.0); MEAN CELL VOLUME 85.2 fl (80-96); MONO % 9.7 % (3.8-10.2); NEUT % 49.5 % (42.8-82.8); PLATELET COUNT 302 10^3/uL (134-434); RBC 4.06 M/mm3 (3.60-5.2); RDW 14.4 % (11.6-15.6)
[2022-06-13 17:15] LABS: INR 1.1 (0.83-1.09); PROTHROMBIN TIME (PATIENT) 12.7 SEC (9.7-13.0)
[2022-06-13 17:33] LABS: CALCIUM 8.8 mg/dL (8.5-10.1)
[2022-06-13 17:34] LABS: ALBUMIN 2.8 g/dl (3.4-5.0); BLOOD UREA NITROGEN 10.5 mg/dL (7-18)
[2022-06-13 17:37] LABS: CREATININE 0.7 mg/dL (0.55-1.3)
[2022-06-13 17:38] LABS: TOT PROT 7.2 g/dl (6.4-8.2)
[2022-06-13 17:39] LABS: BILIRUBIN,TOTAL 0.4 mg/dL (0.2-1)
[2022-06-13] MEDS ORDERED: VANCOMYCIN/WATER FOR INJ (PEG) 1,000 MG/200 ML BAG IVPB ONE (17:54)
[2022-06-13] MEDS ORDERED: ONDANSETRON 4 MG/2 ML VIAL ONE (17:54)
[2022-06-13] MEDS ORDERED: HYDROmorphone HCl 2 MG/ML VIAL ONE (17:54)
[2022-06-13] MEDS ORDERED: PIPERACILLIN/TAZOB 3.375 GM 3.375 GM/50 ML BAG IVPB ONE (17:55)
[2022-06-13] MEDS ORDERED: CALCIUM GLUCONATE 10% - 1,000 MG/10 ML VIAL ONE (18:14)
[2022-06-14] MEDS ORDERED: KETOROLAC TROMETHAMINE 15 MG/ML VIAL ONE ×3 (01:01→18:25)
[2022-06-14] MEDS: KETOROLAC TROMETHAMINE 15 MG/ML VIAL IVPUSH PRN ×3 (01:17→18:32)
[2022-06-14 06:36] LABS: EOS % 7.3 % (0-4.5); HEMATOCRIT 30.3 % (32.4-45.2); HEMOGLOBIN 9.9 GM/dL (10.7-15.3); LYMPH % 40.3 % (8-40); MCH 27.8 pg (25.7-33.7); MCHC 32.5 g/dl (32.0-36.0); MEAN CELL VOLUME 85.3 fl (80-96); MEAN PLT VOLUME 7.7 fl (7.5-11.1); MONO % 8.2 % (3.8-10.2); NEUT % 43.2 % (42.8-82.8); PLATELET COUNT 281 10^3/uL (134-434); RBC 3.55 M/mm3 (3.60-5.2); WHITE BLOOD COUNT 4.4 K/mm3 (4.0-10.0)
[2022-06-14 06:49] LABS: CALCIUM 7.8 mg/dL (8.5-10.1)
[2022-06-14 06:50] LABS: BLOOD UREA NITROGEN 10.1 mg/dL (7-18)
[2022-06-14 06:53] LABS: CREATININE 0.6 mg/dL (0.55-1.3)
[2022-06-14] MEDS ORDERED: CEFAZOLIN SODIUM 2 GM VIAL ONE ×2 (08:57→17:20)
[2022-06-14] MEDS: CEFAZOLIN SODIUM 2 GM in DEXTROSE 5%-WATER 100 ML IVPB SCH ×2 (09:11→17:28)
[2022-06-15] MEDS: CEFAZOLIN SODIUM 2 GM in DEXTROSE 5%-WATER 100 ML IVPB SCH ×3 (02:00→18:23)
[2022-06-15] MEDS: KETOROLAC TROMETHAMINE 15 MG/ML VIAL IVPUSH PRN ×2 (11:41→18:23)
[2022-06-16] MEDS: CEFAZOLIN SODIUM 2 GM in DEXTROSE 5%-WATER 100 ML IVPB SCH ×2 (02:20→10:38)
[2022-06-16] MEDS: KETOROLAC TROMETHAMINE 15 MG/ML VIAL IVPUSH PRN ×2 (02:20→10:39)
[2022-06-16 14:19] VITALS: BP 99/57; PULSE 77; RESP 16; TEMP 98.2
== END 2022-06-16 17:30 | disposition home health service (06) ==
LOC: JER 14:12 → JERBED 16:50 → J7W 06-15 00:55
PROVIDERS: ADMIT Internal Medicine; ATTEND Family Medicine
PROC: 3E03329 Introduction of Other Anti-infective into Peripheral Vein, Percutaneous Approach (ICD-10-PCS; principal; 2022-06-13)
PROC: 3E033NZ Introduction of Analgesics, Hypnotics, Sedatives into Peripheral Vein, Percutaneous Approach (ICD-10-PCS; 2022-06-13)
PROC: 3E0333Z Introduction of Anti-inflammatory into Peripheral Vein, Percutaneous Approach (ICD-10-PCS; 2022-06-13)
PROC: 3E033GC Introduction of Other Therapeutic Substance into Peripheral Vein, Percutaneous Approach (ICD-10-PCS; 2022-06-13)
PROC: 3E0337Z Introduction of Electrolytic and Water Balance Substance into Peripheral Vein, Percutaneous Approach (ICD-10-PCS; 2022-06-13)
DX: L97.921 Non-pressure chronic ulcer of unspecified part of left lower leg limited to breakdown of skin (principal); L03.116 Cellulitis of left lower limb; I89.0 Lymphedema, not elsewhere classified; M79.662 Pain in left lower leg; Z86.14 Personal history of Methicillin resistant Staphylococcus aureus infection; E66.01 Morbid (severe) obesity due to excess calories; Z68.32 Body mass index [BMI] 32.0-32.9, adult; Z86.19 Personal history of other infectious and parasitic diseases; Z29.8 Encounter for other specified prophylactic measures
CPT/HCPCS: 36415; 80048; 80053; 85025; 85610; 85730; 87040; 87070; 87077; 87186; 87205; 93005; 93010; 96365; 96367; 96368; 96375; 99285-25; C9803-CS; G0378; G0463-25; U0003; U0005

== ENCOUNTER 2022-09-22 15:46 | Inpatient (IN) | payer OTHER ==
[2022-09-22] MEDS ORDERED: VANCOMYCIN 1 GM in D5W (PRE-DOCKED) 1,000 MG/250 ML (RESTRICTED TO ID ONLY IVPB ONE (17:51)
[2022-09-22] MEDS: PIPERACILLIN/TAZOB 4.5 GM 4.5 GM in DEXTROSE 5%-WATER 100 ML IVPB ONE ×2 (18:34→21:42)
[2022-09-22 18:59] LABS: BASO % 1.1 % (0-2.0); EOS % 3.8 % (0-4.5); HEMATOCRIT 41.2 % (32.4-45.2); HEMOGLOBIN 13.3 GM/dL (10.7-15.3); LYMPH % 38.6 % (8-40); MCH 27.4 pg (25.7-33.7); MCHC 32.2 g/dl (32.0-36.0); MEAN CELL VOLUME 84.9 fl (80-96); MEAN PLT VOLUME 8.6 fl (7.5-11.1); MONO % 5.9 % (3.8-10.2); NEUT % 50.6 % (42.8-82.8); PLATELET COUNT 350 10^3/uL (134-434); RBC 4.85 M/mm3 (3.60-5.2); RDW 14.5 % (11.6-15.6); WHITE BLOOD COUNT 5.8 K/mm3 (4.0-10.0)
[2022-09-22 19:04] LABS: INR 0.97 (0.83-1.09); PROTHROMBIN TIME (PATIENT) 11.2 SEC (9.7-13.0)
[2022-09-22 19:07] LABS: ACTIVATED PTT 35.4 SECONDS (25.2-36.5)
[2022-09-22 19:22] LABS: CHLORIDE 104 mmol/L (98-107); SODIUM 134 mmol/L (136-145)
[2022-09-22 19:24] LABS: ALBUMIN 3.3 g/dl (3.4-5.0); BLOOD UREA NITROGEN 12.2 mg/dL (7-18); CALCIUM 9.4 mg/dL (8.5-10.1); CO2 27 mmol/L (21-32); GLUCOSE,RANDOM 60 mg/dL (74-106)
[2022-09-22 19:28] LABS: CREATININE 0.7 mg/dL (0.55-1.3)
[2022-09-22 19:29] LABS: BILIRUBIN,TOTAL 0.5 mg/dL (0.2-1); TOT PROT 9.4 g/dl (6.4-8.2)
[2022-09-22 19:30] LABS: ALK PHOS 107 U/L (45-117)
[2022-09-22 19:35] LABS: ANION GAP 3 MMOL/L (8-16); POTASSIUM 8.7 mmol/L (3.5-5.1); SGOT/AST 92 U/L (15-37); SGPT/ALT 23 U/L (13-61)
[2022-09-22] MEDS ORDERED: VANCOMYCIN/WATER FOR INJ (PEG) 1,000 MG/200 ML BAG IVPB ONE (22:38)
[2022-09-22] MEDS ORDERED: PIPERACILLIN/TAZOB 4.5 GM 4.5 GM/100 ML BAG IVPB ONE (22:38)
[2022-09-22 22:48] LABS: BLOOD UREA NITROGEN 11.3 mg/dL (7-18); CALCIUM 8.9 mg/dL (8.5-10.1); CREATININE 0.5 mg/dL (0.55-1.3); POTASSIUM 4.8 mmol/L (3.5-5.1)
[2022-09-23] MEDS ORDERED: ACETAMINOPHEN 325 MG TABLET (FP) PO PRN (02:58)
[2022-09-23] MEDS ORDERED: ACETAMINOPHEN 500 MG TABLET (FP) PO ONE (03:13)
[2022-09-23] MEDS: PIPERACILLIN/TAZOB 3.375 GM 3.375 GM in DEXTROSE 5%-WATER - 50 ML IVPB SCH ×3 (03:20→18:05)
[2022-09-23 04:58] VITALS: BMI 33.7
[2022-09-23 08:38] LABS: BASO % 1.2 % (0-2.0); EOS % 5.9 % (0-4.5); HEMATOCRIT 32.7 % (32.4-45.2); HEMOGLOBIN 10.7 GM/dL (10.7-15.3); LYMPH % 37.2 % (8-40); MCH 27.6 pg (25.7-33.7); MCHC 32.7 g/dl (32.0-36.0); MEAN CELL VOLUME 84.2 fl (80-96); MEAN PLT VOLUME 7.6 fl (7.5-11.1); MONO % 9.9 % (3.8-10.2); NEUT % 45.8 % (42.8-82.8); PLATELET COUNT 294 10^3/uL (134-434); RBC 3.88 M/mm3 (3.60-5.2); RDW 14.4 % (11.6-15.6); WHITE BLOOD COUNT 5.7 K/mm3 (4.0-10.0)
[2022-09-23 08:42] LABS: POTASSIUM 4.1 mmol/L (3.5-5.1)
[2022-09-23 08:45] LABS: CALCIUM 8.5 mg/dL (8.5-10.1)
[2022-09-23 08:46] LABS: BLOOD UREA NITROGEN 9.6 mg/dL (7-18)
[2022-09-23 08:50] LABS: CREATININE 0.6 mg/dL (0.55-1.3)
[2022-09-23] MEDS ORDERED: VANCOMYCIN/WATER FOR INJ (PEG) 1,000 MG/200 ML BAG IVPB SCH (10:00)
[2022-09-23] MEDS: HEPARIN NA (PORCINE) 5,000 UNITS/ML 1ML VIAL SQ SCH ×2 (10:21→23:17)
[2022-09-23] MEDS: IBUPROFEN 600 MG TABLET (FP) PO PRN (16:08)
[2022-09-24] MEDS ORDERED: PIPERACILLIN/TAZOBACTAM 3.375 GM VIAL IVPB ONE ×2 (01:24→08:23)
[2022-09-24] MEDS ORDERED: PIPERACILLIN/TAZOB 3.375 GM 3.375 GM in DEXTROSE 5%-WATER - 50 ML IVPB SCH (02:00)
[2022-09-24] MEDS: PIPERACILLIN/TAZOB 3.375 GM 3.375 GM in DEXTROSE 5%-WATER - 50 ML IVPB SCH ×3 (02:13→17:34)
[2022-09-24] MEDS: IBUPROFEN 600 MG TABLET (FP) PO PRN ×2 (02:53→17:30)
[2022-09-24] MEDS: HEPARIN NA (PORCINE) 5,000 UNITS/ML 1ML VIAL SQ SCH ×2 (09:02→21:36)
[2022-09-24] MEDS ORDERED: VANCOMYCIN/WATER FOR INJ (PEG) 1,000 MG/200 ML BAG IVPB SCH (10:00)
[2022-09-25] MEDS ORDERED: PIPERACILLIN/TAZOBACTAM 3.375 GM VIAL IVPB ONE (00:49)
[2022-09-25] MEDS: PIPERACILLIN/TAZOB 3.375 GM 3.375 GM in DEXTROSE 5%-WATER - 50 ML IVPB SCH ×3 (01:44→17:53)
[2022-09-25] MEDS: IBUPROFEN 600 MG TABLET (FP) PO PRN ×2 (01:44→21:24)
[2022-09-25] MEDS: HEPARIN NA (PORCINE) 5,000 UNITS/ML 1ML VIAL SQ SCH ×2 (09:03→21:24)
[2022-09-26] MEDS: PIPERACILLIN/TAZOB 3.375 GM 3.375 GM in DEXTROSE 5%-WATER - 50 ML IVPB SCH ×3 (02:54→18:17)
[2022-09-26] MEDS: HEPARIN NA (PORCINE) 5,000 UNITS/ML 1ML VIAL SQ SCH ×2 (10:46→22:40)
[2022-09-26] MEDS: IBUPROFEN 600 MG TABLET (FP) PO PRN (18:46)
[2022-09-27] MEDS: PIPERACILLIN/TAZOB 3.375 GM 3.375 GM in DEXTROSE 5%-WATER - 50 ML IVPB SCH ×3 (02:49→18:15)
[2022-09-27] MEDS: HEPARIN NA (PORCINE) 5,000 UNITS/ML 1ML VIAL SQ SCH ×2 (10:20→23:00)
[2022-09-27] MEDS: IBUPROFEN 600 MG TABLET (FP) PO PRN (18:44)
[2022-09-28] MEDS: PIPERACILLIN/TAZOB 3.375 GM 3.375 GM in DEXTROSE 5%-WATER - 50 ML IVPB SCH ×3 (01:12→18:43)
[2022-09-28] MEDS: HEPARIN NA (PORCINE) 5,000 UNITS/ML 1ML VIAL SQ SCH ×2 (11:00→21:02)
[2022-09-28] MEDS: COLLAGENASE CLOSTRIDIUM HIST. 30 GRAMS TUBE TP SCH (11:43)
[2022-09-28] MEDS: IBUPROFEN 600 MG TABLET (FP) PO PRN (21:02)
[2022-09-29] MEDS: PIPERACILLIN/TAZOB 3.375 GM 3.375 GM in DEXTROSE 5%-WATER - 50 ML IVPB SCH ×2 (01:34→09:59)
[2022-09-29 09:48] LABS: HEMATOCRIT 37.5 % (32.4-45.2); MCH 27.5 pg (25.7-33.7); MCHC 31.9 g/dl (32.0-36.0); MEAN CELL VOLUME 86.1 fl (80-96); PLATELET COUNT 299 10^3/uL (134-434); RBC 4.36 M/mm3 (3.60-5.2); RDW 15.5 % (11.6-15.6); WHITE BLOOD COUNT 4.5 K/mm3 (4.0-10.0)
[2022-09-29] MEDS: HEPARIN NA (PORCINE) 5,000 UNITS/ML 1ML VIAL SQ SCH (09:58)
[2022-09-29] MEDS: IBUPROFEN 600 MG TABLET (FP) PO PRN (09:58)
[2022-09-29] MEDS: COLLAGENASE CLOSTRIDIUM HIST. 30 GRAMS TUBE TP SCH (09:59)
[2022-09-29] MEDS ORDERED: MULTIVITAMINS THER W-MINERALS COMBO TABLET (FP) PO SCH (10:00)
[2022-09-29] MEDS ORDERED: ASCORBIC ACID 500 MG TABLET (FP) PO SCH (10:00)
[2022-09-29 10:16] LABS: POTASSIUM 4.2 mmol/L (3.5-5.1)
[2022-09-29 10:19] LABS: CALCIUM 9.1 mg/dL (8.5-10.1)
[2022-09-29 10:20] LABS: BLOOD UREA NITROGEN 14.2 mg/dL (7-18)
[2022-09-29 10:23] LABS: CREATININE 0.6 mg/dL (0.55-1.3)
[2022-09-29 15:05] VITALS: BP 107/63; PULSE 68; RESP 18; TEMP 98.2
== END 2022-09-29 18:11 | disposition home health service (06) | DRG 383 ==
LOC: JER 15:46 → JERBED 18:56 → J6S 09-23 01:39
PROVIDERS: ADMIT Internal Medicine; ATTEND Family Medicine
DX: L03.116 Cellulitis of left lower limb (principal); I89.0 Lymphedema, not elsewhere classified; E66.9 Obesity, unspecified; Z68.33 Body mass index [BMI] 33.0-33.9, adult; D64.9 Anemia, unspecified; L97.828 Non-pressure chronic ulcer of other part of left lower leg with other specified severity
CPT/HCPCS: 0241U-QW; 36415; 80048; 80053; 85025; 85027; 85610; 85730; 87040; 87081; 93005; 93010; 93971-TC; 99285-25; G0463-25; J1644

== ENCOUNTER 2022-10-11 20:38 | Emergency (ER) | payer OTHER ==
[2022-10-11 20:48] VITALS: BP 102/73; PULSE 94; RESP 20; TEMP 98.1; BMI 32.5
[2022-10-11] MEDS ORDERED: ACETAMINOPHEN 325 MG TABLET (FP) ONE (23:10)
== END 2022-10-11 23:11 | disposition home or self-care (01) ==
LOC: JERFT 20:38
DX: S09.90XA Unspecified injury of head, initial encounter (principal); G44.319 Acute post-traumatic headache, not intractable; W20.8XXA Other cause of strike by thrown, projected or falling object, initial encounter
CPT/HCPCS: 70450-TC; 99284-25

== ENCOUNTER 2023-02-08 17:53 | Emergency (ER) | payer OTHER ==
[2023-02-08 18:13] VITALS: BP 111/78; PULSE 80; RESP 18; TEMP 98.5; BMI 25.2
== END 2023-02-08 20:36 | disposition home or self-care (01) ==
LOC: JER 17:53
DX: M79.605 Pain in left leg (principal); I89.0 Lymphedema, not elsewhere classified; L97.929 Non-pressure chronic ulcer of unspecified part of left lower leg with unspecified severity
CPT/HCPCS: 99282-25

== ENCOUNTER 2023-03-17 16:42 | Inpatient (IN) | payer OTHER ==
[2023-03-17 16:59] VITALS: BMI 28.6
[2023-03-17] MEDS ORDERED: morphine CARPU-JECT 4 MG/1 ML DISP.SYRIN IVPUSH ONE (17:44)
[2023-03-17] MEDS ORDERED: PIPERACILLIN/TAZOB 4.5 GM 4.5 GM in DEXTROSE 5%-WATER 100 ML IVPB ONE (18:04)
[2023-03-17] MEDS ORDERED: VANCOMYCIN 1,000 MG in DEXTROSE 5%-WATER - 250 ML IVPB ONE (18:04)
[2023-03-17] MEDS ORDERED: VANCOMYCIN 1 GRAM (PRE-DOCKED) 1,000 MG/250 ML BAG IVPB ONE (20:26)
[2023-03-17] MEDS ORDERED: PIPERACILLIN/TAZOB 4.5 GM 4.5 GM/100 ML BAG IVPB ONE (20:26)
[2023-03-17] MEDS ORDERED: HYDROmorphone HCl 2 MG/ML VIAL IVPUSH ONE (20:35)
[2023-03-17] MEDS ORDERED: HYDROmorphone HCl 2 MG/ML VIAL ONE (20:41)
[2023-03-17 20:56] LABS: BASO % 0.9 % (0-2.0); EOS % 5.4 % (0-4.5); HEMATOCRIT 38.2 % (32.4-45.2); HEMOGLOBIN 12.4 GM/dL (10.7-15.3); LYMPH % 31.9 % (8-40); MCH 27.6 pg (25.7-33.7); MCHC 32.6 g/dl (32.0-36.0); MEAN CELL VOLUME 84.6 fl (80-96); MEAN PLT VOLUME 7.4 fl (7.5-11.1); MONO % 7.3 % (3.8-10.2); NEUT % 54.5 % (42.8-82.8); PLATELET COUNT 417 10^3/uL (134-434); RBC 4.51 M/mm3 (3.60-5.2); RDW 14.1 % (11.6-15.6); WHITE BLOOD COUNT 7.1 K/mm3 (4.0-10.0)
[2023-03-17 21:20] LABS: POTASSIUM 3.6 mmol/L (3.5-5.1)
[2023-03-17 21:22] LABS: ALBUMIN 2.8 g/dl (3.4-5.0); BLOOD UREA NITROGEN 16.3 mg/dL (7-18); CALCIUM 8.8 mg/dL (8.5-10.1)
[2023-03-17 21:25] LABS: CREATININE 0.7 mg/dL (0.55-1.3)
[2023-03-17 21:27] LABS: BILIRUBIN,TOTAL 0.2 mg/dL (0.2-1)
[2023-03-17 21:50] LABS: ERYTHROCYTE SEDIMENTATION RATE 55 mm/hr (0-30)
[2023-03-18] MEDS: PIPERACILLIN/TAZOB 3.375 GM 3.375 GM in DEXTROSE 5%-WATER - 50 ML IVPB SCH ×4 (02:23→18:49)
[2023-03-18] MEDS ORDERED: IBUPROFEN 600 MG TABLET (FP) PO PRN (03:00)
[2023-03-18 09:19] LABS: BASO % 0.8 % (0-2.0); EOS % 2.9 % (0-4.5); HEMATOCRIT 36.2 % (32.4-45.2); HEMOGLOBIN 11.4 GM/dL (10.7-15.3); LYMPH % 23.1 % (8-40); MCH 27.2 pg (25.7-33.7); MCHC 31.4 g/dl (32.0-36.0); MEAN CELL VOLUME 86.5 fl (80-96); MEAN PLT VOLUME 7.6 fl (7.5-11.1); MONO % 8.3 % (3.8-10.2); NEUT % 64.9 % (42.8-82.8); PLATELET COUNT 370 10^3/uL (134-434); RBC 4.19 M/mm3 (3.60-5.2); RDW 13.7 % (11.6-15.6); WHITE BLOOD COUNT 7.1 K/mm3 (4.0-10.0)
[2023-03-18] MEDS: HEPARIN NA (PORCINE) 5,000 UNITS/ML 1ML VIAL SQ SCH ×2 (10:50→21:23)
[2023-03-18] MEDS: ASCORBIC ACID 500 MG TABLET (FP) PO SCH ×2 (10:50→21:22)
[2023-03-18] MEDS: traMADol HCL 50 MG TABLET PO PRN ×2 (10:51→18:29)
[2023-03-18 11:56] LABS: BLOOD UREA NITROGEN 18.9 mg/dL (7-18); CALCIUM 8.7 mg/dL (8.5-10.1); CREATININE 0.7 mg/dL (0.55-1.3); POTASSIUM 3.8 mmol/L (3.5-5.1)
[2023-03-19] MEDS: PIPERACILLIN/TAZOB 3.375 GM 3.375 GM in DEXTROSE 5%-WATER - 50 ML IVPB SCH ×3 (02:47→19:54)
[2023-03-19] MEDS: ASCORBIC ACID 500 MG TABLET (FP) PO SCH ×2 (09:56→21:19)
[2023-03-19] MEDS: HEPARIN NA (PORCINE) 5,000 UNITS/ML 1ML VIAL SQ SCH ×2 (09:56→21:19)
[2023-03-19] MEDS: traMADol HCL 50 MG TABLET PO PRN (15:13)
[2023-03-20] MEDS: PIPERACILLIN/TAZOB 3.375 GM 3.375 GM in DEXTROSE 5%-WATER - 50 ML IVPB SCH ×3 (02:18→17:30)
[2023-03-20] MEDS: HEPARIN NA (PORCINE) 5,000 UNITS/ML 1ML VIAL SQ SCH ×2 (10:17→22:16)
[2023-03-20] MEDS: ASCORBIC ACID 500 MG TABLET (FP) PO SCH ×2 (10:18→22:17)
[2023-03-20] MEDS: traMADol HCL 50 MG TABLET PO PRN ×2 (10:18→17:34)
[2023-03-21] MEDS: PIPERACILLIN/TAZOB 3.375 GM 3.375 GM in DEXTROSE 5%-WATER - 50 ML IVPB SCH ×3 (02:44→18:39)
[2023-03-21] MEDS: ASCORBIC ACID 500 MG TABLET (FP) PO SCH ×2 (09:07→21:16)
[2023-03-21] MEDS: traMADol HCL 50 MG TABLET PO PRN ×2 (09:07→18:41)
[2023-03-21] MEDS: HEPARIN NA (PORCINE) 5,000 UNITS/ML 1ML VIAL SQ SCH ×2 (09:08→21:16)
[2023-03-22] MEDS: PIPERACILLIN/TAZOB 3.375 GM 3.375 GM in DEXTROSE 5%-WATER - 50 ML IVPB SCH (01:28)
[2023-03-22] MEDS: traMADol HCL 50 MG TABLET PO PRN (09:56)
[2023-03-22] MEDS: ASCORBIC ACID 500 MG TABLET (FP) PO SCH ×2 (09:56→21:49)
[2023-03-22] MEDS: HEPARIN NA (PORCINE) 5,000 UNITS/ML 1ML VIAL SQ SCH ×2 (09:57→21:49)
[2023-03-22 18:21] VITALS: RESP 18
[2023-03-23] MEDS: ASCORBIC ACID 500 MG TABLET (FP) PO SCH (10:03)
[2023-03-23] MEDS: HEPARIN NA (PORCINE) 5,000 UNITS/ML 1ML VIAL SQ SCH (10:03)
[2023-03-23] MEDS ORDERED: traMADol HCL 50 MG TABLET PO PRN (10:16)
[2023-03-23] MEDS ORDERED: traMADol HCL 50 MG TABLET PO ONE (10:30)
[2023-03-23 17:27] VITALS: BP 108/63; PULSE 75; TEMP 98.6
== END 2023-03-23 19:55 | disposition home health service (06) | DRG 383 ==
LOC: JER 16:42 → JERBED 21:48 → J7W 22:19 → OBSVTOIN 03-20 11:50
PROVIDERS: ADMIT Internal Medicine; ATTEND Family Medicine
DX: L03.116 Cellulitis of left lower limb (principal); I89.0 Lymphedema, not elsewhere classified; D64.9 Anemia, unspecified; L97.929 Non-pressure chronic ulcer of unspecified part of left lower leg with unspecified severity
CPT/HCPCS: 36415; 80048; 80053; 85025; 85651; 86140; 87040; 87070; 87186; 87205; 93970-TC; 97116-GP; 97161-GP; 99285-25; G0378; J1644

== ENCOUNTER 2023-06-25 03:35 | Emergency (ER) | payer OTHER ==
[2023-06-25 04:13] VITALS: BMI 29.7
[2023-06-25] MEDS ORDERED: diphenhydrAMINE HCL 25 MG CAPSULE (FP) PO ONE (04:53)
[2023-06-25] MEDS ORDERED: ACETAMINOPHEN INJECTION 100 ML IVPB ONE (04:54)
[2023-06-25] MEDS ORDERED: FAMOTIDINE 20 MG/50 ML IVPB 20 MG/50 ML MG IVPB ONE (04:54)
[2023-06-25] MEDS ORDERED: methylPREDNISolone NA SUCC 125 MG/2 ML VIAL ONE (04:55)
[2023-06-25 05:01] LABS: BASO % 0.3 % (0-2.0); EOS % 1.1 % (0-4.5); HEMATOCRIT 41.2 % (32.4-45.2); HEMOGLOBIN 13.4 GM/dL (10.7-15.3); LYMPH % 32.4 % (8-40); MCH 27.6 pg (25.7-33.7); MCHC 32.6 g/dl (32.0-36.0); MEAN CELL VOLUME 84.8 fl (80-96); MEAN PLT VOLUME 7.8 fl (7.5-11.1); MONO % 5.8 % (3.8-10.2); NEUT % 60.4 % (42.8-82.8); PLATELET COUNT 351 10^3/uL (134-434); RBC 4.86 M/mm3 (3.60-5.2); RDW 14.8 % (11.6-15.6); WHITE BLOOD COUNT 6.3 K/mm3 (4.0-10.0)
[2023-06-25] MEDS: methylPREDNISolone NA SUCC 125 MG/2 ML VIAL IVPUSH ONE (05:14)
[2023-06-25] MEDS: diphenhydrAMINE HCL 25 MG CAPSULE (FP) PO ONE (05:14)
[2023-06-25 05:18] LABS: SODIUM 134 mmol/L (136-145)
[2023-06-25 05:19] LABS: CHLORIDE 103 mmol/L (98-107)
[2023-06-25 05:20] LABS: CALCIUM 8.8 mg/dL (8.5-10.1)
[2023-06-25 05:21] LABS: ALBUMIN 2.6 g/dl (3.4-5.0); BLOOD UREA NITROGEN 12.3 mg/dL (7-18); CO2 24 mmol/L (21-32); GLUCOSE,RANDOM 96 mg/dL (74-106); MAGNESIUM 2.3 mg/dL (1.8-2.4)
[2023-06-25 05:24] LABS: CREATININE 0.6 mg/dL (0.55-1.3); SGOT/AST 66 U/L (15-37)
[2023-06-25 05:25] LABS: BILIRUBIN,TOTAL 0.6 mg/dL (0.2-1); TOT PROT 7.9 g/dl (6.4-8.2)
[2023-06-25 05:27] LABS: ALK PHOS 107 U/L (45-117)
[2023-06-25] MEDS: FAMOTIDINE 20 MG/50 ML IVPB 20 MG/50 ML MG IVPB ONE (05:41)
[2023-06-25] MEDS: SODIUM CHLORIDE 1,000 ML IV STA (05:41)
[2023-06-25] MEDS: ACETAMINOPHEN 1000 MG/100 ML BAG IVPB ONE (05:41)
[2023-06-25 06:26] LABS: ANION GAP 6 mmol/L (4-13); POTASSIUM 6.2 mmol/L (3.5-5.1); SGPT/ALT 20 U/L (13-61)
[2023-06-25 07:50] LABS: POTASSIUM 4.3 mmol/L (3.5-5.1)
[2023-06-25 07:52] LABS: BLOOD UREA NITROGEN 11.3 mg/dL (7-18); CALCIUM 7.9 mg/dL (8.5-10.1)
[2023-06-25 07:55] LABS: CREATININE 0.5 mg/dL (0.55-1.3)
[2023-06-25 13:36] VITALS: BP 105/69; PULSE 73; RESP 20; TEMP 98.5
== END 2023-06-25 13:45 | disposition home or self-care (01) ==
LOC: JER 03:35
PROC: 3E033GC Introduction of Other Therapeutic Substance into Peripheral Vein, Percutaneous Approach (ICD-10-PCS; principal; 2023-06-25)
PROC: 3E033GC Introduction of Other Therapeutic Substance into Peripheral Vein, Percutaneous Approach (ICD-10-PCS; 2023-06-25)
PROC: 3E033NZ Introduction of Analgesics, Hypnotics, Sedatives into Peripheral Vein, Percutaneous Approach (ICD-10-PCS; 2023-06-25)
DX: T78.40XA Allergy, unspecified, initial encounter (principal); R22.0 Localized swelling, mass and lump, head; R60.0 Localized edema; S81.802A Unspecified open wound, left lower leg, initial encounter; R07.0 Pain in throat; J39.2 Other diseases of pharynx; L29.9 Pruritus, unspecified; K13.0 Diseases of lips
CPT/HCPCS: 36415; 80048; 80053; 83605; 83735; 85025; 85651; 87040; 93005; 93010; 99284-25; J0131

== ENCOUNTER 2023-08-11 20:47 | Emergency (ER) | payer OTHER ==
[2023-08-11 20:54] VITALS: BP 110/68; PULSE 90; RESP 18; TEMP 98.2; BMI 28.2
[2023-08-11 22:29] LABS: BASO % 1.1 % (0-2.0); HEMATOCRIT 40.9 % (32.4-45.2); HEMOGLOBIN 12.9 GM/dL (10.7-15.3); LYMPH % 37.5 % (8-40); MCH 26.8 pg (25.7-33.7); MCHC 31.6 g/dl (32.0-36.0); MEAN CELL VOLUME 84.7 fl (80-96); MEAN PLT VOLUME 6.9 fl (7.5-11.1); MONO % 7.2 % (3.8-10.2); NEUT % 50.2 % (42.8-82.8); PLATELET COUNT 379 10^3/uL (134-434); RBC 4.83 M/mm3 (3.60-5.2); WHITE BLOOD COUNT 5.6 K/mm3 (4.0-10.0)
[2023-08-11 23:04] LABS: POTASSIUM 4.4 mmol/L (3.5-5.1)
[2023-08-11 23:07] LABS: ALBUMIN 2.8 g/dl (3.4-5.0); BLOOD UREA NITROGEN 22.2 mg/dL (7-18)
[2023-08-11 23:10] LABS: CREATININE 0.6 mg/dL (0.55-1.3)
[2023-08-11 23:12] LABS: BILIRUBIN,TOTAL 0.1 mg/dL (0.2-1); TOT PROT 7.1 g/dl (6.4-8.2)
[2023-08-11 23:15] LABS: N-TERMINAL BNP 55.1 pg/ml (5-125)
== END 2023-08-12 02:41 | disposition home or self-care (01) ==
LOC: JER 20:47
DX: M79.89 Other specified soft tissue disorders (principal)
CPT/HCPCS: 36415; 80053; 83880; 85025; 86140; 87040; 99283-25

== ENCOUNTER 2023-08-28 17:55 | Inpatient (IN) | payer OTHER ==
[2023-08-28] MEDS ORDERED: IBUPROFEN 400 MG TABLET (FP) PO ONE (22:07)
[2023-08-28] MEDS: IBUPROFEN 400 MG TABLET (FP) PO ONE (22:13)
[2023-08-28] MEDS ORDERED: PIPERACILLIN/TAZOB 4.5 GM 4.5 GM/100 ML BAG IVPB ONE (22:56)
[2023-08-28 22:59] LABS: BASO % 1.2 % (0-2.0); EOS % 5.5 % (0-4.5); HEMATOCRIT 36.6 % (32.4-45.2); HEMOGLOBIN 11.5 GM/dL (10.7-15.3); LYMPH % 41.1 % (8-40); MCH 26.4 pg (25.7-33.7); MCHC 31.3 g/dl (32.0-36.0); MEAN CELL VOLUME 84.4 fl (80-96); MONO % 9.6 % (3.8-10.2); NEUT % 42.6 % (42.8-82.8); PLATELET COUNT 346 10^3/uL (134-434); RBC 4.34 M/mm3 (3.60-5.2); RDW 14.8 % (11.6-15.6); WHITE BLOOD COUNT 5.9 K/mm3 (4.0-10.0)
[2023-08-28 23:07] LABS: INR 1.04 (0.83-1.09); PROTHROMBIN TIME (PATIENT) 11.7 SEC (9.7-13.0)
[2023-08-28 23:10] LABS: ACTIVATED PTT 33.3 SECONDS (25.2-36.5)
[2023-08-28 23:18] LABS: POTASSIUM 4.7 mmol/L (3.5-5.1)
[2023-08-28 23:20] LABS: BLOOD UREA NITROGEN 17.1 mg/dL (7-18)
[2023-08-28 23:21] LABS: ALBUMIN 2.4 g/dl (3.4-5.0)
[2023-08-28 23:24] LABS: CREATININE 0.7 mg/dL (0.55-1.3)
[2023-08-28 23:25] LABS: BILIRUBIN,TOTAL 0.4 mg/dL (0.2-1)
[2023-08-28] MEDS: PIPERACILLIN/TAZOB 4.5 GM 4.5 GM in DEXTROSE 5%-WATER 100 ML IVPB ONE (23:27)
[2023-08-28 23:38] LABS: ERYTHROCYTE SEDIMENTATION RATE 44 mm/hr (0-30)
[2023-08-28] MEDS ORDERED: ONDANSETRON 4 MG/2 ML VIAL ONE (23:56)
[2023-08-28] MEDS ORDERED: FAMOTIDINE 20 MG/50 ML IVPB 20 MG/50 ML MG IVPB ONE (23:57)
[2023-08-29] MEDS: FAMOTIDINE 20 MG/50 ML IVPB 20 MG/50 ML MG IVPB ONE (00:26)
[2023-08-29] MEDS: ONDANSETRON 4 MG/2 ML VIAL IVPUSH ONE (00:26)
[2023-08-29] MEDS: CEFEPIME HCL 2 GM VIAL (RESTRICTED TO ID) IVPB ONE (01:58)
[2023-08-29] MEDS ORDERED: DOCUSATE SODIUM 100 MG CAPSULE (FP) PO PRN (02:04)
[2023-08-29] MEDS ORDERED: VANCOMYCIN 1 GRAM (PRE-DOCKED) 1,000 MG/250 ML BAG IVPB ONE (02:56)
[2023-08-29] MEDS: VANCOMYCIN 1,000 MG in DEXTROSE 5%-WATER - 250 ML IVPB ONE (03:14)
[2023-08-29] MEDS ORDERED: SUCRALFATE 1 GM TABLET (FP) ONE ×2 (08:52→12:46)
[2023-08-29] MEDS: VANCOMYCIN/WATER 1250 MG 1,250 MG/250 ML BAG IVPB SCH (09:11)
[2023-08-29] MEDS: SUCRALFATE 1 GM TABLET (FP) PO SCH (09:12)
[2023-08-29] MEDS ORDERED: ACETAMINOPHEN INJECTION 100 ML IVPB ONE (10:58)
[2023-08-29] MEDS ORDERED: ACETAMINOPHEN 325 MG TABLET (FP) ONE (11:09)
[2023-08-29] MEDS ORDERED: MAG HYDROX/AL HYDROX/SIMETH 30 ML UNIT-DOSE CUP PO PRN (12:00)
[2023-08-29] MEDS ORDERED: PANTOPRAZOLE 40 MG TABLET PO ONE (12:46)
[2023-08-29] MEDS ORDERED: DULoxetine HCL 30 MG CAPSULE.DR PO ONE (12:47)
[2023-08-29] MEDS ORDERED: MAGNESIUM OXIDE 400 MG TABLET (FP) ONE (12:47)
[2023-08-29] MEDS ORDERED: ASCORBIC ACID 500 MG TABLET (FP) ONE (12:47)
[2023-08-29] MEDS ORDERED: CEFEPIME 2 GM/100 ML BAG IVPB ONE (12:48)
[2023-08-29] MEDS: DULoxetine HCL 30 MG CAPSULE.DR PO SCH (14:04)
[2023-08-29] MEDS: MAGNESIUM OXIDE 400 MG TABLET (FP) PO SCH (14:04)
[2023-08-29] MEDS: FLUTICASONE PROP 0.05% 16 GM NASAL SPRAY NS SCH (14:04)
[2023-08-29] MEDS: ASCORBIC ACID 500 MG TABLET (FP) PO SCH (14:05)
[2023-08-29] MEDS: PANTOPRAZOLE 40 MG TABLET PO SCH (14:05)
[2023-08-29] MEDS ORDERED: PIPERACILLIN/TAZOB 3.375 GM 3.375 GM/50 ML BAG IVPB ONE (14:51)
[2023-08-29] MEDS: PIPERACILLIN/TAZOB 3.375 GM 3.375 GM in DEXTROSE 5%-WATER - 50 ML IVPB SCH (14:55)
[2023-08-29] MEDS ORDERED: VANCOMYCIN/WATER 1250 MG 1,250 MG/250 ML BAG IVPB SCH (15:00)
[2023-08-29] MEDS: CEFEPIME 2 GM in DEXTROSE 5%-WATER 100 ML IVPB SCH (16:07)
[2023-08-29] MEDS: CEFEPIME HCL 2 GM VIAL (RESTRICTED TO ID) IVPB SCH (16:08)
[2023-08-29 17:51] VITALS: BMI 30.5
[2023-08-29] MEDS: ACETAMINOPHEN 1000 MG/100 ML BAG IVPB PRN (19:32)
[2023-08-29] MEDS: MAG HYDROX/AL HYDROX/SIMETH 30 ML UNIT-DOSE CUP PO ONE (19:34)
[2023-08-29] MEDS: POLYETHYLENE GLYCOL (HEALTHYLAX) 3350 17 GM PACKET PO SCH (21:43)
[2023-08-29] MEDS: traMADol HCL 50 MG TABLET PO ONE (22:02)
[2023-08-30] MEDS: MELATONIN 5 MG TABLETS PO PRN (02:02)
[2023-08-30] MEDS ORDERED: ACETAMINOPHEN 325 MG TABLET (FP) PO PRN (02:04)
[2023-08-30] MEDS ORDERED: FLU VACCINE (FLULAVAL) PF 60 MCG/0.5 ML SYRINGE 2023-2024 IM ONE (10:00)
[2023-08-30 10:02] LABS: EOS % 6.8 % (0-4.5); HEMATOCRIT 37.5 % (32.4-45.2); HEMOGLOBIN 11.8 GM/dL (10.7-15.3); LYMPH % 45.9 % (8-40); MCH 26.6 pg (25.7-33.7); MCHC 31.4 g/dl (32.0-36.0); MEAN CELL VOLUME 84.7 fl (80-96); MEAN PLT VOLUME 7.6 fl (7.5-11.1); MONO % 8.3 % (3.8-10.2); PLATELET COUNT 326 10^3/uL (134-434); RBC 4.43 M/mm3 (3.60-5.2); RDW 15.4 % (11.6-15.6); WHITE BLOOD COUNT 4.7 K/mm3 (4.0-10.0)
[2023-08-30 10:10] LABS: POTASSIUM 4.1 mmol/L (3.5-5.1)
[2023-08-30 10:17] LABS: CALCIUM 8.8 mg/dL (8.5-10.1)
[2023-08-30 10:18] LABS: BLOOD UREA NITROGEN 15.5 mg/dL (7-18); MAGNESIUM 2.4 mg/dL (1.8-2.4)
[2023-08-30 10:21] LABS: CREATININE 0.7 mg/dL (0.55-1.3); PHOSPHOROUS 4.5 mg/dL (2.5-4.9)
[2023-08-30] MEDS ORDERED: IOHEXOL (OMNIPAQUE PO) 12 MG/ML - 500 ML BOTTLE PO ONE ×2 (12:39→16:16)
[2023-08-30] MEDS: traMADol HCL 50 MG TABLET PO PRN (18:09)
[2023-08-31] MEDS: PANTOPRAZOLE 20 MG TABLET PO SCH (10:16)
[2023-08-31] MEDS: POLYETHYLENE GLYCOL (HEALTHYLAX) 3350 17 GM PACKET PO SCH (22:12)
[2023-09-01] MEDS ORDERED: IOHEXOL (OMNIPAQUE PO) 12 MG/ML - 500 ML BOTTLE PO ONE (11:07)
[2023-09-02] MEDS: HEPARIN NA (PORCINE) 5,000 UNITS/ML 1ML VIAL SQ SCH (09:37)
[2023-09-02 09:40] LABS: HEMATOCRIT 37.5 % (32.4-45.2); HEMOGLOBIN 11.6 GM/dL (10.7-15.3); MCH 26.7 pg (25.7-33.7); MEAN CELL VOLUME 86.2 fl (80-96); MEAN PLT VOLUME 7.8 fl (7.5-11.1); PLATELET COUNT 307 10^3/uL (134-434); RBC 4.34 M/mm3 (3.60-5.2); RDW 14.8 % (11.6-15.6); WHITE BLOOD COUNT 4.7 K/mm3 (4.0-10.0)
[2023-09-02 09:42] LABS: POTASSIUM 4.4 mmol/L (3.5-5.1)
[2023-09-02 09:50] LABS: ALBUMIN 2.4 g/dl (3.4-5.0); BLOOD UREA NITROGEN 16.8 mg/dL (7-18); CREATININE 0.6 mg/dL (0.55-1.3)
[2023-09-02 09:51] LABS: BILIRUBIN,TOTAL 0.2 mg/dL (0.2-1); TOT PROT 5.8 g/dl (6.4-8.2)
[2023-09-05 05:32] VITALS: RESP 18
[2023-09-05 16:50] VITALS: BP 103/68; PULSE 84; TEMP 98.3
[2023-09-05] MEDS ORDERED: AMOX TR/POT CLAV 500MG/125MG TABLETS (FP) PO SCH (17:30)
== END 2023-09-05 16:29 | disposition home or self-care (01) | DRG 383 ==
LOC: JER 17:55 → JERBED 08-29 00:34 → J6S 08-29 17:28 → OBSVTOIN 08-31 10:30
PROVIDERS: ADMIT Internal Medicine; ATTEND Family Medicine
DX: L03.116 Cellulitis of left lower limb (principal); K59.00 Constipation, unspecified; K64.8 Other hemorrhoids; R07.89 Other chest pain; L97.828 Non-pressure chronic ulcer of other part of left lower leg with other specified severity; I89.0 Lymphedema, not elsewhere classified; I87.2 Venous insufficiency (chronic) (peripheral); R10.13 Epigastric pain; S81.802A Unspecified open wound, left lower leg, initial encounter; X58.XXXA Exposure to other specified factors, initial encounter; Y93.9 Activity, unspecified; Y92.9 Unspecified place or not applicable; Y99.9 Unspecified external cause status
CPT/HCPCS: 36415; 71045-TC-FY; 73590-TC-LT-FY; 74176-TC; 80048; 80053; 83735; 84100; 84484; 85025; 85027; 85610; 85651; 85730; 86140; 86850; 86900; 86901; 87040; 93005; 93010; 93971-TC; 97116-GP; 97162-GP; 99285-25; G0378; J0131; J1644

== ENCOUNTER 2023-12-14 15:03 | Emergency (ER) | payer OTHER ==
[2023-12-14 15:37] VITALS: BP 124/78; PULSE 65; RESP 19; TEMP 98.4; BMI 28.1
[2023-12-14 21:00] LABS: EOS % 5.8 % (0-4.5); HEMATOCRIT 34.2 % (32.4-45.2); HEMOGLOBIN 10.9 GM/dL (10.7-15.3); LYMPH % 44.7 % (8-40); MCH 27.4 pg (25.7-33.7); MEAN CELL VOLUME 85.5 fl (80-96); MEAN PLT VOLUME 7.3 fl (7.5-11.1); MONO % 9.7 % (3.8-10.2); NEUT % 38.8 % (42.8-82.8); PLATELET COUNT 311 10^3/uL (134-434); RDW 14.8 % (11.6-15.6); WHITE BLOOD COUNT 5.5 K/mm3 (4.0-10.0)
[2023-12-14 21:24] LABS: POTASSIUM 3.7 mmol/L (3.5-5.1)
[2023-12-14 21:26] LABS: BLOOD UREA NITROGEN 11.8 mg/dL (7-18); CALCIUM 8.6 mg/dL (8.5-10.1)
[2023-12-14 21:27] LABS: ALBUMIN 2.7 g/dl (3.4-5.0)
[2023-12-14 21:30] LABS: CREATININE 0.5 mg/dL (0.55-1.3)
[2023-12-14 21:31] LABS: BILIRUBIN,TOTAL 0.2 mg/dL (0.2-1); TOT PROT 6.3 g/dl (6.4-8.2)
[2023-12-14 21:41] LABS: ERYTHROCYTE SEDIMENTATION RATE 48 mm/hr (0-30)
== END 2023-12-15 01:08 | disposition home or self-care (01) ==
LOC: JER 15:03
DX: R60.0 Localized edema (principal); M79.89 Other specified soft tissue disorders
CPT/HCPCS: 36415; 71045-TC-FY; 80053; 84484; 85025; 85651; 86140; 93005; 93010; 93971-TC; 99285-25

== ENCOUNTER 2023-12-21 14:33 | Inpatient (IN) | payer OTHER ==
[2023-12-21 14:47] VITALS: BMI 27.1
[2023-12-21] MEDS ORDERED: VANCOMYCIN 1,500 MG in DEXTROSE 5%-WATER - 500 ML IVPB ONE (14:56)
[2023-12-21] MEDS ORDERED: PIPERACILLIN/TAZOB 4.5 GM 4.5 GM/100 ML BAG IVPB ONE (16:23)
[2023-12-21] MEDS ORDERED: ACETAMINOPHEN INJECTION 100 ML IVPB ONE (16:23)
[2023-12-21] MEDS: ACETAMINOPHEN 1000 MG/100 ML BAG IVPB ONE (16:32)
[2023-12-21] MEDS: SODIUM CHLORIDE 0.9% 1000 ML INFUS.BAG IV STA (16:33)
[2023-12-21 16:38] LABS: HEMATOCRIT 36.8 % (32.4-45.2); HEMOGLOBIN 11.8 GM/dL (10.7-15.3); MCH 27.3 pg (25.7-33.7); MEAN CELL VOLUME 85.2 fl (80-96); MEAN PLT VOLUME 7.4 fl (7.5-11.1); PLATELET COUNT 304 10^3/uL (134-434); RBC 4.32 M/mm3 (3.60-5.2); RDW 15.1 % (11.6-15.6); WHITE BLOOD COUNT 9.5 K/mm3 (4.0-10.0)
[2023-12-21 16:43] LABS: INR 0.95 (0.83-1.09); PROTHROMBIN TIME (PATIENT) 10.8 SEC (9.7-13.0)
[2023-12-21 16:44] LABS: VENOUS BASE EXCESS 1.1 mmol/L (-2-2); VENOUS O2 SATURATION 29.7 % (70-80); VENOUS PCO2 44.1 mmHg (38-52); VENOUS PH 7.393 (7.310-7.410)
[2023-12-21 16:46] LABS: ACTIVATED PTT 24.9 SECONDS (25.2-36.5)
[2023-12-21 16:56] LABS: POTASSIUM 3.9 mmol/L (3.5-5.1)
[2023-12-21 16:58] LABS: CALCIUM 9.2 mg/dL (8.5-10.1)
[2023-12-21 16:59] LABS: ALBUMIN 3.1 g/dl (3.4-5.0)
[2023-12-21 17:02] LABS: CREATININE 0.7 mg/dL (0.55-1.3)
[2023-12-21 17:03] LABS: BILIRUBIN,TOTAL 0.4 mg/dL (0.2-1)
[2023-12-21 17:04] LABS: TOT PROT 7.2 g/dl (6.4-8.2)
[2023-12-21 17:34] LABS: ANISOCYTOSIS 1+; MACROCYTOSIS 0
[2023-12-21] MEDS: PIPERACILLIN/TAZOBACTAM 4.5 GM VIAL IVPB ONE (18:15)
[2023-12-21 18:19] LABS: URINE APPEARANCE CLEAR; URINE BILIRUBIN NEGATIVE (NEGATIVE); URINE COLOR YELLOW; URINE GLUCOSE (UA) NEGATIVE (NEGATIVE); URINE KETONE NEGATIVE (NEGATIVE); URINE LEUK ESTERASE NEGATIVE (NEGATIVE); URINE NITRITE NEGATIVE (NEGATIVE); URINE PROTEIN NEGATIVE (NEGATIVE); URINE UROBILINOGEN 0.2 mg/dL (0.2-1.0)
[2023-12-21 18:44] LABS: ERYTHROCYTE SEDIMENTATION RATE 38 mm/hr (0-30)
[2023-12-21] MEDS: VANCOMYCIN PREMIX 1.5 GM 1,500 MG/300 ML BAG IVPB ONE (19:55)
[2023-12-21] MEDS ORDERED: DOCUSATE SODIUM 100 MG CAPSULE (FP) PO PRN (20:51)
[2023-12-22] MEDS: ACETAMINOPHEN 1000 MG/100 ML BAG IVPB PRN (01:16)
[2023-12-22] MEDS: PIPERACILLIN/TAZOB 3.375 GM 3.375 GM in DEXTROSE 5%-WATER - 50 ML IVPB SCH (01:18)
[2023-12-22] MEDS: VANCOMYCIN/WATER FOR INJ (PEG) 1,000 MG/200 ML BAG IVPB SCH (08:41)
[2023-12-22 09:07] LABS: HEMATOCRIT 32.4 % (32.4-45.2); HEMOGLOBIN 10.4 GM/dL (10.7-15.3); MCH 27.2 pg (25.7-33.7); MCHC 32.2 g/dl (32.0-36.0); MEAN CELL VOLUME 84.5 fl (80-96); MEAN PLT VOLUME 7.8 fl (7.5-11.1); PLATELET COUNT 235 10^3/uL (134-434); RBC 3.83 M/mm3 (3.60-5.2); RDW 14.7 % (11.6-15.6); WHITE BLOOD COUNT 17.2 K/mm3 (4.0-10.0)
[2023-12-22 09:18] LABS: POTASSIUM 3.9 mmol/L (3.5-5.1)
[2023-12-22 09:23] LABS: BLOOD UREA NITROGEN 9.9 mg/dL (7-18); CALCIUM 8.3 mg/dL (8.5-10.1); MAGNESIUM 1.9 mg/dL (1.8-2.4)
[2023-12-22 09:27] LABS: CREATININE 0.6 mg/dL (0.55-1.3); PHOSPHOROUS 3.8 mg/dL (2.5-4.9)
[2023-12-22 09:36] LABS: ANISOCYTOSIS 0; MACROCYTOSIS 0
[2023-12-22] MEDS: ASCORBIC ACID 500 MG TABLET (FP) PO SCH (11:59)
[2023-12-22] MEDS: ERGOCALCIFEROL (VIT D2) 50,000 UNIT (1.25 MG) CAPSULE PO SCH (11:59)
[2023-12-22] MEDS: POLYETHYLENE GLYCOL (HEALTHYLAX) 3350 17 GM PACKET PO SCH (12:00)
[2023-12-22] MEDS: FLUTICASONE PROP 0.05% 16 GM NASAL SPRAY NS SCH (12:00)
[2023-12-22] MEDS: PIPERACILLIN/TAZOB 4.5 GM 4.5 GM in DEXTROSE 5%-WATER 100 ML IVPB SCH (12:00)
[2023-12-22 14:07] VITALS: RESP 18
[2023-12-22] MEDS: HEPARIN NA (PORCINE) 5,000 UNITS/ML 1ML VIAL SQ SCH (15:04)
[2023-12-22] MEDS: ACETAMINOPHEN 500 MG TABLET (FP) PO ONE (20:24)
[2023-12-22] MEDS ORDERED: ACETAMINOPHEN 325 MG TABLET (FP) ONE (20:33)
[2023-12-22] MEDS: VANCOMYCIN/WATER 1250 MG 1,250 MG/250 ML BAG IVPB SCH (21:50)
[2023-12-23 09:57] LABS: BASO % 0.3 % (0-2.0); EOS % 0.4 % (0-4.5); HEMATOCRIT 35.2 % (32.4-45.2); HEMOGLOBIN 11.4 GM/dL (10.7-15.3); MCH 27.6 pg (25.7-33.7); MCHC 32.4 g/dl (32.0-36.0); MEAN CELL VOLUME 85.3 fl (80-96); MEAN PLT VOLUME 7.7 fl (7.5-11.1); MONO % 3.9 % (3.8-10.2); NEUT % 88.4 % (42.8-82.8); PLATELET COUNT 219 10^3/uL (134-434); RBC 4.13 M/mm3 (3.60-5.2); RDW 14.9 % (11.6-15.6); WHITE BLOOD COUNT 12.1 K/mm3 (4.0-10.0)
[2023-12-23 09:59] LABS: POTASSIUM 3.6 mmol/L (3.5-5.1)
[2023-12-23 10:03] LABS: CALCIUM 8.6 mg/dL (8.5-10.1)
[2023-12-23 10:04] LABS: BLOOD UREA NITROGEN 11.8 mg/dL (7-18)
[2023-12-23 10:07] LABS: CREATININE 0.6 mg/dL (0.55-1.3)
[2023-12-23] MEDS: ACETAMINOPHEN 325 MG TABLET (FP) PO PRN (13:14)
[2023-12-23] MEDS: KETOROLAC TROMETHAMINE 15 MG/ML VIAL IVPUSH ONE (18:59)
[2023-12-24] MEDS: MEROPENEM 1 GM in DEXTROSE 5%-WATER 100 ML IVPB SCH (17:56)
[2023-12-24] MEDS: KETOROLAC TROMETHAMINE 15 MG/ML VIAL IVPUSH ONE (18:52)
[2023-12-24] MEDS ORDERED: MEROPENEM 1 GM VIAL (RESTRICTED TO ID) IVPB ONE (21:16)
[2023-12-25] MEDS: MINERAL OIL/PET HY-PHL TOPICAL OINTMENT 454 GM JAR TP SCH (13:18)
[2023-12-25] MEDS: PIPERACILLIN/TAZOB 3.375 GM 3.375 GM in DEXTROSE 5%-WATER - 50 ML IVPB SCH (13:25)
[2023-12-25] MEDS: valACYclovir HCL 500 MG TABLET (FP) PO SCH (21:29)
[2023-12-26] MEDS: ACETAMINOPHEN 1000 MG/100 ML BAG IVPB PRN (23:24)
[2023-12-28 11:04] VITALS: TEMP 98.4
[2023-12-28 15:21] VITALS: BP 105/65; PULSE 79
== END 2023-12-28 16:32 | disposition home or self-care (01) | DRG 383 ==
LOC: JER 14:33 → JERBED 18:21 → J6S 21:10
PROVIDERS: ADMIT Internal Medicine; ATTEND Family Medicine
DX: L03.116 Cellulitis of left lower limb (principal); R78.81 Bacteremia; L97.929 Non-pressure chronic ulcer of unspecified part of left lower leg with unspecified severity; I87.8 Other specified disorders of veins; I89.0 Lymphedema, not elsewhere classified; K59.00 Constipation, unspecified; B00.2 Herpesviral gingivostomatitis and pharyngotonsillitis; E55.9 Vitamin D deficiency, unspecified; I45.10 Unspecified right bundle-branch block; B96.5 Pseudomonas (aeruginosa) (mallei) (pseudomallei) as the cause of diseases classified elsewhere; B96.83 Acinetobacter baumannii as the cause of diseases classified elsewhere; Z22.322 Carrier or suspected carrier of Methicillin resistant Staphylococcus aureus
CPT/HCPCS: 0241U-QW; 36415; 71045-TC-FY; 80048; 80053; 81003; 82803; 83605; 83735; 84100; 84484; 85025; 85610; 85651; 85730; 86140; 86850; 86900; 86901; 87040; 87070; 87081; 87086; 87186; 87205; 93005; 93010; 93970-TC; 99285-25; J0131; J1644